=== PATIENT | male | born 1965 | race Caucasian/White ===

== ENCOUNTER 2017-09-27 12:14 | Observation (INO) | payer BC, SELFPAY ==
[2017-09-27] VITALS (11 sets, daily range): BP systolic 115–140; BP diastolic 70–88; PULSE 59–82; RESP 14–18; TEMP 36.4–36.8; O2SAT 95–100; BMI 42.0; BMI 42.1; BMI 41.1
--- NOTE | 2017-09-27 12:23 | CT_ITS ---
STUDY: CT BRAIN WITHOUT CONTRAST REASON FOR EXAM: Male, 52 years old. Confusion. History of prior CVA. RADIATION DOSAGE (If Supplied By Facility): CTDIvol = ( 44.99 ) mGy, DLP = ( 745.49 ) mGycm TECHNIQUE: Transaxial CT imaging of the brain was performed without administration of intravenous contrast material. Individualized dose optimization techniques were used for this CT. COMPARISON: None. FINDINGS: Normal soft tissue structures. Normal calvarium. Normal size ventricles and extra-axial spaces for the patient's age. Normal white matter tracts of the cerebral hemispheres. Normal basal ganglia and thalami. Normal brainstem. Normal cerebellum. There is no intracranial hemorrhage. There are no findings of an acute ischemic infarction. Nodular mucosal thickening along the lateral wall of the left maxillary sinus. CT/Brain/Head without Contrast IMPRESSION: Normal unenhanced CT scan of the brain. Mild mucosal thickening of the left maxillary sinus. Electronically Signed: Kraig Lamb MD at 13:05 EST Tel [phone], Service support ,
--- NOTE | 2017-09-27 12:23 | EKG12_ITS ---
Test Reason : CONFUSION Blood Pressure : / mmHG Vent. Rate : 064 BPM Atrial Rate : 064 BPM P-R Int : 174 ms QRS Dur : 090 ms QT Int : 410 ms P-R-T Axes : 041 -25 -14 degrees QTc Int : 422 ms Normal sinus rhythm Leftward axis Confirmed by OREN JOHNSON, JAMAL ([id number]), script editor PEÑA DUTTA ([id number] on 09/28/2017 2:28:03 PM Referred By: ADA Confirmed By:JAMAL LOTT MD
--- NOTE | 2017-09-27 12:29 | ED.DCSUM_ITS ---
- ER Visit Summary Date of Service: 09/27/17 Chief Complaint: Infusion, unsteady gait, arm numbness History of Present Illness: The patient is a 52 M with history of 2 prior strokes, coronary vascular disease, and diabetes resents to the emergency department with confusion, arm numbness, and leg weakness. The patient symptoms began almost 3 hours ago. noticed that he was begin to have some complaints of some tingling in his left arm. Shortly thereafter, she noticed when he was on the phone he was having some slurred speech and difficulty with word finding. This had resolved. He began to have some worsening numbness in the arm but no definitive weakness. Squad was called. On squad arrival, the patient's weakness had resolved and he was brought in for further evaluation. The patient has had 2 prior strokes. He states his initial stroke presented with unsteady gait. He states his second stroke was more similar to this where he had confusion and fatigue and then ended up with weakness of his left leg. The patient is on aspirin and Plavix. Physical Examination: Initial NIH is 2. The patient receives 1 point for facial paresthesia. He receives 1 point for left leg numbness. He has no other focal neurologic deficits. Heart is regular. Lungs are clear. Abdomen is soft. Mental status is appropriate. Test Results: [] Emergency Department Course and Treatment: The patient has an examination that is concerning for stroke. His NIH is only 2. While in the emergency department , the weakness of his left lower extremity has improved. His repeat NIH is only one for paresthesias of the left arm. His head CT is unremarkable. There is chronic change but no acute abnormality. Screening labs relatively unremarkable. With the patient's history of prior stroke, I do feel he is likely going to need admission for MRI and neurology consultation. His NIH has improved and is less than for therefore TPA was not given. Patient was discussed with the hospitalist will be admitted. Treatment Plan: [] Disposition: [place] Impression:. 1. Left lower extremity weakness 2. Dysarthria 3. History of stroke This note was generated with [employer] software. It may contain incorrect words, spelling, and punctuation that were not noted in review of the chart prior to signing ED Disposition - Plan for ED Patient: Chief Complaint: Confusion Referrals: Rod Elena MD [Primary Care Provider] -
[2017-09-27 12:35] LABS: Bedside Glucose 282 mg/dL (70-110)
--- NOTE | 2017-09-27 12:45 | RAD_ITS ---
STUDY: X-RAY CHEST REASON FOR EXAM: Male, 52 years old. Cough. Confusion. TECHNIQUE: Single AP portable view of the chest. COMPARISON: Comparison is made with prior study dated June 03, 2016. FINDINGS: EKG electrodes are seen. The lungs are clear and expanded. There is no demonstrated pleural abnormality. There is borderline cardiomegaly. A small recording device is seen overlying the mid left hemithorax. Normal mediastinum and shani. Normal visualized pulmonary arteries. Normal visualized aortic arch and descending thoracic aorta. Normal visualized thoracic spine. Normal visualized ribs, clavicles, and shoulders. There is no demonstrated abnormality of the visualized soft tissue structures of the upper abdomen. RAD/Chest 1 View IMPRESSION: Borderline cardiomegaly. Electronically Signed: Kraig Lamb MD at 13:05 EST Tel [phone], Service support ,
[2017-09-27 12:49] LABS: Absolute Lymphocyte Count 2.68 X10^3/ul (0.83-4.51); Absolute Neutrophil Count 5.7 X10^3/uL (2.0-7.7); Basophil# 0.04 X10^3/uL; Basophil% 0.4 % (0-1); Eosinophils% 4.3 % (0-5); Hematocrit 46.9 % (40-54); Hemoglobin 16.3 g/dl (13.0-16.5); Lymphocyte # 2.68 X10^3/ul (4.0); Lymphocyte % 28.6 % (19-41); Mean Corp Hgb Conc 34.8 g/gl (32-36); Mean Corpuscular Volume 80.4 fL (80-94); Mean Platelet Vol. 9.3 fl (6.2-12.0); Monocyte# 0.52 X10^3/uL; Monocyte% 5.5 % (0-10); Neutrophil % 60.9 % (47-70); Platelet Count 184 K/mm3 (150-450); RBC Distribution Width CV 12.4 % (11.6-14.6); RBC Distribution Width SD 35.4 fl (35.1-43.9); Red Blood Count 5.83 M/mm3 (4.6-6.2); White Blood Count 9.4 K/mm3 (4.4-11.0)
[2017-09-27 12:54] LABS: Prothrombin Time (Protime)PT. 13.2 SECONDS (11.7-14.9)
[2017-09-27 12:55] LABS: POSITIVE COUNT NO; POSITIVE DIFFERENTIAL NO; POSITIVE MORPHOLOGY NO
[2017-09-27 13:07] LABS: Anion Gap 12 (5-15); BUN 16 mg/dL (7-18); Chloride 103 mmol/L (98-107); Creatinine, Serum 1.07 mg/dL (0.70-1.30); EST Glomerular Filtration Rate 77 mL/min (>60); Est Glom Filt Rate - Afr Amer 93 mL/min (>60); Estimated Creatinine Clearance 82.44 ml/min; Glucose 267 mg/dL (74-106); Sodium Level 139 mmol/L (136-145)
[2017-09-27] MEDS: 0.9% Normal Saline 1,000 ML 100 ML IV (13:13)
--- NOTE | 2017-09-27 14:42 | PCM.HP.STD ---
Problem List (1) Acute CVA (cerebrovascular accident) Status: Acute (2) Osteoarthritis Status: Chronic (3) Asthma Status: Chronic (4) Anxiety Status: Chronic (5) Tachycardia Status: Chronic (6) CAD (coronary artery disease) Status: Chronic (7) HTN (hypertension) Status: Chronic (8) DM2 (diabetes mellitus, type 2) Status: Chronic (9) History of myocardial infarction Status: Chronic History of Present Illness Date of Admission: 09/27/17 Chief Complaint: left sided weakness The patient is a 52 year old M with a hx of 2 ischemic strokes last year in April and May treated in [place], and severely uncontrolled T2DM, HTN, CAD, who presents to the ER with left sided leg weakness, left hand numbness, in addition to a change in speech reported by his and difficulty understanding speech spoken to him. This began about 10 o clock today suddenly while he was in outpatient PT. His prior strokes presented with acute right sided weakness, his 2nd stroke he was treated with TPA. His speech has improved, and his leg weakness has improved. He still has numbness in his left hand. He has very poorly uncontrolled DMt2 for which he is supposed to see an retail selling specialist in [place] - last A1C 11.5. He is on metformin and long and mealtime insulin. He has been taking aspirin and plavix since the strokes. He is on celebrex for arthritis. He has a loop recorder in place because he was thought to have Afib. He was evaluated by an EP doctor -Bianka - who supposedly said no Afib was seen although he has had tachycardic events. He states he is allowed to have an MRI with his loop recorder. [] Past Medical History Past Medical History (Chronic Problems): Chronic Problems Osteoarthritis (Chronic) Asthma (Chronic) Anxiety (Chronic) Tachycardia (Chronic) CAD (coronary artery disease) (Chronic) HTN (hypertension) (Chronic) DM2 (diabetes mellitus, type 2) (Chronic) History of myocardial infarction (Chronic) Allergies levofloxacin [From Levaquin] Allergy (Verified 09/27/17 14:08) rash,swelling RED RASH, SWELLING Penicillins Allergy (Verified 09/27/17 12:15) Rash Home Medications: Ambulatory Orders Medication Instructions Recorded Febuxostat [Uloric] 40 mg PO DAILY 09/17/14 Albuterol Inhaler [Ventolin Hfa 1 puff INHALATION Q4H PRN PRN 01/28/15 (SP)] Celecoxib [Celebrex] 200 mg PO DAILY 01/28/15 Cyclobenzaprine [Flexeril] 10 mg PO TID PRN PRN 01/28/15 Losartan/Hydrochlorothiazide 1 tab PO DAILY 01/28/15 [Hyzaar 100-25 Tablet] Sertraline HCl [Zoloft] 100 mg PO DAILY 01/28/15 Insulin Detemir [Levemir Flextouch] 36 unit SQ QHS 12/29/15 Insulin Lispro Protamin/Lispro 11 unit SQ DINNER 12/29/15 [Humalog Mix 75-25 Vial] Insulin Lispro Protamin/Lispro 11 unit SQ LUNCH 12/29/15 [Humalog Mix 75-25 Vial] Insulin Lispro Protamin/Lispro 13 unit SQ BREAKFAST 12/29/15 [Humalog Mix 75-25 Vial] Lorazepam [Ativan] 0.5 mg PO DAILY PRN PRN 12/29/15 Metformin HCl [Metformin HCl ER] 2,000 mg PO BID 12/29/15 Aspirin [Adult Low Dose Aspirin EC] 81 mg PO DAILY 06/03/16 Cetirizine HCl [Zyrtec] 10 mg PO DAILY 06/03/16 Atorvastatin Calcium 80 mg PO DAILY 09/27/17 Clopidogrel Bisulfate [Plavix] 75 mg PO DAILY 09/27/17 Diltiazem CD [Cardizem CD] 180 mg PO DAILY 09/27/17 Surgical History: cholecystectomy, - - loop monitor Psychiatric History: Anxiety, Depression Lives: Spouse/ Significant Other Smoking Status: Never smoker Tobacco Use: Non-smoker Alcohol: None Drugs: None - *Family History Sibling History Items: Diabetes, Heart Disease, Hypertension Maternal History Items: Stroke Paternal History Items: Heart Disease Review of Systems Constitutional: Denies: Chills, Fever, Weight Change HEENT: Denies: Head Aches, Sinus Congestion, Sinus Drainage Cardiovascular: Denies: Chest Pain, Palpitations Respiratory: Denies: Cough, Shortness of breath at rest, Sputum production Gastrointestinal: Denies: Abdominal Pain, Nausea, Vomiting Genitourinary: Denies: Dysuria Musculoskeletal: Denies: Joint Pain, Joint Tenderness Skin: Denies: Rash, Wounds Neurological: Denies: Numbness, Tingling, Focal weakness Psychiatric: Denies: Anxiety, Depression, Homicidal Ideations, Suicidal Ideations Hematologic/ Lymphatic: Denies: Easy Bruising, Easy Bleeding VTE Information - Inpt Only VTE Present on Admission: No VTE Mechan Device Prophylaxis: SCD's VTE Pharm Prophylaxis ordered?: Yes Reason prophylaxis not ordered:: Adverse Reaction to Drug Patient Problems: Active and Suspected Problems Acute CVA (cerebrovascular accident) (Acute) - Physical Exam General: Alert, Oriented x3, Cooperative HEENT: Atraumatic, PERRLA, EOMI, Normocephalic Neck: Supple, No JVD, Negative Carotid Bruits Lungs: Clear to auscultation, Normal air movement Cardiovascular: Regular rate, No murmurs Abdomen: Bowel Sounds Present, Soft, Non Tender Extremities: No edema, Capillary Refill Less than 3 Seconds Skin: No rashes, No breakdown Musculoskeletal: No Tenderness to Palpation of Joints or Extremities Neurological: Cranial nerves II-XII grossly intact Psych/Mental Status: Normal Affect, Appropriate Vital Signs Temp Pulse Resp BP Pulse Ox 98.2 F 80 14 132/70 H 98 09/27/17 12:16 09/27/17 14:24 09/27/17 14:24 09/27/17 14:24 09/27/17 14:24 Oxygen Flow Rate 2 Oxygen Delivery Method Room Air Weight: 133 kg Body Mass Index (BMI) 42.0 Finger Stick Blood Glucose 282 Laboratory Tests Past 24 Hrs 09/27/17 09/27/17 09/27/17 12:39 12:39 12:39 WBC 9.4 RBC 5.83 Hgb 16.3 Hct 46.9 MCV 80.4 MCH 28.0 MCHC 34.8 RDW 12.4 RDW Differential 35.4 Plt Count 184 MPV 9.3 Immature Gran % (Auto) 0.300 Neut % (Auto) 60.9 Lymph % (Auto) 28.6 [place] % (Auto) 5.5 Eos % (Auto) 4.3 Baso % (Auto) 0.4 Absolute Neuts (auto) 5.7 Absolute Lymphs (auto) 2.68 Total Counted Not Reportable PT 13.2 INR 1.0 APTT 23.0 L Sodium 139 Potassium 4.0 Chloride 103 Carbon Dioxide 24.0 Anion Gap 12 BUN 16 Creatinine 1.07 Estim Creat Clear Calc 82.44 Est GFR (MDRD) Af Amer 93 Est GFR (MDRD) Non-Af 77 BUN/Creatinine Ratio 15.0 Glucose 267 H Calcium 9.0 Troponin I < 0.02 POC Glucose 09/27/17 12:19 POC Glucose 282 H Assessment/Plan Active and Suspected Problems Acute CVA (cerebrovascular accident) (Acute) 1. Acute CVA - CT brain neg. Left sided leg weakness (resolved), left arm numbness, difficulty speaking and understanding speech (resolved) - prior left sided stroke with right sided symptoms. Consult to neuro, he follows with [facility]. Continue aspirin, plavix, high dose statin. Recently had JEMMA in july so will defer repeating. Defer MRAs for now. Repeat MRI brain. This is likely 2/2 poorly controlled DMt2. Recent A1C 11.5. -MRI from April 2017 demonstrates small area of resected effusion in the left parietal periventricular white matter compatible with an area of subacute infarct -MRI of the brain in June demonstrated an old small white matter infarct in left parietal lobe -MRA neck april negative. 2. T2DM - change levemir dose to BID scheduling. Will continue metformin for now. Continue TID mealtime dosing and aggressively titrate up his insulin regimen. 3. HTN - stable in ER. On HCTZ/Losartan 4. Asthma - respiratory status stable. 5. Unspecified tachyarrhythmia - has loop recorder, reportedly no Afib. Maintain on tele. Continue Cardizem. 6. Anxiety - home meds 7. Hx CAD 8. Arthritis - discontinue celebrex as it is contraindicated with aspirin/plavix, stroke, and CAD. DVT ppx: lovenox DC planning: PTOT This patient was seen by Thom Flores PA-C under the supervision of Doctor Lewis.
--- NOTE | 2017-09-27 14:54 | HP.PCM_ITS ---
Problem List (1) Acute CVA (cerebrovascular accident) Status: Acute (2) Osteoarthritis Status: Chronic (3) Asthma Status: Chronic (4) Anxiety Status: Chronic (5) Tachycardia Status: Chronic (6) CAD (coronary artery disease) Status: Chronic (7) HTN (hypertension) Status: Chronic (8) DM2 (diabetes mellitus, type 2) Status: Chronic (9) History of myocardial infarction Status: Chronic History of Present Illness Date of Admission: 09/27/17 Chief Complaint: left sided weakness The patient is a 52 year old M with a hx of 2 ischemic strokes last year in April and May treated in [place], and severely uncontrolled T2DM, HTN, CAD , who presents to the ER with left sided leg weakness, left hand numbness, in addition to a change in speech reported by his and difficulty understanding speech spoken to him. This began about 10 o clock today suddenly while he was in outpatient PT. His prior strokes presented with acute right sided weakness, his 2nd stroke he was treated with TPA. His speech has improved , and his leg weakness has improved. He still has numbness in his left hand. He has very poorly uncontrolled DMt2 for which he is supposed to see an security trainer in [place] - last A1C 11.5. He is on metformin and long and mealtime insulin. He has been taking aspirin and plavix since the strokes. He is on celebrex for arthritis. He has a loop recorder in place because he was thought to have Afib. He was evaluated by an EP doctor -Bianka - who supposedly said no Afib was seen although he has had tachycardic events. He states he is allowed to have an MRI with his loop recorder. [] Past Medical History Past Medical History (Chronic Problems): Chronic Problems Osteoarthritis (Chronic) Asthma (Chronic) Anxiety (Chronic) Tachycardia (Chronic) CAD (coronary artery disease) (Chronic) HTN (hypertension) (Chronic) DM2 (diabetes mellitus, type 2) (Chronic) History of myocardial infarction (Chronic) Allergies levofloxacin [From Levaquin] Allergy (Verified 09/27/17 14:08) rash,swelling RED RASH, SWELLING Penicillins Allergy (Verified 09/27/17 12:15) Rash Home Medications: Ambulatory Orders Medication Instructions Recorded Febuxostat [Uloric] 40 mg PO DAILY 09/17/14 Albuterol Inhaler [Ventolin Hfa 1 puff INHALATION Q4H PRN PRN 01/28/15 (SP)] Celecoxib [Celebrex] 200 mg PO DAILY 01/28/15 Cyclobenzaprine [Flexeril] 10 mg PO TID PRN PRN 01/28/15 Losartan/Hydrochlorothiazide 1 tab PO DAILY 01/28/15 [Hyzaar 100-25 Tablet] Sertraline HCl [Zoloft] 100 mg PO DAILY 01/28/15 Insulin Detemir [Levemir Flextouch] 36 unit SQ QHS 12/29/15 Insulin Lispro Protamin/Lispro 11 unit SQ DINNER 12/29/15 [Humalog Mix 75-25 Vial] Insulin Lispro Protamin/Lispro 11 unit SQ LUNCH 12/29/15 [Humalog Mix 75-25 Vial] Insulin Lispro Protamin/Lispro 13 unit SQ BREAKFAST 12/29/15 [Humalog Mix 75-25 Vial] Lorazepam [Ativan] 0.5 mg PO DAILY PRN PRN 12/29/15 Metformin HCl [Metformin HCl ER] 2,000 mg PO BID 12/29/15 Aspirin [Adult Low Dose Aspirin EC] 81 mg PO DAILY 06/03/16 Cetirizine HCl [Zyrtec] 10 mg PO DAILY 06/03/16 Atorvastatin Calcium 80 mg PO DAILY 09/27/17 Clopidogrel Bisulfate [Plavix] 75 mg PO DAILY 09/27/17 Diltiazem CD [Cardizem CD] 180 mg PO DAILY 09/27/17 Surgical History: cholecystectomy, - - loop monitor Psychiatric History: Anxiety, Depression Lives: Spouse/ Significant Other Smoking Status: Never smoker Tobacco Use: Non-smoker Alcohol: None Drugs: None - *Family History Sibling History Items: Diabetes, Heart Disease, Hypertension Maternal History Items: Stroke Paternal History Items: Heart Disease Review of Systems Constitutional: Denies: Chills, Fever, Weight Change HEENT: Denies: Head Aches, Sinus Congestion, Sinus Drainage Cardiovascular: Denies: Chest Pain, Palpitations Respiratory: Denies: Cough, Shortness of breath at rest, Sputum production Gastrointestinal: Denies: Abdominal Pain, Nausea, Vomiting Genitourinary: Denies: Dysuria Musculoskeletal: Denies: Joint Pain, Joint Tenderness Skin: Denies: Rash, Wounds Neurological: Denies: Numbness, Tingling, Focal weakness Psychiatric: Denies: Anxiety, Depression, Homicidal Ideations, Suicidal Ideations Hematologic/ Lymphatic: Denies: Easy Bruising, Easy Bleeding VTE Information - Inpt Only VTE Present on Admission: No VTE Mechan Device Prophylaxis: SCD's VTE Pharm Prophylaxis ordered?: Yes Reason prophylaxis not ordered:: Adverse Reaction to Drug Patient Problems: Active and Suspected Problems Acute CVA (cerebrovascular accident) (Acute) - Physical Exam General: Alert, Oriented x3, Cooperative HEENT: Atraumatic, PERRLA, EOMI, Normocephalic Neck: Supple, No JVD, Negative Carotid Bruits Lungs: Clear to auscultation, Normal air movement Cardiovascular: Regular rate, No murmurs Abdomen: Bowel Sounds Present, Soft, Non Tender Extremities: No edema, Capillary Refill Less than 3 Seconds Skin: No rashes, No breakdown Musculoskeletal: No Tenderness to Palpation of Joints or Extremities Neurological: Cranial nerves II-XII grossly intact Psych/Mental Status: Normal Affect, Appropriate Vital Signs Temp Pulse Resp BP Pulse Ox 98.2 F 80 14 132/70 H 98 09/27/17 12:16 09/27/17 14:24 09/27/17 14:24 09/27/17 14:24 09/27/17 14:24 Oxygen Flow Rate 2 Oxygen Delivery Method Room Air Weight: 133 kg Body Mass Index (BMI) 42.0 Finger Stick Blood Glucose 282 Laboratory Tests Past 24 Hrs 09/27/17 09/27/17 09/27/17 12:39 12:39 12:39 WBC 9.4 RBC 5.83 Hgb 16.3 Hct 46.9 MCV 80.4 MCH 28.0 MCHC 34.8 RDW 12.4 RDW Differential 35.4 Plt Count 184 MPV 9.3 Immature Gran % (Auto) 0.300 Neut % (Auto) 60.9 Lymph % (Auto) 28.6 [place] % (Auto) 5.5 Eos % (Auto) 4.3 Baso % (Auto) 0.4 Absolute Neuts (auto) 5.7 Absolute Lymphs (auto) 2.68 Total Counted Not Reportable PT 13.2 INR 1.0 APTT 23.0 L Sodium 139 Potassium 4.0 Chloride 103 Carbon Dioxide 24.0 Anion Gap 12 BUN 16 Creatinine 1.07 Estim Creat Clear Calc 82.44 Est GFR (MDRD) Af Amer 93 Est GFR (MDRD) Non-Af 77 BUN/Creatinine Ratio 15.0 Glucose 267 H Calcium 9.0 Troponin I < 0.02 POC Glucose 09/27/17 12:19 POC Glucose 282 H Assessment/Plan Active and Suspected Problems Acute CVA (cerebrovascular accident) (Acute) 1. Acute CVA - CT brain neg. Left sided leg weakness (resolved), left arm numbness, difficulty speaking and understanding speech (resolved) - prior left sided stroke with right sided symptoms. Consult to neuro, he follows with [place] [facility]. Continue aspirin, plavix, high dose statin. Recently had JEMMA in july so will defer repeating. Defer MRAs for now. Repeat MRI brain. This is likely 2/2 poorly controlled DMt2. Recent A1C 11.5. -MRI from April 2017 demonstrates small area of resected effusion in the left parietal periventricular white matter compatible with an area of subacute infarct -MRI of the brain in June demonstrated an old small white matter infarct in left parietal lobe -MRA neck april negative. 2. T2DM - change levemir dose to BID scheduling. Will continue metformin for now. Continue TID mealtime dosing and aggressively titrate up his insulin regimen. 3. HTN - stable in ER. On HCTZ/Losartan 4. Asthma - respiratory status stable. 5. Unspecified tachyarrhythmia - has loop recorder, reportedly no Afib. Maintain on tele. Continue Cardizem. 6. Anxiety - home meds 7. Hx CAD 8. Arthritis - discontinue celebrex as it is contraindicated with aspirin/plavix , stroke, and CAD. DVT ppx: lovenox DC planning: PTOT This patient was seen by Thom Flores PA-C under the supervision of Doctor Lewis.
--- NOTE | 2017-09-27 15:55 | MRI_ITS ---
MR Brain W/O Contrast INDICATION: CVAleft sided weakness, speech change today, hx 2 prev strokes with rt sided weakness 04/2017 and 06/2017 COMPARISON: None TECHNIQUE: Multiplanar multisequence MRI examination of the brain without contrast FINDINGS: There is no evidence of restricted diffusion to suggest acute infarction. There is a focal area of signal hyperintensity in the left parietal white matter, compatible with given history of prior focal infarct. There are no underlying chronic ischemic microvascular white matter changes of the supra and infratentorial brain parenchyma demonstrates otherwise normal signal. Flow voids of the [place] of [place] vascularity are present. There is mucosal thickening in the left maxillary sinus. Reminder of the paranasal sinuses and the mastoid air cells are clear. MRI/Brain without Contrast IMPRESSION: Small focal signal hyperintensity in the left parietal white matter, may represent a remote focal area of infarction, given the patient's history. No acute stroke. Left maxillary sinus disease. at 1834 Reported and signed by: Liz Drake MD Electronically Signed: Liz Drake MD at 17:32 EST Tel , Service support ,
[2017-09-27 16:11] LABS: Bedside Glucose 151 mg/dL (70-110)
--- NOTE | 2017-09-27 16:32 | NURSING ---
Home med list updated, primary nurse aware.
[2017-09-27] MEDS: Acetaminophen 325 MG Tablet 650 MG PO (21:18)
[2017-09-27 23:06] LABS: Bedside Glucose 134 mg/dL (70-110)
[2017-09-28] VITALS (9 sets, daily range): BP systolic 108–145; BP diastolic 64–92; PULSE 71–87; RESP 16–18; TEMP 36.7–36.9; O2SAT 95–98; BMI 41.1
[2017-09-28 07:01] LABS: Bedside Glucose 257 mg/dL (70-110)
--- NOTE | 2017-09-28 09:29 | MRI_ITS ---
STUDY: MRI CERVICAL SPINE WITHOUT CONTRAST REASON FOR EXAM: Male, 52 years old. L SIDED WAEKNESS, NUMBNESS AND TINGLING. TECHNIQUE: Standardized fat and water weighted pulse sequences were obtained in the sagittal and axial planes. COMPARISON: None FINDINGS: Normal foramen magnum and brainstem-cervical cord junction. Normal craniovertebral junction. Normal anterior atlantoaxial articulation. Normal odontoid process. Normal cervical lordosis. Normal vertebral bodies and posterior osseous elements. C2-3: Normal endplates. Normal disc height, signal and morphology. Normal central canal and intervertebral neural foramina. C3-4: Normal endplates. Normal disc height, signal and morphology. Normal central canal and intervertebral neural foramina. C4-5: Normal endplates. Normal disc height, signal and morphology. Normal central canal and intervertebral neural foramina. C5-6: Normal endplates. Normal disc height, signal and morphology. Normal central canal and intervertebral neural foramina. C6-7: Normal endplates. Normal disc height, signal and morphology. Normal central canal and intervertebral neural foramina. C7-T1: Normal endplates. Normal disc height, signal and morphology. Normal central canal and intervertebral neural foramina. Normal cervical cord. Normal visualized soft tissue structures. MRI/Spine Cervical (Routine) IMPRESSION: Normal unenhanced MR examination of the cervical spine. Electronically Signed: Constantine Weaver MD at 13:40 EST Tel , Service support ,
--- NOTE | 2017-09-28 10:12 | MRI_ITS ---
STUDY: MRI LUMBAR SPINE WITHOUT CONTRAST REASON FOR EXAM: Male, 52 years old. Leg weakness L SIDED WAEKNESS, NUMBNESS AND TINGLING, H/O PRIOR STROKE BUT ON OPPOSITE SIDE TECHNIQUE: Standardized fat and water weighted pulse sequences were obtained in the sagittal and axial planes. COMPARISON: None FINDINGS: T12-L1: Normal endplates. Normal disc height, hydration and morphology. Normal bilateral facet joints. Normal central canal and bilateral lateral recesses. Normal bilateral intervertebral neural foramina. Normal lumbar lordosis. There is no substantial scoliosis. Normal conus medullaris that terminates at the L1 level. L1-2: Normal endplates. Normal disc height, hydration and morphology. Normal bilateral facet joints. Normal central canal and bilateral lateral recesses. Normal bilateral intervertebral neural foramina. L2-3: Endplate spondylosis. Decreased disc height and small circumferential disc bulge. Degenerative changes of the bilateral facet joints. Mild narrowing of the central canal and bilateral intervertebral neural foramina. L3-4: Endplate spondylosis. Decreased disc height and moderate sized circumferential disc bulge. Degenerative changes of the bilateral facet joints. Moderate narrowing of the central canal and bilateral intervertebral neural foramina. L4-5: Endplate spondylosis. Decreased disc height and moderate sized circumferential disc bulge. Superimposed left foraminal disc herniation impinging on the left L4 nerve root. Degenerative changes of the bilateral facet joints. Severe narrowing of the central canal. Moderate right and severe left intervertebral neural foramina. L5-S1: Endplate spondylosis. Decreased disc height and small circumferential disc bulge. Degenerative changes of the bilateral facet joints. Mild narrowing of the central canal and bilateral intervertebral neural foramina. Normal visualized sacral ala. There is a right renal cyst. MRI/Spine Lumbar (Routine) IMPRESSION: Multilevel degenerative changes worse at L4-5, left foraminal disc herniation at L4-5 as described above. Electronically Signed: Constantine Weaver MD at 20:12 EST Tel , Service support ,
[2017-09-28] MEDS: Aspirin E.C. 81 MG Tablet PO (10:21)
[2017-09-28] MEDS: FEBUXOSTAT 40 MG TABLET PO (10:21)
[2017-09-28] MEDS: dilTIAZem CD 180 MG Capsule PO (10:21)
[2017-09-28] MEDS: hydroCHLOROthiazide 25 MG Tablet PO (10:21)
[2017-09-28] MEDS: Clopidogrel Bisulfate 75 MG Tablet PO (10:21)
[2017-09-28] MEDS: Sertraline 100 MG Tablet PO (10:21)
[2017-09-28] MEDS: Losartan Potassium 100 MG Tablet PO (10:22)
[2017-09-28 11:01] LABS: Thyroid Stim Hormone (TSH) 1.61 uIU/mL (0.358-3.74)
[2017-09-28 12:35] LABS: Bedside Glucose 286 mg/dL (70-110)
--- NOTE | 2017-09-28 12:49 | PCM.CONS.GEN ---
Reason for Consult Date of Consultation: 09/28/17 Reason for Consultation: left sided tingling and weakness History of Present Illness: The patient is a 52 year old M presents with his second episode of left sided paresthesias, the 1st event happened several months ago, reports resolved after ivtpa given at [facility] however mri at that time didnt show acute stroke, he did however have a stroke prior, in apr have a cva, from which he has recovered, but this affected the right side. denies trigger. reports bp has been controlled at home, until two days ago. sugars uncontrolled. no tob, no etoh. reports anxiety and depression controlled. has been told to have psg in the past, snores and has eds per h&p-:The patient is a 52 year old M with a hx of 2 ischemic strokes last year in April and May treated in [place], and severely uncontrolled T2DM, HTN, CAD, who presents to the ER with left sided leg weakness, left hand numbness, in addition to a change in speech reported by his and difficulty understanding speech spoken to him. This began about 10 o clock today suddenly while he was in outpatient PT. His prior strokes presented with acute right sided weakness, his 2nd stroke he was treated with TPA. His speech has improved, and his leg weakness has improved. He still has numbness in his left hand. He has very poorly uncontrolled DMt2 for which he is supposed to see an smt technician in [place] - last A1C 11.5. He is on metformin and long and mealtime insulin. He has been taking aspirin and plavix since the strokes. He is on celebrex for arthritis. He has a loop recorder in place because he was thought to have Afib. He was evaluated by an EP doctor -Bianka - who supposedly said no Afib was seen although he has had tachycardic events. He states he is allowed to have an MRI with his loop recorder. Past Medical History Past Medical History (Chronic Problems): Chronic Problems Osteoarthritis (Chronic) Asthma (Chronic) Anxiety (Chronic) Tachycardia (Chronic) CAD (coronary artery disease) (Chronic) HTN (hypertension) (Chronic) DM2 (diabetes mellitus, type 2) (Chronic) History of myocardial infarction (Chronic) Allergies levofloxacin [From Levaquin] Allergy (Verified 09/27/17 14:08) rash,swelling RED RASH, SWELLING Penicillins Allergy (Verified 09/27/17 12:15) Rash Home Medications: Ambulatory Orders Medication Instructions Recorded Febuxostat [Uloric] 40 mg PO DAILY 09/17/14 Albuterol Inhaler [Ventolin Hfa 1 puff INHALATION Q4H PRN PRN 01/28/15 (SP)] Celecoxib [Celebrex] 200 mg PO BID 01/28/15 Cyclobenzaprine [Flexeril] 10 mg PO TID PRN PRN 01/28/15 Losartan/Hydrochlorothiazide 1 tab PO DAILY 01/28/15 [Hyzaar 100-25 Tablet] Sertraline HCl [Zoloft] 200 mg PO DAILY 01/28/15 Insulin Detemir [Levemir Flextouch] 56 unit SQ QHS 12/29/15 Lorazepam [Ativan] 0.5 mg PO Q6H PRN PRN 12/29/15 Metformin HCl [Metformin HCl ER] 2,000 mg PO BID 12/29/15 Aspirin [Adult Low Dose Aspirin EC] 81 mg PO DAILY 06/03/16 Cetirizine HCl [Zyrtec] 10 mg PO DAILY 06/03/16 Atorvastatin Calcium 80 mg PO QHS 09/27/17 Clopidogrel Bisulfate [Plavix] 75 mg PO DAILY 09/27/17 Diltiazem HCl [Diltiazem 12Hr ER] 60 mg PO BID 09/27/17 Insulin Lispro [Humalog] 28 unit SC TIDCM 09/27/17 Surgical History: cholecystectomy, - - loop monitor Psychiatric History: Anxiety, Depression Lives: Spouse/ Significant Other Smoking Status: Never smoker Tobacco Use: Non-smoker Alcohol: None Drugs: None - *Family History Maternal History Items: Stroke Paternal History Items: Heart Disease Sibling History Items: Diabetes, Heart Disease, Hypertension Review of Systems Constitutional: Denies: Chills, Fever, Weight Change HEENT: Denies: Head Aches, Sinus Congestion, Sinus Drainage Cardiovascular: Denies: Chest Pain, Palpitations Respiratory: Denies: Cough, Shortness of breath at rest, Sputum production Gastrointestinal: Denies: Abdominal Pain, Nausea, Vomiting Genitourinary: Denies: Dysuria Musculoskeletal: Denies: Joint Pain, Joint Tenderness Skin: Denies: Rash, Wounds Neurological: Denies: Numbness, Tingling, Focal weakness Psychiatric: Denies: Anxiety, Depression, Homicidal Ideations, Suicidal Ideations Hematologic/ Lymphatic: Denies: Easy Bruising, Easy Bleeding Patient Problems: Active and Suspected Problems Acute CVA (cerebrovascular accident) (Acute) - Physical Exam General: Alert, Oriented x3, Cooperative HEENT: Atraumatic, PERRLA, EOMI, Normocephalic Neck: Supple, No JVD, Negative Carotid Bruits Lungs: Clear to auscultation, Normal air movement Cardiovascular: Regular rate, No murmurs Abdomen: Bowel Sounds Present, Soft, Non Tender Extremities: No edema, Capillary Refill Less than 3 Seconds Skin: No rashes, No breakdown Musculoskeletal: No Tenderness to Palpation of Joints or Extremities Neurological: Cranial nerves II-XII grossly intact Psych/Mental Status: Normal Affect, Appropriate Vital Signs Temp Pulse Resp BP Pulse Ox 36.7 C 71 16 145/92 H 97 09/28/17 08:00 09/28/17 08:00 09/28/17 08:00 09/28/17 08:00 09/28/17 08:00 Oxygen Delivery Method Room Air Weight: 133.7 kg Body Mass Index (BMI) 41.1 Intake and Output for Last 24 Hours 09/26/17 09/27/17 09/28/17 23:59 23:59 23:59 Intake Total 878 / 878 1231 / 1231 Output Total 800 / 800 Balance 878 / 878 431 / 431 POC Glucose 09/28/17 09/28/17 09/27/17 12:21 06:48 21:10 POC Glucose 286 H 257 H 134 H 09/27/17 16:07 POC Glucose 151 H mri brain and c and l spine normal, reviewed, no acute Assessment/Plan Active and Suspected Problems Acute CVA (cerebrovascular accident) (Acute) left paresthesias, no cva by mri, continue asa outpt psg initiate qhs elavil pt/ot ok to dc from neuro rec strict bs and bp control
--- NOTE | 2017-09-28 12:52 | PCM.PROGNOTE ---
<Thom Flores - Last Filed: 09/28/17 12:52> Patient Problems: Active and Suspected Problems Acute CVA (cerebrovascular accident) (Acute) Subjective: Patient continues to report left-sided numbness in his hand, weakness in his left leg. He had some dizziness today as well when he was up. No speech difficulties reported, and does not seem to be having trouble understanding conversation. No nausea or vomiting. He presented with new onset of speech difficulties, difficulty understanding what some he was saying to him on the phone, left leg weakness and left hand numbness. This is different than his prior strokes which he had symptoms on the right side. Symptoms were sudden onset yesterday morning during physical therapy as an outpatient. He was pleased that his blood sugar reading this morning came in under 200, he has not seen his blood sugar under 200 and a long time. He also requested to follow-up with an endocrinology office in the area as he has not been able to get into the car framer in [place]. I would recommend him seeing [facility] shock here was to hospital after his discharge. - Physical Exam General: Alert, Oriented x3, Cooperative HEENT: Atraumatic, PERRLA, EOMI, Normocephalic Neck: Supple, No JVD, Negative Carotid Bruits, - - No focal tenderness on palpation of the cervical spine Lungs: Clear to auscultation, Normal air movement Cardiovascular: Regular rate, No murmurs Abdomen: Bowel Sounds Present, Soft, Non Tender Extremities: No edema, Capillary Refill Less than 3 Seconds Skin: No rashes, No breakdown Musculoskeletal: No Tenderness to Palpation of Joints or Extremities Neurological: Cranial nerves II-XII grossly intact, - - Some pain reported on extension of the neck. Negative Spurling maneuver. 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 He has weakness in his left leg with raising his leg. Psych/Mental Status: Normal Affect, Appropriate, Alert and oriented to time, place, person, mood and affect Vital Signs Temp Pulse Resp BP Pulse Ox 98.1 F 71 16 145/92 H 97 09/28/17 08:00 09/28/17 08:00 09/28/17 08:00 09/28/17 08:00 09/28/17 08:00 Oxygen Delivery Method Room Air Weight: 133.7 kg Body Mass Index (BMI) 41.1 Intake and Output for Last 24 Hours 09/26/17 09/27/17 09/28/17 23:59 23:59 23:59 Intake Total 878 / 878 1231 / 1231 Output Total 800 / 800 Balance 878 / 878 431 / 431 POC Glucose 09/28/17 09/28/17 09/27/17 12:21 06:48 21:10 POC Glucose 286 H 257 H 134 H 09/27/17 16:07 POC Glucose 151 H Assessment/Plan Active and Suspected Problems Acute CVA (cerebrovascular accident) (Acute) 1. Acute left-sided weakness-MRI of the brain does not demonstrate an acute stroke CT brain negative at admission. He continues to have left leg weakness, there is weakness in his left hand on exam today, and reported still numbness in his left hand. He also has dizziness when he is up ambulating. - prior left sided stroke with right sided symptoms. He is a patient of [place] [facility], consult is pending.. Continue aspirin, plavix, high dose statin. Recently had JEMMA in july so will defer repeating. Defer MRAs for now. He is a very poorly controlled diabetic with a recent A1c of 11.5. -Today he will undergo an MRI of the cervical and lumbar spine to see if the above symptoms are of radicular etiology -PT OT ST has been ordered -TSH normal -Troponin normal 2. T2DM -twice daily Levemir. 3 times daily insulin dosing. Titrating insulin therapy. Metformin. Again recent A1c of 11.5. 3. HTN - fluctuant from normal to somewhat elevated. Will trend for now. On HCTZ/Losartan 4. Asthma - respiratory status stable. 5. Unspecified tachyarrhythmia - has loop recorder, reportedly no Afib. Maintain on tele. Continue Cardizem. 6. Anxiety/Depression - home meds 7. Hx CAD aspirin, plavix, statin, losartan 8. Arthritis - discontinued celebrex as it is contraindicated with aspirin/plavix, stroke, and CAD. DVT ppx: heparin DC planning: PTOT This patient was seen by Thom Flores PA-C under the supervision of Doctor Norberto. <NorbertoBranson - Last Filed: 09/28/17 16:42> - Physical Exam Vital Signs Temp Pulse Resp BP Pulse Ox 98.2 F 77 16 120/68 96 09/28/17 16:00 09/28/17 16:00 09/28/17 16:00 09/28/17 16:00 09/28/17 16:00 Oxygen Delivery Method Room Air Weight: 133.7 kg Body Mass Index (BMI) 41.1 Intake and Output for Last 24 Hours 09/26/17 09/27/17 09/28/17 23:59 23:59 23:59 Intake Total 878 / 878 1231 / 1231 Output Total 800 / 800 Balance 878 / 878 431 / 431 POC Glucose 09/28/17 09/28/17 09/27/17 12:21 06:48 21:10 POC Glucose 286 H 257 H 134 H Assessment/Plan This patient was seen in conjunction with MONY Werner. I have independently interviewed and examined the patient and reviewed pertinent historical, laboratory, and other data. Please refer to his note for details of this patient's presentation, findings, and recommendations. I have reviewed his note and concur with documentation. Patient complains of worsening LUE tingling and numbness as well as LLE weakness. Denies neck pain. Hx of chronic injury to his back. Complains of fatigue. Admits to being depressed; recently his meds were changed( about 1 and half months ago), exam shows decreased sensation to the LUE and weakness of left lower extremity. Will get MRI cervical spine and lumbar spine. Code Visit Inpatient E&M: 98245 Subs Hosp L2
--- NOTE | 2017-09-28 12:58 | CON.PCM_ITS ---
Reason for Consult Date of Consultation: 09/28/17 Reason for Consultation: left sided tingling and weakness History of Present Illness: The patient is a 52 year old M presents with his second episode of left sided paresthesias, the 1st event happened several months ago, reports resolved after ivtpa given at [facility] however mri at that time didnt show acute stroke, he did however have a stroke prior, in apr have a cva, from which he has recovered, but this affected the right side. denies trigger. reports bp has been controlled at home, until two days ago. sugars uncontrolled. no tob, no etoh. reports anxiety and depression controlled. has been told to have psg in the past, snores and has eds per h&p-:The patient is a 52 year old M with a hx of 2 ischemic strokes last year in April and May treated in [place], and severely uncontrolled T2DM, HTN, CAD, who presents to the ER with left sided leg weakness, left hand numbness, in addition to a change in speech reported by his and difficulty understanding speech spoken to him. This began about 10 o clock today suddenly while he was in outpatient PT. His prior strokes presented with acute right sided weakness, his 2nd stroke he was treated with TPA. His speech has improved , and his leg weakness has improved. He still has numbness in his left hand. He has very poorly uncontrolled DMt2 for which he is supposed to see an safety sitter in [place] - last A1C 11.5. He is on metformin and long and mealtime insulin. He has been taking aspirin and plavix since the strokes. He is on celebrex for arthritis. He has a loop recorder in place because he was thought to have Afib. He was evaluated by an EP doctor -Bianka - who supposedly said no Afib was seen although he has had tachycardic events. He states he is allowed to have an MRI with his loop recorder. Past Medical History Past Medical History (Chronic Problems): Chronic Problems Osteoarthritis (Chronic) Asthma (Chronic) Anxiety (Chronic) Tachycardia (Chronic) CAD (coronary artery disease) (Chronic) HTN (hypertension) (Chronic) DM2 (diabetes mellitus, type 2) (Chronic) History of myocardial infarction (Chronic) Allergies levofloxacin [From Levaquin] Allergy (Verified 09/27/17 14:08) rash,swelling RED RASH, SWELLING Penicillins Allergy (Verified 09/27/17 12:15) Rash Home Medications: Ambulatory Orders Medication Instructions Recorded Febuxostat [Uloric] 40 mg PO DAILY 09/17/14 Albuterol Inhaler [Ventolin Hfa 1 puff INHALATION Q4H PRN PRN 01/28/15 (SP)] Celecoxib [Celebrex] 200 mg PO BID 01/28/15 Cyclobenzaprine [Flexeril] 10 mg PO TID PRN PRN 01/28/15 Losartan/Hydrochlorothiazide 1 tab PO DAILY 01/28/15 [Hyzaar 100-25 Tablet] Sertraline HCl [Zoloft] 200 mg PO DAILY 01/28/15 Insulin Detemir [Levemir Flextouch] 56 unit SQ QHS 12/29/15 Lorazepam [Ativan] 0.5 mg PO Q6H PRN PRN 12/29/15 Metformin HCl [Metformin HCl ER] 2,000 mg PO BID 12/29/15 Aspirin [Adult Low Dose Aspirin EC] 81 mg PO DAILY 06/03/16 Cetirizine HCl [Zyrtec] 10 mg PO DAILY 06/03/16 Atorvastatin Calcium 80 mg PO QHS 09/27/17 Clopidogrel Bisulfate [Plavix] 75 mg PO DAILY 09/27/17 Diltiazem HCl [Diltiazem 12Hr ER] 60 mg PO BID 09/27/17 Insulin Lispro [Humalog] 28 unit SC TIDCM 09/27/17 Surgical History: cholecystectomy, - - loop monitor Psychiatric History: Anxiety, Depression Lives: Spouse/ Significant Other Smoking Status: Never smoker Tobacco Use: Non-smoker Alcohol: None Drugs: None - *Family History Maternal History Items: Stroke Paternal History Items: Heart Disease Sibling History Items: Diabetes, Heart Disease, Hypertension Review of Systems Constitutional: Denies: Chills, Fever, Weight Change HEENT: Denies: Head Aches, Sinus Congestion, Sinus Drainage Cardiovascular: Denies: Chest Pain, Palpitations Respiratory: Denies: Cough, Shortness of breath at rest, Sputum production Gastrointestinal: Denies: Abdominal Pain, Nausea, Vomiting Genitourinary: Denies: Dysuria Musculoskeletal: Denies: Joint Pain, Joint Tenderness Skin: Denies: Rash, Wounds Neurological: Denies: Numbness, Tingling, Focal weakness Psychiatric: Denies: Anxiety, Depression, Homicidal Ideations, Suicidal Ideations Hematologic/ Lymphatic: Denies: Easy Bruising, Easy Bleeding Patient Problems: Active and Suspected Problems Acute CVA (cerebrovascular accident) (Acute) - Physical Exam General: Alert, Oriented x3, Cooperative HEENT: Atraumatic, PERRLA, EOMI, Normocephalic Neck: Supple, No JVD, Negative Carotid Bruits Lungs: Clear to auscultation, Normal air movement Cardiovascular: Regular rate, No murmurs Abdomen: Bowel Sounds Present, Soft, Non Tender Extremities: No edema, Capillary Refill Less than 3 Seconds Skin: No rashes, No breakdown Musculoskeletal: No Tenderness to Palpation of Joints or Extremities Neurological: Cranial nerves II-XII grossly intact Psych/Mental Status: Normal Affect, Appropriate Vital Signs Temp Pulse Resp BP Pulse Ox 36.7 C 71 16 145/92 H 97 09/28/17 08:00 09/28/17 08:00 09/28/17 08:00 09/28/17 08:00 09/28/17 08:00 Oxygen Delivery Method Room Air Weight: 133.7 kg Body Mass Index (BMI) 41.1 Intake and Output for Last 24 Hours 09/26/17 09/27/17 09/28/17 23:59 23:59 23:59 Intake Total 878 / 878 1231 / 1231 Output Total 800 / 800 Balance 878 / 878 431 / 431 POC Glucose 09/28/17 09/28/17 09/27/17 12:21 06:48 21:10 POC Glucose 286 H 257 H 134 H 09/27/17 16:07 POC Glucose 151 H mri brain and c and l spine normal, reviewed, no acute Assessment/Plan Active and Suspected Problems Acute CVA (cerebrovascular accident) (Acute) left paresthesias, no cva by mri, continue asa outpt psg initiate qhs elavil pt/ot ok to dc from neuro rec strict bs and bp control
--- NOTE | 2017-09-28 13:01 | PN_ITS ---
<Thom Flores - Last Filed: 09/28/17 12:52> Patient Problems: Active and Suspected Problems Acute CVA (cerebrovascular accident) (Acute) Subjective: Patient continues to report left-sided numbness in his hand, weakness in his left leg. He had some dizziness today as well when he was up. No speech difficulties reported, and does not seem to be having trouble understanding conversation. No nausea or vomiting. He presented with new onset of speech difficulties, difficulty understanding what some he was saying to him on the phone, left leg weakness and left hand numbness. This is different than his prior strokes which he had symptoms on the right side. Symptoms were sudden onset yesterday morning during physical therapy as an outpatient. He was pleased that his blood sugar reading this morning came in under 200, he has not seen his blood sugar under 200 and a long time. 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 I would recommend him seeing BJ shock here was to hospital after his discharge. - Physical Exam General: Alert, Oriented x3, Cooperative HEENT: Atraumatic, PERRLA, EOMI, Normocephalic Neck: Supple, No JVD, Negative Carotid Bruits, - - No focal tenderness on palpation of the cervical spine Lungs: Clear to auscultation, Normal air movement Cardiovascular: Regular rate, No murmurs Abdomen: Bowel Sounds Present, Soft, Non Tender Extremities: No edema, Capillary Refill Less than 3 Seconds Skin: No rashes, No breakdown Musculoskeletal: No Tenderness to Palpation of Joints or Extremities Neurological: Cranial nerves II-XII grossly intact, - - Some pain reported on extension of the neck. Negative Spurling maneuver. 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 He has weakness in his left leg with raising his leg. Psych/Mental Status: Normal Affect, Appropriate, Alert and oriented to time, place, person, mood and affect Vital Signs Temp Pulse Resp BP Pulse Ox 98.1 F 71 16 145/92 H 97 09/28/17 08:00 09/28/17 08:00 09/28/17 08:00 09/28/17 08:00 09/28/17 08:00 Oxygen Delivery Method Room Air Weight: 133.7 kg Body Mass Index (BMI) 41.1 Intake and Output for Last 24 Hours 09/26/17 09/27/17 09/28/17 23:59 23:59 23:59 Intake Total 878 / 878 1231 / 1231 Output Total 800 / 800 Balance 878 / 878 431 / 431 POC Glucose 09/28/17 09/28/17 09/27/17 12:21 06:48 21:10 POC Glucose 286 H 257 H 134 H 09/27/17 16:07 POC Glucose 151 H Assessment/Plan Active and Suspected Problems Acute CVA (cerebrovascular accident) (Acute) 1. Acute left-sided weakness-MRI of the brain does not demonstrate an acute stroke CT brain negative at admission. He continues to have left leg weakness, there is weakness in his left hand on exam today, and reported still numbness in his left hand. He also has dizziness when he is up ambulating. - prior left sided stroke with right sided symptoms. He is a patient of [place] [facility] , consult is pending.. Continue aspirin, plavix, high dose statin. Recently had JEMMA in july so will defer repeating. Defer MRAs for now. He is a very poorly controlled diabetic with a recent A1c of 11.5. -Today he will undergo an MRI of the cervical and lumbar spine to see if the above symptoms are of radicular etiology -PT OT ST has been ordered -TSH normal -Troponin normal 2. T2DM -twice daily Levemir. 3 times daily insulin dosing. Titrating insulin therapy. Metformin. Again recent A1c of 11.5. 3. HTN - fluctuant from normal to somewhat elevated. Will trend for now. On HCTZ /Losartan 4. Asthma - respiratory status stable. 5. Unspecified tachyarrhythmia - has loop recorder, reportedly no Afib. Maintain on tele. Continue Cardizem. 6. Anxiety/Depression - home meds 7. Hx CAD aspirin, plavix, statin, losartan 8. Arthritis - discontinued celebrex as it is contraindicated with aspirin/ plavix, stroke, and CAD. DVT ppx: heparin DC planning: PTOT This patient was seen by Thom Flores PA-C under the supervision of Doctor Norberto. <NorbertoShonto - Last Filed: 09/28/17 16:42> - Physical Exam Vital Signs Temp Pulse Resp BP Pulse Ox 98.2 F 77 16 120/68 96 09/28/17 16:00 09/28/17 16:00 09/28/17 16:00 09/28/17 16:00 09/28/17 16:00 Oxygen Delivery Method Room Air Weight: 133.7 kg Body Mass Index (BMI) 41.1 Intake and Output for Last 24 Hours 09/26/17 09/27/17 09/28/17 23:59 23:59 23:59 Intake Total 878 / 878 1231 / 1231 Output Total 800 / 800 Balance 878 / 878 431 / 431 POC Glucose 09/28/17 09/28/17 09/27/17 12:21 06:48 21:10 POC Glucose 286 H 257 H 134 H Assessment/Plan This patient was seen in conjunction with MONY Werner. I have independently interviewed and examined the patient and reviewed pertinent historical, laboratory, and other data. Please refer to his note for details of this patient's presentation, findings, and recommendations. I have reviewed his note and concur with documentation. Patient complains of worsening LUE tingling and numbness as well as LLE weakness. Denies neck pain. Hx of chronic injury to his back. Complains of fatigue. Admits to being depressed; recently his meds were changed( about 1 and half months ago), exam shows decreased sensation to the LUE and weakness of left lower extremity. Will get MRI cervical spine and lumbar spine. Code Visit Inpatient E&M: 58244 Subs Hosp L2
--- NOTE | 2017-09-28 14:27 | CHAPLAIN ---
Type of Pastoral Visit _x__ Initial Visit ___ Follow-up Visit ___ On-call Visit ___ General Patient Visit ___ Spiritual Assessment ___ Family Conference ___ Bereavement ___ Rapid Response ___ Code Blue ___ Other (describe below) Pastoral Care Referral From _x__ Patient ___ Family ___ Nurse ___ Physician ___ Local Bulk Driver ___ Inventory Control Coordinator ___ Other (describe below) Sacrament/Intervention _x__ Active listening ___ Anointing ___ Restorationism ___ Bereavement ___ Communion _x__ Skylar exploration ___ ___ Life review _x__ Prayer ___ Reconciliation ___ Sacrament of Sick _x__ Supportive presence ___ Wedding ___ Other (describe below) Pastoral Comments
--- NOTE | 2017-09-28 14:28 | DCINST_ITS ---
- Discharge Diagnoses Current Active Problems: Current Active and Chronic Problems Acute CVA (cerebrovascular accident) (Acute) Osteoarthritis (Chronic) Asthma (Chronic) Anxiety (Chronic) Tachycardia (Chronic) You will use the following diet at home:: Calorie/Carbohydrate Controlled ( specify 1200, 1400, etc) - 1800 alban / day, Cardiac Your food should be the consistency of: Regular Your liquids should be the consistency of: Regular/Thin Discharge Activity: Return to Normal Activity Additional Instructions: Sleep study after discharge Allergies/Adverse Reactions: Allergies levofloxacin [From Levaquin] Allergy (Verified 09/27/17 14:08) rash,swelling RED RASH, SWELLING Penicillins Allergy (Verified 09/27/17 12:15) Rash Medications to take at Discharge Febuxostat [Uloric] 40 mg PO DAILY 09/17/14 Albuterol Inhaler [Ventolin Hfa] 1 puff INHALATION Q4H PRN PRN 01/28/15 Cyclobenzaprine [Flexeril] 10 mg PO TID PRN PRN 01/28/15 Losartan/Hydrochlorothiazide [Hyzaar 100-25 Tablet] 1 tab PO DAILY 01/28/15 Sertraline HCl [Zoloft] 200 mg PO DAILY 01/28/15 Lorazepam [Ativan] 0.5 mg PO Q6H PRN PRN 12/29/15 Metformin HCl [Metformin HCl ER] 2,000 mg PO BID 12/29/15 Aspirin [Adult Low Dose Aspirin EC] 81 mg PO DAILY 06/03/16 Cetirizine HCl [Zyrtec] 10 mg PO DAILY 06/03/16 Atorvastatin Calcium 80 mg PO QHS 09/27/17 Clopidogrel Bisulfate [Plavix] 75 mg PO DAILY 09/27/17 Diltiazem HCl [Diltiazem 12Hr ER] 60 mg PO BID 09/27/17 Insulin Lispro [Humalog] 28 unit SC TIDCM 09/27/17 Amitriptyline HCl [Elavil] 10 mg PO QHS #30 tab 09/28/17 Insulin Detemir [Levemir FlexPen] 30 units SC BID insuln.pen 09/28/17 The following prescriptions were given: Amitriptyline HCl [Elavil] 10 mg PO QHS #30 tab Primary Care Physician: Rod Elena MD [Primary Care Provider] - Please follow up with your Primary Care Physician in: 2 weeks Please Follow Up With: Elsy Gatica NP-C When: 1-2 weeks Please Follow Up With: [facility] When: 2 weeks Proposed Discharge Date: 09/28/17
--- NOTE | 2017-09-28 14:28 | PCM.DC.SUM ---
Discharge Date and Diagnosis - Problem List Patient Problems: Active and Suspected Problems Acute CVA (cerebrovascular accident) (Acute) Date of Admission: 09/27/17 Date of Discharge: 09/28/17 - Primary Discharge Diagnosis Active and Suspected Problems Left sided weakness and numbness, TIA / CVA ruled out. Unclear etiology Hx CVAs right sided HTN Poorly controlled T2DM CAD with hx MS HTN Unspecified tachyarrhythmia osteoarthritis Asthma Anxiety and depression - Secondary Discharge Diagnosis Chronic Problems Osteoarthritis (Chronic) Asthma (Chronic) Anxiety (Chronic) Tachycardia (Chronic) CAD (coronary artery disease) (Chronic) HTN (hypertension) (Chronic) DM2 (diabetes mellitus, type 2) (Chronic) History of myocardial infarction (Chronic) Hospital Course and Treatment Imaging Results: MRI/Brain without Contrast IMPRESSION: Small focal signal hyperintensity in the left parietal white matter, may represent a remote focal area of infarction, given the patient's history. No acute stroke. Left maxillary sinus disease. CT/Brain/Head without Contrast IMPRESSION: Normal unenhanced CT scan of the brain. Mild mucosal thickening of the left maxillary sinus. RAD/Chest 1 View IMPRESSION: Borderline cardiomegaly. MRI/Spine Cervical (Routine) IMPRESSION: Normal unenhanced MR examination of the cervical spine. MRI lumbar spine pending. Consults: Radames - neuro Operations: [email or web address] Summary of Care Provided: Physical exam on day of discharge: General: Resting comfortably NAD Psych: A/Ox3 normal affect HEENT: PEARRLA AT NC Neck: Supple NT CV: RRR no m/t/r/g/h Resp: CTA Abd: [id number] Soft NT no guarding or rigidity Ext: DP2+= no edema Skin: W/D normal turgor Lymph/Heme: No active bleeding or adenopathy Neuro: CN2-12 intact Hospital course: The patient is a 52 year old M with a PMHx of 2 ischemic strokes in April and May treated in [place] with severely uncontrolled T2DM, hypertension, and CAD, who is already on aspirin, plavix and high dose statin who presented to the ER with left sided weakness, numbness in his left hand, and transient speech difficulty with difficulty speaking and understanding. He had a negative CT brain and was admitted for suspected CVA. His prior strokes had symptoms on the opposite side. MRI of the brain showed no acute process. He had MRA and JEMMA recently so these were deferred. He has a loop recorder in place as his doctors were concerned for underlying Afib however his registered medical assistant told him that it has not found any underlying Afib, he has an unspecified tachyarrhythmia. APT OT ST were consulted. He continued to have the left sided symptoms, no further speech symptoms. MRI of the C spine was done with no acute issues. An MRI of the lumbar spine is pending. TSH was normal. He ambulated on his own with a walker. Neurology evaluated the patient and recommended starting Elavil, which I wrote a prescription for. They recommended strict BP and glucose control. We split his Levemir into BID dosing while here. A recent A1C was at 11.5 and he had reported not being under 200 in a long time. We advised him to see our endocrine nurse practitioner MICHELLE Gatica as an outpatient as he needs to greatly improve his glycemic control. While here we also discontinued his celebrex as it is contraindicated as he is on aspirin and plavix and has underlying cardiovascular disease. As no acute process was identified he was discharged home in stable condition with outpatient follow up planned for Neuro, Endocrine, and his PCP. This patient was seen by Thom Flores PA-C under the supervision of Doctor Thornton. [] Discharge Diet: Low fat/ Low Cholesterol, 1800 Calorie Control Diet, 2000 mg Sodium Diet Discharge Activity: Return to Normal Activity Home Medications: Medications to take at Discharge Febuxostat [Uloric] 40 mg PO DAILY 09/17/14 Albuterol Inhaler [Ventolin Hfa] 1 puff INHALATION Q4H PRN PRN 01/28/15 Cyclobenzaprine [Flexeril] 10 mg PO TID PRN PRN 01/28/15 Losartan/Hydrochlorothiazide [Hyzaar 100-25 Tablet] 1 tab PO DAILY 01/28/15 Sertraline HCl [Zoloft] 200 mg PO DAILY 01/28/15 Lorazepam [Ativan] 0.5 mg PO Q6H PRN PRN 12/29/15 Metformin HCl [Metformin HCl ER] 2,000 mg PO BID 12/29/15 Aspirin [Adult Low Dose Aspirin EC] 81 mg PO DAILY 06/03/16 Cetirizine HCl [Zyrtec] 10 mg PO DAILY 06/03/16 Atorvastatin Calcium 80 mg PO QHS 09/27/17 Clopidogrel Bisulfate [Plavix] 75 mg PO DAILY 09/27/17 Diltiazem HCl [Diltiazem 12Hr ER] 60 mg PO BID 09/27/17 Insulin Lispro [Humalog] 28 unit SC TIDCM 09/27/17 Amitriptyline HCl [Elavil] 10 mg PO QHS #30 tab 09/28/17 Insulin Detemir [Levemir FlexPen] 30 units SC BID insuln.pen 09/28/17 Following Prescrptions Were Given to Patient: Amitriptyline HCl [Elavil] 10 mg PO QHS #30 tab Primary Care Physician: Rod Elena MD [Primary Care Provider] - Please follow up with your Primary Care Physician in: 2 weeks Please Follow Up With: Elsy Gatica, LOOM STOP CHECKER-C When: 1-2 weeks Please Follow Up With: [facility] When: 2 weeks Disposition: Home Minutes spent on discharge:: 40 Patient Condition:: Stable Meaningful Use Info Meaningful Use Diagnoses (Choose all that apply): None applicable
--- NOTE | 2017-09-28 14:34 | CASEMGMT ---
SW spoke with patient about therapy. He is currently active with outpatient therapy at [facility]. He denies any other d/c needs. Mary Jane SERRATO MSW
--- NOTE | 2017-09-28 14:49 | DS.PCM_ITS ---
Discharge Date and Diagnosis - Problem List Patient Problems: Active and Suspected Problems Acute CVA (cerebrovascular accident) (Acute) Date of Admission: 09/27/17 Date of Discharge: 09/28/17 - Primary Discharge Diagnosis Active and Suspected Problems Left sided weakness and numbness, TIA / CVA ruled out. Unclear etiology Hx CVAs right sided HTN Poorly controlled T2DM CAD with hx LA HTN Unspecified tachyarrhythmia osteoarthritis Asthma Anxiety and depression - Secondary Discharge Diagnosis Chronic Problems Osteoarthritis (Chronic) Asthma (Chronic) Anxiety (Chronic) Tachycardia (Chronic) CAD (coronary artery disease) (Chronic) HTN (hypertension) (Chronic) DM2 (diabetes mellitus, type 2) (Chronic) History of myocardial infarction (Chronic) Hospital Course and Treatment Imaging Results: MRI/Brain without Contrast IMPRESSION: Small focal signal hyperintensity in the left parietal white matter, may represent a remote focal area of infarction, given the patient's history. No acute stroke. Left maxillary sinus disease. CT/Brain/Head without Contrast IMPRESSION: Normal unenhanced CT scan of the brain. Mild mucosal thickening of the left maxillary sinus. RAD/Chest 1 View IMPRESSION: Borderline cardiomegaly. MRI/Spine Cervical (Routine) IMPRESSION: Normal unenhanced MR examination of the cervical spine. MRI lumbar spine pending. Consults: Radames - neuro Operations: [email or web address] Summary of Care Provided: Physical exam on day of discharge: General: Resting comfortably NAD Psych: A/Ox3 normal affect HEENT: PEARRLA AT NC Neck: Supple NT CV: RRR no m/t/r/g/h Resp: CTA Abd: [id number] Soft NT no guarding or rigidity Ext: DP2+= no edema Skin: W/D normal turgor Lymph/Heme: No active bleeding or adenopathy Neuro: CN2-12 intact Hospital course: The patient is a 52 year old M with a PMHx of 2 ischemic strokes in April and May treated in [place] with severely uncontrolled T2DM, hypertension, and CAD, who is already on aspirin, plavix and high dose statin who presented to the ER with left sided weakness, numbness in his left hand, and transient speech difficulty with difficulty speaking and understanding. He had a negative CT brain and was admitted for suspected CVA. His prior strokes had symptoms on the opposite side. MRI of the brain showed no acute process. He had MRA and JEMMA recently so these were deferred. He has a loop recorder in place as his doctors were concerned for underlying Afib however his central supply worker told him that it has not found any underlying Afib, he has an unspecified tachyarrhythmia. APT OT ST were consulted. He continued to have the left sided symptoms, no further speech symptoms. MRI of the C spine was done with no acute issues. An MRI of the lumbar spine is pending. TSH was normal. He ambulated on his own with a walker. Neurology evaluated the patient and recommended starting Elavil, which I wrote a prescription for. They recommended strict BP and glucose control. We split his Levemir into BID dosing while here. A recent A1C was at 11.5 and he had reported not being under 200 in a long time. We advised him to see our endocrine nurse practitioner MICHELLE Gatica as an outpatient as he needs to greatly improve his glycemic control. While here we also discontinued his celebrex as it is contraindicated as he is on aspirin and plavix and has underlying cardiovascular disease. As no acute process was identified he was discharged home in stable condition with outpatient follow up planned for Neuro, Endocrine , and his PCP. This patient was seen by Thom Flores PA-C under the supervision of Doctor Thornton. [] Discharge Diet: Low fat/ Low Cholesterol, 1800 Calorie Control Diet, 2000 mg Sodium Diet Discharge Activity: Return to Normal Activity Home Medications: Medications to take at Discharge Febuxostat [Uloric] 40 mg PO DAILY 09/17/14 Albuterol Inhaler [Ventolin Hfa] 1 puff INHALATION Q4H PRN PRN 01/28/15 Cyclobenzaprine [Flexeril] 10 mg PO TID PRN PRN 01/28/15 Losartan/Hydrochlorothiazide [Hyzaar 100-25 Tablet] 1 tab PO DAILY 01/28/15 Sertraline HCl [Zoloft] 200 mg PO DAILY 01/28/15 Lorazepam [Ativan] 0.5 mg PO Q6H PRN PRN 12/29/15 Metformin HCl [Metformin HCl ER] 2,000 mg PO BID 12/29/15 Aspirin [Adult Low Dose Aspirin EC] 81 mg PO DAILY 06/03/16 Cetirizine HCl [Zyrtec] 10 mg PO DAILY 06/03/16 Atorvastatin Calcium 80 mg PO QHS 09/27/17 Clopidogrel Bisulfate [Plavix] 75 mg PO DAILY 09/27/17 Diltiazem HCl [Diltiazem 12Hr ER] 60 mg PO BID 09/27/17 Insulin Lispro [Humalog] 28 unit SC TIDCM 09/27/17 Amitriptyline HCl [Elavil] 10 mg PO QHS #30 tab 09/28/17 Insulin Detemir [Levemir FlexPen] 30 units SC BID insuln.pen 09/28/17 Following Prescrptions Were Given to Patient: Amitriptyline HCl [Elavil] 10 mg PO QHS #30 tab Primary Care Physician: Rod Elena MD [Primary Care Provider] - Please follow up with your Primary Care Physician in: 2 weeks Please Follow Up With: Elsy Gatica, MELTER SUPERVISOR OPEN HEARTH FURNACE-C When: 1-2 weeks Please Follow Up With: [facility] When: 2 weeks Disposition: Home Minutes spent on discharge:: 40 Patient Condition:: Stable Meaningful Use Info Meaningful Use Diagnoses (Choose all that apply): None applicable
[2017-09-28] MEDS: Acetaminophen 325 MG Tablet 650 MG PO (16:24)
[2017-09-28 16:47] LABS: Bedside Glucose 126 mg/dL (70-110)
== END 2017-09-28 14:26 | disposition home or self-care (01) ==
LOC: ED 13:09 → PCU 15:14
PROVIDERS: Physician Assistant; Admitting Provider Internal Medicine; Emergency Provider Emergency Medicine; Family Provider Family Medicine; PCP Family Medicine; Visit Provider Internal Medicine
DX: R20.0 Anesthesia of skin (principal); R20.2 Paresthesia of skin; I69.354 Hemiplegia and hemiparesis following cerebral infarction affecting left non-dominant side; I10 Essential (primary) hypertension; I25.10 Atherosclerotic heart disease of native coronary artery without angina pectoris; I25.2 Old myocardial infarction; E11.65 Type 2 diabetes mellitus with hyperglycemia; M19.90 Unspecified osteoarthritis, unspecified site; J45.909 Unspecified asthma, uncomplicated; F32.9 Major depressive disorder, single episode, unspecified; F41.9 Anxiety disorder, unspecified; R47.89 Other speech disturbances; R41.0 Disorientation, unspecified; R47.81 Slurred speech; R47.1 Dysarthria and anarthria; R47.01 Aphasia; Z79.899 Other long term (current) drug therapy; Z79.4 Long term (current) use of insulin; Z79.02 Long term (current) use of antithrombotics/antiplatelets; Z79.82 Long term (current) use of aspirin
CPT/HCPCS: 70450; 70551; 71045; 72141; 72148; 80048; 82962; 84443; 84484; 85025; 85610; 85730; 92507; 92610; 93005; 96360; 96361; 96372; 97162; 97166; 99218; 99285; J7030; A4216; G0378

== ENCOUNTER → 2017-10-11 15:02 | Outpatient (CLI) | payer BC, SELFPAY ==
[2017-10-11 18:00] LABS: AST(SGOT) 13 U/L (15-37); Alanine Aminotransfer ALT/SGPT 26 U/L (16-61); Albumin, Serum 3.9 g/dL (3.2-5.0); Alkaline Phosphatase 117 U/L (45-117); Anion Gap 12 (5-15); BUN 30 mg/dL (7-18); Calcium,Total 9.3 mg/dL (8.5-10.1); Chloride 104 mmol/L (98-107); Creatinine, Serum 0.97 mg/dL (0.70-1.30); EST Glomerular Filtration Rate 86 mL/min (>60); Est Glom Filt Rate - Afr Amer 104 mL/min (>60); Free T3 2.5 pg/mL (2.18-3.98); Globulin 4.1 g/dL (2.2-4.2); Glucose 101 mg/dL (74-106); Magnesium 2.2 mg/dL (1.6-2.6); Phosphorus 3.6 mg/dL (2.5-4.9); Potassium 3.4 mmol/L (3.5-5.1); Sodium Level 140 mmol/L (136-145); T4 Free Direct 0.81 ng/dL (0.76-1.46); Thyroid Stim Hormone (TSH) 1.79 uIU/mL (0.358-3.74)
[2017-10-12 10:34] LABS: Vitamin B12 525 pg/mL (211-911)
== END ==
PROVIDERS: Family Provider Family Medicine; PCP Family Medicine; Visit Provider Nurse Practitioner Acute Care
DX: R20.0 Anesthesia of skin (principal); R20.2 Paresthesia of skin
CPT/HCPCS: 36415; 80053; 82607; 83735; 84100; 84439; 84443; 84481

== ENCOUNTER 2017-10-16 18:11 | Observation (INO) | payer BC, SELFPAY ==
[2017-10-16] VITALS (8 sets, daily range): BP systolic 124–136; BP diastolic 65–84; PULSE 64–76; RESP 18–21; TEMP 36.9–37.7; O2SAT 98–99; BMI 39.2; BMI 40.5; BMI 40.6
[2017-10-16 18:20] LABS: Bedside Glucose 216 mg/dL (70-110)
--- NOTE | 2017-10-16 18:24 | CT_ITS ---
STUDY: CTA NECK WITH CONTRAST REASON FOR EXAM: Male, 52 years old. Right sided weakness. RADIATION DOSAGE (If Supplied By Facility): CTDIvol = ( 31.57 ) mGy, DLP = ( 1684.37 ) mGycm TECHNIQUE: CT angiography with multi-detector data acquisition was performed from the aortic arch to the skull base following intravenous administration of 100 ml of Isovue 370 contrast. MIP images were reconstructed from the axial data set. Post-processing of the angiographic images was performed, with multiplanar reformation and 3D reconstruction. Individualized dose optimization techniques were used for this CT. COMPARISON: None. FINDINGS: AORTIC ARCH: Normal visualized aortic arch. Normal origins of the brachiocephalic, left common carotid, and left subclavian arteries. RIGHT CAROTID ARTERIES: Normal right common carotid artery (CCA). Normal right common carotid bulb. Normal origin of the right internal carotid (ICA) artery without a hemodynamically significant stenosis. Normal visualized cervical portion of the right internal carotid artery. Normal origin of the right external carotid artery (ECA). LEFT CAROTID ARTERIES: Normal left common carotid artery (CCA). Normal left common carotid bulb. Normal origin of the left internal carotid (ICA) artery without a hemodynamically significant stenosis. Normal visualized cervical portion of the left internal carotid artery. Normal origin of the left external carotid artery (ECA). VERTEBRAL ARTERIES: Normal bilateral vertebral arteries. CT/CTA Neck W/WO Contrast IMPRESSION: Normal bilateral cervical carotid and vertebral arteries. Electronically Signed: Gary Jones DO at 19:22 EST Tel [phone], Service support ,
--- NOTE | 2017-10-16 18:24 | CT_ITS ---
STUDY: CTA OF THE BRAIN REASON FOR EXAM: Male, 52 years old. Right sided weakness. RADIATION DOSAGE (If Supplied By Facility): CTDIvol = ( 31.57 ) mGy, DLP = ( 1684.37 ) mGycm TECHNIQUE: CT angiography was performed with a multi-detector CT scanner. Data acquisition was obtained from the skull base through the vertex following intravenous administration of 100 ml of Isovue-370. MIP images were reconstructed from the axial data set. Post-processing of the angiographic images was performed, with multiplanar reformation and 3D reconstruction. Individualized dose optimization techniques were used for this CT. COMPARISON: CTA of the neck, October 16, 2016. MRI of the brain, September 27, 2017. FINDINGS: Normal bilateral petrous carotid arteries. Normal right cavernous carotid artery with a normal supraclinoid bifurcation. Normal left cavernous carotid artery with a normal supraclinoid bifurcation. Normal right A1 segments of the anterior cerebral artery. Normal left A1 segments of the anterior cerebral artery. Normal intact anterior communicating artery (ACOM). Normal bilateral A2 segments of the anterior cerebral arteries. Normal right M1 and M2 segments of the middle cerebral arteries, with a normal M1 bifurcation. Normal left M1 and M2 segments of the middle cerebral arteries, with a normal M1 bifurcation. There is non-visualization of the right posterior communicating artery (PCOM). There is non-visualization of the left posterior communicating artery (PCOM). Normal bilateral vertebral arteries. Normal basilar artery with a normal basilar bifurcation. The visualized bilateral superior cerebellar (SCA) arteries are normal. Normal bilateral P1, P2 and visualized P3 segments of the posterior cerebral arteries. There is no demonstrated aneurysm of the pamunkey of Pimentel. There is no demonstrated abnormality of the visualized brain. CT/CTA Head W/WO Contrast IMPRESSION: Normal pamunkey of Pimentel without a demonstrated aneurysm or hemodynamically significant stenosis. The posterior communicating arteries are not visualized which is not unusual in a complete pamunkey of Pimentel. Electronically Signed: Gary Jones DO at 19:24 EST Tel [phone], Service support ,
--- NOTE | 2017-10-16 18:24 | EKG12_ITS ---
Test Reason : STROKE TEAM Blood Pressure : / mmHG Vent. Rate : 071 BPM Atrial Rate : 071 BPM P-R Int : 166 ms QRS Dur : 084 ms QT Int : 404 ms P-R-T Axes : 000 -31 -02 degrees QTc Int : 439 ms Normal sinus rhythm Left axis deviation Inferior infarct , age undetermined Abnormal ECG Confirmed by TERRANCE JOHNSON, KARLOS ([id number]), news editor PEÑA DUTTA ([id number]) on 10/17/2017 2:28:51 PM Referred By: Katy Delgadillo Confirmed By:KARLOS CARLOS MD
[2017-10-16 18:35] LABS: Absolute Lymphocyte Count 2.55 X10^3/ul (0.83-4.51); Absolute Neutrophil Count 5.7 X10^3/uL (2.0-7.7); Basophil# 0.04 X10^3/uL; Basophil% 0.4 % (0-1); Eosinophil# 0.45 X10^3/uL; Eosinophils% 4.8 % (0-5); Hematocrit 44.1 % (40-54); Hemoglobin 15.4 g/dl (13.0-16.5); Lymphocyte # 2.55 X10^3/ul (4.0); Lymphocyte % 27.2 % (19-41); Mean Corp Hgb Conc 34.9 g/gl (32-36); Mean Corpuscular Hgb 28.5 pg (27.0-32.0); Mean Corpuscular Volume 81.7 fL (80-94); Mean Platelet Vol. 9.1 fl (6.2-12.0); Monocyte# 0.62 X10^3/uL; Monocyte% 6.6 % (0-10); Neutrophil # 5.69 X10^3/uL (2.7-7.7); Neutrophil % 60.9 % (47-70); Platelet Count 178 K/mm3 (150-450); RBC Distribution Width CV 12.5 % (11.6-14.6); RBC Distribution Width SD 36.8 fl (35.1-43.9); White Blood Count 9.4 K/mm3 (4.4-11.0)
[2017-10-16 18:37] LABS: POSITIVE COUNT NO; POSITIVE DIFFERENTIAL NO; POSITIVE MORPHOLOGY NO
--- NOTE | 2017-10-16 18:38 | ED.RN ---
PER DR HERNANDEZ, STROKE TEAM CANCELLED FOR PT.
[2017-10-16] MEDS: 0.9% Normal Saline 1,000 ML 100 ML IV (18:44)
[2017-10-16 18:58] LABS: Anion Gap 7 (5-15); BUN 18 mg/dL (7-18); BUN/Creat Ratio 15.1 RATIO (10-20); Calcium,Total 8.4 mg/dL (8.5-10.1); Chloride 107 mmol/L (98-107); Creatinine, Serum 1.19 mg/dL (0.70-1.30); EST Glomerular Filtration Rate 68 mL/min (>60); Est Glom Filt Rate - Afr Amer 82 mL/min (>60); Estimated Creatinine Clearance 81.13 ml/min; Glucose 226 mg/dL (74-106); Potassium 4.3 mmol/L (3.5-5.1); Sodium Level 141 mmol/L (136-145)
[2017-10-16 19:05] LABS: International Normalized Ratio 1.1
[2017-10-16 19:06] LABS: Partial Thromboplast Time 26.9 Seconds (24.1-36.2)
--- NOTE | 2017-10-16 19:50 | ED.RN ---
PT AND FAMILY UNAWARE OF EXACT MEDICATIONS PATIENT IS TAKING. UNABLE TO COMPLETE MED LIST
--- NOTE | 2017-10-16 20:31 | PCM.HP.STD ---
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 Says he had acute onset of right-sided weakness that felt very much like his first stroke. According to EMS reports, patient's assessment reviewed bilateral facial droop with right-sided weakness but no arm drift. Patient had complained of right-sided feeling funny with moderate to severe pain in his whole head which was related 9 out of 10. Still complained of dizziness with standing and was said to be drowsy and more lethargic during transport with difficulty opening the eyes. Patient was said to be last normal at 4:30 PM. Patient was seen in the ED, and stroke alert was called, but when patient was asked to respond by name, all his lethargic symptoms resolved. Vitals in the ED was significant for temperature of 99.2F, heart rate 84, blood pressure 132/71, respiratory rate is 16, he was saturating 100% on 2 L of oxygen. Admitting laboratory investigations was all essentially negative. CT of the head and neck were negative Past Medical History Past Medical History (Chronic Problems): Chronic Problems Osteoarthritis (Chronic) Asthma (Chronic) Anxiety (Chronic) Tachycardia (Chronic) CAD (coronary artery disease) (Chronic) HTN (hypertension) (Chronic) DM2 (diabetes mellitus, type 2) (Chronic) History of myocardial infarction (Chronic) Allergies levofloxacin [From Levaquin] Allergy (Verified 10/16/17 19:49) rash,swelling RED RASH, SWELLING Penicillins Allergy (Verified 10/16/17 19:49) Rash Home Medications: Ambulatory Orders Medication Instructions Recorded Febuxostat [Uloric] 40 mg PO DAILY 09/17/14 Albuterol Inhaler [Ventolin Hfa] 1 puff INHALATION Q4H PRN PRN 01/28/15 Cyclobenzaprine [Flexeril] 10 mg PO TID PRN PRN 01/28/15 Losartan/Hydrochlorothiazide 1 tab PO DAILY 01/28/15 [Hyzaar 100-25 Tablet] Sertraline HCl [Zoloft] 200 mg PO DAILY 01/28/15 Lorazepam [Ativan] 0.5 mg PO Q6H PRN PRN 12/29/15 Metformin HCl [Metformin HCl ER] 2,000 mg PO BID 12/29/15 Aspirin [Adult Low Dose Aspirin EC] 81 mg PO DAILY 06/03/16 Cetirizine HCl [Zyrtec] 10 mg PO DAILY 06/03/16 Atorvastatin Calcium 80 mg PO QHS 09/27/17 Clopidogrel Bisulfate [Plavix] 75 mg PO DAILY 09/27/17 Diltiazem HCl [Diltiazem 12Hr ER] 60 mg PO BID 09/27/17 Insulin Lispro [Humalog] 28 unit SC TIDCM 09/27/17 Amitriptyline HCl [Elavil] 10 mg PO QHS #30 tab 09/28/17 Insulin Detemir [Levemir FlexPen] 30 units SC BID insuln.pen 09/28/17 Surgical History: cholecystectomy, - - loop monitor Psychiatric History: Anxiety, Depression Smoking Status: Never smoker - *Family History Maternal History Items: Stroke Paternal History Items: Heart Disease Sibling History Items: Diabetes, Heart Disease, Hypertension Review of Systems Constitutional: Reports: Weakness. Denies: Anorexia, Chills, Fever, Weight Change Eyes: Denies: Blurred vision, Cataracts, Conjunctivae Inflammation, Pain, Redness HEENT: Denies: Difficulty Hearing, Difficulty Swallowing, Head Aches, Hearing Changes, Sinus Congestion, Sinus Drainage, Sore Throat Cardiovascular: Denies: Chest Pain, Claudication, Chest Pressure, Orthopnea, Palpitations, Paroxysmal Noc. Dyspnea, Syncope Respiratory: Denies: Cough, Hemoptysis, Pleuritic Pain, Shortness of Breath, Shortness of breath at rest, Shortness of breath upon exertion, Sputum production Gastrointestinal: Denies: Abdominal Pain, Constipation, Hematemesis, Nausea, Vomiting Genitourinary: Denies: Dysuria, Frequency, Incontinence Musculoskeletal: Denies: Joint Pain, Joint stiffness, Joint swelling, Joint Tenderness Skin: Denies: Rash, Wounds Neurological: Denies: Difficulty swallowing, Focal weakness, Numbness, Tingling Psychiatric: Denies: Anxiety, Depression, Homicidal Ideations, Suicidal Ideations Hematologic/ Lymphatic: Denies: Easy Bruising, Easy Bleeding VTE Information - Inpt Only VTE Present on Admission: No VTE Pharm Prophylaxis ordered?: Yes - Physical Exam General: Alert, Oriented x3, Cooperative HEENT: Atraumatic, PERRLA, EOMI, Normocephalic Neck: Supple, No JVD, Negative Carotid Bruits Lungs: Clear to auscultation, Normal air movement Cardiovascular: Regular rate, No murmurs Abdomen: Bowel Sounds Present, Soft, Non Tender, Non-Distended, No Hepato-splenomegaly Extremities: No edema Skin: No rashes Musculoskeletal: No Tenderness to Palpation of Joints or Extremities Lymphatic: No Cervical, Supraclavicular, or Inguinal Adenopathy Neurological: Cranial nerves II-XII grossly intact Psych/Mental Status: Normal Affect, Appropriate Vital Signs Temp Pulse Resp BP Pulse Ox 98.5 F 64 18 124/68 H 98 10/16/17 18:12 10/16/17 20:13 10/16/17 20:13 10/16/17 20:13 10/16/17 20:13 Oxygen Flow Rate 2 Oxygen Delivery Method Room Air Weight: 134.7 kg Body Mass Index (BMI) 39.2 Finger Stick Blood Glucose 215 Laboratory Tests Past 24 Hrs 10/16/17 10/16/17 10/16/17 18:15 18:15 18:15 WBC 9.4 RBC 5.40 Hgb 15.4 Hct 44.1 MCV 81.7 MCH 28.5 MCHC 34.9 RDW 12.5 RDW Differential 36.8 Plt Count 178 MPV 9.1 Immature Gran % (Auto) 0.100 Neut % (Auto) 60.9 Lymph % (Auto) 27.2 Dixon % (Auto) 6.6 Eos % (Auto) 4.8 Baso % (Auto) 0.4 Absolute Neuts (auto) 5.7 Absolute Lymphs (auto) 2.55 Total Counted Not Reportable PT 14.0 INR 1.1 APTT 26.9 Sodium 141 Potassium 4.3 Chloride 107 Carbon Dioxide 27.0 Anion Gap 7 BUN 18 Creatinine 1.19 Estim Creat Clear Calc 81.13 Est GFR (MDRD) Af Amer 82 Est GFR (MDRD) Non-Af 68 BUN/Creatinine Ratio 15.1 Glucose 226 H Calcium 8.4 L POC Glucose 10/16/17 18:17 POC Glucose 216 H Assessment/Plan 52 year old M with past medical history of anxiety, depression, previous history of CVA 2016, recently discharged on 28 September 2017 after workup for left-sided weakness was negative for stroke, comes in with complains of right sided weakness. 1. Right-sided weakness, dizziness, CTA of the head and neck is negative, recently worked up for MRI found to be negative, history of CVA ED physician has discussed with neurologist, Dr. Bermudez, and decision was made to admit patient for observation, for EEG in a.m. Workup in the outpatient for sleep study is pending, patient is on aspirin, Plavix, will continue same, monitor on telemetry, neurology consult 2. Hypertension, controlled, continue on home losartan/hydrochlorothiazide, diltiazem 3. Type 2 DM, on insulin,metformin, continue home regimen, yet to see MICHELLE Gatica in 2 days. 4. Hyperlipidemia, on statin 5. History of unspecified tachyarrhythmia, EKG shows normal sinus rhythm with no ST-T changes, continue on Cardizem 6. Anxiety/depression, on Ativan and Elavil 7. DVT prophylaxis with Lovenox subcu Code Visit OBSV E&M: 42709 Initial observation care L3
[2017-10-16 22:31] LABS: Bedside Glucose 235 mg/dL (70-110)
--- NOTE | 2017-10-16 23:27 | ED.VISSUMM ---
- ER Visit Summary Date of Service: 10/16/17 Chief Complaint: Weakness History of Present Illness: The patient is a [address] Elena and Dr. Crum. Per patient at approximately 430 he began having paresthesias in the left side of his face and weakness in his right arm and leg. 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 On the way here he had decreasing levels of consciousness. On arrival here the patient complains of a headache that is 9 out of 10 at worst and 4-10 currently. He denies any other complaints other than above. Physical Examination: Vitals: Stable. Afebrile. Neurological: Cranial nerves II through XII are intact. 5 out of 5 strength throughout. Decreased sensation to light touch right arm and right leg. Normal nkeeoe-dbpf-iboeez and iatr-xyxh-hlrn bilaterally. Normal gait. General: A&O x 3. NAD. Cardiovascular exam: Regular rate and rhythm, no murmur, rub or gallop. Respiratory exam: Clear to auscultation bilaterally. No wheezes or stridor. Abdominal exam: Soft, nontender, nondistended, normal bowel sounds. No peritoneal signs. Extremity: No clubbing, cyanosis, or edema. Test Results: EKG is sinus at [address] changes. He has T-wave inversions in leads III and aVF. This is unchanged from the eighth of this month. CBC is normal. Chem-7 is more for glucose 226 and calcium of 8.4. Coags are normal. CTA of the head shows a normal [place] of [place]. CTA of neck is normal. CT brain read along with CT of the head is normal. Emergency Department Course and Treatment: Upon arrival to the emergency department the patient was lethargic and not answering questions appropriately. However, when addressed directly that we do not have time for this patient immediately woke up and answer questions appropriately. He does not seem to have any symptoms after I enter the room to tell him the results of his labs. I reviewed the patient's recent admission for strokelike symptoms that showed an MRI that was negative. Reportedly he received IV TPA at [facility] in the fall and had an MRI that was negative following this. Based on Dr. Crum's report it sounds as though he did have a CVA in April 2017. Patient's NIH scale is 1 upon arrival and has returned to 0. He clearly is not a TPA candidate. I do not believe that this is from a stroke. Treatment Plan: The patient was discussed with Dr. Bermudez who also believes that this is not a stroke. However, with the lethargy he states patient needs to have an EEG. Patient was discussed with Dr. Thornton. He will be admitted for further evaluation and treatment. Disposition: Admitted in improved condition Impression: 1. Right-sided weakness, resolved. 2. Altered level of consciousness, resolved. This note was generated with [employer] dictation software. It may contain incorrect words, spelling, and punctuation that were not noted in review of the chart prior to signing ED Disposition - Plan for ED Patient: Disposition: Acute Care Hospital [facility] Chief Complaint: Neuro S/Sx
--- NOTE | 2017-10-16 23:31 | ED.DCSUM_ITS ---
- ER Visit Summary Date of Service: 10/16/17 Chief Complaint: Weakness History of Present Illness: The patient is a [address] Elena and Dr. Crum. Per patient at approximately 430 he began having paresthesias in the left side of his face and weakness in his right arm and leg. 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 On the way here he had decreasing levels of consciousness. On arrival here the patient complains of a headache that is 9 out of 10 at worst and 4-10 currently. He denies any other complaints other than above. Physical Examination: Vitals: Stable. Afebrile. Neurological: Cranial nerves II through XII are intact. 5 out of 5 strength throughout. Decreased sensation to light touch right arm and right leg. Normal eadqxs-dbgv-tezzgf and lorh-xcct-ofbw bilaterally. Normal gait. General: A&O x 3. NAD. Cardiovascular exam: Regular rate and rhythm, no murmur, rub or gallop. Respiratory exam: Clear to auscultation bilaterally. No wheezes or stridor. Abdominal exam: Soft, nontender, nondistended, normal bowel sounds. No peritoneal signs. Extremity: No clubbing, cyanosis, or edema. Test Results: EKG is sinus at [address] changes. He has T-wave inversions in leads III and aVF. This is unchanged from the eighth of this month. CBC is normal. Chem-7 is more for glucose 226 and calcium of 8.4. Coags are normal. CTA of the head shows a normal [place] of [place]imentel. CTA of neck is normal. CT brain read along with CT of the head is normal. Emergency Department Course and Treatment: Upon arrival to the emergency department the patient was lethargic and not answering questions appropriately. However, when addressed directly that we do not have time for this patient immediately woke up and answer questions appropriately. He does not seem to have any symptoms after I enter the room to tell him the results of his labs. I reviewed the patient's recent admission for strokelike symptoms that showed an MRI that was negative. Reportedly he received IV TPA at [facility] in the fall and had an MRI that was negative following this. Based on Dr. Crum's report it sounds as though he did have a CVA in April 2017. Patient's NIH scale is 1 upon arrival and has returned to 0. He clearly is not a TPA candidate. I do not believe that this is from a stroke. Treatment Plan: The patient was discussed with Dr. Bermudez who also believes that this is not a stroke. However, with the lethargy he states patient needs to have an EEG. Patient was discussed with Dr. Thornton. He will be admitted for further evaluation and treatment. Disposition: Admitted in improved condition Impression: 1. Right-sided weakness, resolved. 2. Altered level of consciousness, resolved. This note was generated with [employer] dictation software. It may contain incorrect words, spelling, and punctuation that were not noted in review of the chart prior to signing ED Disposition - Plan for ED Patient: Disposition: Acute Care Hospital [facility] Chief Complaint: Neuro S/Sx
[2017-10-16] MEDS: Amitriptyline 25 MG Tablet 50 MG PO (23:32)
[2017-10-16] MEDS: Acetaminophen 325 MG Tablet 650 MG PO (23:32)
[2017-10-16] MEDS: Atorvastatin Calcium 80 MG Tablet PO (23:33)
[2017-10-17 03:30] VITALS: BP 123/86; PULSE 59; RESP 16; TEMP 37.2; O2SAT 96
[2017-10-17 05:36] LABS: Absolute Neutrophil Count 5.6 X10^3/uL (2.0-7.7); Basophil# 0.06 X10^3/uL; Basophil% 0.6 % (0-1); Eosinophil# 0.43 X10^3/uL; Eosinophils% 4.6 % (0-5); Hematocrit 45.4 % (40-54); Lymphocyte % 28.7 % (19-41); Mean Corp Hgb Conc 35.2 g/gl (32-36); Mean Corpuscular Hgb 28.4 pg (27.0-32.0); Mean Corpuscular Volume 80.6 fL (80-94); Mean Platelet Vol. 9.1 fl (6.2-12.0); Monocyte# 0.66 X10^3/uL; Neutrophil # 5.55 X10^3/uL (2.7-7.7); Neutrophil % 58.9 % (47-70); Platelet Count 190 K/mm3 (150-450); RBC Distribution Width CV 12.6 % (11.6-14.6); RBC Distribution Width SD 36.8 fl (35.1-43.9); Red Blood Count 5.63 M/mm3 (4.6-6.2); White Blood Count 9.4 K/mm3 (4.4-11.0)
[2017-10-17 05:57] LABS: POSITIVE COUNT NO; POSITIVE DIFFERENTIAL NO; POSITIVE MORPHOLOGY NO
[2017-10-17 06:12] LABS: Anion Gap 9 (5-15); BUN 19 mg/dL (7-18); BUN/Creat Ratio 18.6 RATIO (10-20); Calcium,Total 8.5 mg/dL (8.5-10.1); Chloride 103 mmol/L (98-107); Creatinine, Serum 1.02 mg/dL (0.70-1.30); EST Glomerular Filtration Rate 81 mL/min (>60); Est Glom Filt Rate - Afr Amer 98 mL/min (>60); Glucose 209 mg/dL (74-106); Potassium 3.9 mmol/L (3.5-5.1); Sodium Level 138 mmol/L (136-145)
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
[2017-10-17 07:36] LABS: Bedside Glucose 237 mg/dL (70-110)
--- NOTE | 2017-10-17 08:40 | NURSING ---
EEG in process at bedside at this time
[2017-10-17 09:22] LABS: Amphetamine Urine VISTA NEGATIVE (<1000 ng/mL); Barbiturate Urine VISTA NEGATIVE (< 200 ng/mL); Benzodiazepine Urine VISTA NEGATIVE (< 200 ng/mL); Cocaine Urine VISTA NEGATIVE (< 300 ng/mL); Ecstacy Urine VISTA NEGATIVE (< 500 ng/mL); Methadone Urine VISTA NEGATIVE (< 300 ng/mL); PCP Urine VISTA NEGATIVE (< 25 ng/mL); THC Urine VISTA NEGATIVE (< 50 ng/mL); Vista UDS pH Range 6
[2017-10-17 09:30] VITALS: BP 126/93; PULSE 74; RESP 18; TEMP 36.9; O2SAT 97
[2017-10-17 09:31] VITALS: BP 124/91; BP 126/93; BP 132/90; PULSE 74; PULSE 75; PULSE 85
[2017-10-17] MEDS: Aspirin E.C. 81 MG Tablet PO (09:41)
[2017-10-17] MEDS: dilTIAZem CD 180 MG Capsule PO (09:42)
[2017-10-17] MEDS: hydroCHLOROthiazide 25 MG Tablet PO (09:42)
[2017-10-17] MEDS: Losartan Potassium 100 MG Tablet PO (09:42)
[2017-10-17] MEDS: Loratadine 10 MG Tablet PO (09:42)
[2017-10-17] MEDS: Clopidogrel Bisulfate 75 MG Tablet PO (09:43)
[2017-10-17] MEDS: FEBUXOSTAT 40 MG TABLET PO (09:43)
[2017-10-17] MEDS: Enoxaparin 40 MG/0.4 ML Syringe SC (09:47)
[2017-10-17] MEDS: Acetaminophen 325 MG Tablet 650 MG PO ×2 (10:17→17:01)
--- NOTE | 2017-10-17 10:37 | ECHOD_ITS ---
Reason For Study: TIA/CVA Procedure This was a 2D Doppler, Color Flow transthoracic echocardiogram. The study was technically difficult. Contrast injection was performed. Exam performed portable in patient room. Left Ventricle Normal LV size. Left ventricular systolic function is normal. The estimated ejection fraction is 55 %. No evidence for diastolic dysfunction. Right Ventricle Normal RV size. Normal systolic function. Atria Normal left atrium. Normal right atrium. Mitral Valve Normal mitral valve. Tricuspid Valve Normal tricuspid valve. Mild tricuspid valve insufficiency. Pulmonary artery systolic pressure is 31 mmHg. Aortic Valve The aortic valve is not well visualized. Pulmonic Valve Normal pulmonic valve. Great Vessels Normal aortic root. The pulmonary artery is normal size. Normal inferior vena cava. Pericardium/Pleural No pericardial effusion. Medication Diluted definity 3.0ml given slow IV push to enhance endocardial definition. MMode/2D Measurements & Calculations LVIDd: 4.9 cm IVSd: 1.3 cm Ao root diam: 3.0 cm LVIDs: 3.3 cm LVPWd: 1.2 cm LA dimension: 5.0 cm RVDd: 3.6 cm FS: 33.5 % LAV(MOD-bp): 55.5 ml LAV(MOD-bp) Indexed: 22.5 ml/m2 LA A4 area: 18.7 cm2 RA A4 area: 16.3 cm2 LAV(MOD-sp2): 56.9 ml LAV(MOD-sp4): 54.7 ml Time Measurements MV dec time: 0.22 sec Doppler Measurements & Calculations MV E max damien: 75.7 cm/sec Lat Peak E' Damien: 8.2 cm/sec Med Peak E' Damien: 6.6 cm/sec MV A max damien: 65.5 cm/sec E/E' lat: 9.2 E/E' med: 11.5 MV E/A: 1.2 Ao V2 max: 98.3 cm/sec LV V1 max: 76.3 cm/sec PA V2 max: 90.0 cm/sec Ao max P.9 mmHg LV V1 max P.3 mmHg TR max damien: 257.7 cm/sec TR max P.7 mmHg Interpretation Summary Normal LV size. Left ventricular systolic function is normal. The estimated ejection fraction is 55 %. No evidence for diastolic dysfunction. Mild tricuspid valve insufficiency. Contrast injection was performed. Ordering Physician: Josephine Shukla Referring Physician: Katy Delgadillo Performed By: Vanessa Braxton RDCS, RVT
[2017-10-17 11:19] LABS: Cholesterol 124 mg/dL (200); High Density Lipoprotein 38 mg/dL; Triglycerides 124 mg/dL; Very Low Density Lipoprotein 25 mg/dL (5-40)
[2017-10-17 11:31] LABS: Hemoglobin A1c 10.6 % (4.2-6.3)
--- NOTE | 2017-10-17 11:59 | NURSING ---
spoke with Zhanna from Dr Islas's office regarding loop recording. they recommended a transmission be sent prior to MRI. present in room and stated that she would return home and bring in equipment to send remote transmission to the office. will notify MD when transmission has been sent.
[2017-10-17 12:01] LABS: Bedside Glucose 368 mg/dL (70-110)
--- NOTE | 2017-10-17 13:15 | CHAPLAIN ---
Type of Pastoral Visit _x__ Initial Visit ___ Follow-up Visit ___ On-call Visit ___ General Patient Visit ___ Spiritual Assessment ___ Family Conference ___ Bereavement ___ Rapid Response ___ Code Blue ___ Other (describe below) Pastoral Care Referral From _x__ Patient ___ Family ___ Nurse ___ Physician ___ Manager Foreign ___ Technical Aid ___ Other (describe below) Sacrament/Intervention _x__ Active listening ___ Anointing ___ Rastafarian ___ Bereavement ___ Communion _x__ Skylar exploration ___ ___ Life review _x__ Prayer ___ Reconciliation ___ Sacrament of Sick _x__ Supportive presence ___ Wedding ___ Other (describe below) Pastoral Comments 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
--- NOTE | 2017-10-17 13:44 | PCM.CONS.GEN ---
Problem List (1) Right sided weakness Status: Acute (2) Headache Status: Acute Qualifiers: Headache type: unspecified Intractability: not intractable Reason for Consult Date of Consultation: 10/17/17 Reason for Consultation: Right sided weakness and DUDLEY History of Present Illness: The patient is a 52 year old CM with PMH HTN, HLD, DM, H/O Stroke in April and June 2017, s/p tpa at [facility] in June 2017, s/p loop recorder, recent admission on September 28 2017 with left sided weakness to [facility], had normal MRI brain, started on Elavil at that time, CAD, anxiety/depression admitted with right sided weakness and DUDLEY. 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 Stroke alert was called but he was not a ivtpa candidate. CTA head/neck did not show any hemodynamic significant stenosis or occlusion. At present patient is at his baseline, his DUDLEY is better per patient, denies any focal motor weakness, sensory loss, visual disturbances or speech disturbances. Per patient he had right sided weakness, speech disturbances and confusion when he had his initial stroke in April 2017 and had abnormal MRI brain but I do not have those records with me at present. Then he tells me that in June 2017 he had left sided weakness, was taken to [facility], was given IVtpa, but had normal MRI brain per patient but again those records are not available at present. In September 2017 when he was admitted with left sided weakness again, he had normal MRI brain, MRI C spine was normal and MRI L spine showed severe stenosis L4-L5 with left L4 nerve impingement. 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 [] Past Medical History Past Medical History (Chronic Problems): Chronic Problems Osteoarthritis (Chronic) Asthma (Chronic) Anxiety (Chronic) Tachycardia (Chronic) CAD (coronary artery disease) (Chronic) HTN (hypertension) (Chronic) DM2 (diabetes mellitus, type 2) (Chronic) History of myocardial infarction (Chronic) Allergies levofloxacin [From Levaquin] Allergy (Verified 10/16/17 19:49) rash,swelling RED RASH, SWELLING Penicillins Allergy (Verified 10/16/17 19:49) Rash Home Medications: Ambulatory Orders Medication Instructions Recorded Febuxostat [Uloric] 40 mg PO DAILY 09/17/14 Albuterol Inhaler [Ventolin Hfa] 1 puff INHALATION Q4H PRN PRN 01/28/15 Cyclobenzaprine [Flexeril] 10 mg PO TID PRN PRN 01/28/15 Losartan/Hydrochlorothiazide 1 tab PO DAILY 01/28/15 [Hyzaar 100-25 Tablet] Sertraline HCl [Zoloft] 200 mg PO DAILY 01/28/15 Lorazepam [Ativan] 0.5 mg PO Q6H PRN PRN 12/29/15 Metformin HCl [Metformin HCl ER] 2,000 mg PO DAILY 12/29/15 Aspirin [Adult Low Dose Aspirin EC] 81 mg PO DAILY 06/03/16 Cetirizine HCl [Zyrtec] 10 mg PO DAILY 06/03/16 Atorvastatin Calcium 80 mg PO QHS 09/27/17 Clopidogrel Bisulfate [Plavix] 75 mg PO DAILY 09/27/17 Insulin Lispro [Humalog] 30 unit SC TIDCM 09/27/17 Amitriptyline HCl [Elavil] 50 mg PO QHS 10/16/17 Diltiazem HCl [Diltiazem 24Hr ER] 180 mg PO DAILY 10/16/17 Insulin Detemir [Levemir FlexPen] 30 units SC BID 10/16/17 Surgical History: cholecystectomy, - - loop monitor Psychiatric History: Anxiety, Depression Lives: Spouse/ Significant Other Smoking Status: Never smoker Alcohol: None Drugs: None - *Family History Maternal History Items: Stroke Paternal History Items: Heart Disease Sibling History Items: Diabetes, Heart Disease, Hypertension Review of Systems Constitutional: Reports: - - complete ROS negative except as documented in HPI Patient Problems: Active and Suspected Problems Right sided weakness (Acute) Headache (Acute) - Physical Exam General: Alert, Oriented x3, Cooperative HEENT: Atraumatic, PERRLA, EOMI, Normocephalic Neck: Supple, No JVD, Negative Carotid Bruits Lungs: Clear to auscultation, Normal air movement Cardiovascular: Regular rate, No murmurs Abdomen: Bowel Sounds Present, Soft, Non Tender Extremities: No edema, Capillary Refill Less than 3 Seconds Skin: No rashes, No breakdown Musculoskeletal: No Tenderness to Palpation of Joints or Extremities Neurological: - - consious, alert, AoAx3, CN 2-12 grossly intact, power 5/5 all 4 extremities, denies any sensory loss, no cerebellar signs, Reflexes + B/L B/S/T/K/A, gait deferred. NIHSS 0 at present. Psych/Mental Status: Normal Affect, Appropriate Vital Signs Temp Pulse Resp BP Pulse Ox 98.5 F 74 18 126/93 H 97 10/17/17 09:30 10/17/17 09:31 10/17/17 09:30 10/17/17 09:31 10/17/17 09:30 Oxygen Delivery Method Room Air Weight: 131.8 kg Body Mass Index (BMI) 40.5 Orthostatic Vital Signs Start: 10/17/17 09:31 Freq: q24h Status: Active Protocol: Activity Type Activity Date Activity User E-Sign Co-Sign Detail Recorded Client Recorded Date Recorded By Document 10/17/17 09:31 [facility] [id number] 10/17/17 09:33 [facility] 10/17/17 09:31 Orthostatic Vitals Standing -Blood Pressure (90/60-120/80) 124/91 H -Extremity Use Right Arm -Pulse Rate (60-100) 85 Sitting -Blood Pressure (90/60-120/80) 132/90 H -Extremity Use Right Arm -Pulse Rate (60-100) 75 Lying -Blood Pressure (90/60-120/80) 126/93 H -Extremity Use Right Arm -Pulse Rate (60-100) 74 Intake and Output for Last 24 Hours 10/15/17 10/16/17 10/17/17 23:59 23:59 23:59 Intake Total 1280 / 1280 Output Total 1700 / 1700 Balance -420 / -420 Laboratory Tests Past 24 Hrs 10/17/17 10/17/17 10/17/17 05:04 05:04 05:04 WBC 9.4 RBC 5.63 Hgb 16.0 Hct 45.4 MCV 80.6 MCH 28.4 MCHC 35.2 RDW 12.6 RDW Differential 36.8 Plt Count 190 MPV 9.1 Immature Gran % (Auto) 0.200 Neut % (Auto) 58.9 Lymph % (Auto) 28.7 [place] % (Auto) 7.0 Eos % (Auto) 4.6 Baso % (Auto) 0.6 Absolute Neuts (auto) 5.6 Absolute Lymphs (auto) 2.70 Total Counted Not Reportable Sodium 138 Potassium 3.9 Chloride 103 Carbon Dioxide 26.0 Anion Gap 9 BUN 19 H Creatinine 1.02 Estim Creat Clear Calc 89.20 Est GFR (MDRD) Af Amer 98 Est GFR (MDRD) Non-Af 81 BUN/Creatinine Ratio 18.6 Glucose 209 H Hemoglobin A1c 10.6 H Calcium 8.5 Triglycerides Cholesterol LDL Cholesterol VLDL Cholesterol HDL Cholesterol Urine Opiates Screen Urine Methadone Screen Ur Barbiturates Screen Ur Phencyclidine Scrn Ur Amphetamines Screen U Methamphetamin-MDMA U Benzodiazepines Scrn Urine Cocaine Screen U Cannabinoids Screen Ur Drug Screen Comment 10/17/17 10/17/17 05:04 06:45 WBC RBC Hgb Hct MCV MCH MCHC RDW RDW Differential Plt Count MPV Immature Gran % (Auto) Neut % (Auto) Lymph % (Auto) [place] % (Auto) Eos % (Auto) Baso % (Auto) Absolute Neuts (auto) Absolute Lymphs (auto) Total Counted Sodium Potassium Chloride Carbon Dioxide Anion Gap BUN Creatinine Estim Creat Clear Calc Est GFR (MDRD) Af Amer Est GFR (MDRD) Non-Af BUN/Creatinine Ratio Glucose Hemoglobin A1c Calcium Triglycerides 124 Cholesterol 124 LDL Cholesterol 61 VLDL Cholesterol 25 HDL Cholesterol 38 L Urine Opiates Screen NEGATIVE Urine Methadone Screen NEGATIVE Ur Barbiturates Screen NEGATIVE Ur Phencyclidine Scrn NEGATIVE Ur Amphetamines Screen NEGATIVE U Methamphetamin-MDMA NEGATIVE U Benzodiazepines Scrn NEGATIVE Urine Cocaine Screen NEGATIVE U Cannabinoids Screen NEGATIVE Ur Drug Screen Comment POC Glucose 10/17/17 10/17/17 10/16/17 11:54 07:24 22:23 POC Glucose 368 H 237 H 235 H Assessment/Plan Active and Suspected Problems Right sided weakness (Acute) Headache (Acute) The patient is a 52 year old CM with PMH HTN, HLD, DM, H/O Stroke in April and June 2017, s/p tpa at [facility] in June 2017, s/p loop recorder, recent admission on September 28 2017 with left sided weakness to [facility], had normal MRI brain, started on Elavil at that time, CAD, anxiety/depression admitted with right sided weakness and DUDLEY. 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 Stroke alert was called but he was not a ivtpa candidate. CTA head/neck did not show any hemodynamic significant stenosis or occlusion. At present patient is at his baseline, his DUDLEY is better per patient, denies any focal motor weakness, sensory loss, visual disturbances or speech disturbances. Impression H/O stroke Right sided weakness/DUDLEY ? TIA vs hemiplegic migraine vs conversion d/o MRI L spine done during recent admission- showed left L4 nerve root impingement and severe L4-L5 canal stenosis Plan -On ASA/Plavix and Lipitor -Recommend loop recorder interrogation -Recommend MRI brain w/o contrast after loop recorder interrogation -Recommend increasing Amitriptyline to 75 mg PO q hs. -Please obtain the records for recent TTE from [facility] -Hba1c was 10.6, LDL-61 -Recommend endocrinology consult for better BS management. -Recommend spine surgery consult for Lumbar stenosis and left L4 nerve impingement. -Await EEG -PT/OT -GI/DVT prophylaxis -Fall precautions -Please call with questions if any -Thank you for allowing us to participate in patient's care and management. I spent 60 minutes taking history, doing physical examination, reviewing medical records, coordinating care and counseling the patient. Code Visit Inpatient E&M: [id number] Init Hosp L3
--- NOTE | 2017-10-17 13:52 | MRI_ITS ---
STUDY: MRI BRAIN WITHOUT CONTRAST REASON FOR EXAM: Male, 52 years old. Right-sided numbness and weakness TECHNIQUE: Standardized multiplanar fat and water weighted pulse sequences were obtained. COMPARISON: September 27, 2017. FINDINGS: Normal size of the ventricles and extra-axial spaces for the patient's age. There is a solitary white matter lesion in the left parietal lobe without mass effect or restricted diffusion.. Normal bilateral basal ganglia. Normal thalami. There is no extra-axial fluid accumulation. Normal flow voids within the major intracranial circulation suggesting patency by spin echo criteria. Normal sella turcica, pituitary gland, infundibular stalk, optic chiasm and hypothalamus. Normal tectal plate and pineal gland. Normal midbrain, jed and medulla. Normal cerebellum. Normal basal cisterns. Normal bilateral temporal bones. Normal bilateral internal auditory canals. No demonstrated orbital abnormality, within the constraints of a routine brain study. There is mild mucosal thickening within left maxillary sinus Normal calvarium and skull base. Normal visualized soft tissue structures. Normal visualized upper cervical spine. No significant change since prior exam MRI/Brain without Contrast IMPRESSION: Findings may be consistent with old deep white matter infarct in left parietal lobe. No evidence for acute infarct at this time Electronically Signed: Daryl Nichols MD at 22:12 EST , Service support ,
--- NOTE | 2017-10-17 13:57 | CON.PCM_ITS ---
Problem List (1) Right sided weakness Status: Acute (2) Headache Status: Acute Qualifiers: Headache type: unspecified Intractability: not intractable Reason for Consult Date of Consultation: 10/17/17 Reason for Consultation: Right sided weakness and DUDLEY History of Present Illness: The patient is a 52 year old CM with PMH HTN, HLD, DM, H/O Stroke in April and June 2017, s/p tpa at [facility] in June 2017, s/p loop recorder, recent admission on September 28 2017 with left sided weakness to [facility], had normal MRI brain, started on Elavil at that time, CAD, anxiety/depression admitted with right sided weakness and DUDLEY. Per patient he started having right sided weakness and felt his right side felt funny around 4:30 pm (10/16/17) and per documentation on arrival to the ED he was lethargic, the squad initially felt he had bilateral facial droop, and had bilateral weak hand referral agent, and when in the ED he was told that there is not time for this patient, he immediately woke up and answered all the questions, without any focal deficits, complained of severe DUDLEY in the ED and per ED documentation his NIHSS was felt to be 1 on arrival but then became 0. Stroke alert was called but he was not a ivtpa candidate. CTA head/neck did not show any hemodynamic significant stenosis or occlusion. At present patient is at his baseline, his DUDLEY is better per patient, denies any focal motor weakness, sensory loss, visual disturbances or speech disturbances. Per patient he had right sided weakness, speech disturbances and confusion when he had his initial stroke in April 2017 and had abnormal MRI brain but I do not have those records with me at present. Then he tells me that in June 2017 he had left sided weakness, was taken to [facility], was given IVtpa, but had normal MRI brain per patient but again those records are not available at present. In September 2017 when he was admitted with left sided weakness again, he had normal MRI brain, MRI C spine was normal and MRI L spine showed severe stenosis L4-L5 with left L4 nerve impingement. 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 [] Past Medical History Past Medical History (Chronic Problems): Chronic Problems Osteoarthritis (Chronic) Asthma (Chronic) Anxiety (Chronic) Tachycardia (Chronic) CAD (coronary artery disease) (Chronic) HTN (hypertension) (Chronic) DM2 (diabetes mellitus, type 2) (Chronic) History of myocardial infarction (Chronic) Allergies levofloxacin [From Levaquin] Allergy (Verified 10/16/17 19:49) rash,swelling RED RASH, SWELLING Penicillins Allergy (Verified 10/16/17 19:49) Rash Home Medications: Ambulatory Orders Medication Instructions Recorded Febuxostat [Uloric] 40 mg PO DAILY 09/17/14 Albuterol Inhaler [Ventolin Hfa] 1 puff INHALATION Q4H PRN PRN 01/28/15 Cyclobenzaprine [Flexeril] 10 mg PO TID PRN PRN 01/28/15 Losartan/Hydrochlorothiazide 1 tab PO DAILY 01/28/15 [Hyzaar 100-25 Tablet] Sertraline HCl [Zoloft] 200 mg PO DAILY 01/28/15 Lorazepam [Ativan] 0.5 mg PO Q6H PRN PRN 12/29/15 Metformin HCl [Metformin HCl ER] 2,000 mg PO DAILY 12/29/15 Aspirin [Adult Low Dose Aspirin EC] 81 mg PO DAILY 06/03/16 Cetirizine HCl [Zyrtec] 10 mg PO DAILY 06/03/16 Atorvastatin Calcium 80 mg PO QHS 09/27/17 Clopidogrel Bisulfate [Plavix] 75 mg PO DAILY 09/27/17 Insulin Lispro [Humalog] 30 unit SC TIDCM 09/27/17 Amitriptyline HCl [Elavil] 50 mg PO QHS 10/16/17 Diltiazem HCl [Diltiazem 24Hr ER] 180 mg PO DAILY 10/16/17 Insulin Detemir [Levemir FlexPen] 30 units SC BID 10/16/17 Surgical History: cholecystectomy, - - loop monitor Psychiatric History: Anxiety, Depression Lives: Spouse/ Significant Other Smoking Status: Never smoker Alcohol: None Drugs: None - *Family History Maternal History Items: Stroke Paternal History Items: Heart Disease Sibling History Items: Diabetes, Heart Disease, Hypertension Review of Systems Constitutional: Reports: - - complete ROS negative except as documented in HPI Patient Problems: Active and Suspected Problems Right sided weakness (Acute) Headache (Acute) - Physical Exam General: Alert, Oriented x3, Cooperative HEENT: Atraumatic, PERRLA, EOMI, Normocephalic Neck: Supple, No JVD, Negative Carotid Bruits Lungs: Clear to auscultation, Normal air movement Cardiovascular: Regular rate, No murmurs Abdomen: Bowel Sounds Present, Soft, Non Tender Extremities: No edema, Capillary Refill Less than 3 Seconds Skin: No rashes, No breakdown Musculoskeletal: No Tenderness to Palpation of Joints or Extremities Neurological: - - consious, alert, AoAx3, CN 2-12 grossly intact, power 5/5 all 4 extremities, denies any sensory loss, no cerebellar signs, Reflexes + B/L B/S/ T/K/A, gait deferred. NIHSS 0 at present. Psych/Mental Status: Normal Affect, Appropriate Vital Signs Temp Pulse Resp BP Pulse Ox 98.5 F 74 18 126/93 H 97 10/17/17 09:30 10/17/17 09:31 10/17/17 09:30 10/17/17 09:31 10/17/17 09:30 Oxygen Delivery Method Room Air Weight: 131.8 kg Body Mass Index (BMI) 40.5 Orthostatic Vital Signs Start: 10/17/17 09:31 Freq: q24h Status: Active Protocol: Activity Type Activity Date Activity User E-Sign Co-Sign Detail Recorded Client Recorded Date Recorded By Document 10/17/17 09:31 [facility] [id number] 10/17/17 09:33 [facility] 10/17/17 09:31 Orthostatic Vitals Standing -Blood Pressure (90/60-120/80) 124/91 H -Extremity Use Right Arm -Pulse Rate (60-100) 85 Sitting -Blood Pressure (90/60-120/80) 132/90 H -Extremity Use Right Arm -Pulse Rate (60-100) 75 Lying -Blood Pressure (90/60-120/80) 126/93 H -Extremity Use Right Arm -Pulse Rate (60-100) 74 Intake and Output for Last 24 Hours 10/15/17 10/16/17 10/17/17 23:59 23:59 23:59 Intake Total 1280 / 1280 Output Total 1700 / 1700 Balance -420 / -420 Laboratory Tests Past 24 Hrs 10/17/17 10/17/17 10/17/17 05:04 05:04 05:04 WBC 9.4 RBC 5.63 Hgb 16.0 Hct 45.4 MCV 80.6 MCH 28.4 MCHC 35.2 RDW 12.6 RDW Differential 36.8 Plt Count 190 MPV 9.1 Immature Gran % (Auto) 0.200 Neut % (Auto) 58.9 Lymph % (Auto) 28.7 [place] % (Auto) 7.0 Eos % (Auto) 4.6 Baso % (Auto) 0.6 Absolute Neuts (auto) 5.6 Absolute Lymphs (auto) 2.70 Total Counted Not Reportable Sodium 138 Potassium 3.9 Chloride 103 Carbon Dioxide 26.0 Anion Gap 9 BUN 19 H Creatinine 1.02 Estim Creat Clear Calc 89.20 Est GFR (MDRD) Af Amer 98 Est GFR (MDRD) Non-Af 81 BUN/Creatinine Ratio 18.6 Glucose 209 H Hemoglobin A1c 10.6 H Calcium 8.5 Triglycerides Cholesterol LDL Cholesterol VLDL Cholesterol HDL Cholesterol Urine Opiates Screen Urine Methadone Screen Ur Barbiturates Screen Ur Phencyclidine Scrn Ur Amphetamines Screen U Methamphetamin-MDMA U Benzodiazepines Scrn Urine Cocaine Screen U Cannabinoids Screen Ur Drug Screen Comment 10/17/17 10/17/17 05:04 06:45 WBC RBC Hgb Hct MCV MCH MCHC RDW RDW Differential Plt Count MPV Immature Gran % (Auto) Neut % (Auto) Lymph % (Auto) [place] % (Auto) Eos % (Auto) Baso % (Auto) Absolute Neuts (auto) Absolute Lymphs (auto) Total Counted Sodium Potassium Chloride Carbon Dioxide Anion Gap BUN Creatinine Estim Creat Clear Calc Est GFR (MDRD) Af Amer Est GFR (MDRD) Non-Af BUN/Creatinine Ratio Glucose Hemoglobin A1c Calcium Triglycerides 124 Cholesterol 124 LDL Cholesterol 61 VLDL Cholesterol 25 HDL Cholesterol 38 L Urine Opiates Screen NEGATIVE Urine Methadone Screen NEGATIVE Ur Barbiturates Screen NEGATIVE Ur Phencyclidine Scrn NEGATIVE Ur Amphetamines Screen NEGATIVE U Methamphetamin-MDMA NEGATIVE U Benzodiazepines Scrn NEGATIVE Urine Cocaine Screen NEGATIVE U Cannabinoids Screen NEGATIVE Ur Drug Screen Comment POC Glucose 10/17/17 10/17/17 10/16/17 11:54 07:24 22:23 POC Glucose 368 H 237 H 235 H Assessment/Plan Active and Suspected Problems Right sided weakness (Acute) Headache (Acute) The patient is a 52 year old CM with PMH HTN, HLD, DM, H/O Stroke in April and June 2017, s/p tpa at [facility] in June 2017, s/p loop recorder, recent admission on September 28 2017 with left sided weakness to [facility], had normal MRI brain, started on Elavil at that time, CAD, anxiety/depression admitted with right sided weakness and DUDLEY. Per patient he started having right sided weakness and felt his right side felt funny around 4:30 pm (10/16/17) and per documentation on arrival to the ED he was lethargic, the squad initially felt he had bilateral facial droop, and had bilateral weak hand referral agent, and when in the ED he was told that there is not time for this patient, he immediately woke up and answered all the questions, without any focal deficits, complained of severe DUDLEY in the ED and per ED documentation his NIHSS was felt to be 1 on arrival but then became 0. Stroke alert was called but he was not a ivtpa candidate. CTA head/neck did not show any hemodynamic significant stenosis or occlusion. At present patient is at his baseline, his DUDLEY is better per patient, denies any focal motor weakness, sensory loss, visual disturbances or speech disturbances. Impression H/O stroke Right sided weakness/DUDLEY ? TIA vs hemiplegic migraine vs conversion d/o MRI L spine done during recent admission- showed left L4 nerve root impingement and severe L4-L5 canal stenosis Plan -On ASA/Plavix and Lipitor -Recommend loop recorder interrogation -Recommend MRI brain w/o contrast after loop recorder interrogation -Recommend increasing Amitriptyline to 75 mg PO q hs. -Please obtain the records for recent TTE from [facility] -Hba1c was 10.6, LDL-61 -Recommend endocrinology consult for better BS management. -Recommend spine surgery consult for Lumbar stenosis and left L4 nerve impingement. -Await EEG -PT/OT -GI/DVT prophylaxis -Fall precautions -Please call with questions if any -Thank you for allowing us to participate in patient's care and management. I spent 60 minutes taking history, doing physical examination, reviewing medical records, coordinating care and counseling the patient. Code Visit Inpatient E&M: 69175 Init Hosp L3
--- NOTE | 2017-10-17 15:01 | NURSING ---
PT TO MRI VIA BED
--- NOTE | 2017-10-17 15:35 | EEG ---
- Electroencephalogram History EEG is being done in this 52 yr M to rule out seizures EEG Description: This is an 18 channel EEG with 10-20 lead placement system. Bipolar montages, Referential and Circumferential montages were reviewed. Photic stimulation and Hyperventilation were performed. The posterior dominant background rhythm is 8 HZ synchronous, symmetric, reacting to eye opening and closing. Photo stimulation elicited normal driving response but no abnormal photoparoxysmal response, Hyperventilation did not elicit any abnormal photoparoxysmal response. Sleep was identified. There was no abnormal background slowing noted during the record. There was no epileptiform discharges or electrographic seizures noted during this recording. EKG artefact seen during the record EEG Interpretation This is a normal awake and asleep EEG. There is no epileptiform discharges or electrographic seizures noted during the record.
[2017-10-17 16:09] VITALS: BP 114/76; PULSE 75; RESP 18; TEMP 36.9; O2SAT 97
[2017-10-17 16:21] LABS: Bedside Glucose 135 mg/dL (70-110)
[2017-10-17 19:40] VITALS: BP 112/72; PULSE 73; RESP 20; TEMP 36.6; O2SAT 97
[2017-10-17 19:42] VITALS: BP 118/78; BP 119/65; BP 122/64; PULSE 65; PULSE 71; PULSE 72
[2017-10-17] MEDS: Atorvastatin Calcium 80 MG Tablet PO (22:02)
[2017-10-17] MEDS: Amitriptyline 25 MG Tablet 50 MG PO (22:02)
[2017-10-17 22:06] LABS: Bedside Glucose 114 mg/dL (70-110)
[2017-10-17] MEDS: Ibuprofen 600 MG Tablet PO (22:06)
[2017-10-18 01:40] VITALS: BP 122/79; PULSE 63; RESP 18; TEMP 36.6; O2SAT 97
[2017-10-18 07:16] LABS: Bedside Glucose 209 mg/dL (70-110)
[2017-10-18 09:35] VITALS: BP 143/81; PULSE 69; RESP 18; TEMP 36.6; O2SAT 95
[2017-10-18] MEDS: FEBUXOSTAT 40 MG TABLET PO (09:35)
[2017-10-18] MEDS: Loratadine 10 MG Tablet PO (09:35)
[2017-10-18] MEDS: Enoxaparin 40 MG/0.4 ML Syringe SC (09:35)
[2017-10-18] MEDS: dilTIAZem CD 180 MG Capsule PO (09:35)
[2017-10-18] MEDS: Clopidogrel Bisulfate 75 MG Tablet PO (09:35)
[2017-10-18] MEDS: Aspirin E.C. 81 MG Tablet PO (09:36)
--- NOTE | 2017-10-18 10:34 | CASEMGMT ---
Addendum entered by Ashley Lu 10/18/17 11:07: [facility]im is here now from [facility] to see pt. SHIRLEY Carver, SENIOR PRODUCTION SUPERVISOR Original Note: SW spoke w/physician, she states pt has has multiple stressful events over the last five months, would benefit from speaking w/Nasim w/[facility] about their program, pt is open to it. SW called [facility] to let this SW know if Nasim or someone else can come over today to speak w/the pt. SHIRLEY Carver, SENIOR PRODUCTION SUPERVISOR
--- NOTE | 2017-10-18 11:44 | BH.NOTE ---
: Inpatient Note - Notes [facility] Inpatient Note: 10/18/17 11:44 Referral to [facility] from social work due to depressive symptoms. Pt denies any suicidal ideations, plan, or intent. No hx of attempts. 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 Reports working 50-60 hours a week. Shared that everyday he believes that his job will be terminated. Along with work stressors his brother in 08/2017. 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 Was started on medications for depression about 3 years ago. Reports that he believes they are somewhat effective however due to numerous stressors his depression is never stable. Denies panic attacks however admits to constant worry. Endorses hopelessness and worthlessness at times. He shows some insight into how his MH symptoms and stress could impact his medical issues and symptoms. He is willing to engage in outpatient counseling and was given a referral to [facility] which has an office very close to him. We discussed [facility] IOP program however pt wishes to return to work and could not make program hours. He was given a list of resources in the area.
[2017-10-18 12:00] VITALS: BP 128/96; BP 133/93; BP 140/93; PULSE 83; PULSE 89; PULSE 99
--- NOTE | 2017-10-18 12:06 | DCINST_ITS ---
- Discharge Diagnoses Current Active Problems: Current Active and Chronic Problems Right sided weakness (Acute) Headache (Acute) You will use the following diet at home:: Calorie/Carbohydrate Controlled ( specify 1200, 1400, etc) - 1800 calorie controlled, low fat and low salt Discharge Activity: Return to Normal Activity Call your doctor if you observe: Fever of 101 or Higher, Shortness of breath, Fainting spells, Swelling in the ankles, Chest pain Instructions: ED Conversion Disdr Conversion Reac Additional Instructions: The MRI of the brain showed no acute findings. The CT angiograms of the head and neck showed no significant areterial narrowing. The EEG showed no epileptic activity. I think you may be having conversion reactions to the extreme stress you have been under. You are on high dose medication for anxiety and depression but, your emotions are still not adequately controlled. It is my opinion that patients with anxiety and depression do better with a combination of Drugs and therapy. Drugs by themselves often are not adequate. I hope that you follow through with counselling and the recommendations Nasim gave you. Allergies/Adverse Reactions: Allergies levofloxacin [From Levaquin] Allergy (Verified 10/16/17 19:49) rash,swelling RED RASH, SWELLING Penicillins Allergy (Verified 10/16/17 19:49) Rash Medications to take at Discharge Febuxostat [Uloric] 40 mg PO DAILY 09/17/14 Albuterol Inhaler [Ventolin Hfa] 1 puff INHALATION Q4H PRN PRN 01/28/15 Cyclobenzaprine [Flexeril] 10 mg PO TID PRN PRN 01/28/15 Losartan/Hydrochlorothiazide [Hyzaar 100-25 Tablet] 1 tab PO DAILY 01/28/15 Sertraline HCl [Zoloft] 200 mg PO DAILY 01/28/15 Lorazepam [Ativan] 0.5 mg PO Q6H PRN PRN 12/29/15 Metformin HCl [Metformin HCl ER] 2,000 mg PO DAILY 12/29/15 Aspirin [Adult Low Dose Aspirin EC] 81 mg PO DAILY 06/03/16 Cetirizine HCl [Zyrtec] 10 mg PO DAILY 06/03/16 Atorvastatin Calcium 80 mg PO QHS 09/27/17 Clopidogrel Bisulfate [Plavix] 75 mg PO DAILY 09/27/17 Insulin Lispro [Humalog] 30 unit SC TIDCM 09/27/17 Amitriptyline HCl [Elavil] 50 mg PO QHS 10/16/17 Diltiazem HCl [Diltiazem 24Hr ER] 180 mg PO DAILY 10/16/17 Insulin Detemir [Levemir FlexPen] 30 units SC BID 10/16/17 Primary Care Physician: Rod Elena MD [Primary Care Provider] - Please follow up with your Primary Care Physician in: 1 week Proposed Discharge Date: 10/18/17
--- NOTE | 2017-10-18 12:15 | PCM.DC.SUM ---
Discharge Date and Diagnosis Date of Admission: 10/16/17 Date of Discharge: 10/18/17 - Primary Discharge Diagnosis Active and Suspected Problems Conversion reaction (Suspected) Right side weakness, numbness and slurred speech - resolved without tx CVA - ruled out - Secondary Discharge Diagnosis Chronic Problems Depression (Chronic) Osteoarthritis (Chronic) Asthma (Chronic) Anxiety (Chronic) CAD (coronary artery disease) (Chronic) HTN (hypertension) (Chronic) DM2 (diabetes mellitus, type 2) (Chronic) uncontrolled - HGBA1C is 10.6% History of myocardial infarction (Chronic) Morbid obesity Hospital Course and Treatment Imaging Results: Clinical Impression(s) from Imaging Studies Head CTA 10/16/17 18:24 IMPRESSION: Normal [place] without a demonstrated aneurysm or hemodynamically significant stenosis. The posterior communicating arteries are not visualized which is not unusual in a complete [place]. Electronically Signed: Gary Jones DO at 19:24 EST Tel [phone], Service support , Neck CTA 10/16/17 18:24 IMPRESSION: Normal bilateral cervical carotid and vertebral arteries. 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 No evidence for acute infarct at this time Electronically Signed: Daryl Nichols MD at 22:12 EST , Service support , Laboratory Tests 10/16/17 10/16/17 10/16/17 18:15 18:15 18:15 WBC 9.4 RBC 5.40 Hgb 15.4 Hct 44.1 MCV 81.7 MCH 28.5 MCHC 34.9 RDW 12.5 RDW Differential 36.8 Plt Count 178 MPV 9.1 Immature Gran % (Auto) 0.100 Neut % (Auto) 60.9 Lymph % (Auto) 27.2 [place] % (Auto) 6.6 Eos % (Auto) 4.8 Baso % (Auto) 0.4 Absolute Neuts (auto) 5.7 Absolute Lymphs (auto) 2.55 Total Counted Not Reportable PT 14.0 INR 1.1 APTT 26.9 Sodium 141 Potassium 4.3 Chloride 107 Carbon Dioxide 27.0 Anion Gap 7 BUN 18 Creatinine 1.19 Estim Creat Clear Calc 81.13 Est GFR (MDRD) Af Amer 82 Est GFR (MDRD) Non-Af 68 BUN/Creatinine Ratio 15.1 Glucose 226 H Hemoglobin A1c Calcium 8.4 L Triglycerides Cholesterol LDL Cholesterol VLDL Cholesterol HDL Cholesterol Urine Opiates Screen Urine Methadone Screen Ur Barbiturates Screen Ur Phencyclidine Scrn Ur Amphetamines Screen U Methamphetamin-MDMA U Benzodiazepines Scrn Urine Cocaine Screen U Cannabinoids Screen Ur Drug Screen Comment POC Glucose 10/16/17 10/16/17 10/17/17 18:17 22:23 05:04 WBC 9.4 RBC 5.63 Hgb 16.0 Hct 45.4 MCV 80.6 MCH 28.4 MCHC 35.2 RDW 12.6 RDW Differential 36.8 Plt Count 190 MPV 9.1 Immature Gran % (Auto) 0.200 Neut % (Auto) 58.9 Lymph % (Auto) 28.7 [place] % (Auto) 7.0 Eos % (Auto) 4.6 Baso % (Auto) 0.6 Absolute Neuts (auto) 5.6 Absolute Lymphs (auto) 2.70 Total Counted Not Reportable PT INR APTT Sodium Potassium Chloride Carbon Dioxide Anion Gap BUN Creatinine Estim Creat Clear Calc Est GFR (MDRD) Af Amer Est GFR (MDRD) Non-Af BUN/Creatinine Ratio Glucose Hemoglobin A1c Calcium Triglycerides Cholesterol LDL Cholesterol VLDL Cholesterol HDL Cholesterol Urine Opiates Screen Urine Methadone Screen Ur Barbiturates Screen Ur Phencyclidine Scrn Ur Amphetamines Screen U Methamphetamin-MDMA U Benzodiazepines Scrn Urine Cocaine Screen U Cannabinoids Screen Ur Drug Screen Comment POC Glucose 216 H 235 H 10/17/17 10/17/17 10/17/17 05:04 05:04 05:04 WBC RBC Hgb Hct MCV MCH MCHC RDW RDW Differential Plt Count MPV Immature Gran % (Auto) Neut % (Auto) Lymph % (Auto) [place] % (Auto) Eos % (Auto) Baso % (Auto) Absolute Neuts (auto) Absolute Lymphs (auto) Total Counted PT INR APTT Sodium 138 Potassium 3.9 Chloride 103 Carbon Dioxide 26.0 Anion Gap 9 BUN 19 H Creatinine 1.02 Estim Creat Clear Calc 89.20 Est GFR (MDRD) Af Amer 98 Est GFR (MDRD) Non-Af 81 BUN/Creatinine Ratio 18.6 Glucose 209 H Hemoglobin A1c 10.6 H Calcium 8.5 Triglycerides 124 Cholesterol 124 LDL Cholesterol 61 VLDL Cholesterol 25 HDL Cholesterol 38 L Urine Opiates Screen Urine Methadone Screen Ur Barbiturates Screen Ur Phencyclidine Scrn Ur Amphetamines Screen U Methamphetamin-MDMA U Benzodiazepines Scrn Urine Cocaine Screen U Cannabinoids Screen Ur Drug Screen Comment POC Glucose 10/17/17 10/17/17 10/17/17 06:45 07:24 11:54 WBC RBC Hgb Hct MCV MCH MCHC RDW RDW Differential Plt Count MPV Immature Gran % (Auto) Neut % (Auto) Lymph % (Auto) [place] % (Auto) Eos % (Auto) Baso % (Auto) Absolute Neuts (auto) Absolute Lymphs (auto) Total Counted PT INR APTT Sodium Potassium Chloride Carbon Dioxide Anion Gap BUN Creatinine Estim Creat Clear Calc Est GFR (MDRD) Af Amer Est GFR (MDRD) Non-Af BUN/Creatinine Ratio Glucose Hemoglobin A1c Calcium Triglycerides Cholesterol LDL Cholesterol VLDL Cholesterol HDL Cholesterol Urine Opiates Screen NEGATIVE Urine Methadone Screen NEGATIVE Ur Barbiturates Screen NEGATIVE Ur Phencyclidine Scrn NEGATIVE Ur Amphetamines Screen NEGATIVE U Methamphetamin-MDMA NEGATIVE U Benzodiazepines Scrn NEGATIVE Urine Cocaine Screen NEGATIVE U Cannabinoids Screen NEGATIVE Ur Drug Screen Comment POC Glucose 237 H 368 H 10/17/17 10/17/17 10/18/17 16:12 21:54 06:49 WBC RBC Hgb Hct MCV MCH MCHC RDW RDW Differential Plt Count MPV Immature Gran % (Auto) Neut % (Auto) Lymph % (Auto) [place] % (Auto) Eos % (Auto) Baso % (Auto) Absolute Neuts (auto) Absolute Lymphs (auto) Total Counted PT INR APTT Sodium Potassium Chloride Carbon Dioxide Anion Gap BUN Creatinine Estim Creat Clear Calc Est GFR (MDRD) Af Amer Est GFR (MDRD) Non-Af BUN/Creatinine Ratio Glucose Hemoglobin A1c Calcium Triglycerides Cholesterol LDL Cholesterol VLDL Cholesterol HDL Cholesterol Urine Opiates Screen Urine Methadone Screen Ur Barbiturates Screen Ur Phencyclidine Scrn Ur Amphetamines Screen U Methamphetamin-MDMA U Benzodiazepines Scrn Urine Cocaine Screen U Cannabinoids Screen Ur Drug Screen Comment POC Glucose 135 H [address] Bermudez-neurology Operations: [email or web address] Procedures: Electroencephalogram - No epileptiform activity Summary of Care Provided: Patient is a 52-year-old male with a past medical history of diabetes mellitus type 2, hypertension, gout, morbid obesity,CVA 2017, depression/anxiety, coronary artery disease and asthma who presented to the emergency room on 10/16/2017 complaining of right side weakness, cephalgia and dizziness. Vital signs at presentation to the emergency room were temp 98.5, 74, blood pressure 133/78, respiratory rate 21 and he was 98% saturated on room air. CBC was normal. BMP was unremarkable. Random blood sugar was 226. CTA of the brain was unremarkable. CTA of the neck showed normal bilateral cervical carotid and vertebral arteries. Patient was recently admitted to [facility] on 09/27/2017 and discharged on 09/28/2018 and at that time complained of left-sided weakness. Workup was negative. He was seen in consultation by Dr. Crum at the last admission who recommended initiating Elavil at bedtime. He also recommended strict blood sugar and blood pressure control. Hemoglobin A1c at his last admission was 11.5. In addition he recommended an outpatient PSG. MRI of the lumbar spine showed multilevel degenerative changes, worse at L4-5 with left foraminal disc herniation at L4-5. There was impingement of the left L4 nerve root. There was severe narrowing of the central canal. MRI of the cervical spine was normal. MRI of the brain recently showed a small focal signal hyperintensity in the left parietal white matter which could possibly represent a remote focal area of infarction but there was no acute stroke. He has a loop recorder but at the time of the last admission he had not had any AF. He has been following up with Dr. Crum and Elavil has been increased to 50 mg. He is scheduled to have a PSG and also a nerve conduction study on the LLE. His sx resolved without treatment. He was seen by Dr. Bermudez and had repeat MRI which was unchanged. EEG was normal and showed no epileptiform activity. Prior to DC I discussed anxiety and conversions reactions with him and his . He is already on high doses of medication for tx of anxiety/depression but has not had any psychotherapy. He has been under a lot of stress at his current job. 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 He was very emotional when we were discussing how he was feeling. was consulted and the pt was seen by Nasim Hale who talked with him about his sx and he was provided with resources to follow up with for counselling. There is a facility 10 minutes from his house that he plans on getting in touch with. He will continue his same medications and will follow up with Dr. Elena in [address] Crum as previously scheduled. This note was generated with [email or web address] dictation software. It may contain incorrect words, spelling, and punctuation that were not noted in checking the note before signing. Discharge Activity: Return to Normal Activity Call your doctor if you observe: Fever of 101 or Higher, Shortness of breath, Fainting spells, Swelling in the ankles, Chest pain Home Medications: Medications to take at Discharge Febuxostat [Uloric] 40 mg PO DAILY 09/17/14 Albuterol Inhaler [Ventolin Hfa] 1 puff INHALATION Q4H PRN PRN 01/28/15 Cyclobenzaprine [Flexeril] 10 mg PO TID PRN PRN 01/28/15 Losartan/Hydrochlorothiazide [Hyzaar 100-25 Tablet] 1 tab PO DAILY 01/28/15 Sertraline HCl [Zoloft] 200 mg PO DAILY 01/28/15 Lorazepam [Ativan] 0.5 mg PO Q6H PRN PRN 12/29/15 Metformin HCl [Metformin HCl ER] 2,000 mg PO DAILY 12/29/15 Aspirin [Adult Low Dose Aspirin EC] 81 mg PO DAILY 06/03/16 Cetirizine HCl [Zyrtec] 10 mg PO DAILY 06/03/16 Atorvastatin Calcium 80 mg PO QHS 09/27/17 Clopidogrel Bisulfate [Plavix] 75 mg PO DAILY 09/27/17 Insulin Lispro [Humalog] 30 unit SC TIDCM 09/27/17 Amitriptyline HCl [Elavil] 50 mg PO QHS 10/16/17 Diltiazem HCl [Diltiazem 24Hr ER] 180 mg PO DAILY 10/16/17 Insulin Detemir [Levemir FlexPen] 30 units SC BID 10/16/17 Primary Care Physician: Rod Elena MD [Primary Care Provider] - Please follow up with your Primary Care Physician in: 1 week Patient Instructions: ED Conversion Disdr Conversion Reac Disposition: Home Minutes spent on discharge:: 40 Meaningful Use Info Meaningful Use Diagnoses (Choose all that apply): None applicable Code Visit Inpatient E&M: 82595 Disch Hosp
--- NOTE | 2017-10-18 12:18 | DS.PCM_ITS ---
Discharge Date and Diagnosis Date of Admission: 10/16/17 Date of Discharge: 10/18/17 - Primary Discharge Diagnosis Active and Suspected Problems Conversion reaction (Suspected) Right side weakness, numbness and slurred speech - resolved without tx CVA - ruled out - Secondary Discharge Diagnosis Chronic Problems Depression (Chronic) Osteoarthritis (Chronic) Asthma (Chronic) Anxiety (Chronic) CAD (coronary artery disease) (Chronic) HTN (hypertension) (Chronic) DM2 (diabetes mellitus, type 2) (Chronic) uncontrolled - HGBA1C is 10.6% History of myocardial infarction (Chronic) Morbid obesity Hospital Course and Treatment Imaging Results: Clinical Impression(s) from Imaging Studies Head CTA 10/16/17 18:24 IMPRESSION: Normal [place] without a demonstrated aneurysm or hemodynamically significant stenosis. The posterior communicating arteries are not visualized which is not unusual in a complete [place]. Electronically Signed: Gary Jones DO at 19:24 EST Tel [phone], Service support , Neck CTA 10/16/17 18:24 IMPRESSION: Normal bilateral cervical carotid and vertebral arteries. 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 No evidence for acute infarct at this time Electronically Signed: Daryl Nichols MD at 22:12 EST , Service support , Laboratory Tests 10/16/17 10/16/17 10/16/17 18:15 18:15 18:15 WBC 9.4 RBC 5.40 Hgb 15.4 Hct 44.1 MCV 81.7 MCH 28.5 MCHC 34.9 RDW 12.5 RDW Differential 36.8 Plt Count 178 MPV 9.1 Immature Gran % (Auto) 0.100 Neut % (Auto) 60.9 Lymph % (Auto) 27.2 [place] % (Auto) 6.6 Eos % (Auto) 4.8 Baso % (Auto) 0.4 Absolute Neuts (auto) 5.7 Absolute Lymphs (auto) 2.55 Total Counted Not Reportable PT 14.0 INR 1.1 APTT 26.9 Sodium 141 Potassium 4.3 Chloride 107 Carbon Dioxide 27.0 Anion Gap 7 BUN 18 Creatinine 1.19 Estim Creat Clear Calc 81.13 Est GFR (MDRD) Af Amer 82 Est GFR (MDRD) Non-Af 68 BUN/Creatinine Ratio 15.1 Glucose 226 H Hemoglobin A1c Calcium 8.4 L Triglycerides Cholesterol LDL Cholesterol VLDL Cholesterol HDL Cholesterol Urine Opiates Screen Urine Methadone Screen Ur Barbiturates Screen Ur Phencyclidine Scrn Ur Amphetamines Screen U Methamphetamin-MDMA U Benzodiazepines Scrn Urine Cocaine Screen U Cannabinoids Screen Ur Drug Screen Comment POC Glucose 10/16/17 10/16/17 10/17/17 18:17 22:23 05:04 WBC 9.4 RBC 5.63 Hgb 16.0 Hct 45.4 MCV 80.6 MCH 28.4 MCHC 35.2 RDW 12.6 RDW Differential 36.8 Plt Count 190 MPV 9.1 Immature Gran % (Auto) 0.200 Neut % (Auto) 58.9 Lymph % (Auto) 28.7 [place] % (Auto) 7.0 Eos % (Auto) 4.6 Baso % (Auto) 0.6 Absolute Neuts (auto) 5.6 Absolute Lymphs (auto) 2.70 Total Counted Not Reportable PT INR APTT Sodium Potassium Chloride Carbon Dioxide Anion Gap BUN Creatinine Estim Creat Clear Calc Est GFR (MDRD) Af Amer Est GFR (MDRD) Non-Af BUN/Creatinine Ratio Glucose Hemoglobin A1c Calcium Triglycerides Cholesterol LDL Cholesterol VLDL Cholesterol HDL Cholesterol Urine Opiates Screen Urine Methadone Screen Ur Barbiturates Screen Ur Phencyclidine Scrn Ur Amphetamines Screen U Methamphetamin-MDMA U Benzodiazepines Scrn Urine Cocaine Screen U Cannabinoids Screen Ur Drug Screen Comment POC Glucose 216 H 235 H 10/17/17 10/17/17 10/17/17 05:04 05:04 05:04 WBC RBC Hgb Hct MCV MCH MCHC RDW RDW Differential Plt Count MPV Immature Gran % (Auto) Neut % (Auto) Lymph % (Auto) [place] % (Auto) Eos % (Auto) Baso % (Auto) Absolute Neuts (auto) Absolute Lymphs (auto) Total Counted PT INR APTT Sodium 138 Potassium 3.9 Chloride 103 Carbon Dioxide 26.0 Anion Gap 9 BUN 19 H Creatinine 1.02 Estim Creat Clear Calc 89.20 Est GFR (MDRD) Af Amer 98 Est GFR (MDRD) Non-Af 81 BUN/Creatinine Ratio 18.6 Glucose 209 H Hemoglobin A1c 10.6 H Calcium 8.5 Triglycerides 124 Cholesterol 124 LDL Cholesterol 61 VLDL Cholesterol 25 HDL Cholesterol 38 L Urine Opiates Screen Urine Methadone Screen Ur Barbiturates Screen Ur Phencyclidine Scrn Ur Amphetamines Screen U Methamphetamin-MDMA U Benzodiazepines Scrn Urine Cocaine Screen U Cannabinoids Screen Ur Drug Screen Comment POC Glucose 10/17/17 10/17/17 10/17/17 06:45 07:24 11:54 WBC RBC Hgb Hct MCV MCH MCHC RDW RDW Differential Plt Count MPV Immature Gran % (Auto) Neut % (Auto) Lymph % (Auto) [place] % (Auto) Eos % (Auto) Baso % (Auto) Absolute Neuts (auto) Absolute Lymphs (auto) Total Counted PT INR APTT Sodium Potassium Chloride Carbon Dioxide Anion Gap BUN Creatinine Estim Creat Clear Calc Est GFR (MDRD) Af Amer Est GFR (MDRD) Non-Af BUN/Creatinine Ratio Glucose Hemoglobin A1c Calcium Triglycerides Cholesterol LDL Cholesterol VLDL Cholesterol HDL Cholesterol Urine Opiates Screen NEGATIVE Urine Methadone Screen NEGATIVE Ur Barbiturates Screen NEGATIVE Ur Phencyclidine Scrn NEGATIVE Ur Amphetamines Screen NEGATIVE U Methamphetamin-MDMA NEGATIVE U Benzodiazepines Scrn NEGATIVE Urine Cocaine Screen NEGATIVE U Cannabinoids Screen NEGATIVE Ur Drug Screen Comment POC Glucose 237 H 368 H 10/17/17 10/17/17 10/18/17 16:12 21:54 06:49 WBC RBC Hgb Hct MCV MCH MCHC RDW RDW Differential Plt Count MPV Immature Gran % (Auto) Neut % (Auto) Lymph % (Auto) [place] % (Auto) Eos % (Auto) Baso % (Auto) Absolute Neuts (auto) Absolute Lymphs (auto) Total Counted PT INR APTT Sodium Potassium Chloride Carbon Dioxide Anion Gap BUN Creatinine Estim Creat Clear Calc Est GFR (MDRD) Af Amer Est GFR (MDRD) Non-Af BUN/Creatinine Ratio Glucose Hemoglobin A1c Calcium Triglycerides Cholesterol LDL Cholesterol VLDL Cholesterol HDL Cholesterol Urine Opiates Screen Urine Methadone Screen Ur Barbiturates Screen Ur Phencyclidine Scrn Ur Amphetamines Screen U Methamphetamin-MDMA U Benzodiazepines Scrn Urine Cocaine Screen U Cannabinoids Screen Ur Drug Screen Comment POC Glucose 135 H [address] Bermudez-neurology Operations: [email or web address] Procedures: Electroencephalogram - No epileptiform activity Summary of Care Provided: Patient is a 52-year-old male with a past medical history of diabetes mellitus type 2, hypertension, gout, morbid obesity,CVA 2017, depression/ anxiety, coronary artery disease and asthma who presented to the emergency room on 10/16/2017 complaining of right side weakness, cephalgia and dizziness. Vital signs at presentation to the emergency room were temp 98.5, 74, blood pressure 133/78, respiratory rate 21 and he was 98% saturated on room air. CBC was normal. BMP was unremarkable. Random blood sugar was 226. CTA of the brain was unremarkable. CTA of the neck showed normal bilateral cervical carotid and vertebral arteries. Patient was recently admitted to [facility] on 09/27/2017 and discharged on 09/28/2018 and at that time complained of left-sided weakness. Workup was negative. He was seen in consultation by Dr. Crum at the last admission who recommended initiating Elavil at bedtime. He also recommended strict blood sugar and blood pressure control. Hemoglobin A1c at his last admission was 11.5. In addition he recommended an outpatient PSG. MRI of the lumbar spine showed multilevel degenerative changes, worse at L4-5 with left foraminal disc herniation at L4- 5. There was impingement of the left L4 nerve root. There was severe narrowing of the central canal. MRI of the cervical spine was normal. MRI of the brain recently showed a small focal signal hyperintensity in the left parietal white matter which could possibly represent a remote focal area of infarction but there was no acute stroke. He has a loop recorder but at the time of the last admission he had not had any AF. He has been following up with Dr. Crum and Elavil has been increased to 50 mg. He is scheduled to have a PSG and also a nerve conduction study on the LLE. His sx resolved without treatment. He was seen by Dr. Bermudez and had repeat MRI which was unchanged. EEG was normal and showed no epileptiform activity. Prior to DC I discussed anxiety and conversions reactions with him and his . He is already on high doses of medication for tx of anxiety/ depression but has not had any psychotherapy. He has been under a lot of stress at his current job. 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 He was very emotional when we were discussing how he was feeling. was consulted and the pt was seen by Nasim Hale who talked with him about his sx and he was provided with resources to follow up with for counselling. There is a facility 10 minutes from his house that he plans on getting in touch with. He will continue his same medications and will follow up with Dr. Elena in [address] Crum as previously scheduled. This note was generated with [employer] dictation software. It may contain incorrect words, spelling, and punctuation that were not noted in checking the note before signing. Discharge Activity: Return to Normal Activity Call your doctor if you observe: Fever of 101 or Higher, Shortness of breath, Fainting spells, Swelling in the ankles, Chest pain Home Medications: Medications to take at Discharge Febuxostat [Uloric] 40 mg PO DAILY 09/17/14 Albuterol Inhaler [Ventolin Hfa] 1 puff INHALATION Q4H PRN PRN 01/28/15 Cyclobenzaprine [Flexeril] 10 mg PO TID PRN PRN 01/28/15 Losartan/Hydrochlorothiazide [Hyzaar 100-25 Tablet] 1 tab PO DAILY 01/28/15 Sertraline HCl [Zoloft] 200 mg PO DAILY 01/28/15 Lorazepam [Ativan] 0.5 mg PO Q6H PRN PRN 12/29/15 Metformin HCl [Metformin HCl ER] 2,000 mg PO DAILY 12/29/15 Aspirin [Adult Low Dose Aspirin EC] 81 mg PO DAILY 06/03/16 Cetirizine HCl [Zyrtec] 10 mg PO DAILY 06/03/16 Atorvastatin Calcium 80 mg PO QHS 09/27/17 Clopidogrel Bisulfate [Plavix] 75 mg PO DAILY 09/27/17 Insulin Lispro [Humalog] 30 unit SC TIDCM 09/27/17 Amitriptyline HCl [Elavil] 50 mg PO QHS 10/16/17 Diltiazem HCl [Diltiazem 24Hr ER] 180 mg PO DAILY 10/16/17 Insulin Detemir [Levemir FlexPen] 30 units SC BID 10/16/17 Primary Care Physician: Rod Elena MD [Primary Care Provider] - Please follow up with your Primary Care Physician in: 1 week Patient Instructions: ED Conversion Disdr Conversion Reac Disposition: Home Minutes spent on discharge:: 40 Meaningful Use Info Meaningful Use Diagnoses (Choose all that apply): None applicable Code Visit Inpatient E&M: 63519 Disch Hosp
[2017-10-18 13:51] LABS: Bedside Glucose 209 mg/dL (70-110)
== END 2017-10-18 14:47 | disposition home or self-care (01) ==
LOC: ED 20:43 → MS2 21:02
PROVIDERS: Admitting Provider Internal Medicine; Emergency Provider Emergency Medicine; Family Provider Family Medicine; PCP Family Medicine; Visit Provider Internal Medicine
DX: R53.1 Weakness (principal); R20.0 Anesthesia of skin; R47.81 Slurred speech; J45.909 Unspecified asthma, uncomplicated; M19.90 Unspecified osteoarthritis, unspecified site; I25.2 Old myocardial infarction; E66.01 Morbid (severe) obesity due to excess calories; I25.10 Atherosclerotic heart disease of native coronary artery without angina pectoris; I10 Essential (primary) hypertension; F32.9 Major depressive disorder, single episode, unspecified; F41.9 Anxiety disorder, unspecified; M10.9 Gout, unspecified; I48.92 Unspecified atrial flutter; Z86.73 Personal history of transient ischemic attack (TIA), and cerebral infarction without residual deficits; Z68.41 Body mass index [BMI] 40.0-44.9, adult; Z71.3 Dietary counseling and surveillance; Z79.899 Other long term (current) drug therapy; Z79.02 Long term (current) use of antithrombotics/antiplatelets; Z79.82 Long term (current) use of aspirin; Z79.4 Long term (current) use of insulin; M51.37 Other intervertebral disc degeneration, lumbosacral region; E11.65 Type 2 diabetes mellitus with hyperglycemia
CPT/HCPCS: 36415; 70496; 70498; 70551; 80048; 80061; 80307; 82962; 83036; 85025; 85610; 85730; 93005; 93306; 95819; 96360; 96361; 96372; 97161; 97165; 97802; 99218; 99285; J7030; Q9957; Q9967; A4216; C8929; G0378

== ENCOUNTER → 2017-10-24 20:00 | Outpatient (CLI) | payer BC, SELFPAY | PROVIDERS: Family Provider Family Medicine; PCP Family Medicine; Visit Provider Nurse Practitioner Acute Care | DX: R20.0 Anesthesia of skin (principal); R20.2 Paresthesia of skin; R06.83 Snoring; R53.83 Other fatigue | CPT/HCPCS: 95810 ==

== ENCOUNTER → 2017-12-28 20:00 | Outpatient (CLI) | payer BC, SELFPAY | PROVIDERS: Family Provider Family Medicine; PCP Family Medicine; Visit Provider Nurse Practitioner Acute Care | DX: G47.33 Obstructive sleep apnea (adult) (pediatric) (principal) | CPT/HCPCS: 95811 ==

== ENCOUNTER → 2018-01-01 07:00 | Outpatient (CLI) | payer BC, SELFPAY ==
--- NOTE | 2018-01-01 10:18 | NEURO ---
NCS and/or EMG Patient Report Ordering Doctor: Katy Delgadillo DATE OF SERVICE: 01/01/18 This is a left upper extremity EMG and nerve conduction study performed on this 52-year-old male who has had pain in his left arm and hand since experiencing a stroke in September 2017. He did not have symptoms prior to his stroke and he says his symptoms have been stable. He also has a history of diabetes with a hemoglobin A1c of approximately 10. Left upper extremity sensory and motor nerve conduction study demonstrates prolongation of the median motor distal latency with reduction of the median sensory amplitude and reduction of the median motor conduction velocity. The ulnar motor and sensory and radial sensory responses are normal. The median and ulnar f wave responses are normal. Left upper extremity needle electromyography is performed. Muscles evaluated included the first dorsal interosseous, abductor pollicis brevis, brachioradialis, biceps, triceps, and deltoid muscles. All muscles demonstrated normal insertional activity with absence of pathologic spontaneous activity. Motor unit potential recruitment pattern and amplitude was normal in all muscles tested. Impression this is an abnormal electrophysiology study of the left upper extremity consistent with moderate to severe carpal tunnel syndrome at the left wrist however this is not clearly clinically significant based on the patient's history. Clinical correlation is recommended. Wrist splints may be of value at bedtime.
== END ==
PROVIDERS: Family Provider Family Medicine; PCP Family Medicine; Visit Provider Nurse Practitioner Acute Care
DX: R20.0 Anesthesia of skin (principal); R20.2 Paresthesia of skin; R06.83 Snoring; R53.83 Other fatigue
CPT/HCPCS: 95886; 95909

== ENCOUNTER → 2018-05-27 10:34 | Outpatient (CLI) | payer BC, SELFPAY ==
--- NOTE | 2018-05-27 10:36 | RAD_ITS ---
STUDY: X-RAY - LEFT HAND REASON FOR EXAM: Pain in the fourth-fifth metacarpal area, fall 4 days ago. TECHNIQUE: 3 view(s) of the hand. COMPARISON: None. FINDINGS: Normal radiocarpal articulation. Normal distal radioulnar joint. Normal visualized carpal bones. Normal carpal articulations Normal carpometacarpal articulation of the thumb. Normal second through fifth carpometacarpal joints. Normal metacarpi. Normal metacarpophalangeal joint of the thumb. Normal interphalangeal joint of the thumb. Normal proximal and distal phalanges of the thumb. Normal metacarpophalangeal joints of the second through fifth fingers. Normal proximal and distal interphalangeal joints of the second through fifth fingers. Normal phalanges of the second through fifth fingers. The soft tissue structures are unremarkable. RAD/Hand Min 3 Views IMPRESSION: Unremarkable x-ray examination of the left hand without demonstrated fracture. Electronically Signed: Brandan Rodriguez MD at 10:57 EDT Tel , Service support ,
== END ==
PROVIDERS: Family Provider Family Medicine; PCP Family Medicine; Referring Provider Physician Assistant Surgical; Visit Provider Physician Assistant Surgical
DX: S60.222A Contusion of left hand, initial encounter (principal)
CPT/HCPCS: 73130

== ENCOUNTER → 2018-07-26 12:46 | Outpatient (CLI) | payer BC, SELFPAY ==
[2018-05-27 10:29] VITALS: BMI 40.4
[2018-07-19 15:34] VITALS: BMI 41.1
--- NOTE | 2018-07-26 12:50 | CT_ITS ---
STUDY: CT BRAIN WITHOUT CONTRAST REASON FOR EXAM: Male, 53 years old. New-onset seizure. RADIATION DOSAGE (If Supplied By Facility): CTDIvol = ( 44.99 ) mGy, DLP = ( 762.36 ) mGycm TECHNIQUE: Transaxial CT imaging of the brain was performed without administration of intravenous contrast material. Individualized dose optimization techniques were used for this CT. COMPARISON: Noncontrast CT brain September 27, 2017; MRI brain October 17, 2017 FINDINGS: Normal soft tissue structures. Normal calvarium. Normal size ventricles and extra-axial spaces for the patient's age. Previously identified focal chronic ischemic change in the right parietal white matter appears as a subtle ill-defined site of decreased density on series 2 image 28 one view with high contrast (window 33 level 34). Otherwise, normal white matter tracts of the cerebral hemispheres. Normal basal ganglia and thalami. Normal brainstem. Normal cerebellum. There is no intracranial hemorrhage. There are no findings of an acute ischemic infarction. There is stable mild mucoperiosteal thickening in the inferior left maxillary sinus. CT/Brain/Head without Contrast IMPRESSION: 1. No acute intracranial pathology. 2. Stable mild chronic inferior left maxillary sinusitis. Electronically Signed: Pb Singh MD at 13:16 EST , Service support ,
== END ==
PROVIDERS: Family Provider Family Medicine; PCP Family Medicine; Referring Provider Nurse Practitioner Acute Care; Visit Provider Nurse Practitioner Acute Care
DX: R29.818 Other symptoms and signs involving the nervous system (principal); R56.9 Unspecified convulsions
CPT/HCPCS: 70450

== ENCOUNTER 2018-10-16 08:00 | Outpatient (RCR) | payer BC, SELFPAY ==
--- NOTE | 2018-05-14 08:57 | HP.SP.AD_ITS ---
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 Smoking Status: Never smoker Hx Smoking: No Hx Tobacco Use: No - Pain Is pain an issue with your current prescribed condition?: No - Personal Occupation: Disability. Right Hearing Abillity: Hard of Hearing Left Hearing Abillity: Hard of Hearing Visual Assistive Devices: Glasses Patients Living Arrangements: With Significant Other Patient Allergies - Allergies Allergies levofloxacin [From Levaquin] Allergy (Verified 12/18/17 10:13) rash,swelling RED RASH, SWELLING Penicillins Allergy (Verified 12/18/17 10:13) Rash Subjective Cog/Ling/Com - Subjective Cognitive/Linguistic/Communication: Patient reported that he is having significant memory. Objective Cog/Ling/Com - Test Administered Pujywqapx-Wnhpvwivoi-Gaukevowkagqa Assessment Administered: Yes Yrmykaufe-Hbnwokdjlj-Yjhtrnkhbccml Assessment: Cognitive ? Linguistic skills were evaluated using patient/family interview, skilled observation and informal evaluation through tasks completed by the patient. - Orientation Orientation: Person, Place, Birthdate, Medical Diagnosis - Recall Comments: Dany was able to recall details of immediate recall of a 3 sentence paragraph. Further assessment is needed for recall skills for delayed recall as this is a problem for him per the patient. - Numerical Skills Balancing Checkbook [place]: Patient reported a psych exam stated he should not be doing his checkbook due to errors in cognition. - Problem Solving Simple: WFL Complex: Mild - Executive Function Comments Comments: Patient reported on averaging taking 50% of medications daily. Medication is taken twice a day. Shots are taken four times a day. Other Impressions - Comments Comments -: The patient stated that his attention to task has limited his ability to complete tasks appropriately as he easily gets distracted. During the evaluation, he often got off on other topics when trying to explain his medical history. Overall conversational skills are appropriate. The patient currently is not working and needs additional support for deficits in recall and executive functioning. Plan - Plan Plan: Speech therapy is warranted for further evaluation of executive functioning skills and delayed recall. - Recommendations Treatment Warranted: Yes - Frequency Frequency: 1x/Week Duration: 2 Months Visits in this POC: 8 - Prognosis Prognosis: Good - Goals that are Established: Determination:: Goals will be added/modified as deemed necessary and appropriate. Therapy will be discontinued when results of re-evaluation ind icate therapy is no longer needed or lack of progress has been documented. - Goal #1-5 Goal #1: Dany will complete a memory evaluation with goals added at that time. Goal #2: Dany will complete further testing for higher level thought processing as time was limited during the evaluation. Education - Patient has Indicated that the Following Identified Educational Needs: Cognitively Impaired - Patient Instruction Patient Education: Diagnosis, Treatment Plan Person Taught: Patient Teaching Method: Discussion Response to teaching: Verbalize understanding
--- NOTE | 2018-05-23 11:31 | HP.OTEVAL ---
Patient's Visit Information ADELIA NGUYEN is a 53 year old M, referred to Occupational Therapy by DEBORA Escoto, with a diagnosis of s/p CVA/OT-Carpal Tunnel Syndrome. Date of Evaluation: 05/22/18 Occupational Therapist: Marcia Mata - Subjective Subjective: Pt seen for initial occupational therapy evaluation for increased pain and decreased strength of L hand. Pt states has tingling that started in his L hand after 3rd stroke this year, pain started about 1 month ago after falling several times on L hand due to decreased balance. Pt states increased stiffness moving fingers of L hand. Pt was diagnosed with carpel tunnel and had a carpel tunnel release January 2018. Pt independent with BADL's and driving. He lives in a 1 story house, with spouse and 2 children. He amb w/ std cane. Pt has a difficult time with remembering days of the week and times. Pt participating with speech therapy for improving cognitive skills. - Pain Left Hand 4 Pain Intensity Range: 2, 3, 4, 5, 6 - Objective Objective/Observation: Pt demonstrates decreased strength L hand and increased pain with movements of L hand. - ROM Wrist: L 69/74 R 68/75 - Strength Insurance Appraiser: R 75#, L 40# Lateral Pinch: R 14#, L 10# Tripod Pinch: R 14#, L 8 # - Edema Other: No edema noted - Sensation Sensation Comments: Numbness/Tingling L hand. Monofilament 3.22 - Nine Hole Peg Right: 25 seconds Left: 30 seconds - DASH-Disabilities of Arm, Shoulder& Hand DASH Sum: 79 - Goals Goal:: Pt will be able to progress with L hand agile business analyst strength by 30# to assist with completing functional living tasks independently and open containers by d/c from OT session. Pt will be able to demo increased tripod grasp L hand by 6# to assist with simple meal prep tasks independently by d/c from OT services. Goal:: Pt will demo no pain greater than 1/10 L hand/wrist by d/c from OT services Goal:: Pt will be educated on scar masssage techniques for L hand with good understanding and demo 100%x. Goal:: Pt will be educated on L hand HEP with good understanding and demo 100%x - Rehabilitation General Assessment: Pt demonstrates decreased L hand strength and increased pain of L hand with increased numbness and tingling L hand. Pt would benefit from direct occupational therapy services to increase L hand strength, decrease pain of L hand, education on HEP, scar mngmt techniques to increase pts functional use of L hand. Rehabilitation Potential: Good - Anticipated Interventions Anticipated Interventions: Strengthening, Scar Care, Massage, Desensitization, Sensory Retraining, Modalities, Orthoses, Joint Protection/Energy Conservation, Fine Motor Coord/[place], Neuro Reeducation, ADL Training, Education re assistive Equipment, Education re Self Massage Techniques, Home Program - Visit Plan Frequency: 1-2x /Week Duration: 4 Weeks General Plan: Increase strength L hand, decrease pain L hand, education on HEP, scar mngmt techniques. TEXT: Thank you for the opportunity to evaluate your patient. For Medicare and Medicare HMO plans, please review the plan of care and approve it. It will need to be FAXED BACK to us at [phone] for Medicare purposes. Please let me know if there are questions or concerns regarding this plan of care. Physician Signature: Date:
--- NOTE | 2018-06-12 11:04 | HP.PTEVAL ---
Patient's Visit Information ADELIA NGUYEN is a 53 year old M referred to Physical Therapy by DEBORA Escoto with a diagnosis of CVA. Date of Evaluation: 06/12/18 Physical Therapist: Krishna Jerez - Visit Plan Frequency: 2x /Week Duration: 6 Weeks Plan: Start with neurocome balance test. Add in ankle, quad, hip strengthening. static and dynamic balance activities and dynamic gait with slowly increasing external distractions. - Subjective Subjective: Pt. is here today for his initial evaluation with daignosis of CVA. He is also being seen in OT for carpal tunnel surgery as well. He reports having multiple CVA first being end of last year and x2 in September of this year. Pt. is able to walk with a cane. He does have an indwelling heart monitor. He is having more joint pain due to reducing use of celebrex. He has LUE nerve pain since last CVA. 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 He reports having difficulty with balance, expecially with directional changes. He reports falling in spurts as much as x5 2 months ago, but none since. Pt. reports using cane , but does not help him keep is balance. He does not use the cane in home, most of his falls are outside. Her does have a history of back in injury in lumbar spine (non surgical). He did have both sides effected with his strokes, but his L side is the weaker side. He reports being able to complete most ADLs, but is having increased falls. Pt. reports wanting to be able to walk better out in community, not fall and increase BLE strength. - Pain B knee Pain Intensity (Out of 10): 3 Pain Intensity Range: 1, 7 - Objective POSTURE: Pt. is over wt., he has a wide PATRICE in stance. Pt. uses a cane for stability with walking, but is able to stand without while maintaining stability. Pt. has rounded shoulders, decreased lumbar lordosis. PALPATION: Pt. has no increase in pain in BLEs with palpation. Pt. has mild edema in BLEs non pitting. NEURO: Pt. has normal sensation throughout bilateral LEs. pt. has 2+ patellar and achilles DTR bilaterally. ROM: Pt. has normal ROM throughout bilateral LEs, except tight HS bilaterally. MMT: RLE- ankle- 5/5 throughout; knee- 5/5 throughout; hip- flexion 5/5, abd 5/5, ext 5/5, add 5/5. LLE- ankle- DF 4/5, PF 4+/5, INV 4/5, EVR 4/5; knee- ext 4+/5, flexion 5/5; hip- flexion 4/5, abd 4/5, ext 4+/5, add 5/5. Core strength- fair-. GAIT: Pt. ambulates with cane, has increased lateral sway with wide PATRICE. Pt. has methodical pattern. Pt. was able to ambulate without cane, but did reachout for objects/railings if available. Pt. increased his PATRICE without AD. - Balance Scores Functional Gait Assessment Score: 19 % Disability: 36.6700 CATSIB Score (Max score 120 seconds): 76 - Goals Goal 1:: Pt. to be I with HEP. Goal Time Frame: 4-6 Weeks Goal 2:: Pt. to have increased LLE strenth by 1/2 grade of effected musculature increasing stability with functional mobility. Goal Time Frame: 4-6 Weeks Goal 3:: Pt. to increased FGA score to 23/30 indicating reduced risk for future falls. Goal Time Frame: 4-6 Weeks Goal 4:: Pt. 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 Goal Time Frame: 4-6 Weeks Goal 5:: Pt. to have neurocom balance testing completed. - Rehabilitation Potential Physical Therapy Diagnosis: Pt. presents with imbalance with gait and L sided LE weakness stemming for multiple CVAs over the last year or so. Pt. has difficulty with balance and worse without an AD. He would benefit from PT to increase LLE strength and improved dynamic/static balance in order to increase stability with gait and reduce risk for future falls. Rehabilitation Potential: Good - Anticipated Interventions Patient/Client Instruction: Educate patient on: Condition, Plan of Care, Risk Factors, Benefits of Fitness Program For the Purpose of:: To improve decision making, To facilitate caregiver knowledge, To improve self management, To prevent re-injury, To improve ability to perform tasks related to life management, To improve tolerance to ADL's Therapeutic Exercise to Include: Strength training, Endurance training, Balance training, Body mechanics, Postural training, Flexibilty training, Gait and locomotor training, via Neurocom Balance Mas For the Purpose of:: To increase ROM, To improve nutrient delivery to tissue, To improve muscle performance and motor function, To improve ability to perform ADL's, To improve gait and locomotor functions, To improve health of tissue, To increase flexibility/ROM, To improve endurance, To improve balance Thank you for the opportunity to evaluate your patient. For Medicare and Medicare HMO plans, please review the plan of care and approve it. It will need to be FAXED BACK to us at [phone] for Medicare purposes. Please let me know if there are questions or concerns regarding this plan of care. Physician Signature: Date:
--- NOTE | 2018-06-19 15:24 | HP.OTDCSUM ---
HP - OT D/C Summary It has been my pleasure to treat ADELIA NGUYEN under orders from IQRA EscotoC, for the diagnosis of s/p CVA/OT-Carpal Tunnel Syndrome for a total of 8 visit(s). Please see the following information for a summary of their discharge status. - Objective Objective/Function: Measurements taken. L international recruiter 80#, R international recruiter 93#. L Lat pinch 13#, R lat pinch 15#,. L Tripod pinch 12#, R Tripod pinch 15 - Goals Patient Goals: Regain Strength, Decrease Pain, Decrease Swelling/Stiffness, Decrease Tingling/Numbness, Be More Independent in ADLS, Resume Former Household Responsibilities (Cooking,Cleaning,Yard, etc.), Resume Hobbies Goal:: Pt will be able to progress with L hand international recruiter strength by 30# to assist with completing functional living tasks independently and open containers by d/c from OT session. Pt will be able to demo increased tripod grasp L hand by 6# to assist with simple meal prep tasks independently by d/c from OT services. Goal:: Pt will demo no pain greater than 1/10 L hand/wrist by d/c from OT services Goal:: Pt will be educated on scar masssage techniques for L hand with good understanding and demo 100%x. Goal:: Pt will be educated on L hand HEP with good understanding and demo 100%x - Plan Plan: d/c OT services this date. - D/C Information Discharge Comments: Pt has made great progress with OT. Pt has progressed with L UE international recruiter strength to 80#. His lateral pinch has progressed to 13# and his tripod pinch progressed to 12#. Pt has been educated on theraband exercises to complete at home with good understanding and educated on scar massage techniques for scar with good understanding and demo. Pt continues to have pain that comes and goes in L UE inconsistantly. Pt states gets worse with the weather. Pt no longer requires skilled OT services at this time. D/C OT services. If there are questions or concerns regarding this patient's occupational therapy, please fell free to call me at [phone]. Thank you for the referral of this patient. Sincerely, Marcia Mata
--- NOTE | 2018-06-26 10:45 | HP.PTCOM ---
PT Communication Note 06/26/[address] Katy Delgadillo, ACCIDENT REPORT CLERK-C , Thank you for the referral of Dany to [facility] for balance assessment. I have enclosed a copy for your review. In summation, he showed some vestibular and priority deficits on the Sensory Organization Test. He showed latency on the Motor Control Test consistent with neuropathy. He showed a forward weight shifting deficit adn slow reaction time on the Limits of Stability Test. With these results in mind, the plan is to add exercises to address thesse deficits to his original plan and work toward HEP. Please do not hesitate to contact me if there are questions. Thank you for this referral. Sincerely, Sang Gant DPT, OC Contact Information
--- NOTE | 2018-08-07 10:18 | HP.SP.ADRE_ITS ---
Previous/Current Goals - Goals 1-5 Previous Goal #1: Dany will use recall strategies on 4/5 trials with minimal cues. Goal 1 Status: Previously, Dany had minimal functional use of strategies. Currently, he is able to use a calendar for appointments and is trialing the use of a white board for a centralized location for daily reminders. He is able to take his pills daily now as they are taken before leaving bed but insulin use is 50% to 70% per the patient. He still has difficulty in recalling daily tasks or completing tasks. Previous Goal #2: Dany will complete further testing for higher level thought processing as time was limited during the evaluation. Goal 2 Status: Dany was given subtests from te [employer] Memory Test- 3rd edition. PIcture recall was 100%. Delayed recall of a story was limited as he was able to recall only 10/21 details consistently. His orientation and date was 100% History - History Date of Eval: 05/08/18 Medical Diagnosis (from RX): CVA Previous speech therapy: No Other Relevant Medical History/Diagnoses/Surgery: Patient is having further testing to determine if he is having seizures as well as cardiac testing. Smoking Status: Never smoker Hx Smoking: No Hx Tobacco Use: No - Pain Is pain an issue with your current prescribed condition?: Yes - Personal Occupation: Disability. Right Hearing Abillity: Hard of Hearing Left Hearing Abillity: Hard of Hearing Visual Assistive Devices: Glasses Patients Living Arrangements: With Significant Other Patient Allergies - Allergies Allergies levofloxacin [From Levaquin] Allergy (Verified 05/27/18 10:29) rash,swelling RED RASH, SWELLING Penicillins Allergy (Verified 05/27/18 10:29) Rash Subjective Cog/Ling/Com - Subjective Cognitive/Linguistic/Communication: Patient reported that he is having significant memory. Objective Cog/Ling/Com - Test Administered Lfnmopavf-Elyallqbgs-Athlblihhooty Assessment Administered: Yes Skxpngbfs-Bukbfnxhre-Enqwrengwpoty Assessment: Cognitive ? Linguistic skills were evaluated using patient/family interview, skilled observation and informal evaluation through tasks completed by the patient. - Orientation Orientation: Person, Place, Birthdate, Medical Diagnosis - Recall Comments: Immediate recall is 90%, delayed recall significantly reduces accuracy. He often forgets daily events if they are not part of his routine. - Medication Reading a medication label: WNL Correctly stating instructions of medications: WNL Completing medications independently: Moderate - Numerical Skills Balancing Checkbook [place]: Patient reported a psych exam stated he should not be doing his checkbook due to errors in cognition. - Problem Solving Simple: WFL Complex: Mild - Executive Function Comments Comments: Patient has recall issues which limits his ability to independently manage his medications. Other Impressions - Comments Comments -: Over the course of therapy, Patient has had increased skills then a set back. This has happened at least twice when he has been in situations that overwhelm him ( a family gathering that had 17 people). He then will sleep for the remainder of the day and up to 2 days past depending on how loud/busy a situation is. His neurologist is completing further testing to determine if these are TIA or seizure related. Patient often states that he feels like he is in a fog when this occurs. Plan - Plan Plan: Speech therapy is recommended to continue to address memory deficits. - Recommendations Treatment Warranted: Yes - Frequency Frequency: 1x/Week Duration: 2 Months Visits in this POC: 8 - Prognosis Prognosis: Fair - Goals that are Established: Determination:: Goals will be added/modified as deemed necessary and appropriate. Therapy will be discontinued when results of re-evaluation indicate therapy is no longer needed or lack of progress has been documented. - Goal #1-5 Goal #1: Dany will use recall strategies on 4/5 trials with minimal cues. Goal #2: Dany will complete delayed recall tasks with 80% accuracy with minimal cues. Goal #3: Dany will report compliance with medication ( pills and insulin) on 6/7 days for 2 weeks.
--- NOTE | 2018-11-21 09:38 | HP.SP.DC_ITS ---
ST Discharge Summary - Discharged: Discharge: Dany Russo is discharged from [facility] as of October 16, 2018. He has attended therapy for a total of 17 visits. His main focus of therapy was recall skills as well as using compensatory strategies. Over the course of therapy he reached a plateau in skills. He was able to list recall strategies as well as ways he was implementing them. He increased his medication taking to daily for pills and insulin use stayed the same. He was aware of why he needed to be consistent with use. He was able to recall details of information provided in written and verbal form as long as he used his strategies with 80%. The patient reported having further testing but reported that his EEG was negative for seizures. A copy of this discharge will be sent to his referring physician.
--- NOTE | 2018-11-21 11:14 | HP.PTDCSUM_ITS ---
HP - PT D/C Summary It has been my pleasure to treat ADELIA NGUYEN under orders from IQRA Escoto, for the diagnosis of CVA for a total of 5 visit(s). Discharge Date: 07/15/18 Please see the following information for a summary of their discharge status. - Subjective Subjective: Pt. reports I am about as good as I am going to be.' Pt. reports being 75% better overall. - Pain B knee Pain Intensity (Out of 10): 4 LB Pain Intensity (Out of 10): 4 - Overall Improvement % Improvement: 75 - Objective Objective/Function: Pt. is able to ambulate with improved pattern. pt. is able to negotiate steps with 1 HR without LOB. Pt. reprots continued back and leg pain, if I do too much.. FGA 23/30 difficulty with narrow Po activities. MMT- pt. is gernerally 4/5 throughout BLEs and fair- core strength. - Goals Goal 1:: Pt. to be I with HEP. Goal Progress: Goal Met Goal 2:: Pt. to have increased LLE strenth by 1/2 grade of effected musculature increasing stability with functional mobility. Goal Progress: Progressing Goal 3:: Pt. to increased FGA score to 23/30 indicating reduced risk for future falls. Goal Progress: Progressing Goal 4:: Pt. to be able to charging operator single leg stance for 30sec on BLEs. Goal Progress: Progressing Goal 5:: Pt. to have neurocom balance testing completed. - Plan Plan: Pt. to be DC to HEP at this point in time. Pt. desires to continue with HEP on his own at this point in time. - D/C Information Discharge Comments: Pt. was treated with balance training and BLE strengthening. Pt. made some progress in both areas, but contiunes to have deficits. Pt. has a good HEP and consents to complete on his own at this point in time. Pt. will be DC to HEP. If there are questions or concerns regarding this patient's physical therapy, please feel free to call me at [phone]. Thank you for the referral of this patient. Sincerely, Krishna Jerez DPT
== END 2018-10-16 19:00 | disposition home or self-care (01) ==
LOC: SP 08:00
PROVIDERS: Family Provider Family Medicine; PCP Family Medicine; Visit Provider Nurse Practitioner Acute Care
DX: Z86.73 Personal history of transient ischemic attack (TIA), and cerebral infarction without residual deficits (principal)
CPT/HCPCS: 92507; 92523; 97110; 97162; 97165; 97166; 97530; 97750

== ENCOUNTER 2018-10-23 19:55 | Observation (INO) | payer BC, SELFPAY ==
[2018-07-19 15:34] VITALS: BMI 41.1
[2018-10-23] VITALS (8 sets, daily range): BP systolic 114–152; BP diastolic 70–84; PULSE 71–110; RESP 13–29; TEMP 37.2; O2SAT 93–100; BMI 41.8; BMI 40.6; BMI 40.7
--- NOTE | 2018-10-23 20:03 | CT_ITS ---
We are attempting to reach Leonel Thomas MD to discuss findings. An addendum with communication details will be sent when the communication is complete. STUDY: CT BRAIN WITHOUT CONTRAST REASON FOR EXAM: Male, 53 years old. Stroke RADIATION DOSAGE (If Supplied By Facility): CTDIvol = ( 44.99 ) mGy, DLP = ( 796.11 ) mGycm TECHNIQUE: Transaxial CT imaging of the brain was performed without administration of intravenous contrast material. Individualized dose optimization techniques were used for this CT. COMPARISON: July 26, 2018 FINDINGS: Normal soft tissue structures. Normal calvarium. Normal size ventricles and extra-axial spaces for the patient's age. Normal white matter tracts of the cerebral hemispheres. Normal basal ganglia and thalami. Normal brainstem. Normal cerebellum. There is no intracranial hemorrhage. There are no findings of an acute ischemic infarction. Left maxillary sinus mucosal thickening. CT/Brain/Head without Contrast IMPRESSION: No acute intracranial pathology of the brain. Left maxillary sinus mucosal thickening. Electronically Signed: Jan Lepe DO at 20:25 EST Tel [phone], Service support ,
--- NOTE | 2018-10-23 20:03 | EKG12_ITS ---
Test Reason : STROKE SX Blood Pressure : / mmHG Vent. Rate : 075 BPM Atrial Rate : 075 BPM P-R Int : 166 ms QRS Dur : 102 ms QT Int : 408 ms P-R-T Axes : 029 -23 002 degrees QTc Int : 455 ms Normal sinus rhythm Minimal voltage criteria for LVH, may be normal variant Borderline ECG Confirmed by TERRANCE JOHNSON, KARLOS ([id number]), multimedia editor PEÑA DUTTA ([id number]) on 10/29/2018 8:59:38 AM Referred By: Katy Delgadillo Confirmed By:KARLOS CARLOS MD
--- NOTE | 2018-10-23 20:05 | RAD_ITS ---
STUDY: X-RAY CHEST REASON FOR EXAM: Male, 53 years old. Stroke symptoms TECHNIQUE: Single frontal view COMPARISON: September 27, 2017 FINDINGS: The lungs are not fully expanded. There is no demonstrated pleural abnormality. Normal size heart. Normal mediastinum and shani. Normal visualized pulmonary arteries. Normal visualized aortic arch and descending thoracic aorta. Normal visualized thoracic spine. Normal visualized ribs, clavicles, and shoulders. There is no demonstrated abnormality of the visualized soft tissue structures of the upper abdomen. RAD/Chest 1 View IMPRESSION: Normal x-ray examination of the chest. Electronically Signed: Jan Lepe DO at 20:32 EST Tel [phone], Service support ,
[2018-10-23 20:20] LABS: Absolute Lymphocyte Count 2.89 X10^3/ul (0.83-4.51); Absolute Neutrophil Count 5.8 X10^3/uL (2.0-7.7); Basophil# 0.06 X10^3/uL; Basophil% 0.6 % (0-1); Eosinophil# 0.32 X10^3/uL; Eosinophils% 3.2 % (0-5); Hematocrit 45.8 % (40-54); Lymphocyte # 2.89 X10^3/ul (4.0); Mean Corp Hgb Conc 34.9 g/gl (32-36); Mean Corpuscular Hgb 28.3 pg (27.0-32.0); Mean Corpuscular Volume 80.9 fL (80-94); Mean Platelet Vol. 9.7 fl (6.2-12.0); Monocyte# 0.88 X10^3/uL; Monocyte% 8.8 % (0-10); Neutrophil # 5.79 X10^3/uL (2.7-7.7); Neutrophil % 58.2 % (47-70); Platelet Count 206 K/mm3 (150-450); RBC Distribution Width CV 12.6 % (11.6-14.6); RBC Distribution Width SD 36.2 fl (35.1-43.9); Red Blood Count 5.66 M/mm3 (4.6-6.2)
[2018-10-23 20:21] LABS: POSITIVE COUNT NO; POSITIVE DIFFERENTIAL NO; POSITIVE MORPHOLOGY NO
[2018-10-23 20:31] LABS: Prothrombin Time (Protime)PT. 12.7 SECONDS (11.7-14.9)
[2018-10-23 20:32] LABS: Partial Thromboplast Time 24.2 Seconds (24.1-36.2)
[2018-10-23 20:36] LABS: Anion Gap 10 (5-15); BUN 15 mg/dL (7-18); BUN/Creat Ratio 13.8 RATIO (10-20); Calcium,Total 9.1 mg/dL (8.5-10.1); Chloride 96 mmol/L (98-107); Creatinine, Serum 1.09 mg/dL (0.70-1.30); EST Glomerular Filtration Rate 75 mL/min (>60); Est Glom Filt Rate - Afr Amer 91 mL/min (>60); Estimated Creatinine Clearance 77.47 ml/min; Glucose 358 mg/dL (74-106); Potassium 3.2 mmol/L (3.5-5.1); Sodium Level 133 mmol/L (136-145)
--- NOTE | 2018-10-23 21:32 | PCM.HP.STD ---
Problem List (1) Stroke-like symptoms Status: Acute History of Present Illness Date of Admission: 10/23/18 Chief Complaint: stroke-like symptoms The patient is a 53 year old M with a significant history of CVA; diabetes mellitus who presented to the emergency department with right-sided weakness that started few hours before presentation. Also, his right arm and his right leg appeared numbed. His symptoms started earlier on in the day with a right sided supra orbital headache which eased off. He called and told his that he thinks he was having another stroke. His reports that his speech was slurry during the conversation. At the emergency department he felt that his right-sided weakness had improved. At baseline patient uses a cane because of left sided leg weakness from previous stroke. Past Medical History Past Medical History (Chronic Problems): Chronic Problems (Last Reviewed 10/24/18 @ 02:18 by Jr Bardales MD) Depression (Chronic) Osteoarthritis (Chronic) Asthma (Chronic) Anxiety (Chronic) CAD (coronary artery disease) (Chronic) HTN (hypertension) (Chronic) BP controlled at this visit. DM2 (diabetes mellitus, type 2) (Chronic) States recently has been told he can not return to work. He has been having some issue dealing with this so he has been trying to find a routine and can not get into one. He has forgotten to check BG and he is forgetting some of his insulin. He is getting kids ready for school while is picking up extra work. Feels like he will get adjusted eventually. We discussed ways to get into routine and helpful ways of getting into habits. He does not currently feel like he would be interested in counseling. History of myocardial infarction (Chronic) Medical History: Medical History (Last Reviewed 10/24/18 @ 05:30 by Jr Bardales MD) Anxiety and depression F41.8 Arthritis M19.90 Asthma J45.909 Back pain M54.9 Back problem M53.9 Bruises easily R23.8 Chest pain R07.9 Diabetes type 2, uncontrolled E11.65 dx : 2008 last exacerbation : dka : never hypoglycemic episode : never er visit : never Diarrhea R19.7 Difficulty balancing R29.818 Fatigue R53.83 Frequent headaches R51 GI problem R19.8 Gallstones K80.20 Gout M10.9 Hay fever J30.1 Hearing problem H91.90 Heart disease I51.9 High cholesterol E78.00 Kidney stones N20.0 Knee pain M25.569 Limb weakness R29.898 Migraines G43.909 Neuropathy G62.9 Pneumonia J18.9 SOB (shortness of breath) R06.02 Seasonal allergies J30.2 Stomach ulcer K25.9 Stroke I63.9 Vision problem H54.7 Weight loss R63.4 HTN (hypertension) I10 Allergies levofloxacin [From Levaquin] Allergy (Verified 05/27/18 10:29) rash,swelling RED RASH, SWELLING Penicillins Allergy (Verified 05/27/18 10:29) Rash Home Medications: Ambulatory Orders Medication Instructions Recorded Albuterol Inhaler [Ventolin Hfa] 1 puff INHALATION Q4H PRN PRN 01/28/15 Cyclobenzaprine [Flexeril] 10 mg PO TID PRN PRN 01/28/15 Losartan/Hydrochlorothiazide 1 tab PO DAILY 01/28/15 [Hyzaar 100-25 Tablet] Sertraline HCl [Zoloft] 200 mg PO DAILY 01/28/15 Lorazepam [Ativan] 0.5 mg PO Q6H PRN PRN 12/29/15 Metformin HCl [Metformin HCl ER] 2,000 mg PO DAILY 12/29/15 Aspirin [Adult Low Dose Aspirin EC] 81 mg PO DAILY 06/03/16 Cetirizine HCl [Zyrtec] 10 mg PO DAILY 06/03/16 Atorvastatin Calcium 80 mg PO QHS 09/27/17 Clopidogrel Bisulfate [Plavix] 75 mg PO DAILY 09/27/17 Amitriptyline HCl [Elavil] 100 mg PO QHS 10/16/17 Diltiazem HCl [Diltiazem 24Hr ER] 180 mg PO DAILY 10/16/17 insulin detemir (U-100) 100 52 - 55 unit SC BID ml 10/23/17 unit/mL (3 mL) subcutaneous pen insulin lispro (U- 100) 100 40 unit SC TID ml 10/23/17 unit/mL subcutaneous cartridge Surgical History: Surgical History (Last Reviewed 10/24/18 @ 02:18 by Jr Bardales MD) History of ERCP Z98.890 History of tonsillectomy Z98.890, Z90.89 Hx of cholecystectomy Z98.890, Z90.49 Surgical History: cholecystectomy, - - loop monitor Psychiatric History: Anxiety, Depression Lives: With Family Smoking Status: Never smoker Alcohol: Rare - *Family History Maternal Family History: Family History (Last Reviewed 10/24/18 @ 02:20 by Jr Bardales MD) Father Asthma Heart disease Hypertension Mother Bleeding disorder Hypertension CVA (cerebral vascular accident) Brother Diabetes Heart disease Hypertension High cholesterol History Items: Stroke Paternal Family History: Family History (Last Reviewed 10/24/18 @ 02:20 by Jr Bardales MD) Father Asthma Heart disease Hypertension Mother Bleeding disorder Hypertension CVA (cerebral vascular accident) Brother Diabetes Heart disease Hypertension High cholesterol History Items: Heart Disease Sibling Family History: Family History (Last Reviewed 10/24/18 @ 02:20 by Jr Bardales MD) Father Asthma Heart disease Hypertension Mother Bleeding disorder Hypertension CVA (cerebral vascular accident) Brother Diabetes Heart disease Hypertension High cholesterol History Items: Diabetes, Heart Disease, Hypertension Review of Systems Constitutional: Denies: Chills, Fever, Weight Change HEENT: Reports: Head Aches. Denies: Sinus Congestion, Sinus Drainage Cardiovascular: Denies: Chest Pain, Palpitations Respiratory: Denies: Cough, Shortness of breath at rest, Sputum production Gastrointestinal: Denies: Abdominal Pain, Nausea, Vomiting Genitourinary: Denies: Dysuria Musculoskeletal: Denies: Joint Pain, Joint Tenderness Skin: Denies: Rash, Wounds Neurological: Reports: Blurred vision, Slurred speech, Focal weakness, Numbness. Denies: Tingling Psychiatric: Denies: Anxiety, Depression, Homicidal Ideations, Suicidal Ideations Hematologic/ Lymphatic: Denies: Easy Bruising, Easy Bleeding VTE Information - Inpt Only VTE Present on Admission: No VTE Mechan Device Prophylaxis: None VTE Pharm Prophylaxis ordered?: Yes Patient Problems: Active and Suspected Problems (Last Reviewed 10/24/18 @ 02:18 by Jr Bardales MD) Stroke-like symptoms (Acute) - Physical Exam General: Alert, Oriented x3, Cooperative HEENT: Atraumatic, PERRLA, EOMI, Normocephalic Neck: Supple, No JVD, Negative Carotid Bruits Lungs: Clear to auscultation, Normal air movement Cardiovascular: Regular rate, No murmurs Abdomen: Bowel Sounds Present, Soft, Non Tender Extremities: No edema, Capillary Refill Less than 3 Seconds Skin: No rashes, No breakdown, - - Petechial rash on bilateral legs. Musculoskeletal: No Tenderness to Palpation of Joints or Extremities Neurological: - - Increased deep tendon reflex of the right knee. Right leg strength 5 out of 5. Range of motion of right leg limited. Right arm strength 4 out of 5. Strength of order extremities 5/5 Psych/Mental Status: Normal Affect, Appropriate, - Vital Signs Temp Pulse Resp BP Pulse Ox 98.9 F 110 H 29 H 150/82 H 93 10/23/18 20:24 10/23/18 21:10 10/23/18 21:10 10/23/18 21:10 10/23/18 21:10 Oxygen Flow Rate (L/min) 2 Oxygen Delivery Method Room Air Weight: 128.7 kg Body Mass Index (BMI) 41.8 Finger Stick Blood Glucose 215 Laboratory Tests Past 24 Hrs 10/23/18 10/23/18 10/23/18 19:58 19:58 19:58 WBC 10.0 RBC 5.66 Hgb 16.0 Hct 45.8 MCV 80.9 MCH 28.3 MCHC 34.9 RDW 12.6 RDW Differential 36.2 Plt Count 206 MPV 9.7 Immature Gran % (Auto) 0.200 Neut % (Auto) 58.2 Lymph % (Auto) 29.0 [place] % (Auto) 8.8 Eos % (Auto) 3.2 Baso % (Auto) 0.6 Absolute Neuts (auto) 5.8 Absolute Lymphs (auto) 2.89 Total Counted Not Reportable PT 12.7 INR 1.0 APTT 24.2 Sodium 133 L Potassium 3.2 L Chloride 96 L Carbon Dioxide 27.0 Anion Gap 10 BUN 15 Creatinine 1.09 Estim Creat Clear Calc 77.47 Est GFR (MDRD) Af Amer 91 Est GFR (MDRD) Non-Af 75 BUN/Creatinine Ratio 13.8 Glucose 358 H Calcium 9.1 Troponin I < 0.015 Assessment/Plan All Active Problems (Last Reviewed 10/24/18 @ 02:18 by Jr Bardales MD) Stroke-like symptoms (Acute) Contusion of left hand, initial encounter (Acute) Acute CVA (cerebrovascular accident) (Ruled-out) Right sided weakness (Resolved) Headache (Resolved) Abnormal ECG (Acute) Acute cholecystitis (Acute) Chest pain (Resolved) The patient is a 53 year old M with a significant history of CVA; diabetes mellitus with strokelike symptoms. Stroke-like Symptoms NINDS NIH scale at the emergency department was at 3. CT of the head was unremarkable -Check Hba1c, Lipid level Physical therapy, occupational therapy and speech therapy to work with patient. N.p.o. until bedside swallow eval. Continue dual antiplatelet therapy of aspirin and Plavix. Continue high intensity statin of Lipitor 80 mg every night. Lipid profile and A1c ordered. Permissive hypertension. Control blood pressure with labetalol for systolic blood pressure of more than 220 or diastolic blood pressure of more than 120. -Permissive HTN for 24 hrs, oysterman goal BP < 120/80 mmHg and goal Hba1c < 7% MRI/MRAM of head; brain; and neck. Echocardiogram ordered. Patient is a known patient of Dr. Crum, neurologist. Will consult neurology. Diabetes mellitus On presentation his blood glucose was not within goal. Continue home basal and prandial insulin Home metformin continued. NovoLog 8 units x1 Accu-Chek q. before meals at bedtime and correction scale insulin ordered. Hypertension His blood pressure on admission was labile. Would hold home blood pressure medications because of permissive hypertension. Labetalol as needed for permissive hypertension protocol. Depression Amitriptyline and Zoloft continued Allergies Claritin continued Albuterol as needed continue Hypokalemia His potassium on admission was 3.2 Discussed emergency department doctor to give potassium 40 mEq p.o. x1. We will put patient on normal saline with potassium. Hyponatremia Mild Sodium on admission was 133. Normal saline IV hydration with potassium as above. Trend BMP. DVT prophylaxis Subcutaneous heparin. Code Visit OBSV E&M: 62239 Initial observation care L3
--- NOTE | 2018-10-23 23:14 | ED.VISSUMM ---
- ER Visit Summary Date of Service: 10/23/18 Chief Complaint: Headache History of Present Illness: The patient is a 53 M with a headache and possible stroke symptoms. He has a history of stroke. He had the sudden onset of symptoms just prior to arrival. He reported right arm weakness, decreased sensation in his right arm and leg. EMS noted a positive [facility] stroke scale and activated a stroke team. Blood sugar in the 300s. No other complaints. Physical Examination: Afebrile and vital signs unremarkable. NIH stroke scale was 3 for right arm drift, decreased sensation on the right side and slightly decreased level of consciousness. Head and neck atraumatic. Heart regular. Lungs clear. Skin appears normal. Test Results: EKG showed sinus rhythm at a rate of 75. No sign of acute ischemia or infarction pattern. Chest x-ray was normal. CT brain showed no acute process. CBC normal. Potassium 3.2 and glucose 358. Coags normal. Troponin normal. Emergency Department Course and Treatment: Patient seen immediately on arrival. Stroke team was activated by EMS and the patient went emergently to the CT scanner. Radiology contacted me and noted that the CT showed no acute process. Patient is improving, and we did not continue the stroke team process. He was not a candidate for TPA. His workup was unremarkable. He is improving. We will continue to monitor. The hospitalist was contacted for admission. Treatment Plan: As above Disposition: Admission Impression: 1. Right side weakness This note was generated with [employer] dictation software. It may contain incorrect words, spelling, and punctuation that were not noted in review of the chart prior to signing
--- NOTE | 2018-10-23 23:29 | ECHOCS_ITS ---
Reason For Study: TIA/CVA Procedure This was a 2D Doppler, Color Flow transthoracic echocardiogram. Contrast injection was performed. Exam performed portable in patient room. Left Ventricle Normal size and thickness. The estimated ejection fraction is 65 %. Normal diastology for age. No regional wall motion abnormalities noted. Right Ventricle Normal size and thickness. Normal systolic function. Atria Normal left atrium. Normal right atrium. Normal atrial septum. Mitral Valve The mitral valve is structurally normal. No prolapse or stenosis seen. Trivial mitral valve insufficiency. Tricuspid Valve Normal tricuspid valve. Trivial tricuspid valve insufficiency. Right ventricular systolic pressure estimated to be 24 mmHg. Aortic Valve Normal aortic valve. Trisinus/trileaflet aortic valve. Pulmonic Valve Normal pulmonic valve. Great Vessels Normal aortic root. Normal arch. Normal inferior vena cava. Inferior vena cava collapse with sniff. Pericardium/Pleural No pericardial effusion. Medication Diluted definity 4ml given slow IV push to enhance endocardial definition. MMode/2D Measurements & Calculations LVIDd: 4.1 cm IVSd: 1.2 cm Ao root diam: 3.7 cm LVIDs: 2.7 cm LVPWd: 1.0 cm RVDd: 3.3 cm FS: 34.0 % LAV(MOD-bp): 51.2 ml LVAd ap4: 40.3 cm2 SV(MOD-sp4): 90.1 ml LAV(MOD-bp) Indexed: 21.7 ml/m2 EDV(MOD-sp4): 145.7 ml LAV(MOD-sp2): 48.5 ml EDV(sp4-el): 151.0 ml LAV(MOD-sp4): 50.9 ml LVAs ap4: 22.5 cm2 ESV(MOD-sp4): 55.6 ml ESV(sp4-el): 58.7 ml EF(MOD-sp4): 61.8 % EF(sp4-el): 61.1 % SV(sp4-el): 92.3 ml LA A4 area: 18.0 cm2 RA A4 area: 13.3 cm2 Time Measurements MV dec time: 0.23 sec Doppler Measurements & Calculations MV E max damien: 94.7 cm/sec Lat Peak E' Damien: 11.9 cm/sec Med Peak E' Damien: 7.7 cm/sec MV A max damien: 83.4 cm/sec E/E' lat: 8.0 E/E' med: 12.2 MV E/A: 1.1 MV V2 max: 98.9 cm/sec MV P1/2t max damien: 99.7 cm/sec Ao V2 max: 108.0 cm/sec MV max P.9 mmHg MV P1/2t: 75.8 msec Ao max P.7 mmHg MV V2 mean: 51.8 cm/sec Ao V2 mean: 79.5 cm/sec MV mean P.3 mmHg MV dec slope: 384.9 cm/sec2 Ao mean P.7 mmHg MV V2 VTI: 29.3 cm MVA(P1/2t): 2.9 cm2 Ao V2 VTI: 22.4 cm LV V1 max: 93.4 cm/sec PA V2 max: 74.3 cm/sec TR max damien: 220.0 cm/sec LV V1 max P.5 mmHg TR max P.4 mmHg LV V1 mean P.8 mmHg LV V1 mean: 62.8 cm/sec LV V1 VTI: 20.1 cm Interpretation Summary The estimated ejection fraction is 65 %. Normal diastology for age. Trivial mitral valve insufficiency. Trivial tricuspid valve insufficiency. Right ventricular systolic pressure estimated to be 24 mmHg. Compared to echo report dated 10/18/2017, no appreciable changes noted. The study was technically difficult. Contrast injection was performed. Ordering Physician: Jr Bardales Referring Physician: Rod Elena Performed By: Loco Barber RCS
[2018-10-24] VITALS (8 sets, daily range): BP systolic 108–133; BP diastolic 75–76; PULSE 65–90; RESP 16; TEMP 36.8–37.1; O2SAT 95–98; BMI 40.6
[2018-10-24] MEDS: Potassium Chloride 40 MEQ in 0.9% Normal Saline 1,000 ML 100 MEQ IV (01:15)
[2018-10-24] MEDS: Insulin Lispro 100 UNIT/ML INSULN.PEN 8 UNIT SC (01:20)
[2018-10-24 01:31] LABS: Bedside Glucose 424 mg/dL (70-110)
[2018-10-24] MEDS: Insulin Lispro 100 UNIT/ML INSULN.PEN SQ ×3 (03:04→12:46)
[2018-10-24 03:09] LABS: Hemoglobin A1c 13.7 % (4.2-6.3)
[2018-10-24 03:16] LABS: Bedside Glucose 373 mg/dL (70-110)
[2018-10-24] MEDS: Heparin Injection (Vial) 5,000 UNIT/ML VIAL 5000 UNIT SC (05:46)
[2018-10-24 06:37] LABS: Anion Gap 10 (5-15); BUN 18 mg/dL (7-18); BUN/Creat Ratio 20.7 RATIO (10-20); Calcium,Total 8.3 mg/dL (8.5-10.1); Chloride 103 mmol/L (98-107); Cholesterol 192 mg/dL (200); Creatinine, Serum 0.87 mg/dL (0.70-1.30); EST Glomerular Filtration Rate 97 mL/min (>60); Est Glom Filt Rate - Afr Amer 117 mL/min (>60); Estimated Creatinine Clearance 97.07 ml/min; Glucose 313 mg/dL (74-106); High Density Lipoprotein 37 mg/dL; Potassium 3.6 mmol/L (3.5-5.1); Sodium Level 139 mmol/L (136-145); Triglycerides 215 mg/dL; Very Low Density Lipoprotein 43 mg/dL (5-40)
[2018-10-24 07:06] LABS: Bedside Glucose 314 mg/dL (70-110)
--- NOTE | 2018-10-24 07:33 | MRI_ITS ---
STUDY: MRI BRAIN WITHOUT CONTRAST REASON FOR EXAM: Male, 53 years old. rt sided weakness, hx prior cva TECHNIQUE: Standardized multiplanar fat and water weighted pulse sequences were obtained. COMPARISON: Oct 23 2018 FINDINGS: Normal size of the ventricles and extra-axial spaces for the patient's age. Normal white matter tracts of the supratentorial brain. Normal bilateral basal ganglia. Normal thalami. There is no extra-axial fluid accumulation. Normal flow voids within the major intracranial circulation suggesting patency by spin echo criteria. Normal sella turcica, pituitary gland, infundibular stalk, optic chiasm and hypothalamus. Normal tectal plate and pineal gland. Normal midbrain, jed and medulla. Normal cerebellum. Normal basal cisterns. Normal bilateral temporal bones. Normal bilateral internal auditory canals. No demonstrated orbital abnormality, within the constraints of a routine brain study. There is mucoperiosteal inflammatory disease of the left maxillary sinuses consistent with moderate chronic sinusitis. MRI/Brain without Contrast IMPRESSION: No acute intracranial abnormality. Electronically Signed: Patsy Escamilla MD at 12:37 EST Tel , Service support ,
--- NOTE | 2018-10-24 07:34 | MRI_ITS ---
STUDY: MRA OF THE HEAD WITHOUT CONTRAST REASON FOR EXAM: Male, 53 years old. rt sided weakness, hx prior cva. TECHNIQUE: 3-D [id number] (TOF) imaging was performed with MIPs. The study was performed unenhanced. COMPARISON: None. FINDINGS: Normal bilateral petrous carotid arteries. Normal right cavernous carotid artery with a normal supraclinoid bifurcation. Normal left cavernous carotid artery with a normal supraclinoid bifurcation. Normal right A1 segments of the anterior cerebral artery. Normal left A1 segments of the anterior cerebral artery. Normal intact anterior communicating artery (ACOM). Normal bilateral A2 segments of the anterior cerebral arteries. Normal right M1 and M2 segments of the middle cerebral arteries, with a normal M1 bifurcation. Normal left M1 and M2 segments of the middle cerebral arteries, with a normal M1 bifurcation. Normal bilateral vertebral arteries. Normal basilar artery with a normal basilar bifurcation. The visualized bilateral superior cerebellar (SCA) arteries are normal. Normal bilateral P1, P2 and visualized P3 segments of the posterior cerebral arteries. There is no demonstrated aneurysm of the [place] of [place]. There is no major vessel occlusion or hemodynamically significant stenosis. There is no demonstrated abnormality of the visualized brain. MRI/MRA Head ONLY without Contrast IMPRESSION: Normal MRA of the head Electronically Signed: Patsy Escamilla MD at 12:38 EST Tel , Service support ,
--- NOTE | 2018-10-24 07:34 | MRI_ITS ---
STUDY: MRA NECK WITH AND WITHOUT CONTRAST REASON FOR EXAM: Male, 53 years old. rt sided weakness, hx prior cva TECHNIQUE: 3-D [id number] (TOF) imaging was performed in an 1.5 T MRI scanner. Gadavist 10 IV was administered for the contrast enhanced images. COMPARISON: None. FINDINGS: RIGHT CAROTID ARTERIES: Antegrade flow within the right common carotid artery (CCA). Antegrade flow within the right carotid bulb. There is mild atherosclerotic plaque formation of the origin of the right internal carotid artery with less than 50% cross sectional diameter stenosis. Antegrade flow within the visualized cervical portion of the right internal carotid artery. LEFT CAROTID ARTERIES: Antegrade flow within the left common carotid artery (CCA). Antegrade flow within the left common carotid bulb. There is mild atherosclerotic plaque formation of the origin of the left internal carotid artery with less than 50% cross sectional diameter stenosis. Antegrade flow within the visualized cervical portion of the left internal carotid artery. VERTEBRAL ARTERIES: Antegrade flow within the bilateral vertebral artery. MRI/MRA Neck WITH and W/O Contrast IMPRESSION: 50% stenosis stenosis of the right ICA. Further evaluation with sonography can be obtained. Electronically Signed: Patsy Escamilla MD at 12:46 EST Tel , Service support ,
[2018-10-24] MEDS: Loratadine 10 MG Tablet PO (09:55)
[2018-10-24] MEDS: Sertraline 100 MG Tablet 200 MG PO (09:55)
[2018-10-24] MEDS: Clopidogrel Bisulfate 75 MG Tablet PO (09:56)
[2018-10-24] MEDS: Aspirin E.C. 81 MG Tablet PO (09:56)
[2018-10-24] MEDS: Insulin Lispro 100 UNIT/ML INSULN.PEN 40 UNIT SC ×2 (09:57→12:46)
--- NOTE | 2018-10-24 10:18 | PCM.CONS.GEN ---
Reason for Consult Date of Consultation: 10/24/18 Reason for Consultation: right sided weakness History of Present Illness: The patient is a 53 year old M right handed white male with right sided weakness begninning 6pm last night, now improved, not normal, also notes cognitive changes. reports he had a headache last night begininng a few minutes prior to the weakness. reports diffuse weakness and confusion, improved, but still tingling on right side. reports normally takes tylenol and advil once/month for headache. history of JAYESH, variable compliance. reports mild headache 1-2x/week that he doesnt take tylenol. admits to stress. Per admission note: The patient is a 53 year old M with a significant history of CVA; diabetes mellitus who presented to the emergency department with right-sided weakness that started few hours before presentation. Also, his right arm and his right leg appeared numbed. His symptoms started earlier on in the day with a right sided supra orbital headache which eased off. He called and told his that he thinks he was having another stroke. His reports that his speech was slurry during the conversation. At the emergency department he felt that his right-sided weakness had improved. At baseline patient uses a cane because of left sided leg weakness from previous stroke. Past Medical History Past Medical History (Chronic Problems): Chronic Problems (Last Reviewed 10/24/18 @ 05:30 by Jr Bardales MD) Depression (Chronic) Osteoarthritis (Chronic) Asthma (Chronic) Anxiety (Chronic) CAD (coronary artery disease) (Chronic) HTN (hypertension) (Chronic) BP controlled at this visit. DM2 (diabetes mellitus, type 2) (Chronic) States recently has been told he can not return to work. He has been having some issue dealing with this so he has been trying to find a routine and can not get into one. He has forgotten to check BG and he is forgetting some of his insulin. He is getting kids ready for school while is picking up extra work. Feels like he will get adjusted eventually. We discussed ways to get into routine and helpful ways of getting into habits. He does not currently feel like he would be interested in counseling. History of myocardial infarction (Chronic) Medical History: Medical History (Last Reviewed 10/24/18 @ 05:30 by Jr Bardales MD) Anxiety and depression F41.8 Arthritis M19.90 Asthma J45.909 Back pain M54.9 Back problem M53.9 Bruises easily R23.8 Chest pain R07.9 Diabetes type 2, uncontrolled E11.65 dx : 2009 last exacerbation : dka : never hypoglycemic episode : never er visit : never Diarrhea R19.7 Difficulty balancing R29.818 Fatigue R53.83 Frequent headaches R51 GI problem R19.8 Gallstones K80.20 Gout M10.9 Hay fever J30.1 Hearing problem H91.90 Heart disease I51.9 High cholesterol E78.00 Kidney stones N20.0 Knee pain M25.569 Limb weakness R29.898 Migraines G43.909 Neuropathy G62.9 Pneumonia J18.9 SOB (shortness of breath) R06.02 Seasonal allergies J30.2 Stomach ulcer K25.9 Stroke I63.9 Vision problem H54.7 Weight loss R63.4 HTN (hypertension) I10 Allergies levofloxacin [From Levaquin] Allergy (Verified 05/27/18 10:29) rash,swelling RED RASH, SWELLING Penicillins Allergy (Verified 05/27/18 10:29) Rash Home Medications: Ambulatory Orders Medication Instructions Recorded Albuterol Inhaler [Ventolin Hfa] 1 puff INHALATION Q4H PRN PRN 01/28/15 Cyclobenzaprine [Flexeril] 10 mg PO TID PRN PRN 01/28/15 Losartan/Hydrochlorothiazide 1 tab PO DAILY 01/28/15 [Hyzaar 100-25 Tablet] Sertraline HCl [Zoloft] 200 mg PO DAILY 01/28/15 Lorazepam [Ativan] 0.5 mg PO Q6H PRN PRN 12/29/15 Metformin HCl [Metformin HCl ER] 2,000 mg PO DAILY 12/29/15 Aspirin [Adult Low Dose Aspirin EC] 81 mg PO DAILY 06/03/16 Cetirizine HCl [Zyrtec] 10 mg PO DAILY 06/03/16 Atorvastatin Calcium 80 mg PO QHS 09/27/17 Clopidogrel Bisulfate [Plavix] 75 mg PO DAILY 09/27/17 Amitriptyline HCl [Elavil] 100 mg PO QHS 10/16/17 Diltiazem HCl [Diltiazem 24Hr ER] 180 mg PO DAILY 10/16/17 insulin detemir (U-100) 100 52 - 55 unit SC BID ml 10/23/17 unit/mL (3 mL) subcutaneous pen insulin lispro (U- 100) 100 40 unit SC TID ml 10/23/17 unit/mL subcutaneous cartridge Surgical History: Surgical History (Last Reviewed 10/24/18 @ 02:18 by Jr Bardales MD) History of ERCP Z98.890 History of tonsillectomy Z98.890, Z90.89 Hx of cholecystectomy Z98.890, Z90.49 Surgical History: cholecystectomy, - - loop monitor Psychiatric History: Anxiety, Depression Lives: With Family Smoking Status: Never smoker Tobacco Use: Non-smoker Alcohol: Rare - *Family History Maternal Family History: Family History (Last Reviewed 10/24/18 @ 11:05 by Gm Crum MD) Father Asthma Heart disease Hypertension Mother Bleeding disorder Hypertension CVA (cerebral vascular accident) Brother Diabetes Heart disease Hypertension High cholesterol History Items: Stroke Paternal Family History: Family History (Last Reviewed 10/24/18 @ 11:05 by Gm Crum MD) Father Asthma Heart disease Hypertension Mother Bleeding disorder Hypertension CVA (cerebral vascular accident) Brother Diabetes Heart disease Hypertension High cholesterol History Items: Heart Disease Sibling Family History: Family History (Last Reviewed 10/24/18 @ 11:05 by Gm Crum MD) Father Asthma Heart disease Hypertension Mother Bleeding disorder Hypertension CVA (cerebral vascular accident) Brother Diabetes Heart disease Hypertension High cholesterol History Items: Diabetes, Heart Disease, Hypertension Review of Systems Constitutional: Denies: Chills, Fever, Weight Change HEENT: Denies: Head Aches, Sinus Congestion, Sinus Drainage Cardiovascular: Denies: Chest Pain, Palpitations Respiratory: Denies: Cough, Shortness of breath at rest, Sputum production Gastrointestinal: Denies: Abdominal Pain, Nausea, Vomiting Genitourinary: Denies: Dysuria Musculoskeletal: Denies: Joint Pain, Joint Tenderness Skin: Denies: Rash, Wounds Neurological: Reports: Confusion, Focal weakness, Headaches Psychiatric: Denies: Anxiety, Depression, Homicidal Ideations, Suicidal Ideations Hematologic/ Lymphatic: Denies: Easy Bruising, Easy Bleeding Patient Problems: Active and Suspected Problems (Last Reviewed 10/24/18 @ 05:30 by Jr Bardales MD) Stroke-like symptoms (Acute) - Physical Exam General: Alert, Oriented x3, Cooperative HEENT: Atraumatic, PERRLA, EOMI, Normocephalic Neck: Supple, No JVD, Negative Carotid Bruits Lungs: Clear to auscultation, Normal air movement Cardiovascular: Regular rate, No murmurs Abdomen: Bowel Sounds Present, Soft, Non Tender Extremities: No edema, Capillary Refill Less than 3 Seconds Skin: No rashes, No breakdown Musculoskeletal: No Tenderness to Palpation of Joints or Extremities Neurological: Cranial nerves II-XII grossly intact Psych/Mental Status: Normal Affect, Appropriate Vital Signs Temp Pulse Resp BP Pulse Ox 36.8 C 68 16 124/75 H 97 10/24/18 08:00 10/24/18 08:00 10/24/18 08:00 10/24/18 08:00 10/24/18 08:00 Oxygen Flow Rate (L/min) 2 Oxygen Delivery Method Room Air Weight: 124.9 kg Body Mass Index (BMI) 40.6 Finger Stick Blood Glucose 369 Intake and Output for Last 24 Hours 10/22/18 10/23/18 10/24/18 23:59 23:59 23:59 Intake Total 533 / 533 Output Total 1050 / 1050 Balance -517 / -517 Laboratory Tests Past 24 Hrs 10/23/18 10/23/18 10/23/18 19:58 19:58 19:58 WBC 10.0 RBC 5.66 Hgb 16.0 Hct 45.8 MCV 80.9 MCH 28.3 MCHC 34.9 RDW 12.6 RDW Differential 36.2 Plt Count 206 MPV 9.7 Immature Gran % (Auto) 0.200 Neut % (Auto) 58.2 Lymph % (Auto) 29.0 [place] % (Auto) 8.8 Eos % (Auto) 3.2 Baso % (Auto) 0.6 Absolute Neuts (auto) 5.8 Absolute Lymphs (auto) 2.89 Total Counted Not Reportable PT 12.7 INR 1.0 APTT 24.2 Sodium 133 L Potassium 3.2 L Chloride 96 L Carbon Dioxide 27.0 Anion Gap 10 BUN 15 Creatinine 1.09 Estim Creat Clear Calc 77.47 Est GFR (MDRD) Af Amer 91 Est GFR (MDRD) Non-Af 75 BUN/Creatinine Ratio 13.8 Glucose 358 H Hemoglobin A1c Calcium 9.1 Troponin I < 0.015 Triglycerides Cholesterol LDL Cholesterol VLDL Cholesterol HDL Cholesterol 10/23/18 10/24/18 19:58 05:50 WBC RBC Hgb Hct MCV MCH MCHC RDW RDW Differential Plt Count MPV Immature Gran % (Auto) Neut % (Auto) Lymph % (Auto) [place] % (Auto) Eos % (Auto) Baso % (Auto) Absolute Neuts (auto) Absolute Lymphs (auto) Total Counted PT INR APTT Sodium 139 Potassium 3.6 Chloride 103 Carbon Dioxide 26.0 Anion Gap 10 BUN 18 Creatinine 0.87 Estim Creat Clear Calc 97.07 Est GFR (MDRD) Af Amer 117 Est GFR (MDRD) Non-Af 97 BUN/Creatinine Ratio 20.7 H Glucose 313 H Hemoglobin A1c 13.7 H Calcium 8.3 L Troponin I Triglycerides 215 H Cholesterol 192 LDL Cholesterol 112 VLDL Cholesterol 43 H HDL Cholesterol 37 L POC Glucose 10/24/18 10/24/18 10/24/18 07:02 02:59 00:21 POC Glucose 314 H 373 H 424 H MRI and MRA reviewed. No acute, no significant stenosis and no evidence of old strokes. Assessment/Plan All Active Problems (Last Reviewed 10/24/18 @ 05:30 by Jr Bardales MD) Stroke-like symptoms (Acute) Contusion of left hand, initial encounter (Acute) Acute CVA (cerebrovascular accident) (Ruled-out) Right sided weakness (Resolved) Headache (Resolved) Abnormal ECG (Acute) Acute cholecystitis (Acute) Chest pain (Resolved) complex migraine: mult mri negative despite symptoms. has frequent headaches. continue asa/plavix/statin for now, outpt f/u, results of [place] mris consider migraine prophylaxis (didnt tolerate elavil) history of kidney stones, no topamax add depkote 500mg er daily
--- NOTE | 2018-10-24 11:42 | DCINST_ITS ---
- Discharge Diagnoses Current Active Problems: Current Active and Chronic Problems (Last Reviewed 10/24/18 @ 05:30 by Jr Bardales MD) Stroke-like symptoms (Acute) You will use the following diet at home:: Calorie/Carbohydrate Controlled (specify 1200, 1400, etc) - 1800 alban / day, Cardiac Your food should be the consistency of: Regular Your liquids should be the consistency of: Regular/Thin Discharge Activity: Return to Normal Activity Allergies/Adverse Reactions: Allergies levofloxacin [From Levaquin] Allergy (Verified 05/27/18 10:29) rash,swelling RED RASH, SWELLING Penicillins Allergy (Verified 05/27/18 10:29) Rash Medications to take at Discharge Albuterol Inhaler [Ventolin Hfa] 1 puff INHALATION Q4H PRN PRN 01/28/15 Cyclobenzaprine [Flexeril] 10 mg PO TID PRN PRN 01/28/15 Losartan/Hydrochlorothiazide [Hyzaar 100-25 Tablet] 1 tab PO DAILY 01/28/15 Sertraline HCl [Zoloft] 200 mg PO DAILY 01/28/15 Lorazepam [Ativan] 0.5 mg PO Q6H PRN PRN 12/29/15 Metformin HCl [Metformin HCl ER] 2,000 mg PO DAILY 12/29/15 Aspirin [Adult Low Dose Aspirin EC] 81 mg PO DAILY 06/03/16 Cetirizine HCl [Zyrtec] 10 mg PO DAILY 06/03/16 Atorvastatin Calcium 80 mg PO QHS 09/27/17 Clopidogrel Bisulfate [Plavix] 75 mg PO DAILY 09/27/17 Amitriptyline HCl [Elavil] 100 mg PO QHS 10/16/17 Diltiazem HCl [Diltiazem 24Hr ER] 180 mg PO DAILY 10/16/17 insulin detemir (U-100) 100 unit/mL (3 mL) subcutaneous pen 52 - 55 unit SC BID ml 10/23/17 insulin lispro (U- 100) 100 unit/mL subcutaneous cartridge 40 unit SC TID ml 10/23/17 Divalproex Sodium [Depakote ER] 500 mg PO DAILY #30 tab.er.24h 10/24/18 The following prescriptions were given: Divalproex Sodium [Depakote ER] 500 mg PO DAILY #30 tab.er.24h Primary Care Physician: Rod Elena MD [Primary Care Provider] - Please follow up with your Primary Care Physician in: 1-2 weeks Test Results: Test results from this visit will be discussed in further detail at your follow- up appointment, if applicable. Please Follow Up With: Gm Crum MD When: 3-4 weeks Proposed Discharge Date: 10/24/18
[2018-10-24] MEDS: Divalproex (ER) 500 MG Tablet PO (12:45)
[2018-10-24 12:55] LABS: Bedside Glucose 327 mg/dL (70-110)
[2018-10-24 13:50] LABS: Bedside Glucose 369 mg/dL (70-110)
--- NOTE | 2018-10-24 15:16 | PCM.DC.SUM ---
<Thom Flores - Last Filed: 10/24/18 15:16> Discharge Date and Diagnosis Date of Admission: 10/23/18 Date of Discharge: 10/24/18 - Primary Discharge Diagnosis Complex migraine Stroke ruled out Poorly controlled type 2 diabetes, A1c 13.7 History of [place], CAD Depression and anxiety Hypertension - Secondary Discharge Diagnosis Chronic Problems (Last Reviewed 10/24/18 @ 05:30 by Jr Bardales MD) Depression (Chronic) Osteoarthritis (Chronic) Asthma (Chronic) Anxiety (Chronic) CAD (coronary artery disease) (Chronic) HTN (hypertension) (Chronic) BP controlled at this visit. DM2 (diabetes mellitus, type 2) (Chronic) States recently has been told he can not return to work. He has been having some issue dealing with this so he has been trying to find a routine and can not get into one. He has forgotten to check BG and he is forgetting some of his insulin. He is getting kids ready for school while is picking up extra work. Feels like he will get adjusted eventually. We discussed ways to get into routine and helpful ways of getting into habits. He does not currently feel like he would be interested in counseling. History of myocardial infarction (Chronic) Hospital Course and Treatment Imaging Results: CT/Brain/Head without Contrast IMPRESSION: No acute intracranial pathology of the brain. Left maxillary sinus mucosal thickening. RAD/Chest 1 View IMPRESSION: Normal x-ray examination of the chest. Echo: Interpretation Summary The estimated ejection fraction is 65 %. Normal diastology for age. Trivial mitral valve insufficiency. Trivial tricuspid valve insufficiency. Right ventricular systolic pressure estimated to be 24 mmHg. Compared to echo report dated 10/18/2017, no appreciable changes noted. The study was technically difficult. Contrast injection was performed. MRI/Brain without Contrast IMPRESSION: No acute intracranial abnormality. MRI/MRA Head ONLY without Contrast IMPRESSION: Normal MRA of the head MRI/MRA Neck WITH and W/O Contrast IMPRESSION: 50% stenosis stenosis of the right ICA. Further evaluation with sonography can be obtained. Consultations: Neurology-Crum Operations: cholecystecomy Procedures: 2-D Echocardiogram Summary of Care Provided: Hospital Course: The patient is a 53 year old M with past medical history of CAD, [place], type 2 diabetes, morbid obesity, hypertension, who presented to the emergency room with complaints of headache, right-sided numbness and weakness, numbness of the right side of the face, right arm, right leg and foot, and weakness of the right arm and leg. He stated that he had a previous stroke with symptoms on the left side and he stated that the symptoms were similar to his last stroke. In the ER CT of the brain was negative and she was admitted for stroke workup. Following morning his symptoms had mildly improved. MRI brain, MRA head and neck, and echo were negative for acute process. Neurology was consulted and he was felt to have a complex migraine. He was started on depakote ER 500 daily. He is already on aspirin statin, and plavix. He had no events on tele. He has a loop recorder in place already. He was discharged home in stable condition. He will follow up with his PCP in 1-2 weeks, Neurology in 3-4 weeks. This patient was seen by Thom Flores PA-C under the supervision of Dr. Yung. [] - Physical Exam General: Alert, Oriented x3, Cooperative HEENT: Atraumatic, PERRLA, EOMI, Normocephalic Neck: Supple, No JVD, Negative Carotid Bruits Lungs: Clear to auscultation, Normal air movement Cardiovascular: Regular rate, No murmurs Abdomen: Bowel Sounds Present, Soft, Non Tender Extremities: No edema, Capillary Refill Less than 3 Seconds Skin: No rashes, No breakdown Musculoskeletal: No Tenderness to Palpation of Joints or Extremities Neurological: Cranial nerves II-XII grossly intact Psych/Mental Status: Normal Affect, Appropriate, Alert and oriented to time, place, person, mood and affect Vital Signs Temp Pulse Resp BP Pulse Ox 98.3 F 90 16 124/75 H 97 10/24/18 08:00 10/24/18 11:23 10/24/18 08:00 10/24/18 08:00 10/24/18 08:00 Oxygen Flow Rate (L/min) 2 Oxygen Delivery Method Room Air Weight: 275 lb 5.718 oz Body Mass Index (BMI) 40.6 Finger Stick Blood Glucose 369 Intake and Output for Last 24 Hours 10/22/18 10/23/18 10/24/18 23:59 23:59 23:59 Intake Total 533 / 533 Output Total 1050 / 1050 Balance -517 / -517 Laboratory Tests Past 24 Hrs 10/23/18 10/23/18 10/23/18 19:58 19:58 19:58 WBC 10.0 RBC 5.66 Hgb 16.0 Hct 45.8 MCV 80.9 MCH 28.3 MCHC 34.9 RDW 12.6 RDW Differential 36.2 Plt Count 206 MPV 9.7 Immature Gran % (Auto) 0.200 Neut % (Auto) 58.2 Lymph % (Auto) 29.0 Logan % (Auto) 8.8 Eos % (Auto) 3.2 Baso % (Auto) 0.6 Absolute Neuts (auto) 5.8 Absolute Lymphs (auto) 2.89 Total Counted Not Reportable PT 12.7 INR 1.0 APTT 24.2 Sodium 133 L Potassium 3.2 L Chloride 96 L Carbon Dioxide 27.0 Anion Gap 10 BUN 15 Creatinine 1.09 Estim Creat Clear Calc 77.47 Est GFR (MDRD) Af Amer 91 Est GFR (MDRD) Non-Af 75 BUN/Creatinine Ratio 13.8 Glucose 358 H Hemoglobin A1c Calcium 9.1 Troponin I < 0.015 Triglycerides Cholesterol LDL Cholesterol VLDL Cholesterol HDL Cholesterol 10/23/18 10/24/18 19:58 05:50 WBC RBC Hgb Hct MCV MCH MCHC RDW RDW Differential Plt Count MPV Immature Gran % (Auto) Neut % (Auto) Lymph % (Auto) Logan % (Auto) Eos % (Auto) Baso % (Auto) Absolute Neuts (auto) Absolute Lymphs (auto) Total Counted PT INR APTT Sodium 139 Potassium 3.6 Chloride 103 Carbon Dioxide 26.0 Anion Gap 10 BUN 18 Creatinine 0.87 Estim Creat Clear Calc 97.07 Est GFR (MDRD) Af Amer 117 Est GFR (MDRD) Non-Af 97 BUN/Creatinine Ratio 20.7 H Glucose 313 H Hemoglobin A1c 13.7 H Calcium 8.3 L Troponin I Triglycerides 215 H Cholesterol 192 LDL Cholesterol 112 VLDL Cholesterol 43 H HDL Cholesterol 37 L POC Glucose 10/24/18 10/24/18 10/24/18 12:44 07:02 02:59 POC Glucose 327 H 314 H 373 H 10/24/18 10/23/18 00:21 19:56 POC Glucose 424 H 369 H Discharge Diet: Low fat/ Low Cholesterol, 1800 Calorie Control Diet, 2000 mg Sodium Diet Discharge Activity: Return to Normal Activity Home Medications: Medications to take at Discharge Albuterol Inhaler [Ventolin Hfa] 1 puff INHALATION Q4H PRN PRN 01/28/15 Cyclobenzaprine [Flexeril] 10 mg PO TID PRN PRN 01/28/15 Losartan/Hydrochlorothiazide [Hyzaar 100-25 Tablet] 1 tab PO DAILY 01/28/15 Sertraline HCl [Zoloft] 200 mg PO DAILY 01/28/15 Lorazepam [Ativan] 0.5 mg PO Q6H PRN PRN 12/29/15 Metformin HCl [Metformin HCl ER] 2,000 mg PO DAILY 12/29/15 Aspirin [Adult Low Dose Aspirin EC] 81 mg PO DAILY 06/03/16 Cetirizine HCl [Zyrtec] 10 mg PO DAILY 06/03/16 Atorvastatin Calcium 80 mg PO QHS 09/27/17 Clopidogrel Bisulfate [Plavix] 75 mg PO DAILY 09/27/17 Amitriptyline HCl [Elavil] 100 mg PO QHS 10/16/17 Diltiazem HCl [Diltiazem 24Hr ER] 180 mg PO DAILY 10/16/17 insulin detemir (U-100) 100 unit/mL (3 mL) subcutaneous pen 52 - 55 unit SC BID ml 10/23/17 insulin lispro (U- 100) 100 unit/mL subcutaneous cartridge 40 unit SC TID ml 10/23/17 Divalproex Sodium [Depakote ER] 500 mg PO DAILY #30 tab.er.24h 10/24/18 Following Prescrptions Were Given to Patient: Divalproex Sodium [Depakote ER] 500 mg PO DAILY #30 tab.er.24h Primary Care Physician: Rod Elena MD [Primary Care Provider] - Please follow up with your Primary Care Physician in: 1-2 weeks Please Follow Up With: Gm Crum MD When: 3-4 weeks Disposition: Home Minutes spent on discharge:: 35 Patient Condition:: Stable Medical Necessity - Tobacco Use Smoking Status: Never smoker Tobacco Use: Non-smoker Meaningful Use Info Meaningful Use Diagnoses (Choose all that apply): None applicable <Gold Yung - Last Filed: 10/24/18 16:41> Discharge Date and Diagnosis - Secondary Discharge Diagnosis Chronic Problems (Last Reviewed 10/24/18 @ 05:30 by Jr Bardales MD) Depression (Chronic) Osteoarthritis (Chronic) Asthma (Chronic) Anxiety (Chronic) CAD (coronary artery disease) (Chronic) HTN (hypertension) (Chronic) BP controlled at this visit. DM2 (diabetes mellitus, type 2) (Chronic) States recently has been told he can not return to work. He has been having some issue dealing with this so he has been trying to find a routine and can not get into one. He has forgotten to check BG and he is forgetting some of his insulin. He is getting kids ready for school while is picking up extra work. Feels like he will get adjusted eventually. We discussed ways to get into routine and helpful ways of getting into habits. He does not currently feel like he would be interested in counseling. History of myocardial infarction (Chronic) Hospital Course and Treatment Summary of Care Provided: The patient is a 53 year old M [] - Physical Exam Vital Signs Temp Pulse Resp BP Pulse Ox 98.3 F 90 16 124/75 H 97 10/24/18 08:00 10/24/18 11:23 10/24/18 08:00 10/24/18 08:00 10/24/18 08:00 Oxygen Flow Rate (L/min) 2 Oxygen Delivery Method Room Air Weight: 275 lb 5.718 oz Body Mass Index (BMI) 40.6 Finger Stick Blood Glucose 369 Intake and Output for Last 24 Hours 10/22/18 10/23/18 10/24/18 23:59 23:59 23:59 Intake Total 533 / 533 Output Total 1050 / 1050 Balance -517 / -517 Laboratory Tests Past 24 Hrs 10/23/18 10/23/18 10/23/18 19:58 19:58 19:58 WBC 10.0 RBC 5.66 Hgb 16.0 Hct 45.8 MCV 80.9 MCH 28.3 MCHC 34.9 RDW 12.6 RDW Differential 36.2 Plt Count 206 MPV 9.7 Immature Gran % (Auto) 0.200 Neut % (Auto) 58.2 Lymph % (Auto) 29.0 Logan % (Auto) 8.8 Eos % (Auto) 3.2 Baso % (Auto) 0.6 Absolute Neuts (auto) 5.8 Absolute Lymphs (auto) 2.89 Total Counted Not Reportable PT 12.7 INR 1.0 APTT 24.2 Sodium 133 L Potassium 3.2 L Chloride 96 L Carbon Dioxide 27.0 Anion Gap 10 BUN 15 Creatinine 1.09 Estim Creat Clear Calc 77.47 Est GFR (MDRD) Af Amer 91 Est GFR (MDRD) Non-Af 75 BUN/Creatinine Ratio 13.8 Glucose 358 H Hemoglobin A1c Calcium 9.1 Troponin I < 0.015 Triglycerides Cholesterol LDL Cholesterol VLDL Cholesterol HDL Cholesterol 10/23/18 10/24/18 19:58 05:50 WBC RBC Hgb Hct MCV MCH MCHC RDW RDW Differential Plt Count MPV Immature Gran % (Auto) Neut % (Auto) Lymph % (Auto) Logan % (Auto) Eos % (Auto) Baso % (Auto) Absolute Neuts (auto) Absolute Lymphs (auto) Total Counted PT INR APTT Sodium 139 Potassium 3.6 Chloride 103 Carbon Dioxide 26.0 Anion Gap 10 BUN 18 Creatinine 0.87 Estim Creat Clear Calc 97.07 Est GFR (MDRD) Af Amer 117 Est GFR (MDRD) Non-Af 97 BUN/Creatinine Ratio 20.7 H Glucose 313 H Hemoglobin A1c 13.7 H Calcium 8.3 L Troponin I Triglycerides 215 H Cholesterol 192 LDL Cholesterol 112 VLDL Cholesterol 43 H HDL Cholesterol 37 L POC Glucose 10/24/18 10/24/18 10/24/18 12:44 07:02 02:59 POC Glucose 327 H 314 H 373 H 10/24/18 10/23/18 00:21 19:56 POC Glucose 424 H 369 H Code Visit Addendum: Dr. Yung I personally examined the patient and reviewed the chart. I agree with the above. 53-year-old male who presented with signs concerning for stroke. Initially in the ER he had an NIH of 3 with right-sided weakness and numbness though this had begun several hours prior to his transfer to the ER. He underwent an MRI which was negative for stroke or old stroke and neurology was consulted he felt that this could be a complex migraine because he had had a significant headache immediately prior to the symptoms occurring. He was to be discharged home with outpatient follow-up, on Depakote for his complex migraine since he has kidney stones cannot tolerate Topamax and did not do well with Elavil previously. OBSV E&M: [id number] Observation care discharge
--- NOTE | 2018-10-24 15:26 | DS.PCM_ITS ---
<Thom Flores - Last Filed: 10/24/18 15:16> Discharge Date and Diagnosis Date of Admission: 10/23/18 Date of Discharge: 10/24/18 - Primary Discharge Diagnosis Complex migraine Stroke ruled out Poorly controlled type 2 diabetes, A1c 13.7 History of CA, CAD Depression and anxiety Hypertension - Secondary Discharge Diagnosis Chronic Problems (Last Reviewed 10/24/18 @ 05:30 by Jr Bardales MD) Depression (Chronic) Osteoarthritis (Chronic) Asthma (Chronic) Anxiety (Chronic) CAD (coronary artery disease) (Chronic) HTN (hypertension) (Chronic) BP controlled at this visit. DM2 (diabetes mellitus, type 2) (Chronic) States recently has been told he can not return to work. He has been having some issue dealing with this so he has been trying to find a routine and can not get into one. He has forgotten to check BG and he is forgetting some of his insulin. He is getting kids ready for school while is picking up extra work. Feels like he will get adjusted eventually. We discussed ways to get into routine and helpful ways of getting into habits. He does not currently feel like he would be interested in counseling. History of myocardial infarction (Chronic) Hospital Course and Treatment Imaging Results: CT/Brain/Head without Contrast IMPRESSION: No acute intracranial pathology of the brain. Left maxillary sinus mucosal thickening. RAD/Chest 1 View IMPRESSION: Normal x-ray examination of the chest. Echo: Interpretation Summary The estimated ejection fraction is 65 %. Normal diastology for age. Trivial mitral valve insufficiency. Trivial tricuspid valve insufficiency. Right ventricular systolic pressure estimated to be 24 mmHg. Compared to echo report dated 10/18/2017, no appreciable changes noted. The study was technically difficult. Contrast injection was performed. MRI/Brain without Contrast IMPRESSION: No acute intracranial abnormality. MRI/MRA Head ONLY without Contrast IMPRESSION: Normal MRA of the head MRI/MRA Neck WITH and W/O Contrast IMPRESSION: 50% stenosis stenosis of the right ICA. Further evaluation with sonography can be obtained. Consultations: Neurology-Crum Operations: [email or web address] Procedures: 2-D Echocardiogram Summary of Care Provided: Hospital Course: The patient is a 53 year old M with past medical history of CAD, CA, type 2 diabetes, morbid obesity, hypertension, who presented to the emergency room with complaints of headache, right-sided numbness and weakness, numbness of the right side of the face, right arm, right leg and foot, and weakness of the right arm and leg. He stated that he had a previous stroke with symptoms on the left side and he stated that the symptoms were similar to his last stroke. In the ER CT of the brain was negative and she was admitted for stroke workup. Following morning his symptoms had mildly improved. MRI brain, MRA head and neck, and echo were negative for acute process. Neurology was consulted and he was felt to have a complex migraine. He was started on depakote ER 500 daily. He is already on aspirin statin, and plavix. He had no events on tele. He has a loop recorder in place already. He was discharged home in stable condition. He will follow up with his PCP in 1-2 weeks, Neurology in 3-4 weeks. This patient was seen by Thom Flores PA-C under the supervision of Dr. Yung. [] - Physical Exam General: Alert, Oriented x3, Cooperative HEENT: Atraumatic, PERRLA, EOMI, Normocephalic Neck: Supple, No JVD, Negative Carotid Bruits Lungs: Clear to auscultation, Normal air movement Cardiovascular: Regular rate, No murmurs Abdomen: Bowel Sounds Present, Soft, Non Tender Extremities: No edema, Capillary Refill Less than 3 Seconds Skin: No rashes, No breakdown Musculoskeletal: No Tenderness to Palpation of Joints or Extremities Neurological: Cranial nerves II-XII grossly intact Psych/Mental Status: Normal Affect, Appropriate, Alert and oriented to time, place, person, mood and affect Vital Signs Temp Pulse Resp BP Pulse Ox 98.3 F 90 16 124/75 H 97 10/24/18 08:00 10/24/18 11:23 10/24/18 08:00 10/24/18 08:00 10/24/18 08:00 Oxygen Flow Rate (L/min) 2 Oxygen Delivery Method Room Air Weight: 275 lb 5.718 oz Body Mass Index (BMI) 40.6 Finger Stick Blood Glucose 369 Intake and Output for Last 24 Hours 10/22/18 10/23/18 10/24/18 23:59 23:59 23:59 Intake Total 533 / 533 Output Total 1050 / 1050 Balance -517 / -517 Laboratory Tests Past 24 Hrs 10/23/18 10/23/18 10/23/18 19:58 19:58 19:58 WBC 10.0 RBC 5.66 Hgb 16.0 Hct 45.8 MCV 80.9 MCH 28.3 MCHC 34.9 RDW 12.6 RDW Differential 36.2 Plt Count 206 MPV 9.7 Immature Gran % (Auto) 0.200 Neut % (Auto) 58.2 Lymph % (Auto) 29.0 [place] % (Auto) 8.8 Eos % (Auto) 3.2 Baso % (Auto) 0.6 Absolute Neuts (auto) 5.8 Absolute Lymphs (auto) 2.89 Total Counted Not Reportable PT 12.7 INR 1.0 APTT 24.2 Sodium 133 L Potassium 3.2 L Chloride 96 L Carbon Dioxide 27.0 Anion Gap 10 BUN 15 Creatinine 1.09 Estim Creat Clear Calc 77.47 Est GFR (MDRD) Af Amer 91 Est GFR (MDRD) Non-Af 75 BUN/Creatinine Ratio 13.8 Glucose 358 H Hemoglobin A1c Calcium 9.1 Troponin I < 0.015 Triglycerides Cholesterol LDL Cholesterol VLDL Cholesterol HDL Cholesterol 10/23/18 10/24/18 19:58 05:50 WBC RBC Hgb Hct MCV MCH MCHC RDW RDW Differential Plt Count MPV Immature Gran % (Auto) Neut % (Auto) Lymph % (Auto) [place] % (Auto) Eos % (Auto) Baso % (Auto) Absolute Neuts (auto) Absolute Lymphs (auto) Total Counted PT INR APTT Sodium 139 Potassium 3.6 Chloride 103 Carbon Dioxide 26.0 Anion Gap 10 BUN 18 Creatinine 0.87 Estim Creat Clear Calc 97.07 Est GFR (MDRD) Af Amer 117 Est GFR (MDRD) Non-Af 97 BUN/Creatinine Ratio 20.7 H Glucose 313 H Hemoglobin A1c 13.7 H Calcium 8.3 L Troponin I Triglycerides 215 H Cholesterol 192 LDL Cholesterol 112 VLDL Cholesterol 43 H HDL Cholesterol 37 L POC Glucose 10/24/18 10/24/18 10/24/18 12:44 07:02 02:59 POC Glucose 327 H 314 H 373 H 10/24/18 10/23/18 00:21 19:56 POC Glucose 424 H 369 H Discharge Diet: Low fat/ Low Cholesterol, 1800 Calorie Control Diet, 2000 mg Sodium Diet Discharge Activity: Return to Normal Activity Home Medications: Medications to take at Discharge Albuterol Inhaler [Ventolin Hfa] 1 puff INHALATION Q4H PRN PRN 01/28/15 Cyclobenzaprine [Flexeril] 10 mg PO TID PRN PRN 01/28/15 Losartan/Hydrochlorothiazide [Hyzaar 100-25 Tablet] 1 tab PO DAILY 01/28/15 Sertraline HCl [Zoloft] 200 mg PO DAILY 01/28/15 Lorazepam [Ativan] 0.5 mg PO Q6H PRN PRN 12/29/15 Metformin HCl [Metformin HCl ER] 2,000 mg PO DAILY 12/29/15 Aspirin [Adult Low Dose Aspirin EC] 81 mg PO DAILY 06/03/16 Cetirizine HCl [Zyrtec] 10 mg PO DAILY 06/03/16 Atorvastatin Calcium 80 mg PO QHS 09/27/17 Clopidogrel Bisulfate [Plavix] 75 mg PO DAILY 09/27/17 Amitriptyline HCl [Elavil] 100 mg PO QHS 10/16/17 Diltiazem HCl [Diltiazem 24Hr ER] 180 mg PO DAILY 10/16/17 insulin detemir (U-100) 100 unit/mL (3 mL) subcutaneous pen 52 - 55 unit SC BID ml 10/23/17 insulin lispro (U- 100) 100 unit/mL subcutaneous cartridge 40 unit SC TID ml 10/23/17 Divalproex Sodium [Depakote ER] 500 mg PO DAILY #30 tab.er.24h 10/24/18 Following Prescrptions Were Given to Patient: Divalproex Sodium [Depakote ER] 500 mg PO DAILY #30 tab.er.24h Primary Care Physician: Rod Elena MD [Primary Care Provider] - Please follow up with your Primary Care Physician in: 1-2 weeks Please Follow Up With: Gm Crum MD When: 3-4 weeks Disposition: Home Minutes spent on discharge:: 35 Patient Condition:: Stable Medical Necessity - Tobacco Use Smoking Status: Never smoker Tobacco Use: Non-smoker Meaningful Use Info Meaningful Use Diagnoses (Choose all that apply): None applicable <Gold Yung - Last Filed: 10/24/18 16:41> Discharge Date and Diagnosis - Secondary Discharge Diagnosis Chronic Problems (Last Reviewed 10/24/18 @ 05:30 by Jr Bardales MD) Depression (Chronic) Osteoarthritis (Chronic) Asthma (Chronic) Anxiety (Chronic) CAD (coronary artery disease) (Chronic) HTN (hypertension) (Chronic) BP controlled at this visit. DM2 (diabetes mellitus, type 2) (Chronic) States recently has been told he can not return to work. He has been having some issue dealing with this so he has been trying to find a routine and can not get into one. He has forgotten to check BG and he is forgetting some of his insulin. He is getting kids ready for school while is picking up extra work. Feels like he will get adjusted eventually. We discussed ways to get into routine and helpful ways of getting into habits. He does not currently feel like he would be interested in counseling. History of myocardial infarction (Chronic) Hospital Course and Treatment Summary of Care Provided: The patient is a 53 year old M [] - Physical Exam Vital Signs Temp Pulse Resp BP Pulse Ox 98.3 F 90 16 124/75 H 97 10/24/18 08:00 10/24/18 11:23 10/24/18 08:00 10/24/18 08:00 10/24/18 08:00 Oxygen Flow Rate (L/min) 2 Oxygen Delivery Method Room Air Weight: 275 lb 5.718 oz Body Mass Index (BMI) 40.6 Finger Stick Blood Glucose 369 Intake and Output for Last 24 Hours 10/22/18 10/23/18 10/24/18 23:59 23:59 23:59 Intake Total 533 / 533 Output Total 1050 / 1050 Balance -517 / -517 Laboratory Tests Past 24 Hrs 10/23/18 10/23/18 10/23/18 19:58 19:58 19:58 WBC 10.0 RBC 5.66 Hgb 16.0 Hct 45.8 MCV 80.9 MCH 28.3 MCHC 34.9 RDW 12.6 RDW Differential 36.2 Plt Count 206 MPV 9.7 Immature Gran % (Auto) 0.200 Neut % (Auto) 58.2 Lymph % (Auto) 29.0 [place] % (Auto) 8.8 Eos % (Auto) 3.2 Baso % (Auto) 0.6 Absolute Neuts (auto) 5.8 Absolute Lymphs (auto) 2.89 Total Counted Not Reportable PT 12.7 INR 1.0 APTT 24.2 Sodium 133 L Potassium 3.2 L Chloride 96 L Carbon Dioxide 27.0 Anion Gap 10 BUN 15 Creatinine 1.09 Estim Creat Clear Calc 77.47 Est GFR (MDRD) Af Amer 91 Est GFR (MDRD) Non-Af 75 BUN/Creatinine Ratio 13.8 Glucose 358 H Hemoglobin A1c Calcium 9.1 Troponin I < 0.015 Triglycerides Cholesterol LDL Cholesterol VLDL Cholesterol HDL Cholesterol 10/23/18 10/24/18 19:58 05:50 WBC RBC Hgb Hct MCV MCH MCHC RDW RDW Differential Plt Count MPV Immature Gran % (Auto) Neut % (Auto) Lymph % (Auto) [place] % (Auto) Eos % (Auto) Baso % (Auto) Absolute Neuts (auto) Absolute Lymphs (auto) Total Counted PT INR APTT Sodium 139 Potassium 3.6 Chloride 103 Carbon Dioxide 26.0 Anion Gap 10 BUN 18 Creatinine 0.87 Estim Creat Clear Calc 97.07 Est GFR (MDRD) Af Amer 117 Est GFR (MDRD) Non-Af 97 BUN/Creatinine Ratio 20.7 H Glucose 313 H Hemoglobin A1c 13.7 H Calcium 8.3 L Troponin I Triglycerides 215 H Cholesterol 192 LDL Cholesterol 112 VLDL Cholesterol 43 H HDL Cholesterol 37 L POC Glucose 10/24/18 10/24/18 10/24/18 12:44 07:02 02:59 POC Glucose 327 H 314 H 373 H 10/24/18 10/23/18 00:21 19:56 POC Glucose 424 H 369 H Code Visit Addendum: Dr. Yung I personally examined the patient and reviewed the chart. I agree with the above. 53-year-old male who presented with signs concerning for stroke. Initially in the ER he had an NIH of 3 with right-sided weakness and numbness though this had begun several hours prior to his transfer to the ER. He underwent an MRI which was negative for stroke or old stroke and neurology was consulted he felt that this could be a complex migraine because he had had a significant headache immediately prior to the symptoms occurring. He was to be discharged home with outpatient follow-up, on Depakote for his complex migraine since he has kidney stones cannot tolerate Topamax and did not do well with Elavil previously. OBSV E&M: 25505 Observation care discharge
== END 2018-10-24 11:41 | disposition home or self-care (01) ==
LOC: ED 20:03 → PCU 23:12
PROVIDERS: Admitting Provider Hospitalist; Emergency Provider Emergency Medicine; Family Provider Family Medicine; PCP Family Medicine; Visit Provider Family Medicine
DX: G43.109 Migraine with aura, not intractable, without status migrainosus (principal); E87.1 Hypo-osmolality and hyponatremia; F32.9 Major depressive disorder, single episode, unspecified; I25.10 Atherosclerotic heart disease of native coronary artery without angina pectoris; M19.90 Unspecified osteoarthritis, unspecified site; I10 Essential (primary) hypertension; F41.9 Anxiety disorder, unspecified; J45.909 Unspecified asthma, uncomplicated; I69.354 Hemiplegia and hemiparesis following cerebral infarction affecting left non-dominant side; I25.2 Old myocardial infarction; I08.1 Rheumatic disorders of both mitral and tricuspid valves; R29.703 NIHSS score 3; G47.33 Obstructive sleep apnea (adult) (pediatric); E11.65 Type 2 diabetes mellitus with hyperglycemia; E66.01 Morbid (severe) obesity due to excess calories; Z68.41 Body mass index [BMI] 40.0-44.9, adult; Z71.3 Dietary counseling and surveillance; Z79.899 Other long term (current) drug therapy; Z79.4 Long term (current) use of insulin; Z79.82 Long term (current) use of aspirin; Z79.02 Long term (current) use of antithrombotics/antiplatelets; Z91.19 Patient's noncompliance with other medical treatment and regimen; R20.0 Anesthesia of skin; R47.81 Slurred speech
CPT/HCPCS: 36415; 70450; 70544; 70549; 70551; 71045; 80048; 80061; 82962; 83036; 84484; 85025; 85610; 85730; 92523; 92610; 93005; 93306; 96360; 96361; 96372; 97162; 97166; 99218; 99285; A9585; J7030; J7040; Q9957; A4216; C8929; G0378

== ENCOUNTER 2019-01-16 12:10 | Emergency (ER) | payer BC, SELFPAY ==
[2018-10-24 02:51] VITALS: BMI 40.6
[2019-01-16 12:11] VITALS: BP 134/89; PULSE 80; RESP 16; TEMP 36.6; O2SAT 95; BMI 41.2
--- NOTE | 2019-01-16 12:31 | RAD_ITS ---
STUDY: X-RAY - RIGHT ELBOW REASON FOR EXAM: Male, 53 years old. Pain following a fall. TECHNIQUE: 3 view(s) of the elbow. COMPARISON: None. FINDINGS: Normal visualized humerus, radius and ulna. Normal radiocapitellar and ulnotrochlear articulations. Soft tissue swelling. RAD/Elbow min 3 Views IMPRESSION: Soft tissue swelling. Electronically Signed: Kraig Lamb, at 13:04 EDT , Service support ,
--- NOTE | 2019-01-16 13:17 | ED.VISSUMM ---
- ER Visit Summary Date of Service: 01/16/19 Chief Complaint: Right elbow injury History of Present Illness: The patient is a 53 M who states that he tripped and fell into a cabinet and then onto the ground. He notes he injured his right elbow. He states that at home he went dependent antics welled up. EMS placed in a air splint. He is right-handed. He denies any other injuries. Physical Examination: Afebrile vital signs are stable Gen: Well-nourished well-developed Head: Normocephalic atraumatic Eyes: Perrl EOMI ENT: TMs clear no rhinorrhea moist mucous membranes Neck: Supple no lymphadenopathy no JVD nontender CVS: Regular rate rhythm no murmurs normal S1-S2 Respiratory: No distress clear to auscultation bilaterally chest nontender Abdomen: Soft nontender nondistended normal bowel sounds no masses Back: Nontender Extremity: Right elbow demonstrates no deformity. He is tender to palpation. There is a abrasion over the radial head Skin: Normal color no rash Neuro: alert orientated ?3 CN II-XII intact normal strength sensation Psych: Normal affect normal mood Emergency Department Course and Treatment: X-rays were negative for fracture. Patient will be discharged home. Wound was cleansed and dressed. Impression: 1. Right elbow contusion abrasion This note was generated with [employer] dictation software. It may contain incorrect words, spelling, and punctuation that were not noted in review of the chart prior to signing ED Disposition - Plan for ED Patient: Disposition: Home or Assisted Living Instructions: ED Contusion Elbow Referrals: Rod Elena MD [Primary Care Provider] - 10-14 Days if not better
[2019-01-16 13:32] VITALS: BP 130/90; PULSE 78; RESP 20; O2SAT 95
== END 2019-01-16 13:33 | disposition home or self-care (01) ==
PROVIDERS: Emergency Provider Emergency Medicine; Family Provider Family Medicine; PCP Family Medicine
DX: S50.01XA Contusion of right elbow, initial encounter (principal); W01.0XXA Fall on same level from slipping, tripping and stumbling without subsequent striking against object, initial encounter; I25.10 Atherosclerotic heart disease of native coronary artery without angina pectoris; J45.909 Unspecified asthma, uncomplicated; E11.9 Type 2 diabetes mellitus without complications; I10 Essential (primary) hypertension; I25.2 Old myocardial infarction; Z86.73 Personal history of transient ischemic attack (TIA), and cerebral infarction without residual deficits
CPT/HCPCS: 73080; 99284

== ENCOUNTER 2019-06-18 11:00 | Outpatient (RCR) | payer OTHER, SELFPAY ==
--- NOTE | 2019-05-19 12:05 | HP.SP.AD_ITS ---
History - History Date of Eval: 05/19/19 Medical Diagnosis (from RX): CVA Previous speech therapy: Yes Results: July 2018 to November 2018 with limited progress. Continued memory deficits. Other Relevant Medical History/Diagnoses/Surgery: Depression (Chronic). Osteoarthritis (Chronic). Asthma (Chronic). Anxiety (Chronic). CAD (coronary artery disease) (Chronic). HTN (hypertension) (Chronic). DM2 (diabetes mellnaheed tus, type 2) (Chronic). History of myocardial infarction (Chronic). Repeated falls/ balance issues. Smoking Status: Never smoker Hx Smoking: No Hx Tobacco Use: No Hx Smoking Exposure: No - Pain Is pain an issue with your current prescribed condition?: Yes - Personal Occupation: On disability. Right Hearing Abillity: Normal Left Hearing Abillity: Normal Visual Assistive Devices: Glasses Patients Living Arrangements: With Significant Other Patient Allergies - Allergies Allergies levofloxacin [From Levaquin] Allergy (Verified 05/27/18 10:29) rash,swelling RED RASH, SWELLING Penicillins Allergy (Verified 05/27/18 10:29) Rash CLQT - CLQT CLQT Administered: Yes CLQT: Cognitive Linguistic Quick Test (CLQT) is a criterion - referenced assessment designed for adults between the ages of 18 and 89 with known or suspected neurological dysfuntions. The CLQT is to assess strength and weaknesses in five cognitive domains. Severity ratings are within normal limits, mild, moderate, severe deficits. The subtests are as follows: Date: 05/19/19 - Memory Memory: Mild - CLQT Comments Comments Dany reported that he forgets medication. He stated that he does not remember the last time he had an insulin shot ( He is supposed to check levels 4-5 times a day). He states that he can get lost in a task as he is doing it. He is attempting to independently manage medications and a short discussion regarding having his help with his medications was completed. Education regarding deficits ongoing after 5 CVAs was also completed. Plan - Plan Plan: Speech therapy is warranted for mild memory deficits on a trial basis for education and strategies for recall. - Recommendations Treatment Warranted: Yes - Frequency Frequency: 1x/Week Duration: 4 Weeks Visits in this POC: 4 - Prognosis Prognosis: Fair - Goals that are Established: Determination:: Goals will be added/modified as deemed necessary and appropriate. Therapy will be discontinued when results of re-evaluation indicate therapy is no longer needed or lack of progress has been documented. - Goal #1-5 Goal #1: Dany will use external memory aids to increase compliants with medication usage for 4 days in a row. Goal #2: Dany will demonstrate ability to use external strategies for daily recall skills on 4/5 trials to increase completion of home tasks. Education - Patient has Indicated that the Following Identified Educational Needs: Cognitively Impaired - Patient Instruction Patient Education: Diagnosis, Treatment Plan, Goals Person Taught: Patient Teaching Method: Discussion Response to teaching: Verbalize understanding, Has Prior Knowledge
--- NOTE | 2019-07-02 13:12 | HP.SP.DC ---
ST Discharge Summary - Discharged: Discharge: Dany Russo is discharged from speech therapy as of June 18, 2019. He was evaluated on 05/19/19 for Cognitive Deficits and short-term memory deficits. He has had multiple prior CVAs as well as therapy for short term memory deficits. Dany?s goals focused on use or external memory aids as he previously did not demonstrate progress with recall skills improving without use of memory aids. One goal was for Dany to use external memory aids to increase compliance with medication usage for 4 days in a row. At his last session he had missed only 2 out of last 7 days of medications. His second goal focused on Dany demonstrating ability to use external strategies for daily recall skills on 4/5 trials to increase completion of home tasks. He was given multiple strategies to use including a calendar, having his help him recall tasks, as well as an domenica on his phone to help. At the time of discharge, his was partially helping him, he already used a calendar, and he had not downloaded an domenica but stated he would. No further therapy is warranted at this time as he and his can create routines and use recommended strategies at home. The patient agrees with discharge. A copy of this discharge will be sent to his referring physician.
== END 2019-06-18 19:00 | disposition home or self-care (01) ==
LOC: SP 11:00
PROVIDERS: Family Provider Family Medicine; PCP Family Medicine; Referring Provider Family Medicine; Visit Provider Family Medicine
DX: I63.10 Cerebral infarction due to embolism of unspecified precerebral artery (principal); F44.9 Dissociative and conversion disorder, unspecified
CPT/HCPCS: 92507; 92523

== ENCOUNTER 2020-02-02 18:55 | Inpatient (IN) | payer OTHER, SELFPAY ==
[2020-02-02 18:57] VITALS: BP 154/97; PULSE 103; RESP 13; TEMP 37.1; O2SAT 99; BMI 31.6
--- NOTE | 2020-02-02 19:21 | EKG12_ITS ---
Test Reason : SYNCOPE Blood Pressure : / mmHG Vent. Rate : 098 BPM Atrial Rate : 098 BPM P-R Int : 156 ms QRS Dur : 106 ms QT Int : 382 ms P-R-T Axes : 006 -38 050 degrees QTc Int : 487 ms Sinus rhythm with occasional Premature ventricular complexes and Premature atrial complexes Left axis deviation Prolonged QT Abnormal ECG Confirmed by OREN JOHNSON, OWEN ([id number]), medical editor ERIKA TALBERT ([id number]) on 02/04/2020 1:30:53 PM Referred By: Owen Torres Confirmed By:OWEN LOTT MD
[2020-02-02] MEDS: 0.9% Normal Saline 1,000 ML 1000 ML IV (19:41)
--- NOTE | 2020-02-02 20:00 | RAD_ITS ---
STUDY: X-RAY - ACUTE ABDOMINAL SERIES REASON FOR EXAM: Male, 54 years old. Constipation x 5 days. Left sided weakness. syncope TECHNIQUE: Single view of the chest. Supine, and decubitus view(s) of the abdomen were obtained. COMPARISON: 10/23/2018. FINDINGS: The lungs are clear and expanded. Normal size heart. Implanted school lunch monitor is seen. Normal mediastinum and shani. Normal visualized pulmonary arteries. Normal visualized aortic arch and descending thoracic aorta. There is an abundance of fecal material throughout the colon. No dilated loops of bowel or evidence for obstruction. No free air. No air-fluid levels. The soft tissue structures of the abdomen and pelvis are unremarkable. Normal visualized osseous structures. RAD/Acute Abdomen Inc Chest IMPRESSION: Marked fecal retention. No evidence for obstruction. Electronically Signed: Rajiv Wilde MD at 20:19 EDT , Service support ,
--- NOTE | 2020-02-02 20:06 | ED.RN ---
IS[facility] PROVIDED UPDATE ON PHONE.
[2020-02-02 20:28] LABS: Basophil% 0.6 % (0-1); Eosinophil# 0.03 X10^3/uL; Eosinophils% 0.2 % (0-5); Hematocrit 48.1 % (40-54); Hemoglobin 15.8 g/dL (13.0-16.5); Lymphocyte % 9.2 % (19-41); Mean Corp Hgb Conc 32.8 g/dL (32-36); Mean Corpuscular Hgb 27.7 pg (27.0-32.0); Mean Corpuscular Volume 84.2 fL (80-94); Mean Platelet Vol. 9.2 fl (6.2-12.0); Monocyte# 1.23 X10^3/uL; Monocyte% 7.1 % (0-10); NRBC Flagged by Analyzer 0 % (0-5); Neutrophil # 13.97 X10^3/uL (2.7-7.7); Neutrophil % 80.7 % (47-70); Platelet Count 361 K/mm3 (150-450); RBC Distribution Width CV 13.1 % (11.6-14.6); RBC Distribution Width SD 39.4 fl (35.1-43.9); Red Blood Count 5.71 M/mm3 (4.6-6.2); White Blood Count 17.3 K/mm3 (4.4-11.0)
[2020-02-02 20:49] LABS: Anion Gap 23 (5-15); BUN 14 mg/dL (7-18); BUN/Creat Ratio 11.5 RATIO (10-20); Chloride 100 mmol/L (98-107); Creatinine, Serum 1.22 mg/dL (0.70-1.30); EST Glomerular Filtration Rate 65 mL/min (>60); Est Glom Filt Rate - Afr Amer 79 mL/min (>60); Estimated Creatinine Clearance 72.87 ml/min; Glucose 395 mg/dL (74-106); Potassium 4.2 mmol/L (3.5-5.1); Sodium Level 133 mmol/L (136-145); Thyroid Stim Hormone (TSH) 1.72 uIU/mL (0.358-3.74)
[2020-02-02 21:00] VITALS: BP 142/100; PULSE 95; RESP 27; O2SAT 99
[2020-02-02 21:54] LABS: Lactic Acid 1.6 mmol/L (0.4-1.9)
[2020-02-02 21:55] LABS: Alcohol, Blood (Medical)-Serum < 3.0 mg/dL
[2020-02-02 22:25] LABS: Blood Gas Specimen Type VEN
[2020-02-02 22:26] LABS: O2 Delivery Device Nasal Can; SITE OTHER; Time Given 2159; VBG PO2 43 mmHg (25-40); VBG pCO2 17.7 mmHg (41-51); VBG pH 7.16 (7.32-7.42)
[2020-02-02 22:27] LABS: VBG BASE EXCESS -22 mmol/L (-1.0-3.5); VBG Bicarbonate 6 mmol/L (22-26); VBG SO2 67 % (50-70)
--- NOTE | 2020-02-02 22:28 | CPS ---
Pt.'s VBG critical results given to read by Dr. Sen in ED. Critical pH of 7.16 & PCO2 of 17.7
--- NOTE | 2020-02-02 22:31 | CPS ---
Not enough venous gas obtained to run critical repeat VBG
[2020-02-02 23:00] VITALS: BP 139/92; PULSE 94; O2SAT 100
[2020-02-02 23:08] VITALS: BP 140/90; PULSE 92; RESP 29; TEMP 36.6; O2SAT 100
--- NOTE | 2020-02-02 23:10 | HP.PCM_ITS ---
Problem List (1) DKA (diabetic ketoacidoses) Status: Acute (2) Depression Status: Chronic (3) Anxiety Status: Chronic (4) CAD (coronary artery disease) Status: Chronic (5) HTN (hypertension) Status: Chronic Qualifiers: Comment: BP controlled at this visit. (6) DM2 (diabetes mellitus, type 2) Status: Chronic Qualifiers: Comment: States recently has been told he can not return to work. He has been having some issue dealing with this so he has been trying to find a routine and can not get into one. He has forgotten to check BG and he is forgetting some of his insulin. He is getting kids ready for school while is picking up extra work. Feels like he will get adjusted eventually. We discussed ways to get into routine and helpful ways of getting into habits. He does not currently feel like he would be interested in counseling. (7) History of myocardial infarction Status: Chronic History of Present Illness Date of Admission: 02/02/20 Chief Complaint: syncopal episode, High blood sugar The patient is a 54 year old male patient with a past medical history of diabetes, coronary artery disease who presents to the emergency room after a syncopal episode while straining on the toilet. The patient states over the past 4 weeks he has been feeling sickly along with constipation. He also admits to poor compliance with his medications. In the emergency room the patient was found to be in diabetic ketoacidosis. Laboratory studies reveal a white blood cell count elevated at 17.3, hemoglobin 15.8, hematocrit 48.1, platelets 361, troponin negative, TSH 1.7, lactate 1.6, acetone large, anion gap 23, sodium 133, potassium 4.2, chloride 100, bicarb 10, BUN 14, creatinine 1.2, venous blood gas with a pH of 7.16 and a PO2 43, KUB shows marked fecal retention. Despite being a type II diabetic patient is currently in DKA and will be admitted to the ICU for further management. Past Medical History Past Medical History (Chronic Problems): Chronic Problems (Last Reviewed 10/24/18 @ 05:[address] Jr Bardales MD) Depression (Chronic) Osteoarthritis (Chronic) Asthma (Chronic) Anxiety (Chronic) CAD (coronary artery disease) (Chronic) HTN (hypertension) (Chronic) BP controlled at this visit. DM2 (diabetes mellitus, type 2) (Chronic) States recently has been told he can not return to work. He has been having some issue dealing with this so he has been trying to find a routine and can not get into one. He has forgotten to check BG and he is forgetting some of his insulin. He is getting kids ready for school while is picking up extra work. Feels like he will get adjusted eventually. We discussed ways to get into routine and helpful ways of getting into habits. He does not currently feel like he would be interested in counseling. History of myocardial infarction (Chronic) Medical History: Medical History (Last Reviewed 10/24/18 @ 05:[address] Jr Bardales MD) Anxiety and depression F41.8 Arthritis M19.90 Asthma J45.909 Back pain M54.9 Back problem M53.9 Bruises easily R23.8 Chest pain R07.9 Diabetes type 2, uncontrolled E11.65 dx : 2009 last exacerbation : dka : never hypoglycemic episode : never er visit : never Diarrhea R19.7 Difficulty balancing R29.818 Fatigue R53.83 Frequent headaches R51 GI problem R19.8 Gallstones K80.20 Gout M10.9 Hay fever J30.1 Hearing problem H91.90 Heart disease I51.9 High cholesterol E78.00 Kidney stones N20.0 Knee pain M25.569 Limb weakness R29.898 Migraines G43.909 Neuropathy G62.9 Pneumonia J18.9 SOB (shortness of breath) R06.02 Seasonal allergies J30.2 Stomach ulcer K25.9 Stroke I63.9 Vision problem H54.7 Weight loss R63.4 HTN (hypertension) I10 Allergies levofloxacin [From Levaquin] Allergy (Verified 02/02/20 19:06) rash,swelling RED RASH, SWELLING Penicillins Allergy (Verified 02/02/20 19:06) Rash Home Medications: Ambulatory Orders Medication Instructions Recorded Albuterol Inhaler [Ventolin Hfa] 1 puff INHALATION Q4H PRN PRN 01/28/15 Losartan/Hydrochlorothiazide 1 tab PO DAILY 01/28/15 [Hyzaar 100-25 Tablet] Sertraline HCl [Zoloft] 200 mg PO DAILY 01/28/15 cycloBENZAPRine HCl [Flexeril] 10 mg PO TID PRN PRN 01/28/15 Metformin HCl [Metformin HCl ER] 2,000 mg PO DAILY 12/29/15 Aspirin [Adult Low Dose Aspirin EC] 81 mg PO DAILY 06/03/16 Cetirizine HCl [Zyrtec] 10 mg PO DAILY 06/03/16 Atorvastatin Calcium 80 mg PO QHS 09/27/17 Clopidogrel Bisulfate [Plavix] 75 mg PO DAILY 09/27/17 Amitriptyline HCl [Elavil] 100 mg PO QHS 10/16/17 Diltiazem HCl [Diltiazem 24Hr ER 180 mg PO DAILY 10/16/17 (Cd)] insulin detemir U-100 100 unit/mL 30 unit SC BID ml 10/23/17 (3 mL) subcutaneous pen Divalproex Sodium [Depakote ER] 500 mg PO DAILY #30 tab.er.24h 10/24/18 Insulin Detemir [Levemir] 30 unit SQ BID 02/02/20 Insulin Lispro [Humalog] 26 - 30 units SUBCUT TID 02/02/20 Surgical History: Surgical History (Last Reviewed 10/24/18 @ 02:[address] Jr Bardales MD) History of ERCP Z98.890 History of tonsillectomy Z98.890, Z90.89 Hx of cholecystectomy Z98.890, Z90.49 Surgical History: cholecystectomy, - - loop monitor Psychiatric History: Anxiety, Depression Smoking Status: Never smoker - *Family History Maternal Family History: Family History (Last Reviewed 10/24/18 @ 11:[address] Gm Crum MD) Father Asthma Heart disease Hypertension Mother Bleeding disorder Hypertension CVA (cerebral vascular accident) Brother Diabetes Heart disease Hypertension High cholesterol History Items: Stroke Paternal Family History: Family History (Last Reviewed 10/24/18 @ 11:[address] Gm Crum MD) Father Asthma Heart disease Hypertension Mother Bleeding disorder Hypertension CVA (cerebral vascular accident) Brother Diabetes Heart disease Hypertension High cholesterol History Items: Heart Disease Sibling Family History: Family History (Last Reviewed 10/24/18 @ 11:[address] Gm Crum MD) Father Asthma Heart disease Hypertension Mother Bleeding disorder Hypertension CVA (cerebral vascular accident) Brother Diabetes Heart disease Hypertension High cholesterol History Items: Diabetes, Heart Disease, Hypertension Review of Systems Constitutional: Reports: Weakness. Denies: Chills, Fever, Weight Change HEENT: Denies: Head Aches, Sinus Congestion, Sinus Drainage Cardiovascular: Denies: Chest Pain, Palpitations Respiratory: Reports: Shortness of breath at rest. Denies: Cough, Sputum production Gastrointestinal: Denies: Abdominal Pain, Nausea, Vomiting Genitourinary: Denies: Dysuria Musculoskeletal: Denies: Joint Pain, Joint Tenderness Skin: Denies: Rash, Wounds Neurological: Denies: Numbness, Tingling, Focal weakness Psychiatric: Denies: Anxiety, Depression, Homicidal Ideations, Suicidal Ideation s Hematologic/ Lymphatic: Denies: Easy Bruising, Easy Bleeding VTE Information - Inpt Only VTE Present on Admission: No VTE Mechan Device Prophylaxis: None VTE Pharm Prophylaxis ordered?: Yes Patient Problems: Active and Suspected Problems (Last Reviewed 10/24/18 @ 05:[address] Jr Bardales MD) DKA (diabetic ketoacidoses) (Acute) - Physical Exam Vitals/I&O's: Vital Signs Temp Pulse Resp BP Pulse Ox 98.8 F 103 H 13 154/97 H 99 02/02/20 18:57 02/02/20 18:57 02/02/20 18:57 02/02/20 18:57 02/02/20 18:57 Oxygen Delivery Method Room Air Weight: 226 lb 6.636 oz Body Mass Index (BMI) 31.6 Finger Stick Blood Glucose 369 Intake and Output for Last 24 Hours 01/31/20 02/01/20 02/02/20 23:59 23:59 23:59 Intake Total 1000 / 1000 Balance 1000 / 1000 General: Alert, Oriented x3, Cooperative HEENT: Atraumatic, Normocephalic Neck: Supple, No JVD, Negative Carotid Bruits Lungs: Clear to auscultation, Normal air movement Cardiovascular: Regular rate, Normal S1, Normal S2, No murmurs Abdomen: Bowel Sounds Present, Soft, Non Tender Extremities: No edema, Capillary Refill Less than 3 Seconds Skin: No rashes Musculoskeletal: No Tenderness to Palpation of Joints or Extremities Neurological: Neuro grossly intact Psych/Mental Status: Normal Affect, Appropriate Laboratory Results 02/02/20 19:05: WBC 17.3 H, RBC 5.71, Hgb 15.8, Hct 48.1, MCV 84.2, MCH 27.7, MCHC 32.8, RDW Std Deviation 39.4, RDW Coeff of Luanne 13.1, Plt Count 361, MPV 9.2, Immature Gran % (Auto) 2.200 H, Neut % (Auto) 80.7 H, Lymph % (Auto) 9.2 L, [place] % (Auto) 7.1, Eos % (Auto) 0.2, Baso % (Auto) 0.6, Absolute Neuts (auto) 14.0 H, Absolute Lymphs (auto) 1.60, Nucleated RBC % 0 02/02/20 19:05: Sodium 133 L, Potassium 4.2, Chloride 100, Carbon Dioxide 10.0 L , Anion Gap 23 H, BUN 14, Creatinine 1.22, Estim Creat Clear Calc 72.87, Est GFR (MDRD) Af Amer 79, Est GFR (MDRD) Non-Af 65, BUN/Creatinine Ratio 11.5, Glucose 395 H, Calcium 9.0, Troponin I < 0.015, TSH 1.72 02/02/20 21:24: Ethyl Alcohol < 3.0 02/02/20 21:24: Lactic Acid 1.6 02/02/20 21:50: Acetone Level LARGE H 02/02/20 21:59: Specimen Type LEATHA, Sample Site OTHER, VBG pH 7.16 L*, VBG pO2 43 H, VBG O2 Sat (Calc) 67, VBG O2 Content Pending, VBG Base Excess -22 L, POC Mix VBG pCO2 Pt Tmp 17.7 L*, O2 Delivery Device Nasal Can, Liter Flow 4.0, Blood Ga s Notified Whom ED MD, Blood Gas Notified Time 7832 Current Medications Insulin Human Lispro 100 unit/ (Sodium Chloride) 100 mls @ 10.27 mls/hr IV .Q9H45M [facility]; Protocol Assessment/Plan All Active Problems (Last Reviewed 10/24/18 @ 05:[address] Jr Bardales MD) Stroke-like symptoms (Acute) DKA (diabetic ketoacidoses) (Acute) Contusion of left hand, initial encounter (Acute) Acute CVA (cerebrovascular accident) (Ruled-out) Right sided weakness (Resolved) Headache (Resolved) Abnormal ECG (Acute) Acute cholecystitis (Acute) Chest pain (Resolved) Chronic Problems (Last Reviewed 10/24/18 @ 05:[address] Jr Bardales MD) Depression (Chronic) Osteoarthritis (Chronic) Asthma (Chronic) Anxiety (Chronic) CAD (coronary artery disease) (Chronic) HTN (hypertension) (Chronic) BP controlled at this visit. DM2 (diabetes mellitus, type 2) (Chronic) States recently has been told he can not return to work. He has been having some issue dealing with this so he has been trying to find a routine and can not get into one. He has forgotten to check BG and he is forgetting some of his insulin. He is getting kids ready for school while is picking up extra work. Feels like he will get adjusted eventually. We discussed ways to get into routine and helpful ways of getting into habits. He does not currently feel like he would be interested in counseling. History of myocardial infarction (Chronic) Plan 1. Diabetic ketoacidosis?admit patient to ICU continue IV insulin per protocol, keep patient n.p.o. we will repeat BMP in 4 hours and continue the routine diabetic ketoacidosis protocol. 2. Severe constipation?patient is receiving IV fluids and when he is able to take p.o. medications perhaps adding MiraLAX would help 3. Hold oral medications for all other medical conditions until patient is able to tolerate p.o. 4. DVT prophylaxis?low molecular weight heparin Inpatient E&M: 48813 Init Hosp L3
--- NOTE | 2020-02-02 23:49 | ED.DCSUM_ITS ---
- ER Visit Summary Date of Service: 02/02/20 Chief Complaint: Syncope History of Present Illness: The patient is a [address] Elena. He reports that his last problem was 7 days ago and typically goes every other day. States that today he was sitting on the commode straining to have a bowel movement when he began feeling weak and confused and next thing he knew he was laying on the floor. He denies any injury. No headache, no neck or back pain. He is not on anticoagulants. He denies any preceding chest pain or palpitations. Does report that he is mildly short of breath. He has a chronic cough that is unchanged. Patient ports his abdominal pain is 5-10 severity. Is been nausea and vomited twice today. No blood in his emesis. No fever, chills, dysuria, frequency, or other complaints. Physical Examination: Vitals: Stable. Afebrile. General: Well-nourished and well-developed. Head: Normocephalic atraumatic. Neck: Supple, no lymphadenopathy. No JVD. Nontender. Cardiovascular: Regular rate and rhythm. No murmurs. Respiratory: No respiratory distress. Clear to auscultation bilaterally. Abdominal: Soft, nontender, nondistended, normal bowel sounds. No guarding, rebound, or peritoneal signs. Back: Nontender. Extremities: Nontender, no edema. Skin: Normal color, no rash. Neurologic: Alert and oriented ?3. Cranial nerves II through XII are intact. Normal strength and sensation. Psych: Normal affect. Test Results: EKG is sinus at 98 with occasional PACs and PVCs. Nonspecific ST changes. Troponin is negative. Chem-7 shows a sodium 133, CO2 of 10 with an anion gap of 23, glucose of 395. CBC shows a white count of 17.3 with 81 segmented neutrophils, 9 lymphocytes, immature granulocytes 2.2%. When his Chem-7 returned I added on a VBG. His pH is 7.16. He has large serum ketones. His lactic acid is 1.6. His alcohol is negative. Clinical Impression(s) from Imaging Studies Acute Abdomen Series 02/02/20 20:00 IMPRESSION: Marked fecal retention. No evidence for obstruction. Electronically Signed: Rajiv Wilde MD at 20:19 EDT , Service support , Emergency Department Course and Treatment: Patient was given 2 L of normal saline. He was started on insulin drip. He is resting comfortably. Treatment Plan: Patient was discussed with Dr. Villarreal. He will be admitted to the hospital for further ablation treatment. Disposition: Admitted in improved condition. Impression: 1. Syncope, vasovagal. 2. DKA. 3. Dehydration. 4. Critical care time 33 minutes. This note was generated with [employer] dictation software. It may contain incorrect words, spelling, and punctuation that were not noted in review of the chart prior to signing
[2020-02-03] VITALS (21 sets, daily range): BP systolic 99–134; BP diastolic 65–109; PULSE 84–101; RESP 12–19; TEMP 36.6–37.1; O2SAT 95–100; BMI 30.6
[2020-02-03] MEDS: 0.9% Normal Saline 1,000 ML 999 ML IV ×2 (00:32→01:32)
[2020-02-03 00:36] LABS: Bedside Glucose 332 mg/dL (70-110)
[2020-02-03 00:55] LABS: Anion Gap 21 (5-15); BUN 15 mg/dL (7-18); BUN/Creat Ratio 12.6 RATIO (10-20); Calcium,Total 8.8 mg/dL (8.5-10.1); Chloride 103 mmol/L (98-107); Creatinine, Serum 1.19 mg/dL (0.70-1.30); EST Glomerular Filtration Rate 67 mL/min (>60); Est Glom Filt Rate - Afr Amer 81 mL/min (>60); Glucose 317 mg/dL (74-106); Potassium 4.7 mmol/L (3.5-5.1); Sodium Level 135 mmol/L (136-145)
[2020-02-03] MEDS: 0.9% Normal Saline 1,000 ML 500 ML IV (01:36)
[2020-02-03 01:41] LABS: Bedside Glucose 296 mg/dL (70-110)
[2020-02-03 01:41] LABS: Bedside Glucose 376 mg/dL (70-110)
[2020-02-03] MEDS: Dext 5%-0.45% NS 1,000 ML 150 ML IV (02:33)
[2020-02-03 02:36] LABS: Bedside Glucose 215 mg/dL (70-110)
[2020-02-03 03:36] LABS: Bedside Glucose 197 mg/dL (70-110)
[2020-02-03 03:42] LABS: Absolute Lymphocyte Count 2.15 X10^3/uL (0.83-4.51); Absolute Neutrophil Count 9.5 X10^3/uL (2.0-7.7); Basophil# 0.03 X10^3/uL; Basophil% 0.2 % (0-1); Eosinophil# 0.01 X10^3/uL; Eosinophils% 0.1 % (0-5); Hematocrit 39.3 % (40-54); Hemoglobin 13.2 g/dL (13.0-16.5); Lymphocyte # 2.15 X10^3/ul (4.0); Lymphocyte % 16.9 % (19-41); Mean Corp Hgb Conc 33.6 g/dL (32-36); Mean Corpuscular Hgb 27.6 pg (27.0-32.0); Mean Corpuscular Volume 82.2 fL (80-94); Mean Platelet Vol. 8.7 fl (6.2-12.0); Monocyte# 0.82 X10^3/uL; Monocyte% 6.4 % (0-10); NRBC Flagged by Analyzer 0 % (0-5); Neutrophil # 9.49 X10^3/uL (2.7-7.7); Neutrophil % 74.6 % (47-70); Platelet Count 275 K/mm3 (150-450); RBC Distribution Width CV 12.9 % (11.6-14.6); RBC Distribution Width SD 37.9 fl (35.1-43.9); Red Blood Count 4.78 M/mm3 (4.6-6.2); White Blood Count 12.7 K/mm3 (4.4-11.0)
[2020-02-03 03:55] LABS: Anion Gap 14 (5-15); BUN 13 mg/dL (7-18); BUN/Creat Ratio 12.3 RATIO (10-20); Calcium,Total 7.7 mg/dL (8.5-10.1); Chloride 109 mmol/L (98-107); Creatinine, Serum 1.06 mg/dL (0.70-1.30); EST Glomerular Filtration Rate 77 mL/min (>60); Est Glom Filt Rate - Afr Amer 93 mL/min (>60); Estimated Creatinine Clearance 83.86 ml/min; Glucose 190 mg/dL (74-106); Potassium 3.1 mmol/L (3.5-5.1); Sodium Level 138 mmol/L (136-145)
[2020-02-03] MEDS: Potassium Chloride 10mEq/100mL 10 MEQ/100 ML IV.SOLN. 100 MEQ IV BOLUS ×4 (04:18→07:32)
[2020-02-03] MEDS: 0.9% Saline Lock 10 ML Syringe IV ×4 (04:19→11:25)
[2020-02-03 04:26] LABS: Bedside Glucose 186 mg/dL (70-110)
[2020-02-03] MEDS: Ondansetron 4 MG/2 ML Vial IV (05:31)
[2020-02-03 06:30] LABS: Bedside Glucose 173 mg/dL (70-110)
--- NOTE | 2020-02-03 07:24 | PN_ITS ---
Patient Problems: Active and Suspected Problems (Last Reviewed 10/24/18 @ 05:[address] Jr Bardales MD) DKA (diabetic ketoacidoses) (Acute) Subjective: Patient overnight with mild improvement since initial ED presentation with gap x1 closed. Discussed history at length as patient with significant ongoing generalized fatigue and weakness over the last 2 weeks with additionally noted frontal headaches, congestion, sore throat, cough, dyspnea worse with any exertion, nausea and occasional emesis with no associated abdominal pain or diarrhea in addition to loss of sense of taste. Patient denies any ill contacts or any close contact with anyone with COVID-19. Patient admits that he has been very lax about testing his blood sugars but has been occasionally taking his medications. From discussions concern also for poor diet compliance. Patient denies fevers, chills, any current nausea, emesis, abdominal pain, chest pain or dyspnea. Objective: Physical Examination: General: awake, alert, oriented x 3 and cooperative, laying in the ICU bed, fatigued and ill-appearing. Skin: normal color, turgor, no icterus, cyanosis. HEENT: AT/NC, EOMI, PERRLA, dry MM, no market erythema or exudate. Lungs: CTA bilaterally, moderate effort, moderate decrease BL bases, no rales, ronchi or wheezing. Heart: Regular rate and rhythm; no gallop, rub audible. Abdomen: soft, BS, NTTP, ND, mildly hypoactive bowel sounds. Extremities: no cyanosis, clubbing, or edema. Neurological: patient awake, alert, oriented x 3; cognitive function appears baseline intact; pupils equally reactive to light and accomodation; cranial nerves II-XII grossly normal, moving all 4 extremities, no focal deficits, strength moderately global decrease secondary to acute presentation. Psychiatric: affect appears fatigued, flat, no acute evidence of depressive or anxiety feelings. Vitals/I&O's: Vital Signs Temp Pulse Resp BP Pulse Ox 98.4 F 97 13 123/78 H 99 02/03/20 06:00 02/03/20 06:00 02/03/20 06:00 02/03/20 06:00 02/03/20 06:00 Oxygen Delivery Method Room Air Weight: 225 lb 15.581 oz Body Mass Index (BMI) 30.6 Finger Stick Blood Glucose 173 Intake and Output for Last 24 Hours 02/01/20 02/02/20 02/03/20 23:59 23:59 23:59 Intake Total 1000 / 1000 3220.74 / 3220.74 Output Total 800 / 800 Balance 1000 / 1000 2420.74 / 2420.74 Laboratory Results 02/02/20 19:05: WBC 17.3 H, RBC 5.71, Hgb 15.8, Hct 48.1, MCV 84.2, MCH 27.7, MCHC 32.8, RDW Std Deviation 39.4, RDW Coeff of Luanne 13.1, Plt Count 361, MPV 9.2, Immature Gran % (Auto) 2.200 H, Neut % (Auto) 80.7 H, Lymph % (Auto) 9.2 L, [place] % (Auto) 7.1, Eos % (Auto) 0.2, Baso % (Auto) 0.6, Absolute Neuts (auto) 14.0 H, Absolute Lymphs (auto) 1.60, Nucleated RBC % 0 02/02/20 19:05: Sodium 133 L, Potassium 4.2, Chloride 100, Carbon Dioxide 10.0 L , Anion Gap 23 H, BUN 14, Creatinine 1.22, Estim Creat Clear Calc 72.87, Est GFR (MDRD) Af Amer 79, Est GFR (MDRD) Non-Af 65, BUN/Creatinine Ratio 11.5, Glucose 395 H, Calcium 9.0, Troponin I < 0.015, TSH 1.72 02/02/20 21:24: Ethyl Alcohol < 3.0 02/02/20 21:24: Lactic Acid 1.6 02/02/20 21:50: Acetone Level LARGE H 02/02/20 21:59: Specimen Type LEATHA, Sample Site OTHER, VBG pH 7.16 L*, VBG pO2 43 H, VBG O2 Sat (Calc) 67, VBG O2 Content Pending, VBG Base Excess -22 L, POC Mix VBG pCO2 Pt Tmp 17.7 L*, O2 Delivery Device Nasal Can, Liter Flow 4.0, Blood Gas Notified Whom ED , Blood Gas Notified Time 7257 02/02/20 23:43: POC Glucose 376 H 02/03/20 00:23: POC Glucose 332 H 02/03/20 00:30: Sodium 135 L, Potassium 4.7, Chloride 103, Carbon Dioxide 11.0 L , Anion Gap 21 H, BUN 15, Creatinine 1.19, Estim Creat Clear Calc 74.70, Est GFR (MDRD) Af Amer 81, Est GFR (MDRD) Non-Af 67, BUN/Creatinine Ratio 12.6, Glucose 317 H, Calcium 8.8 02/03/20 01:28: POC Glucose 296 H 02/03/20 02:27: POC Glucose 215 H 02/03/20 03:29: POC Glucose 197 H 02/03/20 03:35: Sodium 138, Potassium 3.1 L, Chloride 109 H, Carbon Dioxide 15.0 L, Anion Gap 14, BUN 13, Creatinine 1.06, Estim Creat Clear Calc 83.86, Est GFR (MDRD) Af Amer 93, Est GFR (MDRD) Non-Af 77, BUN/Creatinine Ratio 12.3, Glucose 190 H, Calcium 7.7 L 02/03/20 03:35: WBC 12.7 H, RBC 4.78, Hgb 13.2, Hct 39.3 L, MCV 82.2, MCH 27.6, MCHC 33.6, RDW Std Deviation 37.9, RDW Coeff of Luanne 12.9, Plt Count 275, MPV 8.7, Immature Gran % (Auto) 1.800 H, Neut % (Auto) 74.6 H, Lymph % (Auto) 16.9 L , [place] % (Auto) 6.4, Eos % (Auto) 0.1, Baso % (Auto) 0.2, Absolute Neuts (auto) 9.5 H, Absolute Lymphs (auto) 2.15, Nucleated RBC % 0 02/03/20 04:21: POC Glucose 186 H 02/03/20 06:22: POC Glucose 173 H Current Medications Albuterol Sulfate (Ventolin Aerosols) 2.5 mg INHALATION Q4H PRN PRN PRN Reason: SHORTNESS OF BREATH Dextrose (D50w Syringe) 0 gm IV X1 PRN; Protocol PRN Reason: HYPOGLYCEMIA Enoxaparin Sodium (Lovenox) 40 mg SC DAILY [facility] Insulin Human Lispro 100 unit/ (Sodium Chloride) 100 mls @ 10.27 mls/hr IV .Q9H45M [facility]; Protocol Last Titration: 02/03/20 06:26 Dose: 0.06 units/kg/hr, 6.3 mls/hr Documented by: Sodium Chloride () 250 mls @ 15 mls/hr IV .[id number] PRN PRN Reason: Saline Flush Sodium Chloride () 250 mls @ 15 mls/hr IV .[id number] PRN PRN Reason: Additional IVPB Infusion Dextrose/Sodium Chloride () 1,000 mls @ 150 mls/hr IV .Q6H40M [facility] Last Infusion: 02/03/20 05:43 Dose: 150 mls/hr Documented by: Potassium Chloride () 10 meq in 100 mls @ 100 mls/hr IV BOLUS Q1H [facility] Stop: 02/03/20 08:14 Last Admin: 02/03/20 06:24 Dose: 100 mls/hr Documented by: Ondansetron HCl (Zofran) 4 mg IV Q8H PRN PRN PRN Reason: NAUSEA/VOMITING Last Admin: 02/03/20 05:31 Dose: 4 mg Documented by: Sodium Chloride () 10 - 40 ml IV UD PRN PRN Reason: SALINE FLUSH Last Admin: 02/03/20 05:31 Dose: 20 ml Documented by: STROKE Vital Signs/Narrative: Vital Signs Temp Pulse Resp BP Pulse Ox 02/03/20 06:00 98.4 F 97 13 123/78 H 99 02/03/20 05:00 101 H 15 109/81 H 98 02/03/20 04:00 91 12 126/79 H 100 Medical Necessity - Tobacco Use Smoking Status: Never smoker Assessment/Plan All Active Problems (Last Reviewed 10/24/18 @ 05:[address] Jr Bardales MD) Stroke-like symptoms (Acute) DKA (diabetic ketoacidoses) (Acute) Contusion of left hand, initial encounter (Acute) Acute CVA (cerebrovascular accident) (Ruled-out) Right sided weakness (Resolved) Headache (Resolved) Abnormal ECG (Acute) Acute cholecystitis (Acute) Chest pain (Resolved) The patient is a 54 y/o M w/ PMHx: CAD with Hx SD, Asthma, Anxiety and Depression, HTN, HLD, GERD w/ history of gastric ulcer, Migraines, Allergic rhinitis, Chronic back pain, Diabetes mellitus type II who presents to the [facility] ED on 02/02/20 with history of fatigue, weakness, malaise, COVID concerning symptoms as well as poor compliance with his medications and blood sugar assessments with significant hyperglycemia with near syncopal event while straining to have a bowel movement on the toilet with history of chronic constipation prompting eventual ED presentation. 1. DKA w/ Diabetes mellitus type II: Admission CBC w/ WBC 17.3 with left shift with repeat 02/03/2020 with WBC 12.7 with improved left shift, BMP w/ sodium 133, anion gap 23, glucose 395, troponin less than 0.015, lactic acid 1.6, large acetone, VBG with pH 7.16, PO2 43 on 4 L nasal cannula. Patient admitted to the ICU initially with chute worker consultation, maintained on insulin drip until gap closure x2 with transition to medical surgical status on 02/03/2020 a.m. with transition off insulin drip to subcu insulin with crossover with initiation of diet, requested hemoglobin A1c, obtain mag and phosphorus repletion as needed, nutrition consultation requested. Encouraged diet and insulin regimen compliance. 2. Cough, dyspnea, nausea, emesis, headaches, loss of sense of taste suspicious for recent Acute Viral Syndrome, COVID-19: Patient does not have significant leukopenia or lymphopenia, chest x-ray with no acute findings, will maintain in COVID precautions, testing initially negative, will obtain body testing to be cautious, obtained additional labs including procalcitonin 0.14, CRP 159, CPK 17, Ferritin 839, d-dimer 1.82, LDH 100, CMP in a.m., continue supportive care, pending CTPA given elevated dimer with transition to therapeutic Lovenox pending results.. 3. CAD: History of SD, will maintain on aspirin, Plavix, statin, restart patient losartan, not on beta-cy therapy, clarifying if on diltiazem and will resume with hold parameters. 4. Chronic back pain: We will encourage frequent positional changes, clarifying if patient is on as needed Flexeril. 5. Chronic asthma: Supplemental oxygen if necessary, PRN albuterol, encourage head of bed and I-S. 6. Hypertension: Continue home regimen including losartan, clarifying if on diltiazem, holding hydrochlorothiazide temporarily, PRN hydralazine. 7. Hyperlipidemia: Continue home statin regimen. 8. Chronic constipation: Patient with acute abdominal series noted to be unremarkable for any acute finding, we will maintain on aggressive bowel regimen. 9. Allergic rhinitis: We will continue patient home Zyrtec regimen. 10. Anxiety and depression: We will continue patient home Zoloft regimen. 11. GERD with history of gastric ulcer: Maintain on PPI. 12. DVT prophylaxis: SCDs, therapeutic Lovenox pending CTPA given significantly elevated d-dimer with concern for underlying COVID. 13. Code Status: Full. Inpatient E&M: 30435 Subs Hosp L3
[2020-02-03 07:42] LABS: Magnesium 1.6 mg/dL (1.6-2.6); Phosphorus 1.6 mg/dL (2.5-4.9)
--- NOTE | 2020-02-03 07:53 | PCM.CON.CC ---
Reason for Consult Date of Consultation: 02/03/20 Reason for Consultation: DKA History of Present Illness: The patient is a 54-year-old male, with a history as outlined below, who presented to the emergency department on February 01 with a multitude of different complaints including weakness, fatigue, shortness of breath, cough, nausea and vomiting. The patient has been largely noncompliant with his outpatient diabetic medication regimen. He was previously being followed by MICHELLE Gatica. On presentation to the emergency department, the patient was noted to be afebrile hemodynamically stable. He was maintaining appropriate oxygen saturations on room air. Laboratory evaluation revealed an elevated white blood cell count to 17,000. Chemistry profile revealed an elevated anion gap to 23 along with a serum bicarbonate of 10. Large serum acetone level was noted. Glucose was elevated at 395. Troponin was negative. The patient was subsequently admitted to the medical intensive care unit for management of his DKA. As of my evaluation of the patient this morning, his anion gap was closed x1. The patient apparently endorsed to the hospitalist that he had been experiencing a loss of taste. Therefore, coronavirus testing was obtained and found to be negative. However, as part of his work-up, he was found to have an elevated d-dimer to 1.82. Therefore, a CTA chest was obtained and revealed multiple nonocclusive filling defects in both the right and left lower lung arteries. He was then started on treatment strength Lovenox. Past Medical History Past Medical History (Chronic Problems): Chronic Problems (Last Reviewed 10/24/18 @ 05:[address] Jr Bardales MD) Depression (Chronic) Osteoarthritis (Chronic) Asthma (Chronic) Anxiety (Chronic) CAD (coronary artery disease) (Chronic) HTN (hypertension) (Chronic) BP controlled at this visit. DM2 (diabetes mellitus, type 2) (Chronic) States recently has been told he can not return to work. He has been having some issue dealing with this so he has been trying to find a routine and can not get into one. He has forgotten to check BG and he is forgetting some of his insulin. He is getting kids ready for school while is picking up extra work. Feels like he will get adjusted eventually. We discussed ways to get into routine and helpful ways of getting into habits. He does not currently feel like he would be interested in counseling. History of myocardial infarction (Chronic) Medical History: Medical History (Last Reviewed 10/24/18 @ 05:[address] Jr Bardales MD) Anxiety and depression F41.8 Arthritis M19.90 Asthma J45.909 Back pain M54.9 Back problem M53.9 Bruises easily R23.8 Chest pain R07.9 Diabetes type 2, uncontrolled E11.65 dx : 2009 last exacerbation : dka : never hypoglycemic episode : never er visit : never Diarrhea R19.7 Difficulty balancing R29.818 Fatigue R53.83 Frequent headaches R51 GI problem R19.8 Gallstones K80.20 Gout M10.9 Hay fever J30.1 Hearing problem H91.90 Heart disease I51.9 High cholesterol E78.00 Kidney stones N20.0 Knee pain M25.569 Limb weakness R29.898 Migraines G43.909 Neuropathy G62.9 Pneumonia J18.9 SOB (shortness of breath) R06.02 Seasonal allergies J30.2 Stomach ulcer K25.9 Stroke I63.9 Vision problem H54.7 Weight loss R63.4 HTN (hypertension) I10 Allergies levofloxacin [From Levaquin] Allergy (Verified 02/02/20 19:06) rash,swelling RED RASH, SWELLING Penicillins Allergy (Verified 02/02/20 19:06) Rash Home Medications: Ambulatory Orders Medication Instructions Recorded Albuterol Inhaler [Ventolin Hfa] 1 puff INHALATION Q4H PRN PRN 01/28/15 Losartan/Hydrochlorothiazide 1 tab PO DAILY 01/28/15 [Hyzaar 100-25 Tablet] Sertraline HCl [Zoloft] 200 mg PO DAILY 01/28/15 cycloBENZAPRine HCl [Flexeril] 10 mg PO TID PRN PRN 01/28/15 Metformin HCl [Metformin HCl ER] 2,000 mg PO DAILY 12/29/15 Aspirin [Adult Low Dose Aspirin EC] 81 mg PO DAILY 06/03/16 Cetirizine HCl [Zyrtec] 10 mg PO DAILY 06/03/16 Atorvastatin Calcium 80 mg PO QHS 09/27/17 Clopidogrel Bisulfate [Plavix] 75 mg PO DAILY 09/27/17 Amitriptyline HCl [Elavil] 100 mg PO QHS 10/16/17 Diltiazem HCl [Diltiazem 24Hr ER 180 mg PO DAILY 10/16/17 (Cd)] insulin detemir U-100 100 unit/mL 30 unit SC BID ml 10/23/17 (3 mL) subcutaneous pen Divalproex Sodium [Depakote ER] 500 mg PO DAILY #30 tab.er.24h 10/24/18 Insulin Detemir [Levemir] 30 unit SQ BID 02/02/20 Insulin Lispro [Humalog] 26 - 30 units SUBCUT TID 02/02/20 Surgical History: Surgical History (Last Reviewed 10/24/18 @ 02:[address] Jr Bardales MD) History of ERCP Z98.890 History of tonsillectomy Z98.890, Z90.89 Hx of cholecystectomy Z98.890, Z90.49 Surgical History: cholecystectomy, - - loop monitor Psychiatric History: Anxiety, Depression Smoking Status: Never smoker - *Family History Maternal Family History: Family History (Last Reviewed 10/24/18 @ 11:[address] Gm Crum MD) Father Asthma Heart disease Hypertension Mother Bleeding disorder Hypertension CVA (cerebral vascular accident) Brother Diabetes Heart disease Hypertension High cholesterol History Items: Stroke Paternal Family History: Family History (Last Reviewed 10/24/18 @ 11:[address] Gm Crum MD) Father Asthma Heart disease Hypertension Mother Bleeding disorder Hypertension CVA (cerebral vascular accident) Brother Diabetes Heart disease Hypertension High cholesterol History Items: Heart Disease Sibling Family History: Family History (Last Reviewed 10/24/18 @ 11:[address] Gm Crum MD) Father Asthma Heart disease Hypertension Mother Bleeding disorder Hypertension CVA (cerebral vascular accident) Brother Diabetes Heart disease Hypertension High cholesterol History Items: Diabetes, Heart Disease, Hypertension Review of Systems Constitutional: Reports: Malaise, Weakness, Fatigue Eyes: Denies: Blurred vision, Double vision HEENT: Reports: Head Aches. Denies: Sinus Congestion, Sinus Drainage Cardiovascular: Denies: Chest Pain, Palpitations Respiratory: Reports: Cough, Shortness of Breath Gastrointestinal: Reports: Nausea, Vomiting. Denies: Abdominal Pain Genitourinary: Denies: Dysuria Musculoskeletal: Denies: Joint Pain, Joint Tenderness Neurological: Reports: Headaches. Denies: Focal weakness, Numbness, Tingling Psychiatric: Denies: Anxiety, Depression, Homicidal Ideations, Suicidal Ideations Hematologic/ Lymphatic: Denies: Easy Bruising, Easy Bleeding Patient Problems: Active and Suspected Problems (Last Reviewed 10/24/18 @ 05:[address] Jr Bardales MD) DKA (diabetic ketoacidoses) (Acute) Objective: The patient's most recent lab work, culture data and imaging studies have all been personally reviewed. - Physical Exam Vitals/I&O's: Vital Signs Temp Pulse Resp BP Pulse Ox 98.4 F 97 13 123/78 H 99 02/03/20 06:00 02/03/20 06:00 02/03/20 06:00 02/03/20 06:00 02/03/20 06:00 Oxygen Delivery Method Room Air Weight: 225 lb 15.581 oz Body Mass Index (BMI) 30.6 Finger Stick Blood Glucose 173 Intake and Output for Last 24 Hours 02/01/20 02/02/20 02/03/20 23:59 23:59 23:59 Intake Total 1000 / 1000 3320.74 / 3320.74 Output Total 800 / 800 Balance 1000 / 1000 2520.74 / 2520.74 General: Alert, Cooperative, No apparent distress HEENT: Atraumatic, Normocephalic Oral: No Gingival or Mucosal Lesions/ Ulcerations, - - Poor dentition Neck: Supple, No Nodes, Trachea Midline Lungs: No rhonchi, No wheeze, No rales, Diminished Cardiovascular: Regular rate, Regular Rhythm, Normal S1, Normal S2 Abdomen: Bowel Sounds Present, Soft, Non Tender Extremities: No clubbing, No cyanosis, No edema Skin: No breakdown Musculoskeletal: No Tenderness to Palpation of Joints or Extremities Lymphatic: No Cervical, Supraclavicular, or Inguinal Adenopathy Neurological: Cranial nerves II-XII grossly intact, Neuro grossly intact Psych/Mental Status: Flat Affect Labs (Last 48 Hours) 02/02/20 02/02/20 02/02/20 19:05 19:05 21:24 WBC 17.3 H RBC 5.71 Hgb 15.8 Hct 48.1 MCV 84.2 MCH 27.7 MCHC 32.8 RDW Std Deviation 39.4 RDW Coeff of Luanne 13.1 Plt Count 361 MPV 9.2 Immature Gran % (Auto) 2.200 H Neut % (Auto) 80.7 H Lymph % (Auto) 9.2 L [place] % (Auto) 7.1 Eos % (Auto) 0.2 Baso % (Auto) 0.6 Absolute Neuts (auto) 14.0 H Absolute Lymphs (auto) 1.60 Nucleated RBC % 0 D-Dimer Quant (PE/DVT) Specimen Type Sample Site VBG pH VBG pO2 VBG O2 Sat (Calc) VBG O2 Content VBG Base Excess POC Mix VBG pCO2 Pt Tmp O2 Delivery Device Liter Flow Blood Gas Notified Whom Blood Gas Notified Time Sodium 133 L Potassium 4.2 Chloride 100 Carbon Dioxide 10.0 L Anion Gap 23 H BUN 14 Creatinine 1.22 Estim Creat Clear Calc 72.87 Est GFR (MDRD) Af Amer 79 Est GFR (MDRD) Non-Af 65 BUN/Creatinine Ratio 11.5 Glucose 395 H Hemoglobin A1c Lactic Acid Calcium 9.0 Phosphorus Magnesium Ferritin Lactate Dehydrogenase Total Creatine Kinase Troponin I < 0.015 C-React Prot Ext Range Procalcitonin TSH 1.72 Ethyl Alcohol < 3.0 Acetone Level COVID-19 (COLE) POC Glucose 02/02/20 02/02/20 02/02/20 21:24 21:50 21:59 WBC RBC Hgb Hct MCV MCH MCHC RDW Std Deviation RDW Coeff of Luanne Plt Count MPV Immature Gran % (Auto) Neut % (Auto) Lymph % (Auto) [place] % (Auto) Eos % (Auto) Baso % (Auto) Absolute Neuts (auto) Absolute Lymphs (auto) Nucleated RBC % D-Dimer Quant (PE/DVT) Specimen Type LEATHA Sample Site OTHER VBG pH 7.16 L* VBG pO2 43 H VBG O2 Sat (Calc) 67 VBG O2 Content Pending VBG Base Excess -22 L POC Mix VBG pCO2 Pt Tmp 17.7 L* O2 Delivery Device Nasal Can Liter Flow 4.0 Blood Gas Notified Whom ED Blood Gas Notified Time 2159 Sodium Potassium Chloride Carbon Dioxide Anion Gap BUN Creatinine Estim Creat Clear Calc Est GFR (MDRD) Af Amer Est GFR (MDRD) Non-Af BUN/Creatinine Ratio Glucose Hemoglobin A1c Lactic Acid 1.6 Calcium Phosphorus Magnesium Ferritin Lactate Dehydrogenase Total Creatine Kinase Troponin I C-React Prot Ext Range Procalcitonin TSH Ethyl Alcohol Acetone Level LARGE H COVID-19 (COLE) POC Glucose 02/02/20 02/03/20 02/03/20 23:43 00:23 00:30 WBC RBC Hgb Hct MCV MCH MCHC RDW Std Deviation RDW Coeff of Luanne Plt Count MPV Immature Gran % (Auto) Neut % (Auto) Lymph % (Auto) [place] % (Auto) Eos % (Auto) Baso % (Auto) Absolute Neuts (auto) Absolute Lymphs (auto) Nucleated RBC % D-Dimer Quant (PE/DVT) Specimen Type Sample Site VBG pH VBG pO2 VBG O2 Sat (Calc) VBG O2 Content VBG Base Excess POC Mix VBG pCO2 Pt Tmp O2 Delivery Device Liter Flow Blood Gas Notified Whom Blood Gas Notified Time Sodium 135 L Potassium 4.7 Chloride 103 Carbon Dioxide 11.0 L Anion Gap 21 H BUN 15 Creatinine 1.19 Estim Creat Clear Calc 74.70 Est GFR (MDRD) Af Amer 81 Est GFR (MDRD) Non-Af 67 BUN/Creatinine Ratio 12.6 Glucose 317 H Hemoglobin A1c Lactic Acid Calcium 8.8 Phosphorus Magnesium Ferritin Lactate Dehydrogenase Total Creatine Kinase Troponin I C-React Prot Ext Range Procalcitonin TSH Ethyl Alcohol Acetone Level COVID-19 (COLE) POC Glucose 376 H 332 H 02/03/20 02/03/20 02/03/20 01:28 02:27 03:29 WBC RBC Hgb Hct MCV MCH MCHC RDW Std Deviation RDW Coeff of Luanne Plt Count MPV Immature Gran % (Auto) Neut % (Auto) Lymph % (Auto) [place] % (Auto) Eos % (Auto) Baso % (Auto) Absolute Neuts (auto) Absolute Lymphs (auto) Nucleated RBC % D-Dimer Quant (PE/DVT) Specimen Type Sample Site VBG pH VBG pO2 VBG O2 Sat (Calc) VBG O2 Content VBG Base Excess POC Mix VBG pCO2 Pt Tmp O2 Delivery Device Liter Flow Blood Gas Notified Whom Blood Gas Notified Time Sodium Potassium Chloride Carbon Dioxide Anion Gap BUN Creatinine Estim Creat Clear Calc Est GFR (MDRD) Af Amer Est GFR (MDRD) Non-Af BUN/Creatinine Ratio Glucose Hemoglobin A1c Lactic Acid Calcium Phosphorus Magnesium Ferritin Lactate Dehydrogenase Total Creatine Kinase Troponin I C-React Prot Ext Range Procalcitonin TSH Ethyl Alcohol Acetone Level COVID-19 (COLE) POC Glucose 296 H 215 H 197 H 02/03/20 02/03/20 02/03/20 03:35 03:35 03:35 WBC 12.7 H RBC 4.78 Hgb 13.2 Hct 39.3 L MCV 82.2 MCH 27.6 MCHC 33.6 RDW Std Deviation 37.9 RDW Coeff of Luanne 12.9 Plt Count 275 MPV 8.7 Immature Gran % (Auto) 1.800 H Neut % (Auto) 74.6 H Lymph % (Auto) 16.9 L [place] % (Auto) 6.4 Eos % (Auto) 0.1 Baso % (Auto) 0.2 Absolute Neuts (auto) 9.5 H Absolute Lymphs (auto) 2.15 Nucleated RBC % 0 D-Dimer Quant (PE/DVT) Specimen Type Sample Site VBG pH VBG pO2 VBG O2 Sat (Calc) VBG O2 Content VBG Base Excess POC Mix VBG pCO2 Pt Tmp O2 Delivery Device Liter Flow Blood Gas Notified Whom Blood Gas Notified Time Sodium 138 Potassium 3.1 L Chloride 109 H Carbon Dioxide 15.0 L Anion Gap 14 BUN 13 Creatinine 1.06 Estim Creat Clear Calc 83.86 Est GFR (MDRD) Af Amer 93 Est GFR (MDRD) Non-Af 77 BUN/Creatinine Ratio 12.3 Glucose 190 H Hemoglobin A1c Lactic Acid Calcium 7.7 L Phosphorus 1.6 L Magnesium 1.6 Ferritin Lactate Dehydrogenase Total Creatine Kinase Troponin I C-React Prot Ext Range Procalcitonin TSH Ethyl Alcohol Acetone Level COVID-19 (COLE) POC Glucose 02/03/20 02/03/20 02/03/20 04:21 06:22 08:32 WBC RBC Hgb Hct MCV MCH MCHC RDW Std Deviation RDW Coeff of Luanne Plt Count MPV Immature Gran % (Auto) Neut % (Auto) Lymph % (Auto) [place] % (Auto) Eos % (Auto) Baso % (Auto) Absolute Neuts (auto) Absolute Lymphs (auto) Nucleated RBC % D-Dimer Quant (PE/DVT) Specimen Type Sample Site VBG pH VBG pO2 VBG O2 Sat (Calc) VBG O2 Content VBG Base Excess POC Mix VBG pCO2 Pt Tmp O2 Delivery Device Liter Flow Blood Gas Notified Whom Blood Gas Notified Time Sodium Potassium Chloride Carbon Dioxide Anion Gap BUN Creatinine Estim Creat Clear Calc Est GFR (MDRD) Af Amer Est GFR (MDRD) Non-Af BUN/Creatinine Ratio Glucose Hemoglobin A1c Lactic Acid Calcium Phosphorus Magnesium Ferritin Lactate Dehydrogenase Total Creatine Kinase Troponin I C-React Prot Ext Range Procalcitonin TSH Ethyl Alcohol Acetone Level COVID-19 (COLE) POC Glucose 186 H 173 H 163 H 02/03/20 02/03/20 02/03/20 08:35 08:35 08:35 WBC RBC Hgb Hct MCV MCH MCHC RDW Std Deviation RDW Coeff of Luanne Plt Count MPV Immature Gran % (Auto) Neut % (Auto) Lymph % (Auto) [place] % (Auto) Eos % (Auto) Baso % (Auto) Absolute Neuts (auto) Absolute Lymphs (auto) Nucleated RBC % D-Dimer Quant (PE/DVT) 1.82 H* Specimen Type Sample Site VBG pH VBG pO2 VBG O2 Sat (Calc) VBG O2 Content VBG Base Excess POC Mix VBG pCO2 Pt Tmp O2 Delivery Device Liter Flow Blood Gas Notified Whom Blood Gas Notified Time Sodium 137 Potassium 3.6 Chloride 106 Carbon Dioxide 19.0 L Anion Gap 12 BUN 13 Creatinine 1.10 Estim Creat Clear Calc 80.81 Est GFR (MDRD) Af Amer 89 Est GFR (MDRD) Non-Af 74 BUN/Creatinine Ratio 11.8 Glucose 170 H Hemoglobin A1c 13.9 H Lactic Acid Calcium 8.4 L Phosphorus Magnesium Ferritin Lactate Dehydrogenase Total Creatine Kinase Troponin I C-React Prot Ext Range Procalcitonin TSH Ethyl Alcohol Acetone Level COVID-19 (COLE) POC Glucose 02/03/20 02/03/20 02/03/20 08:35 08:35 08:35 WBC RBC Hgb Hct MCV MCH MCHC RDW Std Deviation RDW Coeff of Luanne Plt Count MPV Immature Gran % (Auto) Neut % (Auto) Lymph % (Auto) [place] % (Auto) Eos % (Auto) Baso % (Auto) Absolute Neuts (auto) Absolute Lymphs (auto) Nucleated RBC % D-Dimer Quant (PE/DVT) Specimen Type Sample Site VBG pH VBG pO2 VBG O2 Sat (Calc) VBG O2 Content VBG Base Excess POC Mix VBG pCO2 Pt Tmp O2 Delivery Device Liter Flow Blood Gas Notified Whom Blood Gas Notified Time Sodium Potassium Chloride Carbon Dioxide Anion Gap BUN Creatinine Estim Creat Clear Calc Est GFR (MDRD) Af Amer Est GFR (MDRD) Non-Af BUN/Creatinine Ratio Glucose Hemoglobin A1c Lactic Acid Calcium Phosphorus Magnesium Ferritin 839 H Lactate Dehydrogenase 100 Total Creatine Kinase 17 L Troponin I C-React Prot Ext Range 159.00 H Procalcitonin 0.14 H TSH Ethyl Alcohol Acetone Level COVID-19 (COLE) Pending POC Glucose Clinical Impression(s) from Imaging Studies Acute Abdomen Series 02/02/20 20:00 IMPRESSION: Marked fecal retention. No evidence for obstruction. Electronically Signed: Rajiv Wilde MD at 20:19 EDT , Service support , Current Medications Albuterol Sulfate (Ventolin Aerosols) 2.5 mg INHALATION Q4H PRN PRN PRN Reason: SHORTNESS OF BREATH Dextrose (D50w Syringe) 0 gm IV X1 PRN; Protocol PRN Reason: HYPOGLYCEMIA Enoxaparin Sodium (Lovenox) 40 mg SC DAILY [facility] Insulin Human Lispro 100 unit/ (Sodium Chloride) 100 mls @ 10.27 mls/hr IV .Q9H45M [facility]; Protocol Last Admin: 02/03/20 07:34 Dose: Not Given Documented by: Sodium Chloride () 250 mls @ 15 mls/hr IV .[id number] PRN PRN Reason: Saline Flush Last Admin: 02/03/20 07:31 Dose: 15 mls/hr Documented by: Sodium Chloride () 250 mls @ 15 mls/hr IV .[id number] PRN PRN Reason: Additional IVPB Infusion Dextrose/Sodium Chloride () 1,000 mls @ 150 mls/hr IV .Q6H40M [facility] Last Infusion: 02/03/20 05:43 Dose: 150 mls/hr Documented by: Potassium Chloride () 10 meq in 100 mls @ 100 mls/hr IV BOLUS Q1H [facility] Stop: 02/03/20 08:14 Last Admin: 02/03/20 07:32 Dose: 100 mls/hr Documented by: Potassium Phosphate 30 mm/ (Sodium Chloride) 260 mls @ 42 mls/hr IV X1 ONE Stop: 02/03/20 13:57 Magnesium Sulfate 2 gm/ Sodium (Chloride) 104 mls @ 52 mls/hr IV X1 ONE Stop: 02/03/20 09:45 Ondansetron HCl (Zofran) 4 mg IV Q8H PRN PRN PRN Reason: NAUSEA/VOMITING Last Admin: 02/03/20 05:31 Dose: 4 mg Documented by: Sodium Chloride () 10 - 40 ml IV UD PRN PRN Reason: SALINE FLUSH Last Admin: 02/03/20 05:31 Dose: 20 ml Documented by: Assessment/Plan Active and Suspected Problems (Last Reviewed 10/24/18 @ 05:[address] Jr Bardales MD) DKA (diabetic ketoacidoses) (Acute) RECOMMENDATIONS: 1. Continue management of patient's DKA per protocol with supplemental IV fluids and continuous insulin infusion. 2. Continue serial BMPs until anion gap has been closed x2. 3. Once anion gap has been closed x2, initiate basal insulin and sliding scale coverage. Diet can be advanced at that time. 4. Agree with Lovenox therapy as ordered. 5. Encourage incentive spirometer use and mobilize patient as tolerated. 6. Diabetic education and close outpatient endocrinology follow-up. IMPRESSIONS: 1. Diabetic ketoacidosis secondary to outpatient noncompliance Plan to continue current supportive measures per DKA protocol with supplemental IV fluid hydration and continuous insulin infusion until anion gap has been closed x2. Following this, basal insulin and sliding scale coverage will be initiated and the patient's diet advanced accordingly. The patient will require diabetic education and close outpatient follow-up with endocrinology. 2. Bilateral pulmonary emboli As part of the patient's initial presenting work-up, his d-dimer was found to be elevated, which prompted a CTA chest to be obtained. That imaging study did in fact demonstrate bilateral pulmonary emboli. Accordingly, the patient was placed on systemic anticoagulation with treatment strength Lovenox. 3. History of coronary artery disease/questionable asthma/hypertension/hyperlipidemia/anxiety/depression/GERD Complicates care, management, recovery and prognosis. Continue home medications as indicated. This note was generated with Bluwan[employer] software. It may contain incorrect words, spelling, and punctuation that were not noted in checking the note before signing. Inpatient E&M: 25330 Init Hosp L3
[2020-02-03 08:45] LABS: Bedside Glucose 163 mg/dL (70-110)
[2020-02-03 09:03] LABS: Anion Gap 12 (5-15); BUN 13 mg/dL (7-18); BUN/Creat Ratio 11.8 RATIO (10-20); Calcium,Total 8.4 mg/dL (8.5-10.1); Chloride 106 mmol/L (98-107); EST Glomerular Filtration Rate 74 mL/min (>60); Est Glom Filt Rate - Afr Amer 89 mL/min (>60); Estimated Creatinine Clearance 80.81 ml/min; Glucose 170 mg/dL (74-106); Potassium 3.6 mmol/L (3.5-5.1); Sodium Level 137 mmol/L (136-145)
[2020-02-03 09:08] LABS: D-Dimer Quantitative (DVT/PE) 1.82 FEU/ug/m (0.27-0.49)
[2020-02-03 09:09] LABS: CPK Total, Creatine Kinase 17 U/L (39-308); Ferritin 839 ng/mL (26-388); LDH 100 U/L (87-241)
[2020-02-03 09:38] LABS: Hemoglobin A1c 13.9 % (3.8-5.6)
--- NOTE | 2020-02-03 09:41 | CT_ITS ---
STUDY: CTA CHEST REASON FOR EXAM: Male, 54 years old. ELEVATED D-DIMER, POSSIBLE COVID RADIATION DOSAGE (If Supplied By Facility): CTDIvol = ( 11.21 ) mGy, DLP = ( 503.2 ) mGycm TECHNIQUE: The examination was performed with the intravenous administration of IV 100mL [id number]. Post-processing of the angiographic images was performed, with multiplanar reformation and 3D reconstruction. Individualized dose optimization techniques were used for this CT. COMPARISON: None. FINDINGS: Multiple nonocclusive intraluminal filling defects are seen in branches of both right and left lower lung pulmonary arteries. Intraluminal filling defects are also seen in branches of the right upper lobe pulmonary artery Normal thoracic aorta and visualized great vessels. There is no demonstrated aortic dissection. Normal heart and pericardium. Normal mediastinum. Normal hilar regions. Normal visualized trachea and bronchi. The lungs are well expanded. Normal pulmonary parenchyma. Normal pleura. Normal chest wall structures. Normal osseous structures. Normal visualized upper abdomen. CT/CTA Chest W/WO Contrast IMPRESSION: Multiple pulmonary emboli in branches of the right and left lower lobe pulmonary arteries as well as in the right upper lobe pulmonary arterial branches. Electronically Signed: Karig Lamb, at 12:14 EDT , Service support ,
[2020-02-03 09:44] LABS: Procalcitonin 0.14 ng/mL (0.00-0.09)
[2020-02-03] MEDS: Enoxaparin 100 MG/ML Syringe SC ×2 (10:50→19:32)
[2020-02-03] MEDS: 0.9% Normal Saline 1,000 ML 125 ML IV (10:50)
[2020-02-03] MEDS: Polyethylene Glycol 3350 17 GM PACKET PO (10:50)
[2020-02-03] MEDS: Clopidogrel Bisulfate 75 MG Tablet PO (10:53)
[2020-02-03] MEDS: Divalproex (ER) 500 MG Tablet PO (10:53)
[2020-02-03] MEDS: Loratadine 10 MG Tablet PO (10:54)
[2020-02-03] MEDS: Aspirin E.C. 81 MG Tablet PO (10:54)
[2020-02-03] MEDS: Sertraline 50 MG Tablet 200 MG PO (10:54)
[2020-02-03] MEDS: Losartan Potassium 100 MG Tablet PO (11:25)
[2020-02-03 11:26] LABS: Bedside Glucose 99 mg/dL (70-110)
[2020-02-03] MEDS: Pantoprazole Sodium 20 MG Tablet PO ×2 (11:58→21:40)
--- NOTE | 2020-02-03 13:15 | CASEMGMT ---
This RN CM has attempted multiple times to reach pt via room phone and cell phone at this time d/t pt being in COVID precautions at this time. Will attempt again later. [place]
[2020-02-03 15:51] LABS: Bedside Glucose 290 mg/dL (70-110)
[2020-02-03] MEDS: Docusate Sodium 100 MG Capsule 200 MG PO (15:51)
[2020-02-03] MEDS: Insulin Lispro 100 UNIT/ML INSULN.PEN SC ×2 (15:53→21:39)
[2020-02-03] MEDS: Bisacodyl 5 MG Tablet 10 MG PO (16:29)
[2020-02-03] MEDS: Amitriptyline 100 MG Tablet PO (21:40)
[2020-02-03] MEDS: Atorvastatin Calcium 80 MG Tablet PO (21:40)
[2020-02-03 22:31] LABS: Bedside Glucose 404 mg/dL (70-110)
[2020-02-04 03:30] VITALS: BP 112/78; PULSE 94; RESP 16; TEMP 36.9; O2SAT 100
[2020-02-04] MEDS: 0.9% Saline Lock 10 ML Syringe IV (03:33)
[2020-02-04 03:46] LABS: Absolute Lymphocyte Count 2.34 X10^3/uL (0.83-4.51); Absolute Neutrophil Count 7.2 X10^3/uL (2.0-7.7); Basophil# 0.04 X10^3/uL; Basophil% 0.4 % (0-1); Eosinophil# 0.06 X10^3/uL; Eosinophils% 0.6 % (0-5); Hematocrit 38.6 % (40-54); Lymphocyte # 2.34 X10^3/ul (4.0); Lymphocyte % 21.6 % (19-41); Mean Corp Hgb Conc 33.7 g/dL (32-36); Mean Corpuscular Hgb 27.8 pg (27.0-32.0); Mean Corpuscular Volume 82.7 fL (80-94); Mean Platelet Vol. 8.8 fl (6.2-12.0); Monocyte# 1.04 X10^3/uL; Monocyte% 9.6 % (0-10); NRBC Flagged by Analyzer 0 % (0-5); Neutrophil # 7.21 X10^3/uL (2.7-7.7); Neutrophil % 66.7 % (47-70); Platelet Count 263 K/mm3 (150-450); RBC Distribution Width CV 13.2 % (11.6-14.6); RBC Distribution Width SD 38.6 fl (35.1-43.9); Red Blood Count 4.67 M/mm3 (4.6-6.2); White Blood Count 10.8 K/mm3 (4.4-11.0)
[2020-02-04 04:03] LABS: ALB/GLOB Ratio 0.5 RATIO (0.9-2.4); AST(SGOT) 7 U/L (15-37); Alanine Aminotransfer ALT/SGPT 9 U/L (16-61); Albumin, Serum 2.2 g/dL (3.2-5.0); Alkaline Phosphatase 100 U/L (45-117); Anion Gap 12 (5-15); BUN 13 mg/dL (7-18); BUN/Creat Ratio 13.7 RATIO (10-20); Calcium,Total 8.6 mg/dL (8.5-10.1); Chloride 104 mmol/L (98-107); Creatinine, Serum 0.95 mg/dL (0.70-1.30); EST Glomerular Filtration Rate 88 mL/min (>60); Est Glom Filt Rate - Afr Amer 106 mL/min (>60); Estimated Creatinine Clearance 93.57 ml/min; Globulin 4.7 g/dL (2.2-4.2); Glucose 269 mg/dL (74-106); Magnesium 2.2 mg/dL (1.6-2.6); Phosphorus 1.7 mg/dL (2.5-4.9); Potassium 3.6 mmol/L (3.5-5.1); Protein, Total 6.9 g/dL (6.4-8.2); Sodium Level 135 mmol/L (136-145)
[2020-02-04] MEDS: Enoxaparin 100 MG/ML Syringe SC (04:44)
--- NOTE | 2020-02-04 06:40 | PN_ITS ---
Patient Problems: Active and Suspected Problems (Last Reviewed 10/24/18 @ 05:[address] Jr Bardales MD) DKA (diabetic ketoacidoses) (Acute) Vitals/I&O's: Vital Signs Temp Pulse Resp BP Pulse Ox 98.4 F 94 16 112/78 100 02/04/20 03:30 02/04/20 03:30 02/04/20 03:30 02/04/20 03:30 02/04/20 03:30 Oxygen Delivery Method Room Air Weight: 230 lb 9.656 oz Body Mass Index (BMI) 30.6 Finger Stick Blood Glucose 163 Intake and Output for Last 24 Hours 02/02/20 02/03/20 02/04/20 23:59 23:59 23:59 Intake Total 1000 / 1000 6510.92 / 6510.92 240 / 240 Output Total 1300 / 1300 650 / 650 Balance 1000 / 1000 5210.92 / 5210.92 -410 / -410 Laboratory Results 02/03/20 03:35: Phosphorus 1.6 L, Magnesium 1.6 02/03/20 08:32: POC Glucose 163 H 02/03/20 08:35: Sodium 137, Potassium 3.6, Chloride 106, Carbon Dioxide 19.0 L, Anion Gap 12, BUN 13, Creatinine 1.10, Estim Creat Clear Calc 80.81, Est GFR (MDRD) Af Amer 89, Est GFR (MDRD) Non-Af 74, BUN/Creatinine Ratio 11.8, Glucose 170 H, Calcium 8.4 L 02/03/20 08:35: Hemoglobin A1c 13.9 H 02/03/20 08:35: D-Dimer Quant (PE/DVT) 1.82 H* 02/03/20 08:35: Ferritin 839 H, Lactate Dehydrogenase 100, Total Creatine Kinase 17 L, C-React Prot Ext Range 159.00 H 02/03/20 08:35: Procalcitonin 0.14 H 02/03/20 08:35: COVID-19 (COLE) Negative 02/03/20 08:35: SARS Serology Pending 02/03/20 10:47: POC Glucose 99 02/03/20 15:46: POC Glucose 290 H 02/03/20 21:37: POC Glucose 404 H 02/04/20 03:30: WBC 10.8, RBC 4.67, Hgb 13.0, Hct 38.6 L, MCV 82.7, MCH 27.8, MCHC 33.7, RDW Std Deviation 38.6, RDW Coeff of Luanne 13.2, Plt Count 263, MPV 8.8, Immature Gran % (Auto) 1.100 H, Neut % (Auto) 66.7, Lymph % (Auto) 21.6, [place] % (Auto) 9.6, Eos % (Auto) 0.6, Baso % (Auto) 0.4, Absolute Neuts (auto) 7.2, Absolute Lymphs (auto) 2.34, Nucleated RBC % 0 02/04/20 03:30: Sodium 135 L, Potassium 3.6, Chloride 104, Carbon Dioxide 19.0 L , Anion Gap 12, BUN 13, Creatinine 0.95, Estim Creat Clear Calc 93.57, Est GFR (MDRD) Af Amer 106, Est GFR (MDRD) Non-Af 88, BUN/Creatinine Ratio 13.7, Glucose 269 H, Calcium 8.6, Phosphorus 1.7 L, Magnesium 2.2, Total Bilirubin 0.30, AST 7 L, ALT 9 L, Alkaline Phosphatase 100, Total Protein 6.9, Albumin 2.2 L, Globulin 4.7 H, Albumin/Globulin Ratio 0.5 L Current Medications Acetaminophen (Tylenol) 650 mg PO Q6H PRN PRN PRN Reason: Pain Score 1-10 /Temp>100.7 Al Hydroxide/Mg Hydroxide (Mylanta Ii) 30 ml PO Q6H PRN PRN PRN Reason: Gastric Burning Albuterol Sulfate (Ventolin Aerosols) 2.5 mg INHALATION Q4H PRN PRN PRN Reason: SHORTNESS OF BREATH Amitriptyline HCl (Elavil) 100 mg PO QHS [facility] Last Admin: 02/03/20 21:40 Dose: 100 mg Documented by: [facility] Admin: 02/03/20 10:54 Dose: 81 mg Documented by: Atorvastatin Calcium (Lipitor) 80 mg PO QHS [facility] Last Admin: 02/03/20 21:40 Dose: 80 mg Documented by: Bisacodyl (Dulcolax) 10 mg PO DAILY PRN PRN PRN Reason: Constipation Last Admin: 02/03/20 16:29 Dose: 10 mg Documented by: Clopidogrel Bisulfate (Plavix) 75 mg PO DAILY [facility] Last Admin: 02/03/20 10:53 Dose: 75 mg Documented by: Dextrose (D50w Syringe) 0 gm IV X1 PRN; Protocol PRN Reason: HYPOGLYCEMIA Divalproex Sodium (Depakote Er) 500 mg PO DAILY [facility] Last Admin: 02/03/20 10:53 Dose: 500 mg Documented by: Docusate Sodium (Colace) 200 mg PO BID PRN PRN PRN Reason: Constipation Last Admin: 02/03/20 15:51 Dose: 200 mg Documented by: Enoxaparin Sodium (Lovenox) 100 mg SC Q12@0600,1800 [facility] Last Admin: 02/04/20 04:44 Dose: 100 mg Documented by: Sodium Chloride () 250 mls @ 15 mls/hr IV .[id number] PRN PRN Reason: Saline Flush Last Infusion: 02/03/20 16:00 Dose: 0 mls/hr Documented by: Sodium Chloride () 250 mls @ 15 mls/hr IV .[id number] PRN PRN Reason: Additional IVPB Infusion Insulin Glargine (Lantus (Bkc)) 30 units SC BID [facility] Last Admin: 02/03/20 21:39 Dose: 30 u Documented by: Insulin Human Lispro (Humalog Kwikpen (Bkc)) 0 unit SC ACHS [facility]; Protocol Last Admin: 02/03/20 21:39 Dose: 10 u Documented by: Loratadine (Claritin) 10 mg PO DAILY [facility] Last Admin: 02/03/20 10:54 Dose: 10 mg Documented by: Losartan Potassium (Cozaar) 100 mg PO DAILY [facility] Last Admin: 02/03/20 11:25 Dose: 100 mg Documented by: Ondansetron HCl (Zofran) 4 mg IV Q8H PRN PRN PRN Reason: NAUSEA/VOMITING Last Admin: 02/03/20 05:31 Dose: 4 mg Documented by: Pantoprazole Sodium (Protonix) 20 mg PO BID [facility] Last Admin: 02/03/20 21:40 Dose: 20 mg Documented by: Polyethylene Glycol (Miralax) 17 gm PO DAILY [facility] Last Admin: 02/03/20 10:50 Dose: 17 gm Documented by: Sertraline HCl (Zoloft) 200 mg PO DAILY [facility] Last Admin: 02/03/20 10:54 Dose: 200 mg Documented by: Sodium Chloride () 10 - 40 ml IV UD PRN PRN Reason: SALINE FLUSH Last Admin: 02/04/20 03:33 Dose: 20 ml Documented by: STROKE Vital Signs/Narrative: Vital Signs Temp Pulse Resp BP Pulse Ox 02/04/20 03:30 98.4 F 94 16 112/78 100 Medical Necessity - Tobacco Use Smoking Status: Never smoker Assessment/Plan All Active Problems (Last Reviewed 10/24/18 @ 05:[address] Jr Bardales MD) Stroke-like symptoms (Acute) DKA (diabetic ketoacidoses) (Acute) Contusion of left hand, initial encounter (Acute) Acute CVA (cerebrovascular accident) (Ruled-out) Right sided weakness (Resolved) Headache (Resolved) Abnormal ECG (Acute) Acute cholecystitis (Acute) Chest pain (Resolved)
--- NOTE | 2020-02-04 06:40 | ECHOD_ITS ---
Reason For Study: Arrhythmia Procedure This was a 2D Doppler, Color Flow transthoracic echocardiogram. The study was technically difficult. Contrast injection was performed. Exam performed portable in ICU/CCU. Left Ventricle Normal LV size. Left ventricular systolic function is normal. The estimated ejection fraction is 65 %. Transmitral doppler flow suggestive of impaired relaxation of left ventricle. No regional wall motion abnormalities noted. Right Ventricle Normal RV size. Normal systolic function. Atria Normal left atrium. Normal right atrium. Hypermobile atrial septum. No doppler evidence for ASD. Mitral Valve There is no mitral annular calcification. Normal mitral valve. Trivial mitral valve insufficiency. Tricuspid Valve Normal tricuspid valve. Trivial tricuspid valve insufficiency. Unable to estimate RV systolic pressure/pulmonary artery pressure due to technically difficult study. Aortic Valve Trisinus/trileaflet aortic valve. Normal aortic valve. Pulmonic Valve The pulmonic valve is not well visualized. Great Vessels Normal sized aortic root. Pericardium/Pleural No pericardial effusion. Medication Diluted definity 2.5ml given slow IV push to enhance endocardial definition. MMode/2D Measurements & Calculations LVIDd: 4.2 cm IVSd: 1.3 cm Ao root diam: 4.0 cm LVIDs: 3.2 cm LVPWd: 1.1 cm LA dimension: 4.4 cm RVDd: 3.9 cm FS: 23.3 % LAV(MOD-bp): 44.6 ml LA A4 area: 16.0 cm2 RA A4 area: 13.4 cm2 LAV(MOD-bp) Indexed: 19.9 ml/m2 LAV(MOD-sp2): 42.8 ml LAV(MOD-sp4): 43.5 ml Time Measurements MV dec time: 0.25 sec Doppler Measurements & Calculations MV E max damien: 72.4 cm/sec Lat Peak E' Damien: 8.8 cm/sec Med Peak E' Damien: 8.6 cm/sec MV A max damien: 91.7 cm/sec E/E' lat: 8.2 E/E' med: 8.4 MV E/A: 0.79 MV V2 max: 103.0 cm/sec MV P1/2t max damien: 79.0 cm/sec Ao V2 max: 123.4 cm/sec MV max P.2 mmHg MV P1/2t: 84.4 msec Ao max P.1 mmHg MV V2 mean: 63.8 cm/sec MV dec slope: 273.9 cm/sec2 MV mean P.8 mmHg MV V2 VTI: 23.7 cm MVA(P1/2t): 2.6 cm2 LV V1 max: 94.7 cm/sec PA V2 max: 99.2 cm/sec LV V1 max P.6 mmHg Interpretation Summary The study was technically difficult. Contrast injection was performed. Left ventricular systolic function is normal. The estimated ejection fraction is 65 %. Hypermobile atrial septum. Trivial mitral valve insufficiency. Trivial tricuspid valve insufficiency. Unable to estimate RV systolic pressure/pulmonary artery pressure due to technically difficult study. Ordering Physician: Theresa Singletary Referring Physician: Oewn Torres Performed By: Loco Barber RCS
[2020-02-04 07:08] LABS: SARS-COV-2 TOTAL ABS Nonreactive (Nonreactive)
--- NOTE | 2020-02-04 07:08 | PN_ITS ---
Subjective: The patient was seen and examined at the bedside this morning. Events from the last 24 hours have been reviewed. The patient is currently afebrile, hemodynamically stable and maintaining appropriate oxygen saturations on room air. DKA has resolved and patient's anion gap remains closed. He does report continued constipation this morning. Objective: The patient's most recent lab work, culture data and imaging studies have all been personally reviewed. CTA chest revealed bilateral pulmonary emboli. General: Alert, Oriented x3, Cooperative, No apparent distress HEENT: Atraumatic, PERRLA, Normocephalic Oral: No Gingival or Mucosal Lesions/ Ulcerations, - - For generalized dentition Neck: Supple, No Nodes, Trachea Midline Lungs: Normal air movement, No rhonchi, No wheeze, No rales Cardiovascular: Regular rate, Regular Rhythm Abdomen: Bowel Sounds Present, Soft, Non Tender Extremities: No clubbing, No cyanosis, No edema Skin: No breakdown Musculoskeletal: No Tenderness to Palpation of Joints or Extremities Lymphatic: No Cervical, Supraclavicular, or Inguinal Adenopathy Neurological: Cranial nerves II-XII grossly intact, Neuro grossly intact Psych/Mental Status: Alert and oriented to time, place, person, mood and affect Vital Signs Temp Pulse Resp BP Pulse Ox 98.4 F 94 16 112/78 100 02/04/20 03:30 02/04/20 03:30 02/04/20 03:30 02/04/20 03:30 02/04/20 03:30 Oxygen Delivery Method Room Air Weight: 230 lb 9.656 oz Body Mass Index (BMI) 30.6 Finger Stick Blood Glucose 163 Intake and Output for Last 24 Hours 02/02/20 02/03/20 02/04/20 23:59 23:59 23:59 Intake Total 1000 / 1000 6510.92 / 6510.92 240 / 240 Output Total 1300 / 1300 650 / 650 Balance 1000 / 1000 5210.92 / 5210.92 -410 / -410 Labs (Last 48 Hours) 02/02/20 02/02/20 02/02/20 19:05 19:05 21:24 WBC 17.3 H RBC 5.71 Hgb 15.8 Hct 48.1 MCV 84.2 MCH 27.7 MCHC 32.8 RDW Std Deviation 39.4 RDW Coeff of Luanne 13.1 Plt Count 361 MPV 9.2 Immature Gran % (Auto) 2.200 H Neut % (Auto) 80.7 H Lymph % (Auto) 9.2 L [place] % (Auto) 7.1 Eos % (Auto) 0.2 Baso % (Auto) 0.6 Absolute Neuts (auto) 14.0 H Absolute Lymphs (auto) 1.60 Nucleated RBC % 0 D-Dimer Quant (PE/DVT) Specimen Type Sample Site VBG pH VBG pO2 VBG O2 Sat (Calc) VBG O2 Content VBG Base Excess POC Mix VBG pCO2 Pt Tmp O2 Delivery Device Liter Flow Blood Gas Notified Whom Blood Gas Notified Time Sodium 133 L Potassium 4.2 Chloride 100 Carbon Dioxide 10.0 L Anion Gap 23 H BUN 14 Creatinine 1.22 Estim Creat Clear Calc 72.87 Est GFR (MDRD) Af Amer 79 Est GFR (MDRD) Non-Af 65 BUN/Creatinine Ratio 11.5 Glucose 395 H Hemoglobin A1c Lactic Acid Calcium 9.0 Phosphorus Magnesium Ferritin Total Bilirubin AST ALT Alkaline Phosphatase Lactate Dehydrogenase Total Creatine Kinase Troponin I < 0.015 C-React Prot Ext Range Total Protein Albumin Globulin Albumin/Globulin Ratio Procalcitonin TSH 1.72 Ethyl Alcohol < 3.0 Acetone Level COVID-19 (COLE) SARS Serology POC Glucose 02/02/20 02/02/20 02/02/20 21:24 21:50 21:59 WBC RBC Hgb Hct MCV MCH MCHC RDW Std Deviation RDW Coeff of Luanne Plt Count MPV Immature Gran % (Auto) Neut % (Auto) Lymph % (Auto) [place] % (Auto) Eos % (Auto) Baso % (Auto) Absolute Neuts (auto) Absolute Lymphs (auto) Nucleated RBC % D-Dimer Quant (PE/DVT) Specimen Type LEATHA Sample Site OTHER VBG pH 7.16 L* VBG pO2 43 H VBG O2 Sat (Calc) 67 VBG O2 Content Pending VBG Base Excess -22 L POC Mix VBG pCO2 Pt Tmp 17.7 L* O2 Delivery Device Nasal Can Liter Flow 4.0 Blood Gas Notified Whom ED MD Blood Gas Notified Time 2158 Sodium Potassium Chloride Carbon Dioxide Anion Gap BUN Creatinine Estim Creat Clear Calc Est GFR (MDRD) Af Amer Est GFR (MDRD) Non-Af BUN/Creatinine Ratio Glucose Hemoglobin A1c Lactic Acid 1.6 Calcium Phosphorus Magnesium Ferritin Total Bilirubin AST ALT Alkaline Phosphatase Lactate Dehydrogenase Total Creatine Kinase Troponin I C-React Prot Ext Range Total Protein Albumin Globulin Albumin/Globulin Ratio Procalcitonin TSH Ethyl Alcohol Acetone Level LARGE H COVID-19 (COLE) SARS Serology POC Glucose 02/02/20 02/03/20 02/03/20 23:43 00:23 00:30 WBC RBC Hgb Hct MCV MCH MCHC RDW Std Deviation RDW Coeff of Luanne Plt Count MPV Immature Gran % (Auto) Neut % (Auto) Lymph % (Auto) [place] % (Auto) Eos % (Auto) Baso % (Auto) Absolute Neuts (auto) Absolute Lymphs (auto) Nucleated RBC % D-Dimer Quant (PE/DVT) Specimen Type Sample Site VBG pH VBG pO2 VBG O2 Sat (Calc) VBG O2 Content VBG Base Excess POC Mix VBG pCO2 Pt Tmp O2 Delivery Device Liter Flow Blood Gas Notified Whom Blood Gas Notified Time Sodium 135 L Potassium 4.7 Chloride 103 Carbon Dioxide 11.0 L Anion Gap 21 H BUN 15 Creatinine 1.19 Estim Creat Clear Calc 74.70 Est GFR (MDRD) Af Amer 81 Est GFR (MDRD) Non-Af 67 BUN/Creatinine Ratio 12.6 Glucose 317 H Hemoglobin A1c Lactic Acid Calcium 8.8 Phosphorus Magnesium Ferritin Total Bilirubin AST ALT Alkaline Phosphatase Lactate Dehydrogenase Total Creatine Kinase Troponin I C-React Prot Ext Range Total Protein Albumin Globulin Albumin/Globulin Ratio Procalcitonin TSH Ethyl Alcohol Acetone Level COVID-19 (COLE) SARS Serology POC Glucose 376 H 332 H 02/03/20 02/03/20 02/03/20 01:28 02:27 03:29 WBC RBC Hgb Hct MCV MCH MCHC RDW Std Deviation RDW Coeff of Luanne Plt Count MPV Immature Gran % (Auto) Neut % (Auto) Lymph % (Auto) [place] % (Auto) Eos % (Auto) Baso % (Auto) Absolute Neuts (auto) Absolute Lymphs (auto) Nucleated RBC % D-Dimer Quant (PE/DVT) Specimen Type Sample Site VBG pH VBG pO2 VBG O2 Sat (Calc) VBG O2 Content VBG Base Excess POC Mix VBG pCO2 Pt Tmp O2 Delivery Device Liter Flow Blood Gas Notified Whom Blood Gas Notified Time Sodium Potassium Chloride Carbon Dioxide Anion Gap BUN Creatinine Estim Creat Clear Calc Est GFR (MDRD) Af Amer Est GFR (MDRD) Non-Af BUN/Creatinine Ratio Glucose Hemoglobin A1c Lactic Acid Calcium Phosphorus Magnesium Ferritin Total Bilirubin AST ALT Alkaline Phosphatase Lactate Dehydrogenase Total Creatine Kinase Troponin I C-React Prot Ext Range Total Protein Albumin Globulin Albumin/Globulin Ratio Procalcitonin TSH Ethyl Alcohol Acetone Level COVID-19 (COLE) SARS Serology POC Glucose 296 H 215 H 197 H 02/03/20 02/03/20 02/03/20 03:35 03:35 03:35 WBC 12.7 H RBC 4.78 Hgb 13.2 Hct 39.3 L MCV 82.2 MCH 27.6 MCHC 33.6 RDW Std Deviation 37.9 RDW Coeff of Luanne 12.9 Plt Count 275 MPV 8.7 Immature Gran % (Auto) 1.800 H Neut % (Auto) 74.6 H Lymph % (Auto) 16.9 L [place] % (Auto) 6.4 Eos % (Auto) 0.1 Baso % (Auto) 0.2 Absolute Neuts (auto) 9.5 H Absolute Lymphs (auto) 2.15 Nucleated RBC % 0 D-Dimer Quant (PE/DVT) Specimen Type Sample Site VBG pH VBG pO2 VBG O2 Sat (Calc) VBG O2 Content VBG Base Excess POC Mix VBG pCO2 Pt Tmp O2 Delivery Device Liter Flow Blood Gas Notified Whom Blood Gas Notified Time Sodium 138 Potassium 3.1 L Chloride 109 H Carbon Dioxide 15.0 L Anion Gap 14 BUN 13 Creatinine 1.06 Estim Creat Clear Calc 83.86 Est GFR (MDRD) Af Amer 93 Est GFR (MDRD) Non-Af 77 BUN/Creatinine Ratio 12.3 Glucose 190 H Hemoglobin A1c Lactic Acid Calcium 7.7 L Phosphorus 1.6 L Magnesium 1.6 Ferritin Total Bilirubin AST ALT Alkaline Phosphatase Lactate Dehydrogenase Total Creatine Kinase Troponin I C-React Prot Ext Range Total Protein Albumin Globulin Albumin/Globulin Ratio Procalcitonin TSH Ethyl Alcohol Acetone Level COVID-19 (COLE) SARS Serology POC Glucose 02/03/20 02/03/20 02/03/20 04:21 06:22 08:32 WBC RBC Hgb Hct MCV MCH MCHC RDW Std Deviation RDW Coeff of Luanne Plt Count MPV Immature Gran % (Auto) Neut % (Auto) Lymph % (Auto) [place] % (Auto) Eos % (Auto) Baso % (Auto) Absolute Neuts (auto) Absolute Lymphs (auto) Nucleated RBC % D-Dimer Quant (PE/DVT) Specimen Type Sample Site VBG pH VBG pO2 VBG O2 Sat (Calc) VBG O2 Content VBG Base Excess POC Mix VBG pCO2 Pt Tmp O2 Delivery Device Liter Flow Blood Gas Notified Whom Blood Gas Notified Time Sodium Potassium Chloride Carbon Dioxide Anion Gap BUN Creatinine Estim Creat Clear Calc Est GFR (MDRD) Af Amer Est GFR (MDRD) Non-Af BUN/Creatinine Ratio Glucose Hemoglobin A1c Lactic Acid Calcium Phosphorus Magnesium Ferritin Total Bilirubin AST ALT Alkaline Phosphatase Lactate Dehydrogenase Total Creatine Kinase Troponin I C-React Prot Ext Range Total Protein Albumin Globulin Albumin/Globulin Ratio Procalcitonin TSH Ethyl Alcohol Acetone Level COVID-19 (COLE) SARS Serology POC Glucose 186 H 173 H 163 H 02/03/20 02/03/20 02/03/20 08:35 08:35 08:35 WBC RBC Hgb Hct MCV MCH MCHC RDW Std Deviation RDW Coeff of Luanne Plt Count MPV Immature Gran % (Auto) Neut % (Auto) Lymph % (Auto) [place] % (Auto) Eos % (Auto) Baso % (Auto) Absolute Neuts (auto) Absolute Lymphs (auto) Nucleated RBC % D-Dimer Quant (PE/DVT) 1.82 H* Specimen Type Sample Site VBG pH VBG pO2 VBG O2 Sat (Calc) VBG O2 Content VBG Base Excess POC Mix VBG pCO2 Pt Tmp O2 Delivery Device Liter Flow Blood Gas Notified Whom Blood Gas Notified Time Sodium 137 Potassium 3.6 Chloride 106 Carbon Dioxide 19.0 L Anion Gap 12 BUN 13 Creatinine 1.10 Estim Creat Clear Calc 80.81 Est GFR (MDRD) Af Amer 89 Est GFR (MDRD) Non-Af 74 BUN/Creatinine Ratio 11.8 Glucose 170 H Hemoglobin A1c 13.9 H Lactic Acid Calcium 8.4 L Phosphorus Magnesium Ferritin Total Bilirubin AST ALT Alkaline Phosphatase Lactate Dehydrogenase Total Creatine Kinase Troponin I C-React Prot Ext Range Total Protein Albumin Globulin Albumin/Globulin Ratio Procalcitonin TSH Ethyl Alcohol Acetone Level COVID-19 (COLE) SARS Serology POC Glucose 02/03/20 02/03/20 02/03/20 08:35 08:35 08:35 WBC RBC Hgb Hct MCV MCH MCHC RDW Std Deviation RDW Coeff of Luanne Plt Count MPV Immature Gran % (Auto) Neut % (Auto) Lymph % (Auto) [place] % (Auto) Eos % (Auto) Baso % (Auto) Absolute Neuts (auto) Absolute Lymphs (auto) Nucleated RBC % D-Dimer Quant (PE/DVT) Specimen Type Sample Site VBG pH VBG pO2 VBG O2 Sat (Calc) VBG O2 Content VBG Base Excess POC Mix VBG pCO2 Pt Tmp O2 Delivery Device Liter Flow Blood Gas Notified Whom Blood Gas Notified Time Sodium Potassium Chloride Carbon Dioxide Anion Gap BUN Creatinine Estim Creat Clear Calc Est GFR (MDRD) Af Amer Est GFR (MDRD) Non-Af BUN/Creatinine Ratio Glucose Hemoglobin A1c Lactic Acid Calcium Phosphorus Magnesium Ferritin 839 H Total Bilirubin AST ALT Alkaline Phosphatase Lactate Dehydrogenase 100 Total Creatine Kinase 17 L Troponin I C-React Prot Ext Range 159.00 H Total Protein Albumin Globulin Albumin/Globulin Ratio Procalcitonin 0.14 H TSH Ethyl Alcohol Acetone Level COVID-19 (COLE) Negative SARS Serology POC Glucose 02/03/20 02/03/20 02/03/20 08:35 10:47 15:46 WBC RBC Hgb Hct MCV MCH MCHC RDW Std Deviation RDW Coeff of Luanne Plt Count MPV Immature Gran % (Auto) Neut % (Auto) Lymph % (Auto) [place] % (Auto) Eos % (Auto) Baso % (Auto) Absolute Neuts (auto) Absolute Lymphs (auto) Nucleated RBC % D-Dimer Quant (PE/DVT) Specimen Type Sample Site VBG pH VBG pO2 VBG O2 Sat (Calc) VBG O2 Content VBG Base Excess POC Mix VBG pCO2 Pt Tmp O2 Delivery Device Liter Flow Blood Gas Notified Whom Blood Gas Notified Time Sodium Potassium Chloride Carbon Dioxide Anion Gap BUN Creatinine Estim Creat Clear Calc Est GFR (MDRD) Af Amer Est GFR (MDRD) Non-Af BUN/Creatinine Ratio Glucose Hemoglobin A1c Lactic Acid Calcium Phosphorus Magnesium Ferritin Total Bilirubin AST ALT Alkaline Phosphatase Lactate Dehydrogenase Total Creatine Kinase Troponin I C-React Prot Ext Range Total Protein Albumin Globulin Albumin/Globulin Ratio Procalcitonin TSH Ethyl Alcohol Acetone Level COVID-19 (COLE) SARS Serology Pending POC Glucose 99 290 H 02/03/20 02/04/20 02/04/20 21:37 03:30 03:30 WBC 10.8 RBC 4.67 Hgb 13.0 Hct 38.6 L MCV 82.7 MCH 27.8 MCHC 33.7 RDW Std Deviation 38.6 RDW Coeff of Luanne 13.2 Plt Count 263 MPV 8.8 Immature Gran % (Auto) 1.100 H Neut % (Auto) 66.7 Lymph % (Auto) 21.6 [place] % (Auto) 9.6 Eos % (Auto) 0.6 Baso % (Auto) 0.4 Absolute Neuts (auto) 7.2 Absolute Lymphs (auto) 2.34 Nucleated RBC % 0 D-Dimer Quant (PE/DVT) Specimen Type Sample Site VBG pH VBG pO2 VBG O2 Sat (Calc) VBG O2 Content VBG Base Excess POC Mix VBG pCO2 Pt Tmp O2 Delivery Device Liter Flow Blood Gas Notified Whom Blood Gas Notified Time Sodium 135 L Potassium 3.6 Chloride 104 Carbon Dioxide 19.0 L Anion Gap 12 BUN 13 Creatinine 0.95 Estim Creat Clear Calc 93.57 Est GFR (MDRD) Af Amer 106 Est GFR (MDRD) Non-Af 88 BUN/Creatinine Ratio 13.7 Glucose 269 H Hemoglobin A1c Lactic Acid Calcium 8.6 Phosphorus 1.7 L Magnesium 2.2 Ferritin Total Bilirubin 0.30 AST 7 L ALT 9 L Alkaline Phosphatase 100 Lactate Dehydrogenase Total Creatine Kinase Troponin I C-React Prot Ext Range Total Protein 6.9 Albumin 2.2 L Globulin 4.7 H Albumin/Globulin Ratio 0.5 L Procalcitonin TSH Ethyl Alcohol Acetone Level COVID-19 (COLE) SARS Serology POC Glucose 404 H Clinical Impression(s) from Imaging Studies Acute Abdomen Series 02/02/20 20:00 IMPRESSION: Marked fecal retention. No evidence for obstruction. Electronically Signed: Rajiv Wilde MD at 20:19 EDT , Service support , Chest CTA 02/03/20 09:41 IMPRESSION: Multiple pulmonary emboli in branches of the right and left lower lobe pulmonary arteries as well as in the right upper lobe pulmonary arterial branches. Electronically Signed: Kraig Lamb at 12:14 EDT , Service support , Medical Necessity - Tobacco Use Smoking Status: Never smoker Assessment/Plan All Active Problems (Last Reviewed 10/24/18 @ 05:[address] Jr Bardales MD) Stroke-like symptoms (Acute) DKA (diabetic ketoacidoses) (Acute) Contusion of left hand, initial encounter (Acute) Acute CVA (cerebrovascular accident) (Ruled-out) Right sided weakness (Resolved) Headache (Resolved) Abnormal ECG (Acute) Acute cholecystitis (Acute) Chest pain (Resolved) RECOMMENDATIONS: 1. Continue basal and sliding scale insulin regimen. 2. Continue Lovenox. Consider transitioning to either Eliquis or Xarelto for outpatient treatment of PE. 3. Phosphorus repletion as ordered. 4. Diabetic education along with endocrinology follow-up upon discharge. 5. The patient is medically stable for transfer out of the intensive care unit. Will sign off at this time. IMPRESSIONS: 1. Diabetic ketoacidosis secondary to outpatient noncompliance Resolved. The patient responded to supplemental IV fluid hydration and continuous insulin infusion. He was subsequently transitioned to basal insulin with Lantus and sliding scale coverage. The patient will require diabetic education and close outpatient follow-up with endocrinology. 2. Bilateral pulmonary emboli As part of the patient's initial presenting work-up, his d-dimer was found to be elevated, which prompted a CTA chest to be obtained. That imaging study did in fact demonstrate bilateral pulmonary emboli. Accordingly, the patient was placed on systemic anticoagulation with treatment strength Lovenox. Can consider transitioning to either Eliquis or Xarelto for outpatient treatment of PE. 3. History of coronary artery disease/questionable asthma/hypertension/hyperlipidemia/anxiety/depression/GERD Complicates care, management, recovery and prognosis. Continue home medications as indicated. This note was generated with [employer] dictation software. It may contain incorrect words, spelling, and punctuation that were not noted in checking the note before signing. Inpatient E&M: 12267 Subs Hosp L2
[2020-02-04 08:00] VITALS: BP 137/96; PULSE 90; RESP 18; TEMP 36.9; O2SAT 100
[2020-02-04] MEDS: Aspirin E.C. 81 MG Tablet PO (08:01)
[2020-02-04] MEDS: Sertraline 50 MG Tablet 200 MG PO (08:01)
[2020-02-04] MEDS: Losartan Potassium 100 MG Tablet PO (08:02)
[2020-02-04] MEDS: Pantoprazole Sodium 20 MG Tablet PO (08:02)
[2020-02-04] MEDS: Docusate Sodium 100 MG Capsule 200 MG PO (08:02)
[2020-02-04] MEDS: Divalproex (ER) 500 MG Tablet PO (08:02)
[2020-02-04] MEDS: Polyethylene Glycol 3350 17 GM PACKET PO (08:02)
[2020-02-04] MEDS: Clopidogrel Bisulfate 75 MG Tablet PO (08:02)
[2020-02-04] MEDS: Loratadine 10 MG Tablet PO (08:02)
[2020-02-04] MEDS: Bisacodyl 5 MG Tablet 10 MG PO (08:02)
--- NOTE | 2020-02-04 08:14 | PCM.DC ---
- Discharge Diagnoses Current Active Problems: Current Active and Chronic Problems (Last Reviewed 10/24/18 @ 05:[address] Jr Bardales MD) 1. DKA w/ Diabetes mellitus type II, Uncontrolled with poor compliance 2. Cough, dyspnea, nausea, emesis, RULED OUT Acute Viral Syndrome, COVID-19 and likely secondary to #3 3. Acute Bilateral pulmonary emboli 4. CAD, History of [place] 5. History CVA 6. Chronic back pain 7. Chronic asthma 8. Hypertension 9. Hyperlipidemia 10. Chronic constipation 11. Allergic rhinitis 12. Anxiety and depression 13. GERD with history of gastric ulcer You will use the following diet at home:: Calorie/Carbohydrate Controlled (specify 1200, 1400, etc), Cardiac Your food should be the consistency of: Regular Your liquids should be the consistency of: Regular/Thin Discharge Activity: - - Continue to use assist devices as needed for activity. May resume sexual activity in: No Restrictions Weight Bearing Status: Weight bearing as tolerated Call your doctor if you observe: Fever of 101 or Higher, Inability to urinate, Inability to have a bowel movement, Shortness of breath, Dizziness, Fainting spells, Chest pain, Uncontrolled pain Instructions: What Is Type 2 Diabetes?, Resources for People with Diabetes, Hyperglycemia (High Blood Sugar), Long-Term Complications of Diabetes, Using a Blood Sugar Log, Oral Therapy for Type 2 Diabetes, Types of Insulin, Healthy Meals for Diabetes, Pulmonary Embolism, Treating Constipation Additional Instructions: During the admission you were evaluated for diabetic ketoacidosis secondary to likely poorly controlled diabetes with hemoglobin A1c 13.9%. We have referred you to endocrinology and strongly encourage you to continue this follow-up. We have increased your long-acting insulin although likely will need to be further increased. Please continue your sliding scale from your previous home regimen. We strongly encourage medication compliance. During the admission you admitted to shortness of breath and cough therefore coronavirus testing was performed as well as antibody testing both negative. An evaluation of your chest was performed and it was noted to be significant for lung clots therefore he was started on a medication to anticoagulate your blood. You need to be very cautious as you are already on dual antiplatelet therapy for history of heart attack and stroke. Please also continue the medications prescribed to you for constipation. These should be taken routinely and scheduled. If you are still having ongoing symptoms we recommend continued evaluation per your primary care physician to further decide on additional regimen or follow-up with specialist. Allergies/Adverse Reactions: Allergies levofloxacin [From Levaquin] Allergy (Verified 02/02/20 19:06) rash,swelling RED RASH, SWELLING Penicillins Allergy (Verified 02/02/20 19:06) Rash Medications to take at Discharge Albuterol Inhaler [Ventolin Hfa] 1 puff INHALATION Q4H PRN PRN 01/28/15 Losartan/Hydrochlorothiazide [Hyzaar 100-25 Tablet] 1 tab PO DAILY 01/28/15 Sertraline HCl [Zoloft] 200 mg PO DAILY 01/28/15 cycloBENZAPRine HCl [Flexeril] 10 mg PO TID PRN PRN 01/28/15 Metformin HCl [Metformin HCl ER] 2,000 mg PO DAILY 12/29/15 Aspirin [Adult Low Dose Aspirin EC] 81 mg PO DAILY 06/03/16 Cetirizine HCl [Zyrtec] 10 mg PO DAILY 06/03/16 Atorvastatin Calcium 80 mg PO QHS 09/27/17 Clopidogrel Bisulfate [Plavix] 75 mg PO DAILY 09/27/17 Amitriptyline HCl [Elavil] 100 mg PO QHS 10/16/17 Diltiazem HCl [Diltiazem 24Hr ER (Cd)] 180 mg PO DAILY 10/16/17 Divalproex Sodium [Depakote ER] 500 mg PO DAILY #30 tab.er.24h 10/24/18 Insulin Lispro [Humalog] 26 - 30 units SUBCUT TID 02/02/20 Insulin Glargine [Lantus SoloStar Pen] 40 units SUBCUT BID #1 pen 02/04/20 Polyethylene Glycol 3350 [Miralax] 17 gm PO DAILY #30 packet 02/04/20 Rivaroxaban [Xarelto] 1 tab PO UD #51 tab 02/04/20 Senna/Docusate Sodium [Senokot-S] 1 tablet PO BID #60 tablet 02/04/20 The following prescriptions were given: Insulin Glargine [Lantus SoloStar Pen] 40 units SUBCUT BID #1 pen Transmission Status: Pending to [facility] Polyethylene Glycol 3350 [Miralax] 17 gm PO DAILY #30 packet Transmission Status: Pending to [facility] Senna/Docusate Sodium [Senokot-S] 1 tablet PO BID #60 tablet Rivaroxaban [Xarelto] 1 tab PO UD #51 tab Primary Care Physician: Rod Elena MD [Primary Care Provider] - Please follow up with your Primary Care Physician in: Follow-up within 3-5 days. Test Results: Test results from this visit will be discussed in further detail at your follow-up appointment, if applicable. Please Follow Up With: Bhaskar Helm MD When: Follow-up to establish, first open visit. Proposed Discharge Date: 02/04/20
--- NOTE | 2020-02-04 08:21 | DS.PCM_ITS ---
Discharge Date and Diagnosis - Problem List Patient Problems: Active and Suspected Problems (Last Reviewed 10/24/18 @ 05:[address] Jr Bardales MD) DKA (diabetic ketoacidoses) (Acute) Date of Admission: 02/02/20 Date of Discharge: 02/04/20 - Primary Discharge Diagnosis Acute Problems: Active Problems (Last Reviewed 10/24/18 @ 05:[address] Jr Bardales MD) 1. DKA w/ Diabetes mellitus type II, Uncontrolled with poor compliance 2. Cough, dyspnea, nausea, emesis, RULED OUT Acute Viral Syndrome, COVID-19 and likely secondary to #3 3. Acute Bilateral pulmonary emboli 4. CAD, History of [place] 5. History CVA 6. Chronic back pain 7. Chronic asthma 8. Hypertension 9. Hyperlipidemia 10. Chronic constipation 11. Allergic rhinitis 12. Anxiety and depression 13. GERD with history of gastric ulcer - Secondary Discharge Diagnosis Chronic Problems: Chronic Problems (Last Reviewed 10/24/18 @ 05:[address] Jr Bardales MD) Depression (Chronic) Osteoarthritis (Chronic) Asthma (Chronic) Anxiety (Chronic) CAD (coronary artery disease) (Chronic) HTN (hypertension) (Chronic) BP controlled at this visit. DM2 (diabetes mellitus, type 2) (Chronic) States recently has been told he can not return to work. He has been having some issue dealing with this so he has been trying to find a routine and can not get into one. He has forgotten to check BG and he is forgetting some of his insulin. He is getting kids ready for school while is picking up extra work. Feels like he will get adjusted eventually. We discussed ways to get into routine and helpful ways of getting into habits. He does not currently feel like he would be interested in counseling. History of myocardial infarction (Chronic) Hospital Course and Treatment Imaging Results: 02/04/20 06:40 Echo Complete [ECHO] Routine Dr. Aguila ICU Operations: [email or web address] Procedures: 2-D Echocardiogram, EKG Summary of Care Provided: The patient is a 54 y/o M w/ PMHx: CAD with Hx DE, Asthma, Anxiety and Depression, HTN, HLD, GERD w/ history of gastric ulcer, Migraines, Allergic rhinitis, Chronic back pain, Diabetes mellitus type II who presented to the [facility] ED on 02/02/20 with history of fatigue, weakness, malaise, COVID concerning symptoms as well as poor compliance with his medications and blood sugar assessments with significant hyperglycemia with near syncopal event while straining to have a bowel movement on the toilet with history of chronic constipation prompting eventual ED presentation. Admission CBC w/ WBC 17.3 with left shift with repeat 02/03/2020 with WBC 12.7 with improved left shift, BMP w/ sodium 133, anion gap 23, glucose 395, troponin less than 0.015, lactic acid 1.6, large acetone, VBG with pH 7.16, PO2 43 on 4 L nasal cannula. Patient admitted to the ICU initially with commissary helper consultation, maintained on insulin drip until gap closure x2 with transition to medical surgical status on 02/03/2020 a.m. with transition off insulin drip to subcu insulin with increase to 40 unit BID from home 30 unit BID levemir with crossover with initiation of diet, hemoglobin A1c 13.95, mag and phos assessed as supplemented as needed, nutrition consulted for education and teaching. During admission, patient noted generalized fatigue x 2 weeks with additionally recent history of vague non- productive cough, dyspnea, nausea, emesis, headaches although he has these chronically, loss of sense of taste but notes occurs with rhinitis therefore patient assessed for COVID. COVID testing negative and antibody testing unremarkable. Additional labs obtained included procalcitonin 0.14, CRP 159, CPK 17, Ferritin 839, d-dimer 1.82, LDH 100. Given elevated dimer, obtained CTPA with multiple pulmonary emboli in the branches the right and left lower lobe pulmonary arteries as well as in the right upper lobe pulmonary arterial branches. Patient started on therapeutic lovenox until assessed cost of xarelto. He noted history of LLE swelling and discomfort that was transient potentially 2 weeks prior. ECHO additionally obtained. Patient evaluated by physical and Occ upational Therapy and plans home versus outpatient therapies at discharge. Given clinical improvement patient discharged to home with strongly encouraged diet and lifestyle alterations, medication compliance with increased to Levemir 40 twice daily, continued bowel regimen given chronic constipation with specific usage parameters as well as Xarelto with follow-up closely with primary care physician and referral to endocrinology. DAY OF DISCHARGE PROGRESS NOTE: Subjective: Patient without acute event overnight per self and nursing report. Patient notes he is coughing less and has less dyspnea. He denies any current fever, chills, nausea, emesis, abdominal pain, chest pain. Patient agreeable to discharge to home with outpatient therapies, increased Levemir and initiation of bowel regimen as well as Xarelto for recently diagnosed pulmonary emboli. Patient will be discharged with follow-up with primary care physician within 3-5 days in addition to referral to endocrinology. Objective: T 98.4, heart rate 90, BP 112/78, respiratory rate 16, on a percent on room air. Physical Examination: General: awake, alert, oriented x 3 and cooperative, seated upright in the ICU bed, NAD, notes slept well and denies any current complaints. Skin: normal color, turgor, no icterus, cyanosis. HEENT: AT/NC, EOMI, PERRLA, MMM. Lungs: CTA bilaterally, moderate effort, mild decrease BL bases, no rales, ronchi or wheezing; Heart: Regular rate and rhythm; no gallop, rub audible. Abdomen: soft, obese, NTTP, ND, normal BS. Extremities: no cyanosis, clubbing, or edema although did note that left lower extremity had been swollen and uncomfortable approximately 2 weeks prior, currently appears normalized. Neurological: patient awake, alert, oriented x 3; cognitive function appears intact upon questioning,; pupils equally reactive to light and accomodation; cranial nerves II-XII grossly normal, moving all 4 extremities, strength improving, mildly to moderately global decreased. Psychiatric: affect appears less fatigued, more normal, no acute evidence of depressive or anxiety feelings. Assessment and Plan: Please see hospital summary above. Patient Problems: Active and Suspected Problems (Last Reviewed 10/24/18 @ 05:[address] Jr Bardales MD) DKA (diabetic ketoacidoses) (Acute) - Physical Exam Vitals/I&O's: Vital Signs Temp Pulse Resp BP Pulse Ox 98.4 F 90 18 137/96 H 100 02/04/20 08:00 02/04/20 08:00 02/04/20 08:00 02/04/20 08:00 02/04/20 08:00 Oxygen Delivery Method Room Air Weight: 230 lb 9.656 oz Body Mass Index (BMI) 30.6 Finger Stick Blood Glucose 163 Intake and Output for Last 24 Hours 02/02/20 02/03/20 02/04/20 23:59 23:59 23:59 Intake Total 1000 / 1000 6510.92 / 6510.92 240.75 / 240.75 Output Total 1300 / 1300 650 / 650 Balance 1000 / 1000 5210.92 / 5210.92 -409.25 / -409.25 Laboratory Results 02/03/20 08:32: POC Glucose 163 H 02/03/20 08:35: Sodium 137, Potassium 3.6, Chloride 106, Carbon Dioxide 19.0 L, Anion Gap 12, BUN 13, Creatinine 1.10, Estim Creat Clear Calc 80.81, Est GFR (MDRD) Af Amer 89, Est GFR (MDRD) Non-Af 74, BUN/Creatinine Ratio 11.8, Glucose 170 H, Calcium 8.4 L 02/03/20 08:35: Hemoglobin A1c 13.9 H 02/03/20 08:35: D-Dimer Quant (PE/DVT) 1.82 H* 02/03/20 08:35: Ferritin 839 H, Lactate Dehydrogenase 100, Total Creatine Kinase 17 L, C-React Prot Ext Range 159.00 H 02/03/20 08:35: Procalcitonin 0.14 H 02/03/20 08:35: COVID-19 (COLE) Negative 02/03/20 08:35: SARS Serology Nonreactive 02/03/20 10:47: POC Glucose 99 02/03/20 15:46: POC Glucose 290 H 02/03/20 21:37: POC Glucose 404 H 02/04/20 03:30: WBC 10.8, RBC 4.67, Hgb 13.0, Hct 38.6 L, MCV 82.7, MCH 27.8, MCHC 33.7, RDW Std Deviation 38.6, RDW Coeff of Luanne 13.2, Plt Count 263, MPV 8.8, Immature Gran % (Auto) 1.100 H, Neut % (Auto) 66.7, Lymph % (Auto) 21.6, Gulf % (Auto) 9.6, Eos % (Auto) 0.6, Baso % (Auto) 0.4, Absolute Neuts (auto) 7.2, Absolute Lymphs (auto) 2.34, Nucleated RBC % 0 02/04/20 03:30: Sodium 135 L, Potassium 3.6, Chloride 104, Carbon Dioxide 19.0 L , Anion Gap 12, BUN 13, Creatinine 0.95, Estim Creat Clear Calc 93.57, Est GFR (MDRD) Af Amer 106, Est GFR (MDRD) Non-Af 88, BUN/Creatinine Ratio 13.7, Glucose 269 H, Calcium 8.6, Phosphorus 1.7 L, Magnesium 2.2, Total Bilirubin 0.30, AST 7 L, ALT 9 L, Alkaline Phosphatase 100, Total Protein 6.9, Albumin 2.2 L, Globulin 4.7 H, Albumin/Globulin Ratio 0.5 L Current Medications Acetaminophen (Tylenol) 650 mg PO Q6H PRN PRN PRN Reason: Pain Score 1-10 /Temp>100.7 Al Hydroxide/Mg Hydroxide (Mylanta Ii) 30 ml PO Q6H PRN PRN PRN Reason: Gastric Burning Albuterol Sulfate (Ventolin Aerosols) 2.5 mg INHALATION Q4H PRN PRN PRN Reason: SHORTNESS OF BREATH Amitriptyline HCl (Elavil) 100 mg PO QHS [facility] Last Admin: 02/03/20 21:40 Dose: 100 mg Documented by: [facility] Admin: 02/04/20 08:01 Dose: 81 mg Documented by: Atorvastatin Calcium (Lipitor) 80 mg PO QHS [facility] Last Admin: 02/03/20 21:40 Dose: 80 mg Documented by: Bisacodyl (Dulcolax) 10 mg PO DAILY PRN PRN PRN Reason: Constipation Last Admin: 02/04/20 08:02 Dose: 10 mg Documented by: Clopidogrel Bisulfate (Plavix) 75 mg PO DAILY [facility] Last Admin: 02/04/20 08:02 Dose: 75 mg Documented by: Dextrose (D50w Syringe) 0 gm IV X1 PRN; Protocol PRN Reason: Hypoglycemia Divalproex Sodium (Depakote Er) 500 mg PO DAILY [facility] Last Admin: 02/04/20 08:02 Dose: 500 mg Documented by: Docusate Sodium (Colace) 200 mg PO BID PRN PRN PRN Reason: Constipation Last Admin: 02/04/20 08:02 Dose: 200 mg Documented by: Enoxaparin Sodium (Lovenox) 100 mg SC Q12@0600,1800 [facility] Last Admin: 02/04/20 04:44 Dose: 100 mg Documented by: Glucagon () 1 mg IM .X1 PRN PRN Reason: Hypoglycemia Sodium Chloride () 250 mls @ 15 mls/hr IV .[id number] PRN PRN Reason: Saline Flush Last Infusion: 02/04/20 08:12 Dose: 0 mls/hr Documented by: Sodium Chloride () 250 mls @ 15 mls/hr IV .[id number] PRN PRN Reason: Additional IVPB Infusion Potassium Phosphate 30 mm/ (Sodium Chloride) 260 mls @ 42 mls/hr IV X1 ONE Stop: 02/04/20 13:26 Last Admin: 02/04/20 08:12 Dose: 42 mls/hr Documented by: Insulin Glargine (Lantus (Bkc)) 40 units SC BID [facility] Insulin Human Lispro (Humalog Kwikpen (Bkc)) 0 unit SC ACHS [facility]; Protocol Last Admin: 02/03/20 21:39 Dose: 10 u Documented by: Insulin Human Lispro (Humalog Kwikpen (Bkc)) 5 unit SC TIDAC [facility] Loratadine (Claritin) 10 mg PO DAILY [facility] Last Admin: 02/04/20 08:02 Dose: 10 mg Documented by: Losartan Potassium (Cozaar) 100 mg PO DAILY [facility] Last Admin: 02/04/20 08:02 Dose: 100 mg Documented by: Ondansetron HCl (Zofran) 4 mg IV Q8H PRN PRN PRN Reason: NAUSEA/VOMITING Last Admin: 02/03/20 05:31 Dose: 4 mg Documented by: Pantoprazole Sodium (Protonix) 20 mg PO BID [facility] Last Admin: 02/04/20 08:02 Dose: 20 mg Documented by: Polyethylene Glycol (Miralax) 17 gm PO DAILY [facility] Last Admin: 02/04/20 08:02 Dose: 17 gm Documented by: Sertraline HCl (Zoloft) 200 mg PO DAILY [facility] Last Admin: 02/04/20 08:01 Dose: 200 mg Documented by: Sodium Chloride () 10 - 40 ml IV UD PRN PRN Reason: SALINE FLUSH Last Admin: 02/04/20 03:33 Dose: 20 ml Documented by: Discharge Activity: - - Continue to use assist devices as needed for activity. May resume sexual activity in: No Restrictions Weight Bearing Status: Weight bearing as tolerated Call your doctor if you observe: Fever of 101 or Higher, Inability to urinate, Inability to have a bowel movement, Shortness of breath, Dizziness, Fainting spells, Chest pain, Uncontrolled pain Home Medications: Medications to take at Discharge Albuterol Inhaler [Ventolin Hfa] 1 puff INHALATION Q4H PRN PRN 01/28/15 Losartan/Hydrochlorothiazide [Hyzaar 100-25 Tablet] 1 tab PO DAILY 01/28/15 Sertraline HCl [Zoloft] 200 mg PO DAILY 01/28/15 cycloBENZAPRine HCl [Flexeril] 10 mg PO TID PRN PRN 01/28/15 Metformin HCl [Metformin HCl ER] 2,000 mg PO DAILY 12/29/15 Aspirin [Adult Low Dose Aspirin EC] 81 mg PO DAILY 06/03/16 Cetirizine HCl [Zyrtec] 10 mg PO DAILY 06/03/16 Atorvastatin Calcium 80 mg PO QHS 09/27/17 Clopidogrel Bisulfate [Plavix] 75 mg PO DAILY 09/27/17 Amitriptyline HCl [Elavil] 100 mg PO QHS 10/16/17 Diltiazem HCl [Diltiazem 24Hr ER (Cd)] 180 mg PO DAILY 10/16/17 Divalproex Sodium [Depakote ER] 500 mg PO DAILY #30 tab.er.24h 10/24/18 Insulin Lispro [Humalog] 26 - 30 units SUBCUT TID 02/02/20 Insulin Detemir [Levemir] 40 unit SQ BID #1 vial 02/04/20 Polyethylene Glycol 3350 [Miralax] 17 gm PO DAILY #30 packet 02/04/20 Rivaroxaban [Xarelto] 1 tab PO UD #51 tab 02/04/20 Senna/Docusate Sodium [Senokot-S] 1 tab PO BID #60 tab 02/04/20 Following Prescrptions Were Given to Patient: Insulin Detemir [Levemir] 40 unit SQ BID #1 vial Polyethylene Glycol 3350 [Miralax] 17 gm PO DAILY #30 packet Transmission Status: Sent to [facility] Senna/Docusate Sodium [Senokot-S] 1 tab PO BID #60 tab Transmission Status: Sent to [facility] Rivaroxaban [Xarelto] 1 tab PO UD #51 tab Transmission Status: Sent to [facility] Primary Care Physician: Rod Elena MD [Primary Care Provider] - Please follow up with your Primary Care Physician in: Follow-up within 3-5 days. Please Follow Up With: Bhaskar Helm MD When: Follow-up to establish, first open visit. Patient Instructions: Using a Blood Sugar Log, Long-Term Complications of Diabetes, Hyperglycemia (High Blood Sugar), Resources for People with Diabetes, What Is Type 2 Diabetes?, Oral Therapy for Type 2 Diabetes, Types of Insulin, Healthy Meals for Diabetes, Treating Constipation, Pulmonary Embolism Disposition: Home with Home Health Minutes spent on discharge:: 35 Patient Condition:: Fair Medical Necessity - Tobacco Use Smoking Status: Never smoker Meaningful Use Info Meaningful Use Diagnoses (Choose all that apply): VTE - VTE Anticoag overlap given w/in hospital stay or rx'd at dc?: No Pt receive overlap for 5 days?: No Reason overlap not ordered, prescribed, or given for 5 days: Treatment Not Indicated - D/C on xarelto, therapeutic lovenox while inpatient Inpatient E&M: [id number] Disch Hosp
[2020-02-04 08:30] LABS: Bedside Glucose 255 mg/dL (70-110)
[2020-02-04] MEDS: Insulin Lispro 100 UNIT/ML INSULN.PEN SC ×2 (08:56→08:57)
--- NOTE | 2020-02-04 09:26 | CASEMGMT ---
MARLA CORONA Assessment Note Presentation: weakness, confusion Diagnosis: syncope, vasovagal, DKA Intro role of CM to patient in room. Pt is alert, able to participate in assessment. Discussed recommendations for therapy post discharge. Pt is agreeable to Oupt Therapy @ [facility]. MARLA CORONA let pt know script would be completed and faxed to [facility] for him. They will contact patient for first appointment. Pt states he or his can drive him. He has been using cane/walker at home, but is feeling weaker than normal. Insulin regimen changed on dc. Cost was too high per pt. Dr. Singletary changed prescription to his home Levemir with increased dosing which is covered under his insurance with lower copay. PCP: [facility] Specialists: Dr. Aguila Insurance: [facility] Preferred Pharmacy: [facility] Prescription Benefit: yes LNOK: Nivia Russo Living Arrangements: Lives with . Tranportation: can drive DME: walker, straight cane Patient DC Goals: Home DC Plan: Home with Outpt Shahrzad HENDERSONN RN ACM
[2020-02-04] MEDS: Ondansetron 4 MG/2 ML Vial IV (10:38)
--- NOTE | 2020-02-05 13:45 | CASEMGMT ---
MARLA CORONA Discharge Follow-Up Phone Call. Lace: 10 Strata: 3 Discharge Date: 02/04/20 Adm Dx: DKA, Possible COVID Attempted discharge follow-up phone call. No answer. VM message left for pt to return call if he has any questions/concerns/needs. Phone number provided. Dilcia SANTIAGO RN CM
== END 2020-02-04 12:00 | disposition home or self-care (01) | DRG 637 ==
LOC: ED 20:16 → ICU 02-03 00:14
PROVIDERS: Admitting Provider Family Medicine; Emergency Provider Emergency Medicine; PCP Family Medicine; Referring Provider Family Medicine; Visit Provider Family Medicine
DX: E11.10 Type 2 diabetes mellitus with ketoacidosis without coma (principal); I26.99 Other pulmonary embolism without acute cor pulmonale; E86.0 Dehydration; I25.2 Old myocardial infarction; I25.10 Atherosclerotic heart disease of native coronary artery without angina pectoris; Z86.73 Personal history of transient ischemic attack (TIA), and cerebral infarction without residual deficits; G89.29 Other chronic pain; M54.9 Dorsalgia, unspecified; J45.909 Unspecified asthma, uncomplicated; I10 Essential (primary) hypertension; E78.5 Hyperlipidemia, unspecified; K59.09 Other constipation; F32.9 Major depressive disorder, single episode, unspecified; F41.9 Anxiety disorder, unspecified; Z87.11 Personal history of peptic ulcer disease; K21.9 Gastro-esophageal reflux disease without esophagitis; M19.90 Unspecified osteoarthritis, unspecified site; Z79.899 Other long term (current) drug therapy; Z79.51 Long term (current) use of inhaled steroids; Z79.82 Long term (current) use of aspirin; Z79.4 Long term (current) use of insulin; Z91.14 Patient's other noncompliance with medication regimen
CPT/HCPCS: 71275; 74022; 80048; 80053; 80320; 82009; 82550; 82728; 82803; 82962; 83036; 83605; 83615; 83735; 84100; 84145; 84443; 84484; 85025; 85379; 86140; 86769; 87635; 93005; 93306; 97162; 97166; 97803; 99285; G2023; J7030; J7050; Q9957; Q9967; A4216; C8929; G0480; J2405; J7799; U0003

== ENCOUNTER 2020-03-23 17:35 | Observation (INO) | payer BC, MEDICARE, SELFPAY ==
[2020-02-03 00:23] VITALS: BMI 30.6
[2020-03-23] VITALS (9 sets, daily range): BP systolic 83–120; BP diastolic 64–82; PULSE 74–103; RESP 15–23; TEMP 36.6–37.1; O2SAT 98–100; BMI 33.6; BMI 34.0
--- NOTE | 2020-03-23 17:48 | EKG12_ITS ---
Test Reason : SYNCOPE Blood Pressure : / mmHG Vent. Rate : 098 BPM Atrial Rate : 098 BPM P-R Int : 158 ms QRS Dur : 086 ms QT Int : 374 ms P-R-T Axes : 045 -29 031 degrees QTc Int : 477 ms Normal sinus rhythm Leftward axis Confirmed by OREN JOHNSON, JAMAL ([id number]), film and video editor ERIKA TALBERT ([id number]) on 03/29/2020 9:19:17 AM Referred By: CAROLINE Confirmed By:JAMAL LOTT MD
--- NOTE | 2020-03-23 17:49 | ED.VIS.GEN ---
History of Present Illness Chief Complaint: Syncope Informant: Patient Narrative: Patient is a 55-year-old male with a past medical history of CVA, CAD, PEs, diabetes who presents to the emergency department for syncopal episode. He states that he got up around 1:00p and was feeling short of breath. Whenever he stood up he had a very brief passing out episode. He has had this happen before in the past. He took his blood pressure at home and had some readings in the 70s systolic. At this time he is currently denying any symptoms. Denies any headache or lightheadedness. Currently denies any chest pain or shortness of breath. No abdominal pain. Denies any recent illnesses including any cough, cold, congestion. No fevers or chills. He has not been nauseous or vomiting. Denies any diarrhea. No black tarry stools or bloody stools. States he has been compliant with all of his medications. He denies any significant leg swelling or calf pain. EMS did check his blood sugar and it was in the 250s. He states that this is very good for him. During the syncopal event he did fall to the ground. Denies striking his head. He is having right knee pain and right wrist pain from the fall. No obvious deformity. No neck pain or back pain. Past Medical History - Allergies and Home Meds Allergies/Adverse Reactions: Allergies levofloxacin [From Levaquin] Allergy (Verified 03/23/20 18:18) rash,swelling RED RASH, SWELLING Penicillins Allergy (Verified 03/23/20 18:18) Rash Prior records reviewed: Yes Past Medical History: - - CAD, CVA, diabetes, DKA, pulmonary embolism, hypertension, hyperlipidemia, anxiety/depression, GERD Surgical History: cholecystectomy, - - loop monitor Smoking Status: Never smoker - Family History Maternal Family History: Family History (Last Reviewed 10/24/18 @ 11:[address] Gm Crum MD) Father Asthma Heart disease Hypertension Mother Bleeding disorder Hypertension CVA (cerebral vascular accident) Brother Diabetes Heart disease Hypertension High cholesterol Family History: Reports: Stroke Paternal Family History: Family History (Last Reviewed 10/24/18 @ 11:[address] Gm Crum MD) Father Asthma Heart disease Hypertension Mother Bleeding disorder Hypertension CVA (cerebral vascular accident) Brother Diabetes Heart disease Hypertension High cholesterol Family History: Reports: Heart Disease Sibling Family History: Family History (Last Reviewed 10/24/18 @ 11:[address] Gm Crum MD) Father Asthma Heart disease Hypertension Mother Bleeding disorder Hypertension CVA (cerebral vascular accident) Brother Diabetes Heart disease Hypertension High cholesterol Family History: Reports: Diabetes, Heart Disease, Hypertension Review of Systems All systems negative except as indicated General: Denies: Chills, Fever, Sweats Eyes: Denies: Visual changes - bilaterally, Diplopia ENT: Denies: Rhinorrhea, Sore throat Cardiovascular: Denies: Chest pain, Palpitations Respiratory: Reports: Dyspnea, Dyspnea on exertion. Denies: Cough Gastrointestinal: Denies: Abdominal pain, Nausea, Vomiting, Diarrhea, Melena, Hematochezia Genitourinary: Denies: Dysuria, Hematuria, Frequency Musculoskeletal: Denies: Back pain, Extremity Pain Skin: Denies: Rash, Wounds Neurological: Reports: Weakness - Generalized. Denies: Headache, Numbness Physical Exam Vital Signs/Narrative: Vital Signs Temp Pulse Resp BP Pulse Ox 03/23/20 17:37 97.8 F 95 23 H 83/73 L 98 Inital Vital Signs reviewed: Yes General: Well nourished, Well developed, No Acute Distress Head: Normocephalic, Atraumatic Eyes: Perrl, EOMI ENT: Moist mucous membranes, No rhinorrhea Neck: Supple, Nontender Cardiovascular: Regular rate, Regular rhythm, No murmurs Respiratory: No distress, CTA bilaterally, Chest nontender Abdomen: Soft, Nontender, Nondistended, Normal bowel sounds Back: Nontender, Normal Inspection Extremities: Nontender, No edema Skin: Normal color, No rash Neurological: Alert, Oriented x3, Cranial nerves II-XII grossly intact, Normal Strength, Normal Sensation Psychological: Normal affect, Normal Mood Diagnostic/Tx/Re-eval - EKG Initial EKG Interpretation: - - Rate of 98 bpm in sinus rhythm. Normal intervals. Left axis deviation. No ST elevations or depressions appreciated. No T wave abnormalities. - Medical Decision Making Patient presents the emerge department for a syncopal episode. His only other symptom associated this was shortness of breath. Upon arrival to the emergency department he is hypotensive with systolics in the 80s to 90s. His map has been above 65. He is denying any chest pain. EKG obtained upon arrival which did not show any signs of ischemia or arrhythmia. Obtaining basic lab work along with imaging. Patient otherwise is nontoxic-appearing and conversing well. Does not appear in any distress whatsoever. Lab work-up showed a mildly elevated white blood cell count. Chest x-ray did not show any evidence of pneumonia. No other source of infection currently identified for sepsis. Blood pressure did normalize after 1 L of normal saline. His lactate did come back mildly elevated at 3.5. Whenever they sat him up to do the chest x-ray his blood pressure dropped again. Will give another liter of normal saline. At this time does not appear infectious to be causing patient's symptoms. With the orthostatic hypotension and history of CAD will bring him to the hospital for further evaluation and management. Patient understands and is agreeable this plan. He otherwise has been stable throughout ED stay. Radiologist read the wrist x-ray as possible scaphoid fracture that is nondisplaced. He has no snuffbox tenderness. All of his tenderness is over the ulnar aspect. ED Disposition - Plan for ED Patient: Disposition: Acute [facility] Diagnosis: Hypotension, Syncope and collapse, Lactic acidosis
--- NOTE | 2020-03-23 17:52 | RAD_ITS ---
STUDY: X-RAY - RIGHT WRIST REASON FOR EXAM: Male, 55 years old. RIGHT WRIST PAIN AFTER SYNCOPAL EPISODE TECHNIQUE: 3 view(s) of the wrist were obtained. COMPARISON: None. FINDINGS: There appears to be a very subtle nondisplaced fracture across the waist of the scaphoid. This could be confirmed with CT scan or MRI if clinically indicated. Normal visualized distal radius and ulna. Normal radiocarpal articulation. Normal distal radioulnar articulation. Otherwise normal carpal bones. Normal carpal articulations. Normal carpometacarpal articulation of the thumb. Normal second through fifth carpometacarpal articulations. Normal visualized metacarpal bones. The soft tissue structures are unremarkable. RAD/Wrist min 3 Views IMPRESSION: There appears to be a very subtle nondisplaced fracture across the waist of the scaphoid. This could be confirmed with CT scan or MRI if clinically indicated. Electronically Signed: Rajiv Wilde MD at 18:39 EDT , Service support ,
--- NOTE | 2020-03-23 17:52 | RAD_ITS ---
STUDY: X-RAY - RIGHT KNEE REASON FOR EXAM: Male, 55 years old. RIGHT KNEE PAIN AFTER SYNCOPAL EPISODE TECHNIQUE: 3 view(s) of the knee. COMPARISON: None. FINDINGS: Normal visualized distal femur. Normal visualized proximal tibia and fibula. Normal proximal tibiofibular articulation. There is no demonstrated fracture. Normal medial femorotibial compartment. Normal lateral femorotibial compartment. There is mild degenerative arthrosis of the patellofemoral articulation. There is a moderate volume joint effusion. The soft tissue structures are unremarkable. RAD/Knee 3 Views IMPRESSION: No fracture. No dislocation. Mild patellofemoral osteoarthritis. Effusion. Electronically Signed: Rajiv Wilde MD at 18:39 EDT , Service support ,
[2020-03-23] MEDS: 0.9% Normal Saline 1,000 ML 999 ML IV ×2 (17:56→18:30)
--- NOTE | 2020-03-23 18:02 | RAD_ITS ---
STUDY: X-RAY CHEST REASON FOR EXAM: Male, 55 years old. SYNCOPAL EPISODE TECHNIQUE: Single AP portable view of the chest. COMPARISON: 02/02/2020. FINDINGS: The lungs are clear and expanded. There is no demonstrated pleural abnormality. Normal size heart. Stable appearance of implanted library monitor. Normal mediastinum and shani. Normal visualized pulmonary arteries. Normal visualized aortic arch and descending thoracic aorta. Normal visualized thoracic spine. Normal visualized ribs, clavicles, and shoulders. There is no demonstrated abnormality of the visualized soft tissue structures of the upper abdomen. RAD/Chest 1 View (Portable) IMPRESSION: No definite acute or significant abnormality seen. Electronically Signed: Rajiv Wilde MD at 18:40 EDT , Service support ,
[2020-03-23 18:04] LABS: Absolute Lymphocyte Count 4.45 X10^3/uL (0.83-4.51); Absolute Neutrophil Count 9.2 X10^3/uL (2.0-7.7); Basophil# 0.08 X10^3/uL; Basophil% 0.5 % (0-1); Eosinophil# 0.31 X10^3/uL; Hematocrit 45.4 % (40-54); Lymphocyte # 4.45 X10^3/ul (4.0); Lymphocyte % 28.8 % (19-41); Mean Corp Hgb Conc 35.2 g/dL (32-36); Mean Corpuscular Hgb 28.3 pg (27.0-32.0); Mean Corpuscular Volume 80.4 fL (80-94); Mean Platelet Vol. 9.8 fl (6.2-12.0); Monocyte# 1.37 X10^3/uL; Monocyte% 8.9 % (0-10); NRBC Flagged by Analyzer 0 % (0-5); Neutrophil # 9.18 X10^3/uL (2.7-7.7); Neutrophil % 59.3 % (47-70); Platelet Count 339 K/mm3 (150-450); RBC Distribution Width CV 12.3 % (11.6-14.6); RBC Distribution Width SD 35.2 fl (35.1-43.9); Red Blood Count 5.65 M/mm3 (4.6-6.2); White Blood Count 15.5 K/mm3 (4.4-11.0)
[2020-03-23 18:16] LABS: ALB/GLOB Ratio 0.8 RATIO (0.9-2.4); AST(SGOT) 8 U/L (15-37); Alanine Aminotransfer ALT/SGPT 14 U/L (16-61); Albumin, Serum 3.5 g/dL (3.2-5.0); Alkaline Phosphatase 141 U/L (45-117); Anion Gap 8 (5-15); BUN 30 mg/dL (7-18); Calcium,Total 9.2 mg/dL (8.5-10.1); Chloride 101 mmol/L (98-107); Creatinine, Serum 1.25 mg/dL (0.70-1.30); EST Glomerular Filtration Rate 64 mL/min (>60); Est Glom Filt Rate - Afr Amer 77 mL/min (>60); Estimated Creatinine Clearance 72.43 ml/min; Globulin 4.5 g/dL (2.2-4.2); Glucose 234 mg/dL (74-106); Potassium 3.6 mmol/L (3.5-5.1); Sodium Level 135 mmol/L (136-145)
[2020-03-23 18:20] LABS: Lactic Acid 3.5 mmol/L (0.4-1.9)
[2020-03-23 19:04] LABS: Mucous, Urine 0 SEEN /hpf (<or=2+); Red Blood Cells-Urine 0 SEEN /hpf (0-5); Squamous Epithelial Cells - UA 0 SEEN /hpf (0-5)
[2020-03-23 19:07] LABS: Color, Urine Yellow (Yellow); Glucose, Dipstick 1000 mg/dl (Normal); Ketone-Dipstick 5 mg/dl (Negative); Leukocyte Esterase-Dipstick 25 /ul (Negative); Nitrite-Dipstick Negative (Negative); Occult Blood-Urine Negative /ul (Negative); Protein-Dipstick 100 mg/dl (Negative); Urine Bilirubin Dipstick Negative (Negative); Urine Clarity Clear (Clear); Urine Urobilinogen 1 mg/dl (Normal)
[2020-03-23 19:32] LABS: Bacteria 1+ /hpf (None Seen); Hyaline Cast 0-5 SEEN /lpf (0-5); White Blood Cells 0-5 SEEN /hpf (0-5)
--- NOTE | 2020-03-23 19:48 | HP.PCM_ITS ---
Problem List (1) Hypotension Status: Acute (2) Syncope and collapse Status: Acute (3) Lactic acidosis Status: Acute (4) Depression Status: Chronic (5) Osteoarthritis Status: Chronic (6) Asthma Status: Chronic Qualifiers: Asthma persistence: unspecified Asthma complication type: uncomplicated (7) Anxiety Status: Chronic (8) CAD (coronary artery disease) Status: Chronic (9) HTN (hypertension) Status: Chronic Qualifiers: Comment: BP controlled at this visit. (10) DM2 (diabetes mellitus, type 2) Status: Chronic Qualifiers: Comment: States recently has been told he can not return to work. He has been having some issue dealing with this so he has been trying to find a routine and can not get into one. He has forgotten to check BG and he is forgetting some of his insulin. He is getting kids ready for school while is picking up extra work. Feels like he will get adjusted eventually. We discussed ways to get into routine and helpful ways of getting into habits. He does not currently feel like he would be interested in counseling. (11) History of myocardial infarction Status: Chronic History of Present Illness Date of Admission: 03/23/20 Chief Complaint: syncope The patient is a 55 year old M with a significant history of CVA; diabetes mellitus; and hypertension who presents to the emergency department with syncope. His symptoms occurred few hours before presentation. Patient's felt like he was going to pass out and he eventually passed out. Before he realized he was on the floor with his legs in a crooked position. He reports that he fell on his legs. He has pain in his right knee. Also he has pain in his right wrist. Reportedly at the emergency department when patient was sat up on his bed his blood pressure dropped. Reportedly before getting to the hospital his blood pressure was in the 70s. His initial blood pressure at the emergency department was 83/73. He was given 2 L of normal saline and his blood pressure improved. His lactic acid was 3.5. He has a loop recorder placed when he had his first stroke. He pressed the button on the loop recorder. He is hoping that the interpretation of the loop recorder at that time will be discussed with him by his plastic tile setter, Dr. Islas. Past Medical History Past Medical History (Chronic Problems): Chronic Problems (Last Reviewed 03/23/20 @ 20:[address] Jr Bardales MD) Depression (Chronic) Osteoarthritis (Chronic) Asthma (Chronic) Anxiety (Chronic) CAD (coronary artery disease) (Chronic) HTN (hypertension) (Chronic) BP controlled at this visit. DM2 (diabetes mellitus, type 2) (Chronic) States recently has been told he can not return to work. He has been having some issue dealing with this so he has been trying to find a routine and can not get into one. He has forgotten to check BG and he is forgetting some of his insulin. He is getting kids ready for school while is picking up extra work. Feels like he will get adjusted eventually. We discussed ways to get into routine and helpful ways of getting into habits. He does not currently feel like he would be interested in counseling. History of myocardial infarction (Chronic) Medical History: Medical History (Last Reviewed 03/23/20 @ 20:[address] Jr Bardales MD) Anxiety and depression F41.8 Arthritis M19.90 Asthma J45.909 Back pain M54.9 Back problem M53.9 Bruises easily R23.8 Chest pain R07.9 Diabetes type 2, uncontrolled E11.65 dx : 2008 last exacerbation : dka : never hypoglycemic episode : never er visit : never Diarrhea R19.7 Difficulty balancing R29.818 Fatigue R53.83 Frequent headaches R51 GI problem R19.8 Gallstones K80.20 Gout M10.9 Hay fever J30.1 Hearing problem H91.90 Heart disease I51.9 High cholesterol E78.00 Kidney stones N20.0 Knee pain M25.569 Limb weakness R29.898 Migraines G43.909 Neuropathy G62.9 Pneumonia J18.9 SOB (shortness of breath) R06.02 Seasonal allergies J30.2 Stomach ulcer K25.9 Stroke I63.9 Vision problem H54.7 Weight loss R63.4 HTN (hypertension) I10 Allergies levofloxacin [From Levaquin] Allergy (Verified 03/23/20 18:18) rash,swelling RED RASH, SWELLING Penicillins Allergy (Verified 03/23/20 18:18) Rash Home Medications: Ambulatory Orders Medication Instructions Recorded Albuterol Inhaler [Ventolin Hfa] 1 puff INHALATION Q4H PRN PRN 01/28/15 Aspirin [Adult Low Dose Aspirin EC] 81 mg PO DAILY 06/03/16 Clopidogrel Bisulfate [Plavix] 75 mg PO DAILY 09/27/17 Diltiazem HCl [Diltiazem 24Hr ER 180 mg PO DAILY 10/16/17 (Cd)] Insulin Lispro [Humalog] 26 - 30 units SUBCUT TIDCM 02/02/20 Insulin Detemir [Levemir] 40 unit SQ BID #1 vial 02/04/20 Atorvastatin Calcium [Lipitor] 80 mg PO DAILY 03/23/20 Cetirizine HCl 10 mg PO DAILY 03/23/20 Cholecalciferol (VIT D3) [Vitamin 2,000 unit PO DAILY 03/23/20 D] Gabapentin [Neurontin] 100 mg PO QHS 03/23/20 Hydrochlorothiazide [Hctz] 25 mg PO DAILY 03/23/20 Losartan Potassium 100 mg PO DAILY 03/23/20 Rivaroxaban [Xarelto] 20 mg PO DAILY 03/23/20 Sertraline HCl [Zoloft] 200 mg PO DAILY 03/23/20 metFORMIN (XR) [Glucophage Xr] 2,000 mg PO DAILY 03/23/20 Surgical History: Surgical History (Last Reviewed 03/23/20 @ 20:[address] Jr Bardales MD) History of ERCP Z98.890 History of tonsillectomy Z98.890, Z90.89 Hx of cholecystectomy Z98.890, Z90.49 Surgical History: cholecystectomy, - - loop monitor Psychiatric History: Anxiety, Depression Smoking Status: Never smoker - *Family History Maternal Family History: Family History (Last Reviewed 03/23/20 @ 20:[address] Jr Bardales MD) Father Asthma Heart disease Hypertension Mother Bleeding disorder Hypertension CVA (cerebral vascular accident) Brother Diabetes Heart disease Hypertension High cholesterol History Items: Stroke Paternal Family History: Family History (Last Reviewed 03/23/20 @ 20:[address] Jr Bardales MD) Father Asthma Heart disease Hypertension Mother Bleeding disorder Hypertension CVA (cerebral vascular accident) Brother Diabetes Heart disease Hypertension High cholesterol History Items: Heart Disease Sibling Family History: Family History (Last Reviewed 03/23/20 @ 20:[address] Jr Bardales MD) Father Asthma Heart disease Hypertension Mother Bleeding disorder Hypertension CVA (cerebral vascular accident) Brother Diabetes Heart disease Hypertension High cholesterol History Items: Diabetes, Heart Disease, Hypertension Review of Systems Constitutional: Denies: Chills, Fever, Weight Change HEENT: Denies: Head Aches, Sinus Congestion, Sinus Drainage Cardiovascular: Reports: Syncope. Denies: Chest Pain, Palpitations Respiratory: Reports: Shortness of Breath. Denies: Cough, Sputum production Gastrointestinal: Denies: Abdominal Pain, Nausea, Vomiting Genitourinary: Denies: Dysuria Musculoskeletal: Reports: Joint Pain - Right knee pain and right wrist pain, Joint Tenderness - Right knee and right wrist Skin: Denies: Rash, Wounds Neurological: Denies: Numbness, Tingling, Focal weakness Psychiatric: Denies: Anxiety, Depression, Homicidal Ideations, Suicidal Ideations Hematologic/ Lymphatic: Denies: Easy Bruising, Easy Bleeding VTE Information - Inpt Only VTE Present on Admission: No VTE Mechan Device Prophylaxis: None VTE Pharm Prophylaxis ordered?: No Reason prophylaxis not ordered:: Treatment Not Indicated - Home Xarelto continued Patient Problems: Active and Suspected Problems (Last Reviewed 03/23/20 @ 20:[address] Jr Bardales MD) Hypotension (Acute) Syncope and collapse (Acute) Lactic acidosis (Acute) - Physical Exam Vitals/I&O's: Vital Signs Temp Pulse Resp BP Pulse Ox 98.8 F 74 15 112/82 H 99 03/23/20 19:23 03/23/20 19:23 03/23/20 19:23 03/23/20 19:23 03/23/20 19:23 Oxygen Delivery Method Room Air Weight: 112.4 kg Body Mass Index (BMI) 33.6 Finger Stick Blood Glucose 163 Intake and Output for Last 24 Hours 03/21/20 03/22/20 03/23/20 23:59 23:59 23:59 Intake Total 1000 / 1000 Balance 1000 / 1000 General: Alert, Oriented x3, Cooperative HEENT: Atraumatic, PERRLA, EOMI, Normocephalic Neck: Supple, No JVD, Negative Carotid Bruits Lungs: Clear to auscultation, Normal air movement Cardiovascular: Regular rate, Regular Rhythm, Normal S1, Normal S2, No murmurs Abdomen: Bowel Sounds Present, Soft, Non Tender Extremities: No edema, Capillary Refill Less than 3 Seconds Skin: - - Abrasion on right knee Musculoskeletal: No Tenderness to Palpation of Joints or Extremities Neurological: Cranial nerves II-XII grossly intact Psych/Mental Status: Normal Affect, Appropriate Laboratory Results 03/23/20 17:40: WBC 15.5 H, RBC 5.65, Hgb 16.0, Hct 45.4, MCV 80.4, MCH 28.3, MCHC 35.2, RDW Std Deviation 35.2, RDW Coeff of Luanne 12.3, Plt Count 339, MPV 9.8, Immature Gran % (Auto) 0.500, Neut % (Auto) 59.3, Lymph % (Auto) 28.8, [place] % (Auto) 8.9, Eos % (Auto) 2.0, Baso % (Auto) 0.5, Absolute Neuts (auto) 9.2 H, Absolute Lymphs (auto) 4.45, Nucleated RBC % 0 03/23/20 17:40: Sodium 135 L, Potassium 3.6, Chloride 101, Carbon Dioxide 26.0, Anion Gap 8, BUN 30 H, Creatinine 1.25, Estim Creat Clear Calc 72.43, Est GFR (MDRD) Af Amer 77, Est GFR (MDRD) Non-Af 64, BUN/Creatinine Ratio 24.0 H, Glucose 234 H, Calcium 9.2, Total Bilirubin 0.50, AST 8 L, ALT 14 L, Alkaline Phosphatase 141 H, Troponin I < 0.015, Total Protein 8.0, Albumin 3.5, Globulin 4.5 H, Albumin/Globulin Ratio 0.8 L 03/23/20 17:40: Lactic Acid 3.5 H* 03/23/20 18:42: Urine Color Yellow, Urine Clarity Clear, Urine pH 5.0, Ur Specific [place] 1.020, Urine Protein 100 H, Urine Glucose (UA) 1000 H, Urine Ketones 5 H, Urine Occult Blood Negative, Urine Nitrite Negative, Urine Bilirubin Negative, Urine Urobilinogen 1 H, Ur Leukocyte Esterase 25 H, Urine RBC 0 SEEN, Urine WBC 0-5 SEEN, Ur Squamous Epith Cells 0 SEEN, Urine Bacteria 1+, Hyaline Casts 0-5 SEEN, Urine Mucus 0 SEEN Assessment/Plan All Active Problems (Last Reviewed 03/23/20 @ 20:[address] Jr Bardales MD) Hypotension (Acute) Syncope and collapse (Acute) Lactic acidosis (Acute) Acute CVA (cerebrovascular accident) (Ruled-out) Right sided weakness (Resolved) Headache (Resolved) Chest pain (Resolved) The patient is a 55 year old M with a significant history of CVA; diabetes mellitus; and hypertension who presents to the emergency department with syncope and collapse. Syncope and collapse Likely from orthostasis. Normal saline bolus given at emergency department and maintained on normal saline maintenance infusion. Check an echocardiogram EKG was unremarkable Patient report that his cardiology group will call him to discuss reading from loop recorder. Discussed with patient that when his cardiology group calls him he should get a direct number from cardiology group so that Hospitalist can speak with cardiology group. Hold home blood pressure medication at this time. At home patient is on hydrochlorothiazide, losartan and Cardizem. Tylenol PRN for pain. Lactic acidosis Likely from syncope and metformin use. Received normal saline bolus at emerge ncy department. Maintain on normal saline IV infusion. Trend lactic acid. History of stroke Aspirin, Plavix and Xarelto continued Depression/anxiety Zoloft continued Diabetes mellitus Patient with hyperglycemia on presentation Adjust home basal and prandial insulin. Add correction scale insulin. Hold metformin because of lactic acidosis. DVT prophylaxis Not indicated since patient is on Xarelto. Xarelto continued. Inpatient E&M: 35595 In Hosp L3
[2020-03-23] MEDS: 0.9% Normal Saline 1,000 ML 100 ML IV (20:24)
[2020-03-23] MEDS: Insulin Lispro 100 UNIT/ML INSULN.PEN SC (21:04)
[2020-03-23] MEDS: Atorvastatin Calcium 80 MG Tablet PO (21:05)
[2020-03-23] MEDS: Acetaminophen 325 MG Tablet 650 MG PO (21:05)
[2020-03-23] MEDS: Gabapentin 100 MG Capsule PO (21:05)
[2020-03-23 21:51] LABS: Reflex Lactate? Y
[2020-03-23 21:51] LABS: Bedside Glucose 282 mg/dL (70-110)
[2020-03-23] MEDS: MELATONIN 3 MG TABLET PO (22:20)
[2020-03-23 22:49] LABS: Lactic Acid 1.4 mmol/L (0.4-1.9)
[2020-03-24] VITALS (10 sets, daily range): BP systolic 91–132; BP diastolic 49–101; PULSE 70–109; RESP 16–18; TEMP 36.4–36.9; O2SAT 96–98
[2020-03-24] MEDS: 0.9% Normal Saline 1,000 ML 100 ML IV (06:03)
[2020-03-24 06:23] LABS: Absolute Lymphocyte Count 3.32 X10^3/uL (0.83-4.51); Absolute Neutrophil Count 6.2 X10^3/uL (2.0-7.7); Basophil# 0.05 X10^3/uL; Basophil% 0.5 % (0-1); Eosinophil# 0.25 X10^3/uL; Eosinophils% 2.3 % (0-5); Hematocrit 44.4 % (40-54); Hemoglobin 15.3 g/dL (13.0-16.5); Lymphocyte # 3.32 X10^3/ul (4.0); Lymphocyte % 30.9 % (19-41); Mean Corp Hgb Conc 34.5 g/dL (32-36); Mean Corpuscular Hgb 28.2 pg (27.0-32.0); Mean Corpuscular Volume 81.8 fL (80-94); Mean Platelet Vol. 9.5 fl (6.2-12.0); Monocyte# 0.84 X10^3/uL; Monocyte% 7.8 % (0-10); NRBC Flagged by Analyzer 0 % (0-5); Neutrophil # 6.24 X10^3/uL (2.7-7.7); Platelet Count 221 K/mm3 (150-450); RBC Distribution Width CV 12.5 % (11.6-14.6); RBC Distribution Width SD 36.5 fl (35.1-43.9); Red Blood Count 5.43 M/mm3 (4.6-6.2); White Blood Count 10.8 K/mm3 (4.4-11.0)
[2020-03-24 06:36] LABS: Anion Gap 6 (5-15); BUN 23 mg/dL (7-18); BUN/Creat Ratio 25.9 RATIO (10-20); Calcium,Total 8.3 mg/dL (8.5-10.1); Chloride 101 mmol/L (98-107); Creatinine, Serum 0.89 mg/dL (0.70-1.30); EST Glomerular Filtration Rate 94 mL/min (>60); Est Glom Filt Rate - Afr Amer 114 mL/min (>60); Estimated Creatinine Clearance 98.71 ml/min; Glucose 346 mg/dL (74-106); Potassium 3.6 mmol/L (3.5-5.1); Sodium Level 134 mmol/L (136-145)
[2020-03-24 08:26] LABS: Bedside Glucose 369 mg/dL (70-110)
[2020-03-24] MEDS: Insulin Lispro 100 UNIT/ML INSULN.PEN 15 UNIT SC ×2 (08:26→12:21)
[2020-03-24] MEDS: Aspirin E.C. 81 MG Tablet PO (08:28)
[2020-03-24] MEDS: Rivaroxaban 20 MG Tablet PO (08:28)
[2020-03-24] MEDS: Insulin Lispro 100 UNIT/ML INSULN.PEN SC ×2 (08:29→12:22)
[2020-03-24] MEDS: Loratadine 10 MG Tablet PO (09:44)
[2020-03-24] MEDS: Sertraline 100 MG Tablet 200 MG PO (09:44)
[2020-03-24] MEDS: Clopidogrel Bisulfate 75 MG Tablet PO (09:44)
[2020-03-24 11:35] LABS: Bedside Glucose 254 mg/dL (70-110)
--- NOTE | 2020-03-24 13:50 | DCINST_ITS ---
- Discharge Diagnoses Current Active Problems: Current Active and Chronic Problems (Last Reviewed 03/23/20 @ 20:[address] Jr Bardales MD) Hypotension (Acute) Syncope and collapse (Acute) Lactic acidosis (Acute) You will use the following diet at home:: Calorie/Carbohydrate Controlled (specify 1200, 1400, etc), Cardiac Discharge Activity: Return to Normal Activity Call your doctor if you observe: Shortness of breath, Dizziness, Fainting spells, Chest pain Allergies/Adverse Reactions: Allergies levofloxacin [From Levaquin] Allergy (Verified 03/23/20 18:18) rash,swelling RED RASH, SWELLING Penicillins Allergy (Verified 03/23/20 18:18) Rash Medications to take at Discharge Albuterol Inhaler [Ventolin Hfa] 1 puff INHALATION Q4H PRN PRN 01/28/15 Aspirin [Adult Low Dose Aspirin EC] 81 mg PO DAILY 06/03/16 Clopidogrel Bisulfate [Plavix] 75 mg PO DAILY 09/27/17 Diltiazem HCl [Diltiazem 24Hr ER (Cd)] 180 mg PO DAILY 10/16/17 Insulin Lispro [Humalog] 26 - 30 units SUBCUT TIDCM 02/02/20 Insulin Detemir [Levemir] 40 unit SQ BID #1 vial 02/04/20 Atorvastatin Calcium [Lipitor] 80 mg PO DAILY 03/23/20 Cetirizine HCl 10 mg PO DAILY 03/23/20 Cholecalciferol (VIT D3) [Vitamin D3] 2,000 unit PO DAILY 03/23/20 Gabapentin [Neurontin] 100 mg PO QHS 03/23/20 Losartan Potassium 100 mg PO DAILY 03/23/20 Rivaroxaban [Xarelto] 20 mg PO DAILY 03/23/20 Sertraline HCl [Zoloft] 200 mg PO DAILY 03/23/20 metFORMIN (XR) [Glucophage Xr] 2,000 mg PO DAILY 03/23/20 Primary Care Physician: Rod Elena MD [Primary Care Provider] - Please follow up with your Primary Care Physician in: 1 Week Test Results: Test results from this visit will be discussed in further detail at your follow- up appointment, if applicable. Please Follow Up With: Bhaskar Helm MD When: As scheduled 03/26/2020 Proposed Discharge Date: 03/24/20
--- NOTE | 2020-03-24 13:51 | DS.PCM_ITS ---
<Marta Singh - Last Filed: 03/24/20 13:59> Discharge Date and Diagnosis Date of Admission: 03/23/20 Date of Discharge: 03/24/20 - Primary Discharge Diagnosis Acute Problems: Active Problems (Last Reviewed 03/23/20 @ 20:[address] Jr Bardales MD) 1. Syncope secondary to orthostatic hypotension 2. Lactic acidosis-reactive 3. Type 2 diabetes mellitus, uncontrolled with poor compliance 4. CAD 5. History of CVA 6. Chronic intermittent asthma 7. History of PE 8. Hypertension 9. Hyperlipidemia 10. Chronic back pain 11. GERD with history of gastric ulcer 12. Anxiety/depression - Secondary Discharge Diagnosis Chronic Problems: Chronic Problems (Last Reviewed 03/23/20 @ 20:[address] Jr Bardales MD) Depression (Chronic) Osteoarthritis (Chronic) Asthma (Chronic) Anxiety (Chronic) CAD (coronary artery disease) (Chronic) HTN (hypertension) (Chronic) BP controlled at this visit. DM2 (diabetes mellitus, type 2) (Chronic) States recently has been told he can not return to work. He has been having some issue dealing with this so he has been trying to find a routine and can not get into one. He has forgotten to check BG and he is forgetting some of his insulin. He is getting kids ready for school while is picking up extra work. Feels like he will get adjusted eventually. We discussed ways to get into routine and helpful ways of getting into habits. He does not currently feel like he would be interested in counseling. History of myocardial infarction (Chronic) Hospital Course and Treatment Imaging Results: Diagnostic Data Knee X-Ray 03/23/20 17:52 IMPRESSION: No fracture. No dislocation. Mild patellofemoral osteoarthritis. Effusion. Electronically Signed: Rajiv Wilde MD at 18:39 EDT , Service support , Wrist X-Ray 03/23/20 17:52 IMPRESSION: There appears to be a very subtle nondisplaced fracture across the waist of the scaphoid. This could be confirmed with CT scan or MRI if clinically indicated. Electronically Signed: Rajiv Wilde MD at 18:39 EDT , Service support , Chest X-Ray 03/23/20 18:02 IMPRESSION: No definite acute or significant abnormality seen. Electronically Signed: Rajiv Wilde MD at 18:40 EDT , Service support , Operations: None Procedures: None Summary of Care Provided: The patient is a 55 year old M admitted 03/23/2020 due to syncope. 1. Syncope secondary to orthostatic hypotension-orthostatic hypotension significantly improved following IV fluids. Suspect secondary to dehydration as a result of uncontrolled blood glucose. Recent echo in January 2020 demonstrated an EF of 65%. Troponin negative. No arrhythmias noted on telemetry. HCTZ discontinued. Follow-up with PCP in 1 week. 2. Lactic acidosis-reactive. No evidence of infectious etiology. Repeat lactic acid following fluids normal. Leukocytosis resolved following fluids as well. 3. Type 2 diabetes mellitus, uncontrolled with poor compliance-recent admission for DKA. Hemoglobin A1c 13.9% January 2020. Patient has appointment with endocrinology in 2 days, 03/26/2020. He has a history of noncompliance with insulin regimen and Accu-Cheks. 4. CAD-continue aspirin, statin. 5. History of CVA-continue aspirin, statin. 6. Chronic intermittent asthma 7. History of PE-on Xarelto. 8. Hypertension-stable, continue losartan, Cardizem. HCTZ discontinued. 9. Hyperlipidemia-continue statin. 10. Chronic back pain-PRN pain regimen. On gabapentin. 11. GERD with history of gastric ulcer-not on PPI. 12. Anxiety/depression-continue home sertraline regimen. Patient seen and examined prior to discharge. Physical assessment as noted below. Patient is stable for discharge with follow up recommendations as noted above. This patient was seen by DEBORA Alfonso under the supervision of Dr. Yung. - Physical Exam Vitals/I&O's: Vital Signs Temp Pulse Resp BP Pulse Ox 97.6 F L 88 18 131/101 H 98 03/24/20 09:08 03/24/20 13:13 03/24/20 09:10 03/24/20 13:13 03/24/20 09:08 Oxygen Delivery Method Room Air Weight: 243 lb 13.3 oz Body Mass Index (BMI) 34.0 Finger Stick Blood Glucose 163 Orthostatic Vital Signs Start: 03/23/20 20:54 Freq: q24h Status: Active Protocol: Activity Type Activity Date Activity User E-Sign Co-Sign Detail Recorded Client Recorded Date Recorded By Document 03/24/20 13:13 JENNI [id number] 03/24/20 13:18 JENNI 03/24/20 13:13 Orthostatic Vitals Standing -Blood Pressure (90/60-120/80) 111/89 H -Extremity Use Right Arm -Pulse Rate (60-100) 107 H Sitting -Blood Pressure (90/60-120/80) 113/83 H -Extremity Use Right Arm -Pulse Rate (60-100) 91 Lying -Blood Pressure (90/60-120/80) 131/101 H -Extremity Use Right Arm -Pulse Rate (60-100) 88 Intake and Output for Last 24 Hours 03/22/20 03/23/20 03/24/20 23:59 23:59 23:59 Intake Total 2658.33 / 2658.33 2455.00 / 2455.00 Output Total 1525 / 1525 Balance 2658.33 / 2658.33 930.00 / 930.00 General: Alert, Oriented x3, Cooperative HEENT: Atraumatic, PERRLA, EOMI, Normocephalic Neck: Supple, No JVD, Negative Carotid Bruits Lungs: Clear to auscultation, Normal air movement Cardiovascular: Regular rate, No murmurs Abdomen: Bowel Sounds Present, Soft, Non Tender, Non-Distended Extremities: No clubbing, No cyanosis, No edema, Capillary Refill Less than 3 Seconds Skin: No rashes, No breakdown Musculoskeletal: No Tenderness to Palpation of Joints or Extremities Neurological: Cranial nerves II-XII grossly intact, Neuro grossly intact Psych/Mental Status: Normal Affect, Appropriate Laboratory Results 03/23/20 17:40: WBC 15.5 H, RBC 5.65, Hgb 16.0, Hct 45.4, MCV 80.4, MCH 28.3, MCHC 35.2, RDW Std Deviation 35.2, RDW Coeff of Luanne 12.3, Plt Count 339, MPV 9.8, Immature Gran % (Auto) 0.500, Neut % (Auto) 59.3, Lymph % (Auto) 28.8, [place] % (Auto) 8.9, Eos % (Auto) 2.0, Baso % (Auto) 0.5, Absolute Neuts (auto) 9.2 H, Absolute Lymphs (auto) 4.45, Nucleated RBC % 0 03/23/20 17:40: Sodium 135 L, Potassium 3.6, Chloride 101, Carbon Dioxide 26.0, Anion Gap 8, BUN 30 H, Creatinine 1.25, Estim Creat Clear Calc 72.43, Est GFR (MDRD) Af Amer 77, Est GFR (MDRD) Non-Af 64, BUN/Creatinine Ratio 24.0 H, Glucose 234 H, Calcium 9.2, Total Bilirubin 0.50, AST 8 L, ALT 14 L, Alkaline Phosphatase 141 H, Troponin I < 0.015, Total Protein 8.0, Albumin 3.5, Globulin 4.5 H, Albumin/Globulin Ratio 0.8 L 03/23/20 17:40: Lactic Acid 3.5 H* 03/23/20 18:42: Urine Color Yellow, Urine Clarity Clear, Urine pH 5.0, Ur Specific [place] 1.020, Urine Protein 100 H, Urine Glucose (UA) 1000 H, Urine Ketones 5 H, Urine Occult Blood Negative, Urine Nitrite Negative, Urine Bilirubin Negative, Urine Urobilinogen 1 H, Ur Leukocyte Esterase 25 H, Urine RBC 0 SEEN, Urine WBC 0-5 SEEN, Ur Squamous Epith Cells 0 SEEN, Urine Bacteria 1+, Hyaline Casts 0-5 SEEN, Urine Mucus 0 SEEN 03/23/20 21:04: POC Glucose 282 H 03/23/20 22:15: Lactic Acid 1.4 03/24/20 06:00: WBC 10.8, RBC 5.43, Hgb 15.3, Hct 44.4, MCV 81.8, MCH 28.2, MCHC 34.5, RDW Std Deviation 36.5, RDW Coeff of Luanne 12.5, Plt Count 221, MPV 9.5, Immature Gran % (Auto) 0.500, Neut % (Auto) 58.0, Lymph % (Auto) 30.9, [place] % (Auto) 7.8, Eos % (Auto) 2.3, Baso % (Auto) 0.5, Absolute Neuts (auto) 6.2, Absolute Lymphs (auto) 3.32, Nucleated RBC % 0 03/24/20 06:00: Sodium 134 L, Potassium 3.6, Chloride 101, Carbon Dioxide 27.0, Anion Gap 6, BUN 23 H, Creatinine 0.89, Estim Creat Clear Calc 98.71, Est GFR (MDRD) Af Amer 114, Est GFR (MDRD) Non-Af 94, BUN/Creatinine Ratio 25.9 H, Glucose 346 H, Calcium 8.3 L 03/24/20 08:18: POC Glucose 369 H 03/24/20 11:30: POC Glucose 254 H Current Medications Acetaminophen (Tylenol) 650 mg PO Q6H PRN PRN PRN Reason: Pain Score 1-10/Temp > 100.7 F Last Admin: 03/23/20 21:05 Dose: 650 mg Documented by: Albuterol Sulfate (Ventolin Aerosols) 2.5 mg INHALATION Q2H PRN PRN PRN Reason: SOB &/OR WHEEZING Aspirin (Ecotrin) 81 mg PO DAILY@0800 [facility] Last Admin: 03/24/20 08:28 Dose: 81 mg Documented by: Atorvastatin Calcium (Lipitor) 80 mg PO QHS [facility] Last Admin: 03/23/20 21:05 Dose: 80 mg Documented by: Cholecalciferol ([facility]itamin [facility] (25mcg)) [facility] Last Admin: 03/24/20 08:27 Dose: 2,000 unit Documented by: Clopidogrel Bisulfate (Plavix) 75 mg PO DAILY [facility] Last Admin: 03/24/20 09:44 Dose: 75 mg Documented by: Dextrose (D50w Syringe) 0 gm IV X1 PRN; Protocol PRN Reason: Hypoglycemia Gabapentin (Neurontin) 100 mg PO QHS [facility] Last Admin: 03/23/20 21:05 Dose: 100 mg Documented by: Glucagon () 1 mg IM .X1 PRN PRN Reason: Hypoglycemia Sodium Chloride () 250 mls @ 15 mls/hr IV .[id number] PRN PRN Reason: Saline Flush Sodium Chloride () 250 mls @ 15 mls/hr IV .[id number] PRN PRN Reason: Additional IVPB Infusion Sodium Chloride () 1,000 mls @ 150 mls/hr IV .[id number] [facility] Insulin Glargine (Lantus (Bkc)) 35 units SC BID [facility] Last Admin: 03/24/20 09:43 Dose: 35 u Documented by: Insulin Human Lispro (Humalog Kwikpen (Bk)) 0 unit SC ACHS [facility]; Protocol Last Admin: 03/24/20 12:22 Dose: 6 units Documented by: Insulin Human Lispro (Humalog Kwikpen (Bk)) 15 unit SC 0800,1200,1700 [facility] Last Admin: 03/24/20 12:21 Dose: 15 u Documented by: Loratadine (Claritin) 10 mg PO DAILY [facility] Last Admin: 03/24/20 09:44 Dose: 10 mg Documented by: Melatonin (Melatonin) 3 mg PO QHS PRN PRN PRN Reason: INSOMNIA Last Admin: 03/23/20 22:20 Dose: 3 mg Documented by: Ondansetron HCl (Zofran) 4 mg IV Q8H PRN PRN PRN Reason: NAUSEA/VOMITING [facility]) [facility] Last Admin: 03/24/20 08:28 Dose: 20 mg Documented by: Sertraline HCl (Zoloft) 200 mg PO DAILY [facility] Last Admin: 03/24/20 09:44 Dose: 200 mg Documented by: Sodium Chloride () 10 - 40 ml IV UD PRN PRN Reason: SALINE FLUSH Discharge Diet: Low fat/ Low Cholesterol, Carb Control Diet Discharge Activity: Return to Normal Activity Call your doctor if you observe: Shortness of breath, Dizziness, Fainting spells, Chest pain Home Medications: Medications to take at Discharge Albuterol Inhaler [Ventolin Hfa] 1 puff INHALATION Q4H PRN PRN 01/28/15 Aspirin [Adult Low Dose Aspirin EC] 81 mg PO DAILY 06/03/16 Clopidogrel Bisulfate [Plavix] 75 mg PO DAILY 09/27/17 Diltiazem HCl [Diltiazem 24Hr ER (Cd)] 180 mg PO DAILY 10/16/17 Insulin Lispro [Humalog] 26 - 30 units SUBCUT TIDCM 02/02/20 Insulin Detemir [Levemir] 40 unit SQ BID #1 vial 02/04/20 Atorvastatin Calcium [Lipitor] 80 mg PO DAILY 03/23/20 Cetirizine HCl 10 mg PO DAILY 03/23/20 Cholecalciferol (VIT D3) [Vitamin D3] 2,000 unit PO DAILY 03/23/20 Gabapentin [Neurontin] 100 mg PO QHS 03/23/20 Losartan Potassium 100 mg PO DAILY 03/23/20 Rivaroxaban [Xarelto] 20 mg PO DAILY 03/23/20 Sertraline HCl [Zoloft] 200 mg PO DAILY 03/23/20 metFORMIN (XR) [Glucophage Xr] 2,000 mg PO DAILY 03/23/20 Primary Care Physician: Rod Elena MD [Primary Care Provider] - Please follow up with your Primary Care Physician in: 1 Week Please Follow Up With: Bhaskar Helm MD When: As scheduled 03/26/2020 Disposition: Home Minutes spent on discharge:: 35 Patient Condition:: Stable Medical Necessity - Tobacco Use Smoking Status: Never smoker Meaningful Use Info Meaningful Use Diagnoses (Choose all that apply): None applicable <Gold Yung - Last Filed: 03/24/20 15:30> Discharge Date and Diagnosis - Secondary Discharge Diagnosis Chronic Problems: Chronic Problems (Last Reviewed 03/23/20 @ 20:[address] Jr Bardales MD) Depression (Chronic) Osteoarthritis (Chronic) Asthma (Chronic) Anxiety (Chronic) CAD (coronary artery disease) (Chronic) HTN (hypertension) (Chronic) BP controlled at this visit. DM2 (diabetes mellitus, type 2) (Chronic) States recently has been told he can not return to work. He has been having some issue dealing with this so he has been trying to find a routine and can not get into one. He has forgotten to check BG and he is forgetting some of his insulin. He is getting kids ready for school while is picking up extra work. Feels like he will get adjusted eventually. We discussed ways to get into routine and helpful ways of getting into habits. He does not currently feel like he would be interested in counseling. History of myocardial infarction (Chronic) Hospital Course and Treatment Summary of Care Provided: The patient is a 55 year old M [] - Physical Exam Vitals/I&O's: Vital Signs Temp Pulse Resp BP Pulse Ox 97.6 F L 70 18 123/97 H 98 03/24/20 14:44 03/24/20 14:44 03/24/20 14:44 03/24/20 14:44 03/24/20 14:44 Oxygen Delivery Method Room Air Weight: 243 lb 13.3 oz Body Mass Index (BMI) 34.0 Finger Stick Blood Glucose 163 Orthostatic Vital Signs Start: 03/23/20 20:54 Freq: q24h Status: Active Protocol: Activity Type Activity Date Activity User E-Sign Co-Sign Detail Recorded Client Recorded Date Recorded By Document 03/24/20 13:13 JENNI [id number] 03/24/20 13:18 JENNI 03/24/20 13:13 Orthostatic Vitals Standing -Blood Pressure (90/60-120/80) 111/89 H -Extremity Use Right Arm -Pulse Rate (60-100) 107 H Sitting -Blood Pressure (90/60-120/80) 113/83 H -Extremity Use Right Arm -Pulse Rate (60-100) 91 Lying -Blood Pressure (90/60-120/80) 131/101 H -Extremity Use Right Arm -Pulse Rate (60-100) 88 Intake and Output for Last 24 Hours 03/22/20 03/23/20 03/24/20 23:59 23:59 23:59 Intake Total 2658.33 / 2658.33 2455.00 / 2455.00 Output Total 1525 / 1525 Balance 2658.33 / 2658.33 930.00 / 930.00 Laboratory Results 03/23/20 17:40: WBC 15.5 H, RBC 5.65, Hgb 16.0, Hct 45.4, MCV 80.4, MCH 28.3, M CHC 35.2, RDW Std Deviation 35.2, RDW Coeff of Luanne 12.3, Plt Count 339, MPV 9.8, Immature Gran % (Auto) 0.500, Neut % (Auto) 59.3, Lymph % (Auto) 28.8, [place] % (Auto) 8.9, Eos % (Auto) 2.0, Baso % (Auto) 0.5, Absolute Neuts (auto) 9.2 H, Absolute Lymphs (auto) 4.45, Nucleated RBC % 0 03/23/20 17:40: Sodium 135 L, Potassium 3.6, Chloride 101, Carbon Dioxide 26.0, Anion Gap 8, BUN 30 H, Creatinine 1.25, Estim Creat Clear Calc 72.43, Est GFR (MDRD) Af Amer 77, Est GFR (MDRD) Non-Af 64, BUN/Creatinine Ratio 24.0 H, Glucose 234 H, Calcium 9.2, Total Bilirubin 0.50, AST 8 L, ALT 14 L, Alkaline Phosphatase 141 H, Troponin I < 0.015, Total Protein 8.0, Albumin 3.5, Globulin 4.5 H, Albumin/Globulin Ratio 0.8 L 03/23/20 17:40: Lactic Acid 3.5 H* 03/23/20 18:42: Urine Color Yellow, Urine Clarity Clear, Urine pH 5.0, Ur Specific [place] 1.020, Urine Protein 100 H, Urine Glucose (UA) 1000 H, Urine Ketones 5 H, Urine Occult Blood Negative, Urine Nitrite Negative, Urine Bilirubin Negative, Urine Urobilinogen 1 H, Ur Leukocyte Esterase 25 H, Urine RBC 0 SEEN, Urine WBC 0-5 SEEN, Ur Squamous Epith Cells 0 SEEN, Urine Bacteria 1+, Hyaline Casts 0-5 SEEN, Urine Mucus 0 SEEN 03/23/20 21:04: POC Glucose 282 H 03/23/20 22:15: Lactic Acid 1.4 03/24/20 06:00: WBC 10.8, RBC 5.43, Hgb 15.3, Hct 44.4, MCV 81.8, MCH 28.2, MCHC 34.5, RDW Std Deviation 36.5, RDW Coeff of Luanne 12.5, Plt Count 221, MPV 9.5, Immature Gran % (Auto) 0.500, Neut % (Auto) 58.0, Lymph % (Auto) 30.9, [place] % (Auto) 7.8, Eos % (Auto) 2.3, Baso % (Auto) 0.5, Absolute Neuts (auto) 6.2, Absolute Lymphs (auto) 3.32, Nucleated RBC % 0 03/24/20 06:00: Sodium 134 L, Potassium 3.6, Chloride 101, Carbon Dioxide 27.0, Anion Gap 6, BUN 23 H, Creatinine 0.89, Estim Creat Clear Calc 98.71, Est GFR (MDRD) Af Amer 114, Est GFR (MDRD) Non-Af 94, BUN/Creatinine Ratio 25.9 H, Glucose 346 H, Calcium 8.3 L 03/24/20 08:18: POC Glucose 369 H 03/24/20 11:30: POC Glucose 254 H Addendum: Dr. Yung I personally examined the patient and reviewed the chart. I agree with the above. 55-year-old male presents to the ER with an episode of syncope. He was found to have orthostatic hypotension with a systolic of 91 while standing. He was bolused 2 L on admission and he was given another half liter bolus today followed by an increase in his fluid rate to 150 cc an hour. He had a repeat orthostatic vital signs done and his blood pressure systolic lying was 131 but standing was 111. Though this is still orthostatic he felt better and was therefore wanting to go home. He does have a history of diabetes and it does not appear that he is compliant, his A1c about a month ago was over 13 and he had presented with DKA plus pulmonary embolisms. We discussed again the need to follow a diabetic diet and will take his insulin appropriately. He does have a follow-up with endocrinology on Sunday. Also his hydrochlorothiazide was discontinued secondary to his orthostatic hypotension and his issues with dehydration I discussed the discharge plan with him and he expressed understanding to the risks and benefits of going home and would like to go home today. OBSV E&M: [id number] Observation care discharge
--- NOTE | 2020-03-24 14:10 | CASEMGMT ---
MARLA CORONA NOTE: Pt being discharged home. MARLA CM to room to talk w/pt and who is at bedside. Introduced self and role of MARLA CORONA . Pt states he has an appt w/[facility] for his PCP Dr Elena tomorrow. He is also aware of the appt with Dr Helm on Sunday @ 1 PM. He states he has a walker and a cane, but he is interested in getting a medical alert button. MARLA CORONA provided pt w/list of local companies that provide medical alert buttons. Pt denies need for other DME. He states he has a glucometer that is working properly. Discussed Diabetic Clinic w/pt and he states he is interested. Pt provided w/[facility] card w/info and contact number. Discussed therapy with pt, as he states he is still having some weakness. He states he is still interested in going to [facility] for therapy. Noted orders had been faxed to [facility] in January when pt admitted at that time. MARLA CORONA placed call to [facility] and they confirmed they do have current orderS for PT and OT. Pt made aware and given [facility] contact number. Pt/ instructed to call [facility] to make appts. They voice understanding. Pt denies having any concerns w/transportation to the appts. Pt/ deny having any other needs/concerns w/going home at discharge and deny having any further questions. Dilcia SANTIAGO RN, CM
--- NOTE | 2020-03-24 14:28 | PHA.DC.MR ---
Pharmacy Service has performed discharge medication reconciliation for this patient. The patient's discharge medication list was reviewed for discrepancies and discrepancies were resolved. Home Medications Albuterol Inhaler [Ventolin Hfa] 1 puff INHALATION Q4H PRN PRN 01/28/15 Aspirin [Adult Low Dose Aspirin EC] 81 mg PO DAILY 06/03/16 Clopidogrel Bisulfate [Plavix] 75 mg PO DAILY 09/27/17 Diltiazem HCl [Diltiazem 24Hr ER (Cd)] 180 mg PO DAILY 10/16/17 Insulin Lispro [Humalog] 26 - 30 units SUBCUT TIDCM 02/02/20 Insulin Detemir [Levemir] 40 unit SQ BID #1 vial 02/04/20 Atorvastatin Calcium [Lipitor] 80 mg PO DAILY 03/23/20 Cetirizine HCl 10 mg PO DAILY 03/23/20 Cholecalciferol (VIT D3) [Vitamin D3] 2,000 unit PO DAILY 03/23/20 Gabapentin [Neurontin] 100 mg PO QHS 03/23/20 Losartan Potassium 100 mg PO DAILY 03/23/20 Rivaroxaban [Xarelto] 20 mg PO DAILY 03/23/20 Sertraline HCl [Zoloft] 200 mg PO DAILY 03/23/20 metFORMIN (XR) [Glucophage Xr] 2,000 mg PO DAILY 03/23/20
== END 2020-03-24 13:51 | disposition home or self-care (01) ==
LOC: ED 18:01 → PCU 19:57
PROVIDERS: Admitting Provider Hospitalist; Emergency Provider Emergency Medicine; PCP Family Medicine; Visit Provider Family Medicine
DX: I95.1 Orthostatic hypotension (principal); I25.10 Atherosclerotic heart disease of native coronary artery without angina pectoris; M19.90 Unspecified osteoarthritis, unspecified site; F32.9 Major depressive disorder, single episode, unspecified; F41.9 Anxiety disorder, unspecified; J45.20 Mild intermittent asthma, uncomplicated; I10 Essential (primary) hypertension; I25.2 Old myocardial infarction; E11.42 Type 2 diabetes mellitus with diabetic polyneuropathy; K21.9 Gastro-esophageal reflux disease without esophagitis; E78.5 Hyperlipidemia, unspecified; G89.29 Other chronic pain; Z86.711 Personal history of pulmonary embolism; Z86.73 Personal history of transient ischemic attack (TIA), and cerebral infarction without residual deficits; Z79.899 Other long term (current) drug therapy; Z79.01 Long term (current) use of anticoagulants; Z79.02 Long term (current) use of antithrombotics/antiplatelets; Z79.4 Long term (current) use of insulin; Z87.11 Personal history of peptic ulcer disease
CPT/HCPCS: 36415; 71045; 73110; 73562; 80048; 80053; 81001; 82962; 83605; 84484; 85025; 87040; 87086; 87088; 93005; 96360; 96361; 97802; 99218; 99285; J7030; J7040; A4216; G0378

== ENCOUNTER → 2022-10-23 | Outpatient (CLI) | payer OTHER, MEDICARE, SELFPAY ==
[2022-10-23 11:44] LABS: Vitamin D,25 Hydroxy 29.3 ng/mL
[2022-10-23 11:50] LABS: ALB/GLOB Ratio 0.8 RATIO (0.9-2.4); AST(SGOT) 15 U/L (15-37); Alanine Aminotransfer ALT/SGPT 22 U/L (16-61); Albumin, Serum 3.4 g/dL (3.2-5.0); Alkaline Phosphatase 94 U/L (45-117); Anion Gap 6 (5-15); BUN 18 mg/dL (7-18); BUN/Creat Ratio 17.6 RATIO (10-20); Calcium,Total 8.6 mg/dL (8.5-10.1); Chloride 103 mmol/L (98-107); Cholesterol 138 mg/dL (200); Creatinine, Serum 1.02 mg/dL (0.70-1.30); EST Glomerular Filtration Rate 80 mL/min (>60); Est Glom Filt Rate - Afr Amer 96 mL/min (>60); Glucose 215 mg/dL (74-106); High Density Lipoprotein 40 mg/dL; Potassium 3.9 mmol/L (3.5-5.1); Protein, Total 7.4 g/dL (6.4-8.2); Sodium Level 137 mmol/L (136-145); Thyroid Stim Hormone (TSH) 3.31 uIU/mL (0.358-3.74); Triglycerides 121 mg/dL; Very Low Density Lipoprotein 24 mg/dL (5-40)
[2022-10-23 11:56] LABS: Microalbumin:Creatinine Ratio 358.4 mg/g CRE (<30 mg/g CRE)
== END | disposition home or self-care (01) ==
PROVIDERS: PCP Family Medicine; Referring Provider Nurse Practitioner Family; Visit Provider Nurse Practitioner Family
DX: E11.9 Type 2 diabetes mellitus without complications (principal)
CPT/HCPCS: 36415; 80053; 80061; 82043; 82306; 82570; 84443

== ENCOUNTER 2022-12-14 08:43 | Inpatient (IN) | payer OTHER, MEDICARE, SELFPAY ==
[2022-12-14] VITALS (38 sets, daily range): BP systolic 120–168; BP diastolic 70–101; PULSE 65–85; RESP 13–22; TEMP 36.1–37.2; O2SAT 95–100; BMI 46.7; BMI 46.5; BMI 44.8
--- NOTE | 2022-12-14 08:49 | CT_ITS ---
HISTORY: Neuro deficit, acute, stroke suspected. TECHNIQUE: [place] of [place]/head and carotid CT angiogram protocol was performed after the intravenous administration of 100 mL Isovue . NASCET criteria using the distal ICAs for comparison were used for evaluation of stenoses. 3D reconstructions were reviewed. A radiation dose optimization technique was used for this scan. 1811 images. COMPARISON: CT head same day, MRI [id number] FINDINGS: AORTIC ARCH AND BRANCHES: Minimal atherosclerotic cyst. Bovine arch configuration. RIGHT CCA: No occlusion, significant stenosis or dissection. RIGHT ICA: No occlusion, significant stenosis or dissection. LEFT CCA: No occlusion, significant stenosis or dissection. LEFT ICA: No occlusion, significant stenosis or dissection. RIGHT VERTEBRAL ARTERY: No occlusion, significant stenosis or dissection. LEFT VERTEBRAL ARTERY: No occlusion, significant stenosis or dissection. SOFT TISSUES: Implanted device in the chest wall. ICAs: No significant stenosis at the intracranial/visualized segments. ACAs: No significant stenosis at the visualized segments. 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 MCAs: No significant stenosis at the visualized segments. electronic tech: No significant stenosis at the visualized segments. BASILAR ARTERY: No significant stenosis. VERTEBRAL ARTERIES: No significant stenosis at the intradural/visualized segments. Dominant right and hypoplastic left intracranial vertebral arteries with a small fenestration incidentally noted. No evidence of intracranial aneurysm or vascular malformation. CT/STROKE CTA Head AND Neck W/Con IMPRESSION: No evidence for significant stenosis or occlusion in the carotid or vertebral arteries of the neck. No evidence for large vessel occlusion or other focal vascular abnormality in the [place] of [place] region. N.B. : The above Results were Read Back by Josephine Jackson MD to Sheila Rowland MD, and understanding confirmed on 12/14/2022 09:15:35 (ET). Electronically Signed: Josephine Jackson MD at 9:16 EDT ,
--- NOTE | 2022-12-14 08:49 | EKG12_ITS ---
Test Reason : STROKE Blood Pressure : / mmHG Vent. Rate : 074 BPM Atrial Rate : 000 BPM P-R Int : 000 ms QRS Dur : 108 ms QT Int : 394 ms P-R-T Axes : 000 -34 -05 degrees QTc Int : 437 ms Sinus rhythm Left axis deviation Moderate voltage criteria for LVH, may be normal variant ( R in aVL , Naman product ) Abnormal ECG Confirmed by AZEB JOHNSON, MESFIN ([id number]), editor at large ERIKA TALBERT ([id number]) on 12/18/2022 11:37:35 AM Referred By: YAMEL Confirmed By:JEFF BOWIE MD
--- NOTE | 2022-12-14 08:49 | CT_ITS ---
We are attempting to reach an attending provider to discuss findings. An addendum with communication details will be sent when the communication is complete. HISTORY: Neuro deficit, acute, stroke suspected. TECHNIQUE: Multiple axial images were obtained of the head without intravenous contrast. A radiation dose optimization technique was used for this scan. 267 images. COMPARISON: MRI 10/24/2018. FINDINGS: BRAIN PARENCHYMA: Multiple foci and zones of low attenuation in the bilateral cerebral white matter compatible with chronic small vessel ischemic gliosis. No acute intra-axial hemorrhage identified. CSF SPACES: Mild generalized volume loss. No midline shift or other significant mass effect. No acute extra-axial hemorrhage seen. OTHER: Intact calvarium. No significant air fluid levels in the paranasal sinuses or mastoid air cells. Unremarkable orbits. ASPECTS Score for Acute Strokes: 10 CT/STROKE Brain/Head without Cont IMPRESSION: No acute intracranial process identified. Chronic involutional and white matter changes. Electronically Signed: Josephine Jackson MD at 9:08 EDT ,
--- NOTE | 2022-12-14 08:51 | EDS_ITS ---
HPI History of Present Illness Chief Complaint: Stroke Alert Informant: patient Narrative Narrative: Patient is a 57-year-old male with history of hypertension, poorly controlled diabetes mellitus, peripheral neuropathy as well as multiple strokes. states he has generalized weakness from his prior strokes. He was normal at 7 AM and went to breakfast where he is irregular. Patient states that he felt tired this morning but states he was at his baseline when she saw him. He states that when he got to to started to feel worse and staff at the restaurant who know him's thought that he seemed weaker, slower to respond and ultimately called 911. When EMS arrived patient was noted to have left-sided weakness and stroke alert was called in the field. Patient also complained of some dizziness. Patient denies any chest pain, difficulty breathing or any other new complaints just states he feels tired and weak. Patient denies being on any blood thinners. Confirms that he has previously been on Xarelto for blood clots and has been off of it for about 6 months. Patient states that he had prior strokes and received tPA in the past but not recently. He states he got better within 10 minutes after that. states he is also been possibly diagnosed with conversion disorder before. [facility] Medical History Anxiety and depression Arthritis Asthma Back pain Back problem Bilateral cataracts Bruises easily Chest pain Diabetes type 2, uncontrolled Diarrhea Difficulty balancing Fatigue Frequent headaches Gallstones GI problem Gout Hay fever Hearing problem Heart disease High cholesterol HTN (hypertension) Kidney stones Knee pain Limb weakness Migraines Mixed hyperlipidemia Myopia of both eyes Neuropathy Pneumonia Seasonal allergies SOB (shortness of breath) Stomach ulcer Stroke Vision problem Weight loss Home Medications albuterol sulfate 90 mcg/actuation aerosol inhaler 1 puff inhalation Q4H PRN PRN Shortness Of Breath 01/28/15 [History Last Taken Unknown] aspirin 81 mg tablet,delayed release 81 mg PO DAILY health maintenance 06/03/16 [History Last Taken 03/23/20] clopidogrel 75 mg tablet 75 mg PO DAILY blood thinner 09/27/17 [History Last Taken 03/23/20] diltiazem HCl 180 mg capsule,extended release 24 hr 180 mg PO DAILY blood pres sure/heart 10/16/17 [History Last Taken 03/23/20] atorvastatin 80 mg tablet 80 mg PO DAILY CHOLESTEROL 03/23/20 [History Last Taken 03/22/20] cetirizine 10 mg tablet 10 mg PO DAILY ALLERGIES 03/23/20 [History Last Taken 03/23/20] cholecalciferol (vitamin D3) 25 mcg (1,000 unit) tablet 2,000 unit PO DAILY SUPPLEMENT 03/23/20 [History Last Taken 03/23/20] losartan 100 mg tablet 100 mg PO DAILY BP 03/23/20 [History Last Taken 03/23/20] albuterol sulfate 2.5 mg/3 mL (0.083 %) solution for nebulization 1.25 mg continuous nebulization Q4H 10/25/20 [History Last Taken Unknown] gabapentin 300 mg capsule 300 mg PO TID 10/25/20 [History Last Taken Unknown] hydrochlorothiazide 25 mg tablet 25 mg PO DAILY 10/25/20 [History Last Taken Unknown] pen needle, diabetic 32 gauge x 5/32 (BD Ultra-Fine Rachel Pen Needle) #180 ea 03/11/21 [Rx Last Taken Unknown] flash glucose sensor (FreeStyle Cyndie 2 Sensor kit) #2 ea 05/29/22 [Rx Last Taken Unknown] fluoxetine 20 mg capsule 20 mg PO DAILY 12/14/22 [History Last Taken Unknown] insulin detemir U-100 100 unit/mL (3 mL) subcutaneous pen (Levemir FlexTouch U- 100 Insulin) 64 unit subcut DAILY 12/14/22 [History Last Taken Unknown] insulin lispro 100 unit/mL subcutaneous pen (Humalog KwikPen (U-100) Insulin) 34 unit subcut TIDWMEAL 12/14/22 [History Last Taken Unknown] Allergy/AdvReac Type Severity Reaction Status Date / Time levofloxacin [From Levaquin] Allergy rash,swelli Verified 12/14/22 09:03 ng Penicillins Allergy Rash Verified 12/14/22 09:03 Family History Father Asthma Heart disease Hypertension Mother Bleeding disorder Hypertension CVA (cerebral vascular accident) Brother Diabetes Heart disease Hypertension High cholesterol Surgical History History of ERCP History of tonsillectomy Hx of cholecystectomy Social History Smoking Status: Never smoker second hand exposure: No alcohol intake: never substance use type: does not use ROS ROS ED Constitutional Constitutional ED: Denies chills or fever(s) Eyes Eyes: Reports blurry vision; Denies change in vision Cardiovascular Cardiovascular: Denies chest pain or palpitations Respiratory/Chest Respiratory/Chest: Denies cough Gastrointestinal Gastrointestinal: Denies abdominal pain, nausea or vomiting Musculoskeletal Musculoskeletal: Denies arthralgias or myalgias Integumentary Denies rash Neurologic Neurologic: Reports weakness; Denies headache(s) or paresthesias Hematologic/Lymphatic Hematologic/Lymphatic: Denies easy bleeding or easy bruising EXAM Physical Exam Const Vital Signs: 12/14/22 08:44 12/14/22 09:01 12/14/22 09:05 Temperature 97.1 F L Temperature Source Temporal Pulse Rate 68 74 74 Respiratory Rate 18 14 13 Blood Pressure 161/101 H 165/98 H 165/98 H Blood Pressure Mean 121 120 120 Blood Pressure Source Blood Pressure Position Blood Pressure Location Pulse Ox 99 99 99 Oxygen Delivery Method Room Air Room Air Room Air 12/14/22 09:06 12/14/22 09:20 12/14/22 09:27 Temperature Temperature Source Pulse Rate 68 Respiratory Rate 16 Blood Pressure 161/101 H 142/92 H Blood Pressure Mean 121 Blood Pressure Source Monitor Blood Pressure Position Supine Blood Pressure Location Right Arm Pulse Ox 98 99 Oxygen Delivery Method Room Air Room Air 12/14/22 09:30 12/14/22 09:35 12/14/22 09:50 Temperature Temperature Source Pulse Rate 71 70 70 Respiratory Rate 18 13 16 Blood Pressure 141/92 H 141/92 H 143/87 H Blood Pressure Mean 108 108 105 Blood Pressure Source Monitor Blood Pressure Position Semi-Fowlers Semi-Fowlers Blood Pressure Location Right Arm Pulse Ox 98 98 98 Oxygen Delivery Method Room Air Room Air 12/14/22 10:01 Temperature Temperature Source Pulse Rate 66 Respiratory Rate 14 Blood Pressure 134/93 H Blood Pressure Mean 106 Blood Pressure Source Blood Pressure Position Blood Pressure Location Pulse Ox 98 Oxygen Delivery Method Room Air Positive well nourished, well developed and obese General Appearance ED: well developed and NAD Nutritional Appearance: obese HEENT Reports moist mucous membranes atraumatic Eyes PERRL and EOMs intact bilaterally Eyes Narrative: No visual field cut appreciated. No nystagmus on exam. Neck supple and no JVD Chest Wall inspection of chest normal and palpation of chest normal Resp normal respiratory effort and clear to auscultation bilaterally Cardio no murmurs Rate: regular rate Rhythm: regular rhythm GI normal to inspection, nondistended, normoactive bowel sounds and soft to palpation Palpation: Negative for tender Extremity General Extremety ED: Negative for deformity, edema or tenderness General Extremity: Negative for deformity or edema Neuro oriented x3 Neuro Narrative: Speech is not slurred but is slightly slowed/deliberate. On initial exam patient has drift of his left upper extremity. He has drift with his leg hitting the bed on the left. He has slight drift with the right lower extremity. Benita Coma Scale: document GCS findings Spontaneous Obeys Commands Oriented 15 Sensorium / Orientation: alert Sensory Exam: No sensory level loss detected Psych Mood & Affect: depressed Skin no wounds Rashes: no rashes NIHSS NIHSS Initial: 1a Level of Consciousness: 0 1b LOC Questions (Score 2 if aphasic/stupor): 0 1c LOC Commands (Only score 1st attempt): 0 2 Best Gaze (If aphasic, use reflexive mvmts.): 0 3 Visual: 0 4 Facial Palsy: 0 5 Motor Arm Right (UN = amputation/fusion): 0 5 Motor Arm Left: 1 6 Motor Leg Right: 1 6 Motor Leg Left: 2 7 Limb ataxia (Only + if out of proportion): 0 8 Sensory (Aphasia/stupor=0 or 1, coma=2): 0 9 Best Language: 0 10 Dysarthria (mute, coma=2, intubated=UN): 0 11 Extinction and Inattention (only scored if +): 0 Total Score: 4 Follow up: 1a Level of Consciousness: 0 1b LOC Questions (Score 2 if aphasic/stupor): 0 1c LOC Commands (Only score 1st attempt): 0 2 Best Gaze (If aphasic, use reflexive mvmts.): 0 3 Visual: 0 4 Facial Palsy: 1 (right face ) 5 Motor Arm Right (UN = amputation/fusion): 0 5 Motor Arm Left: 1 6 Motor Leg Right: 0 6 Motor Leg Left: 2 7 Limb ataxia (Only + if out of proportion): 0 8 Sensory (Aphasia/stupor=0 or 1, coma=2): 0 9 Best Language: 0 10 Dysarthria (mute, coma=2, intubated=UN): 0 Total Score: 4 MDM MDM MDM Narrative Medical decision making narrative: Patient is evaluated for sudden onset of generalized weakness, confusion with left-sided deficits. Is a history of stroke but also sounds like he has been diagnosed with conversion disorder. states this was at least a year ago and was at [facility]. Stroke alert was called. Patient was evaluated by teleneurology, Dr. Campa, who does feel that the benefits outweigh the risk of TNK. Patient is amenable. Patient is given TNK in the ER and about 10 minutes later states his symptoms have completely resolved. BMP is remarkable for mild hyperglycemia with a glucose of 327 and normal anion gap. This appears to be near patient's baseline. Case is also discussed with neuroradiology does not see any acute process on CT brain or CTA of the head and neck. Patient will be admitted to the ICU for further stroke evaluation and monitoring. Patient agreeable this plan of care. Remains hemodynamically stable in the ER. Patient was mildly hypertensive in the ER however did not meet exclusion criteria for TNK. Blood pressure improved without any intervention History & Record Review Discussion w/independent historian: EMS personnel Lab Data Attestation: I reviewed the patient's lab results. Labs: Laboratory Results - last 24 hr 12/14/22 12/14/22 12/14/22 08:50 08:50 08:50 WBC 11.0 RBC 5.83 Hgb 16.1 Hct 47.8 MCV 82.0 MCH 27.6 MCHC 33.7 RDW Std Deviation 36.0 RDW Coeff of Luanne 12.1 Plt Count 265 MPV 9.6 Immature Gran % (Auto) 0.500 Neut % (Auto) 60.8 Lymph % (Auto) 27.6 [place] % (Auto) 7.2 Eos % (Auto) 3.0 Baso % (Auto) 0.9 Absolute Neuts (auto) 6.7 Absolute Lymphs (auto) 3.04 Nucleated RBC % 0 PT 12.7 INR 1.0 APTT 23.9 L Sodium 134 L Potassium 3.6 Chloride 103 Carbon Dioxide 27.0 Anion Gap 4 L BUN 28 H Creatinine 1.23 Estim Creat Clear Calc 69.72 Est GFR (MDRD) Af Amer 78 Est GFR (MDRD) Non-Af 64 BUN/Creatinine Ratio 22.8 H Glucose 327 H Calcium 9.2 Troponin I High Sens 8 Radiography Chest X-Ray - ED: 1 View, Read by ED Physician and No Acute Disease Diagnostic Testing: Clinical Impression(s) from Imaging Studies Brain CT 12/14/22 08:49 IMPRESSION: No acute intracranial process identified. Chronic involutional and white matter changes. Electronically Signed: Josephine Jackson MD at 9:08 EDT , ADDENDUM: 12/14/22 0918 IMPRESSION: No acute intracranial process identified. Chronic involutional and white matter changes. N.B. : The above Results were Read Back by Josephine Jackson MD to Sheila Rowland MD, and understanding confirmed on 12/14/2022 09:11:21 (ET). Electronically Signed: Josephine Jackson MD at 9:08 EDT , Head/Neck CTA 12/14/22 08:49 IMPRESSION: No evidence for significant stenosis or occlusion in the carotid or vertebral arteries of the neck. No evidence for large vessel occlusion or other focal vascular abnormality in the [place]. N.B. : The above Results were Read Back by Josephine Jackson MD to Sheila Rowland MD, and understanding confirmed on 12/14/2022 09:15:35 (ET). Electronically Signed: Josephine Jackson MD at 9:16 EDT , ADDENDUM: 12/14/22 0923 IMPRESSION: No evidence for significant stenosis or occlusion in the carotid or vertebral arteries of the neck. No evidence for large vessel occlusion or other focal vascular abnormality in the [place]. N.B. : The above Results were Read Back by Josephine Jackson MD to Sheila Rowland MD, and understanding confirmed on 12/14/2022 09:15:35 (ET). Electronically Signed: Josephine Jackson MD at 9:16 EDT , Chest X-Ray 12/14/22 09:40 IMPRESSION: No acute cardiopulmonary process identified. Electronically Signed: Josephine Jackson MD at 9:58 EDT , Rhythm Strip Rhythm Strip: Sinus Rhythm Rate: 74 Ectopy: None EKG Initial EKG: Attestation: I personally reviewed and interpreted this EKG as follows: Interpretation: Sinus Rhythm Comments: Normal sinus rhythm at a rate of 74 bpm Left axis deviation Moderate voltage criteria for LVH Nonspecific T wave inversion in 3 and aVR Compared to prior EKG on 03/23/2020, T wave inversion in 3 is new Management Discussion w/another healthcare provider: Hospitalist, Dialysis Nurse and Radiologist Critical Care Time Critical Care Time: Yes Critical care time (excluding procedures): 30-74 minutes (40), Discussing w/Patient &/or Family/Research Administrator, Discussing w/Consultants, Arranging Admission or Transfer and Performing Direct Patient Care at Bedside Discharge Plan Dx/Rx/DC Orders Clinical Impression: Acute left-sided weakness, HTN (hypertension), Diabetes Disposition Disposition: Acute Care Hospital [facility] Discharge Date/Time: 12/14/22 10:53
[2022-12-14 09:02] LABS: Absolute Lymphocyte Count 3.04 X10^3/uL (0.83-4.51); Absolute Neutrophil Count 6.7 X10^3/uL (2.0-7.7); Basophil% 0.9 % (0-1); Eosinophil# 0.33 X10^3/uL; Hematocrit 47.8 % (40-54); Hemoglobin 16.1 g/dL (13.0-16.5); Lymphocyte # 3.04 X10^3/ul (0.83-4.51); Lymphocyte % 27.6 % (19-41); Mean Corp Hgb Conc 33.7 g/dL (32-36); Mean Corpuscular Hgb 27.6 pg (27.0-32.0); Mean Platelet Vol. 9.6 fl (6.2-12.0); Monocyte# 0.79 X10^3/uL; Monocyte% 7.2 % (0-10); NRBC Flagged by Analyzer 0 % (0-5); Neutrophil # 6.71 X10^3/uL (2.7-7.7); Neutrophil % 60.8 % (47-70); Platelet Count 265 K/mm3 (150-450); RBC Distribution Width CV 12.1 % (11.6-14.6); Red Blood Count 5.83 M/mm3 (4.6-6.2)
[2022-12-14] MEDS: 0.9% Normal Saline 1,000 ML 100 ML IV (09:13)
[2022-12-14 09:18] LABS: Anion Gap 4 (5-15); BUN 28 mg/dL (7-18); BUN/Creat Ratio 22.8 RATIO (10-20); Calcium,Total 9.2 mg/dL (8.5-10.1); Chloride 103 mmol/L (98-107); Creatinine, Serum 1.23 mg/dL (0.70-1.30); EST Glomerular Filtration Rate 64 mL/min (>60); Est Glom Filt Rate - Afr Amer 78 mL/min (>60); Estimated Creatinine Clearance 69.72 ml/min; Glucose 327 mg/dL (74-106); Potassium 3.6 mmol/L (3.5-5.1); Sodium Level 134 mmol/L (136-145); Troponin-I HS 8 pg/mL (3.0-78.0)
[2022-12-14 09:19] LABS: Prothrombin Time (Protime)PT. 12.7 SECONDS (11.7-14.9)
[2022-12-14 09:20] LABS: Partial Thromboplast Time 23.9 Seconds (24.1-36.2)
[2022-12-14] MEDS: Tenecteplase 25 MG in Syringe 1 EACH 3600 MG IV (09:27)
[2022-12-14] MEDS: 0.9% Saline Lock 10 ML Syringe IV ×2 (09:29)
--- NOTE | 2022-12-14 09:40 | RAD_ITS ---
HISTORY: Neuro deficit, acute, stroke suspected. TECHNIQUE: XR Chest 1 View. COMPARISON: 03/23/2020. FINDINGS: CARDIOMEDIASTINAL BORDERS: Cardiac silhouette within normal limits in size with implanted loop recorder again seen. Mediastinal contour unremarkable with calcification of the aortic knob. LUNGS: Radiographically clear. PLEURA: No pleural effusion or pneumothorax seen. OSSEOUS STRUCTURES: Mild degenerative change. RAD/Chest 1 View IMPRESSION: No acute cardiopulmonary process identified. Electronically Signed: Josephine Jackson MD at 9:58 EDT ,
[2022-12-14] MEDS: Insulin Lispro 100 UNIT/ML INSULN.PEN 34 UNIT SC ×2 (11:32→16:06)
[2022-12-14] MEDS: Insulin Lispro 100 UNIT/ML INSULN.PEN SC ×3 (11:32→20:56)
[2022-12-14] MEDS: Gabapentin 300 MG Capsule PO ×2 (13:03→20:55)
--- NOTE | 2022-12-14 13:29 | EX.PCM.CONCC ---
Assessment & Plan Assessment/Plan (1) Stroke-like symptoms: PLAN: Plan RECOMMENDATIONS: 1. Continue post tenecteplase protocol 2. Bedrest until completes 24 hours 3. MRI tomorrow 4. Okay to continue baseline medications except aspirin and Plavix 5. Potentially titrate up antihypertensives after 24 hours 6. Will follow peripherally from a critical care perspective for 24 hours IMPRESSIONS: 1. Strokelike symptoms versus conversion disorder Unclear etiology at this time. Patient did have an NIH of 4 on presentation was given tenecteplase with rapid improvement. Patient does have a history of conversion disorder, but reportedly did not have a stressful event prior to the onset of symptoms. Continue with post thrombolytic protocol. Patient did have significant hypertension on presentation, so as needed medications may be necessary. Patient may benefit from blood pressure optimization after 24 hours, but would continue permissive hypertension at this time. 2. Insulin-dependent diabetes mellitus Patient does not have any signs of DKA at this time. Patient will need to continue on basal insulin and is taking p.o. well. Sliding scale insulin would be appropriate. 3. History of PE/CAD/questionable asthma/hypertension/hyperlipidemia/anxiety/depression/GERD/morbid obesity Complicates care, management, recovery and prognosis. Patient is not currently on anticoagulation. Saturations are good on room air. Patient is not having any significant tachycardia despite hypertension. Albuterol as needed was likely appropriate. Patient would not require steroids from pulmonary perspective. HPI Consult Data Date of Consult: 12/14/22 HPI Narrative Reason for Consultation: Status post thrombolytic therapy HPI Narrative: ADELIA NGUYEN is a 57 M, with past medical history listed below, who presents to [facility] on 12/14/2022 secondary to generalized weakness and slowness to respond. Patient had gone to a restaurant and the staff ultimately called 911. EMS noted left-sided weakness and dizziness. Stroke alert was called in the field the patient was transferred to the ER for further evaluation. Patient does have a history of multiple prior strokes with tPA. Patient has typically responded very rapidly to thrombolytic therapy. Patient does carry diagnosis of conversion disorder. In the ER, patient was afebrile, but hypertensive at 161/101. Patient was saturating well on room air. Patient's initial NIH in the ER was 4 secondary to left-sided weakness and right lower leg drift. Laboratory data showed a white blood cell count of 11, hemoglobin of 16.1 and platelets of 265. Coagulation studies were within normal limits. Chemistries were significant for a bicarbonate of 27, creatinine of 1.23 and a glucose of 327. Troponins were negative and CT of the head was within normal limits. CTA did not show any large vessel occlusion. Stroke neurologist was consulted and patient was ultimately given tenecteplase. Patient was transferred to the intensive care unit for further evaluation. On evaluation in the emergency department, patient had an NIH of 4, but evaluation in the intensive care unit showed an NIH of 0. Patient was eating a meal during my evaluation with no signs or symptoms of dysphagia. There was no cough associated with eating. Patient's was at the bedside and had no additional information. There was no stressful situation already prior to the onset of symptoms. Review of systems otherwise negative from a constitutional, HEENT, respiratory, cardiovascular, GI, genitourinary, musculoskeletal, skin, neurologic, psychiatric and hematologic system unless stated above. [facility] Medical History Anxiety and depression Arthritis Asthma Back pain Back problem Bilateral cataracts Bruises easily Chest pain Diabetes type 2, uncontrolled Diarrhea Difficulty balancing Fatigue Frequent headaches Gallstones GI problem Gout Hay fever Hearing problem Heart disease High cholesterol HTN (hypertension) Kidney stones Knee pain Limb weakness Migraines Mixed hyperlipidemia Myopia of both eyes Neuropathy Pneumonia Seasonal allergies SOB (shortness of breath) Stomach ulcer Stroke Vision problem Weight loss Home Medications albuterol sulfate 90 mcg/actuation aerosol inhaler 1 puff inhalation Q4H PRN PRN Shortness Of Breath 01/28/15 [History Last Taken Unknown] aspirin 81 mg tablet,delayed release 81 mg PO DAILY health maintenance 06/03/16 [History Last Taken 03/23/20] clopidogrel 75 mg tablet 75 mg PO DAILY blood thinner 09/27/17 [History Last Taken 03/23/20] diltiazem HCl 180 mg capsule,extended release 24 hr 180 mg PO DAILY blood pressure/heart 10/16/17 [History Last Taken 03/23/20] atorvastatin 80 mg tablet 80 mg PO DAILY CHOLESTEROL 03/23/20 [History Last Taken 03/22/20] cetirizine 10 mg tablet 10 mg PO DAILY ALLERGIES 03/23/20 [History Last Taken 03/23/20] cholecalciferol (vitamin D3) 25 mcg (1,000 unit) tablet 2,000 unit PO DAILY SUPPLEMENT 03/23/20 [History Last Taken 03/23/20] losartan 100 mg tablet 100 mg PO DAILY BP 03/23/20 [History Last Taken 03/23/20] albuterol sulfate 2.5 mg/3 mL (0.083 %) solution for nebulization 1.25 mg continuous nebulization Q4H 10/25/20 [History Last Taken Unknown] gabapentin 300 mg capsule 300 mg PO TID 10/25/20 [History Last Taken Unknown] hydrochlorothiazide 25 mg tablet 25 mg PO DAILY 10/25/20 [History Last Taken Unknown] pen needle, diabetic 32 gauge x 5/32 (BD Ultra-Fine Rachel Pen Needle) #180 ea 03/11/21 [Rx Last Taken Unknown] flash glucose sensor (FreeStyle Cyndie 2 Sensor kit) #2 ea 05/29/22 [Rx Last Taken Unknown] fluoxetine 20 mg capsule 20 mg PO DAILY 12/14/22 [History Last Taken Unknown] insulin detemir U-100 100 unit/mL (3 mL) subcutaneous pen (Levemir FlexTouch U-100 Insulin) 64 unit subcut DAILY 12/14/22 [History Last Taken Unknown] insulin lispro 100 unit/mL subcutaneous pen (Humalog KwikPen (U-100) Insulin) 34 unit subcut TIDWMEAL 12/14/22 [History Last Taken Unknown] Allergy/AdvReac Type Severity Reaction Status Date / Time levofloxacin [From Levaquin] Allergy rash,swelli Verified 12/14/22 09:03 ng Penicillins Allergy Rash Verified 12/14/22 09:03 Family History Father Asthma Heart disease Hypertension Mother Bleeding disorder Hypertension CVA (cerebral vascular accident) Brother Diabetes Heart disease Hypertension High cholesterol Surgical History History of ERCP History of tonsillectomy Hx of cholecystectomy Social History Smoking Status: Never smoker second hand exposure: No alcohol intake: never substance use type: does not use ROS ROS Narrative See HPI Physical Exam Const alert, oriented x3 and no apparent distress Constitutional Narrative: Morbidly obese General Appearance: cooperative and well developed HEENT normocephalic, head/scalp atraumatic and moist oral mucous membranes Eyes PERRL and EOMs intact bilaterally Eyes Narrative: Glasses in place Neck full ROM and no lymphadenopathy Chest inspection of chest normal Resp normal respiratory effort and no use of accessory muscles Effort and Inspection: able to speak in complete sentences Auscultation: clear to auscultation bilaterally; Negative for rales, rhonchi or wheezes Percussion: Negative for dullness Cardio regular rate, regular rhythm, S1 normal heart sound, S2 normal heart sound, no murmurs, no rub and no gallops GI normal to inspection, nondistended, normoactive bowel sounds no CVA tenderness Extremity General Extremity: edema bilateral (Trace bilateral) lower extremity; Negative for clubbing Skin no rashes or lesions noted Neuro oriented x3, CN's II-XII intact bilaterally, moves all extremities and no focal motor deficits Neuro Narrative: NIH 0 Psych cooperative and affect normal Medical Records Data Attestation: I reviewed the patient's medical records Lab / Micro Data Attestation: I reviewed the patient's lab results. Result Diagrams: 12/14/22 08:50 12/14/22 08:50 Labs: Laboratory Results - last 24 hr 12/14/22 08:50: WBC 11.0, RBC 5.83, Hgb 16.1, Hct 47.8, MCV 82.0, MCH 27.6, MCHC 33.7, RDW Std Deviation 36.0, RDW Coeff of Luanne 12.1, Plt Count 265, MPV 9.6, Immature Gran % (Auto) 0.500, Neut % (Auto) 60.8, Lymph % (Auto) 27.6, [place] % (Auto) 7.2, Eos % (Auto) 3.0, Baso % (Auto) 0.9, Absolute Neuts (auto) 6.7, Absolute Lymphs (auto) 3.04, Nucleated RBC % 0 12/14/22 08:50: PT 12.7, INR 1.0, APTT 23.9 L 12/14/22 08:50: Sodium 134 L, Potassium 3.6, Chloride 103, Carbon Dioxide 27.0, Anion Gap 4 L, BUN 28 H, Creatinine 1.23, Estim Creat Clear Calc 69.72, Est GFR (MDRD) Af Amer 78, Est GFR (MDRD) Non-Af 64, BUN/Creatinine Ratio 22.8 H, Glucose 327 H, Calcium 9.2, Troponin I High Sens 8 Rhythm Strip Rhythm Strip: Sinus Rhythm Rate: 74 Ectopy: None Radiology Impression Brain CT 12/14/22 08:49 IMPRESSION: No acute intracranial process identified. Chronic involutional and white matter changes. Electronically Signed: Josephine Jackson MD at 9:08 EDT , ADDENDUM: 12/14/22 0918 IMPRESSION: No acute intracranial process identified. Chronic involutional and white matter changes. N.B. : The above Results were Read Back by Josephine Jackson MD to Sheila Rowland MD, and understanding confirmed on 12/14/2022 09:11:21 (ET). Electronically Signed: Josephine Jackson MD at 9:08 EDT , Head/Neck CTA 12/14/22 08:49 IMPRESSION: No evidence for significant stenosis or occlusion in the carotid or vertebral arteries of the neck. No evidence for large vessel occlusion or other focal vascular abnormality in the [place]. N.B. : The above Results were Read Back by Josephine Jackson MD to Sheila Rowland MD, and understanding confirmed on 12/14/2022 09:15:35 (ET). Electronically Signed: Josephine Jackson MD at 9:16 EDT , ADDENDUM: 12/14/22 0923 IMPRESSION: No evidence for significant stenosis or occlusion in the carotid or vertebral arteries of the neck. No evidence for large vessel occlusion or other focal vascular abnormality in the [place]. N.B. : The above Results were Read Back by Josephine Jackson MD to Sheila Rowland MD, and understanding confirmed on 12/14/2022 09:15:35 (ET). Electronically Signed: Josephine Jackson MD at 9:16 EDT , Chest X-Ray 12/14/22 09:40 IMPRESSION: No acute cardiopulmonary process identified. Electronically Signed: Josephine Jackson MD at 9:58 EDT , Charges/Coding Visit Charges Inpatient E&M: 07532 Init Hosp L2
--- NOTE | 2022-12-14 13:47 | PCM.HP.STD ---
HPI - General General Date of Admission: 12/14/22 Date of Service: 12/14/22 Chief Complaint: Left-sided weakness HPI Narrative ADELIA NGUYEN, is a 57 M who presents to the emergency room at [facility] via squad due to a sudden onset of left-sided weakness and dysphoria which occurred while he was at a restaurant this morning at approximately 7 AM. Patient has a past history of an ischemic stroke in the past approximately 3 to 4 years ago, he was treated at [facility] in [facility] and given tPA at that time. Patient is currently on Plavix and aspirin, he states he has been taking this for several years-he recalls that he may have been on it before the stroke 3 to 4 years ago. A stroke team was initiated, patient underwent a CT of the brain which showed no evidence of bleed, teleneurology was contacted, patient's NIH stroke score was 4, it was recommended that the patient received tenecteplase, patient was in agreement with this and he received a dose resulting and an improvement in his left-sided weakness when it was administered according to nursing. Labs on the patient reveal normal CBC, chemistry profile revealed a BUN of 28, sodium of 134, and a glucose of 327. Patient will be admitted to ICU, he will be seen in consultation by critical care, he will have an MRI performed tomorrow, patient's Plavix and aspirin will be held at this time due to the administration of the tenecteplase. Blood sugars will be monitored, sliding scale insulin will be administered as needed. [facility] Medical History Anxiety and depression Arthritis Asthma Back pain Back problem Bilateral cataracts Bruises easily Chest pain Diabetes type 2, uncontrolled Diarrhea Difficulty balancing Fatigue Frequent headaches Gallstones GI problem Gout Hay fever Hearing problem Heart disease High cholesterol HTN (hypertension) Kidney stones Knee pain Limb weakness Migraines Mixed hyperlipidemia Myopia of both eyes Neuropathy Pneumonia Seasonal allergies SOB (shortness of breath) Stomach ulcer Stroke Vision problem Weight loss Home Medications albuterol sulfate 90 mcg/actuation aerosol inhaler 1 puff inhalation Q4H PRN PRN Shortness Of Breath 01/28/15 [History Last Taken Unknown] aspirin 81 mg tablet,delayed release 81 mg PO DAILY health maintenance 06/03/16 [History Last Taken 03/23/20] clopidogrel 75 mg tablet 75 mg PO DAILY blood thinner 09/27/17 [History Last Taken 03/23/20] diltiazem HCl 180 mg capsule,extended release 24 hr 180 mg PO DAILY blood pressure/heart 10/16/17 [History Last Taken 03/23/20] atorvastatin 80 mg tablet 80 mg PO DAILY CHOLESTEROL 03/23/20 [History Last Taken 03/22/20] cetirizine 10 mg tablet 10 mg PO DAILY ALLERGIES 03/23/20 [History Last Taken 03/23/20] cholecalciferol (vitamin D3) 25 mcg (1,000 unit) tablet 2,000 unit PO DAILY SUPPLEMENT 03/23/20 [History Last Taken 03/23/20] losartan 100 mg tablet 100 mg PO DAILY BP 03/23/20 [History Last Taken 03/23/20] albuterol sulfate 2.5 mg/3 mL (0.083 %) solution for nebulization 1.25 mg continuous nebulization Q4H 10/25/20 [History Last Taken Unknown] gabapentin 300 mg capsule 300 mg PO TID 10/25/20 [History Last Taken Unknown] hydrochlorothiazide 25 mg tablet 25 mg PO DAILY 10/25/20 [History Last Taken Unknown] pen needle, diabetic 32 gauge x 5/32 (BD Ultra-Fine Rachel Pen Needle) #180 ea 03/11/21 [Rx Last Taken Unknown] flash glucose sensor (FreeStyle Cyndie 2 Sensor kit) #2 ea 05/29/22 [Rx Last Taken Unknown] fluoxetine 20 mg capsule 20 mg PO DAILY 12/14/22 [History Last Taken Unknown] insulin detemir U-100 100 unit/mL (3 mL) subcutaneous pen (Levemir FlexTouch U-100 Insulin) 64 unit subcut DAILY 12/14/22 [History Last Taken Unknown] insulin lispro 100 unit/mL subcutaneous pen (Humalog KwikPen (U-100) Insulin) 34 unit subcut TIDWMEAL 12/14/22 [History Last Taken Unknown] Allergy/AdvReac Type Severity Reaction Status Date / Time levofloxacin [From Levaquin] Allergy rash,swelli Verified 12/14/22 09:03 ng Penicillins Allergy Rash Verified 12/14/22 09:03 Family History Father Asthma Heart disease Hypertension Mother Bleeding disorder Hypertension CVA (cerebral vascular accident) Brother Diabetes Heart disease Hypertension High cholesterol Surgical History History of ERCP History of tonsillectomy Hx of cholecystectomy Social History Smoking Status: Never smoker second hand exposure: No alcohol intake: never substance use type: does not use ROS Constitutional Constitutional: Denies anorexia, change in weight, chills, fatigue, fever(s), night sweats or weakness Eyes Eyes: Denies blurry vision, change in vision, discharge from eye(s) or eye pain Cardiovascular Cardiovascular: Denies chest pain, claudication, dyspnea on exertion, edema, lightheadedness or palpitations Respiratory/Chest Respiratory/Chest: Denies cough, hemoptysis, shortness of breath at rest or shortness of breath with exertion Gastrointestinal Gastrointestinal: Denies abdominal pain, constipation, diarrhea, hematemesis, hematochezia, melena, nausea or vomiting Genitourinary Genitourinary: Denies dysuria, hematuria, urinary frequency, urinary hesitancy, urinary incontinence or urinary urgency Musculoskeletal Musculoskeletal: Denies back pain, joint pain, joint stiffness, joint swelling, myalgias or neck pain Neurologic Neurologic: Reports focal weakness; Denies abnormal gait, abnormal speech, confusion, disequilibrium, dizziness, headache(s), loss of vision, numbness, other visual disturbances, paresthesias, syncope or tingling Psychiatric Psychiatric: Denies anxiety, cognitive impairment, depression, irritability, mood swings or suicidal ideation Endocrine Endocrinology: Denies change in body appearance, cold intolerance, excessive sweating, heat intolerance, polydipsia or polyuria Hematologic/Lymphatic Hematologic/Lymphatic: Denies none, anemia, easy bleeding, easy bruising or lymphadenopathy Allergic/Immunologic Allergic/Immunologic: Denies rhinitis, urticaria, eczemia or asthma Vital Signs Vital Signs Vital Signs: 12/14/22 08:44 12/14/22 09:01 12/14/22 09:05 Temperature 97.1 F L Temperature Source Temporal Pulse Rate 68 74 74 Respiratory Rate 18 14 13 Blood Pressure 161/101 H 165/98 H 165/98 H Blood Pressure Mean 121 120 120 Blood Pressure Source Blood Pressure Position Blood Pressure Location Pulse Ox 99 99 99 Oxygen Delivery Method Room Air Room Air Room Air 12/14/22 09:06 12/14/22 09:20 12/14/22 09:27 Temperature Temperature Source Pulse Rate 68 Respiratory Rate 16 Blood Pressure 161/101 H 142/92 H Blood Pressure Mean 121 Blood Pressure Source Monitor Blood Pressure Position Supine Blood Pressure Location Right Arm Pulse Ox 98 99 Oxygen Delivery Method Room Air Room Air 12/14/22 09:30 12/14/22 09:35 12/14/22 09:50 Temperature Temperature Source Pulse Rate 71 70 70 Respiratory Rate 18 13 16 Blood Pressure 141/92 H 141/92 H 143/87 H Blood Pressure Mean 108 108 105 Blood Pressure Source Monitor Blood Pressure Position Semi-Fowlers Semi-Fowlers Blood Pressure Location Right Arm Pulse Ox 98 98 98 Oxygen Delivery Method Room Air Room Air 12/14/22 10:01 12/14/22 10:05 12/14/22 10:07 Temperature 97.6 F L Temperature Source Temporal Pulse Rate 66 70 68 Respiratory Rate 14 15 16 Blood Pressure 134/93 H 134/93 H 134/93 H Blood Pressure Mean 106 106 106 Blood Pressure Source Monitor Blood Pressure Position Semi-Fowlers Blood Pressure Location Pulse Ox 98 98 98 Oxygen Delivery Method Room Air Room Air Room Air 12/14/22 10:45 12/14/22 10:40 12/14/22 10:37 Temperature 97.0 F L 97.0 F L Temperature Source Temporal Temporal Pulse Rate 68 69 76 Respiratory Rate 16 15 16 Blood Pressure 148/90 H 140/86 H 145/92 H Blood Pressure Mean 109 104 109 Blood Pressure Source Monitor Monitor Blood Pressure Position Semi-Fowlers Semi-Fowlers Semi-Fowlers Blood Pressure Location Left Arm Left Arm Pulse Ox 98 99 99 Oxygen Delivery Method Room Air Room Air 12/14/22 11:00 12/14/22 11:45 12/14/22 11:15 Temperature Temperature Source Pulse Rate 68 71 67 Respiratory Rate 16 22 H 15 Blood Pressure 143/90 H 143/96 H 143/95 H Blood Pressure Mean 107 111 111 Blood Pressure Source Monitor Monitor Monitor Blood Pressure Position Semi-Fowlers Semi-Fowlers Semi-Fowlers Blood Pressure Location Left Arm Left Arm Left Arm Pulse Ox 98 98 96 Oxygen Delivery Method Room Air Room Air Room Air 12/14/22 11:30 12/14/22 12:00 12/14/22 12:30 Temperature Temperature Source Pulse Rate 69 65 67 Respiratory Rate 16 16 17 Blood Pressure 143/95 H 146/86 H 143/84 H Blood Pressure Mean 111 106 103 Blood Pressure Source Monitor Monitor Monitor Blood Pressure Position Semi-Fowlers Semi-Fowlers Semi-Fowlers Blood Pressure Location Left Arm Left Arm Left Arm Pulse Ox 100 99 99 Oxygen Delivery Method Room Air Room Air Room Air 12/14/22 13:00 12/14/22 13:30 Temperature Temperature Source Pulse Rate 73 73 Respiratory Rate 20 H 14 Blood Pressure 158/86 H 158/86 H Blood Pressure Mean 110 110 Blood Pressure Source Monitor Monitor Blood Pressure Position Semi-Fowlers Semi-Fowlers Blood Pressure Location Left Arm Left Arm Pulse Ox 97 98 Oxygen Delivery Method Room Air Room Air Weight Weight: 145.7 kg Body Mass Index (BMI) 44.8 Physical Exam Const alert, oriented x3, no apparent distress and healthy appearing Constitutional Narrative: Patient is morbidly obese General Appearance: cooperative, well kempt and well developed Orientation / Consciousness: awake, oriented to person, oriented to place and oriented to time HEENT normocephalic, head/scalp atraumatic, hearing grossly normal bilaterally and moist oral mucous membranes Eyes PERRL, EOMs intact bilaterally and conjunctivae normal Neck supple, no JVD, thyroid normal and no carotid bruits General: trachea midline Resp normal respiratory effort, no retractions, no use of accessory muscles and clear to auscultation bilaterally Auscultation: Negative for rales, rhonchi or wheezes Cardio regular rate, regular rhythm, S1 normal heart sound, S2 normal heart sound, no murmurs, no rub and no gallops GI normal to inspection, nondistended, normoactive bowel sounds, soft to palpation, non-tender and non-distended Extremity no clubbing, cyanosis or edema Skin no rashes or lesions noted General Skin Exam: no breakdown Neuro oriented x3, CN's II-XII intact bilaterally, moves all extremities, no focal motor deficits and no sensory deficits noted Sensorium / Orientation: awake, alert, oriented to person, oriented to place and oriented to time Speech: speech normal Psych affect normal Results Lab / Micro Data Result Diagrams: 12/14/22 08:50 12/14/22 08:50 Labs: Laboratory Results - last 24 hr 12/14/22 08:50: WBC 11.0, RBC 5.83, Hgb 16.1, Hct 47.8, MCV 82.0, MCH 27.6, MCHC 33.7, RDW Std Deviation 36.0, RDW Coeff of Luanne 12.1, Plt Count 265, MPV 9.6, Immature Gran % (Auto) 0.500, Neut % (Auto) 60.8, Lymph % (Auto) 27.6, [place] % (Auto) 7.2, Eos % (Auto) 3.0, Baso % (Auto) 0.9, Absolute Neuts (auto) 6.7, Absolute Lymphs (auto) 3.04, Nucleated RBC % 0 12/14/22 08:50: PT 12.7, INR 1.0, APTT 23.9 L 12/14/22 08:50: Sodium 134 L, Potassium 3.6, Chloride 103, Carbon Dioxide 27.0, Anion Gap 4 L, BUN 28 H, Creatinine 1.23, Estim Creat Clear Calc 69.72, Est GFR (MDRD) Af Amer 78, Est GFR (MDRD) Non-Af 64, BUN/Creatinine Ratio 22.8 H, Glucose 327 H, Calcium 9.2, Troponin I High Sens 8 Rhythm Strip Rhythm Strip: Sinus Rhythm Rate: 74 Ectopy: None Radiology Impression Brain CT 12/14/22 08:49 IMPRESSION: No acute intracranial process identified. Chronic involutional and white matter changes. Electronically Signed: Josephine Jackson MD at 9:08 EDT Reading Location ID and State: [facility] / [place] Tel , Service support , ADDENDUM: 12/14/2218 IMPRESSION: No acute intracranial process identified. Chronic involutional and white matter changes. N.B. : The above Results were Read Back by Josephine Jackson MD to Sheila Rowland MD, and understanding confirmed on 12/14/2022 09:11:21 (ET). Electronically Signed: Josephine Jackson MD at 9:08 EDT , Head/Neck CTA 12/14/22 08:49 IMPRESSION: No evidence for significant stenosis or occlusion in the carotid or vertebral arteries of the neck. No evidence for large vessel occlusion or other focal vascular abnormality in the [place]. N.B. : The above Results were Read Back by Josephine Jackson MD to Sheila Rowland MD, and understanding confirmed on 12/14/2022 09:15:35 (ET). Electronically Signed: Josephine Jackson MD at 9:16 EDT , ADDENDUM: 12/14/22 0923 IMPRESSION: No evidence for significant stenosis or occlusion in the carotid or vertebral arteries of the neck. No evidence for large vessel occlusion or other focal vascular abnormality in the [place]. N.B. : The above Results were Read Back by Josephine Jackson MD to Sheila Rowland MD, and understanding confirmed on 12/14/2022 09:15:35 (ET). Electronically Signed: Josephine Jackson MD at 9:16 EDT , Chest X-Ray 12/14/22 09:40 IMPRESSION: No acute cardiopulmonary process identified. Electronically Signed: Josephine Jackson MD at 9:58 EDT , Assessment & Plan Assessment/Plan (1) Stroke-like symptoms: PLAN: Plan 1. Left-sided hemiparesis-etiology unclear at this point, again patient was given tenecteplase, he was admitted to ICU, he will undergo an MRI tomorrow and his Plavix and aspirin will be restarted tomorrow. Patient will be seen by PT, OT, and speech therapy. Patient will remain on his statin. #2 type 2 diabetes-under poor control, patient's blood sugars will be monitored, sliding scale insulin will be administered as needed, patient will remain on his home medication #3 hyperlipidemia-patient is on a statin currently #4 essential hypertension-patient is on losartan and hydrochlorothiazide #5 morbid obesity-complicates care, medical course, recovery, and prognosis #6 chronic depression-patient is on Prozac #7 history of cerebrovascular disease-I will obtain reports of any previous imaging studies from [facility] Total clinical time spent by myself addressing patient's medical issues, reviewing all of his data, and collaborating with patient's care team: 75 minutes Charges/Coding Visit Charges Inpatient E&M: 19355 Init Hosp L3
--- NOTE | 2022-12-14 14:34 | PCM.HOSP.N ---
Hospitalist Note I called [facility] in [facility] today to obtain results of a previous MRI on the patient, they had records of MRIs that were done in 2017, one in April 2017 showed a left parietal stroke and one in June 2017 showed an old left parietal stroke. These were added to the patient's chart in the hospital here
[2022-12-14] MEDS: Atorvastatin Calcium 80 MG Tablet PO (20:55)
[2022-12-14] MEDS: FLUoxetine 20 MG Capsule PO (20:55)
[2022-12-15] VITALS (15 sets, daily range): BP systolic 117–150; BP diastolic 73–97; PULSE 81–94; RESP 16–20; TEMP 36.4–36.8; O2SAT 93–98; BMI 44.8; BMI 45.2
[2022-12-15] MEDS: Gabapentin 300 MG Capsule PO (05:34)
[2022-12-15] MEDS: Insulin Lispro 100 UNIT/ML INSULN.PEN 34 UNIT SC ×2 (08:02→12:00)
[2022-12-15] MEDS: Insulin Lispro 100 UNIT/ML INSULN.PEN SC ×2 (08:02→12:00)
[2022-12-15] MEDS: hydroCHLOROthiazide 25 MG Tablet PO (08:04)
[2022-12-15] MEDS: dilTIAZem CD 180 MG Capsule PO (08:04)
[2022-12-15] MEDS: Insulin Glargine-YFGN 100 UNIT/ML Pen 64 UNIT SC (08:04)
[2022-12-15] MEDS: Losartan Potassium 100 MG Tablet PO (08:04)
[2022-12-15] MEDS: FLUoxetine 20 MG Capsule PO (08:04)
[2022-12-15 08:30] LABS: Bedside Glucose 348 mg/dL (74-106)
--- NOTE | 2022-12-15 10:17 | MRI_ITS ---
HISTORY: CVA -- MRI 24 hours after IV thrombolytic administration. TECHNIQUE: Multiplanar and multisequence MR images of the brain were obtained without contrast. 288 images. COMPARISON: CT prior day. MRI 10/24/2018. FINDINGS: BRAIN PARENCHYMA: Mild foci of increased T2 FLAIR signal in the cerebral white matter. Mild chronic right cerebellar infarcts. No abnormal focus of restricted diffusion. No acute intracranial hemorrhage identified. CSF SPACES: Mild generalized volume loss. No significant midline shift or other mass effect.No extra-axial fluid collection. VASCULAR SYSTEM: Major intracranial flow voids are maintained. PARANASAL SINUSES AND MASTOID AIR CELLS: No significant air fluid levels. ORBITS: Symmetric contents. MRI/Brain without Contrast IMPRESSION: No evidence for acute infarct. Mild chronic involutional and white matter changes. Electronically Signed: Josephine Jackson MD at 10:59 EDT ,
--- NOTE | 2022-12-15 11:12 | CASEMGMT ---
Social Work SW met w/pt, completed PHQ-9. The PHQ-9 does not show an indication for depression. Pt did inform SW that he is on an antidepressant that helps, he takes Prozac. Pt explained that he has some cognitive issues from past strokes in regard to memory. He does not feel the need for therapy at this time. Pt reports that he has a supportive family, is with two teenagers. He also reports his community of [place] is very supportive, as well as an online community he is part of. Pt is hopeful to be going home later today. No further social service needs. SHIRLEY Carver
--- NOTE | 2022-12-15 11:56 | PCM.DC.SUM ---
Providers Date of Admission: 12/14/22 Date of Discharge: 12/15/22 Primary Care Physician: Dr. Rod Elena MD Consultations 12/14/22 09:20 Consult: And Drying Supervisor [employer]ing C[employer] / Pulmonary Medicine Routine Consulting Provider: Roni Saldana Reason for Consult: stroke for thrombolytic administration EMERGENT Consult: Yes Notified: Yes Date Notified: 12/14/22 Time Notified: 09:20 Method of Notification: Text Comments:: Consult may be done in ED or ICU 12/14/22 10:37 Consult: And Drying Supervisor [employer] / Pulmonary Medicine Routine Consulting Provider: Roni Saldana Reason for Consult: stroke for thrombolytic EMERGENT Consult: Yes MD Notified: Yes Date Notified: 12/14/22 Time Notified: 10:17 Method of Notification: Verbal Reason For Visit: ISCHEMIC STROKE Diagnosis Discharge Diagnosis (1) Stroke-like symptoms: Status: Inactive Code(s): R29.90 - Unspecified symptoms and signs involving the nervous system Plan 1. Transient ischemic attack #2 type 2 diabetes-under poor control, patient's blood sugars will be monitored, sliding scale insulin will be administered as needed, patient will remain on his home medication #3 hyperlipidemia-patient is on a statin currently #4 essential hypertension-patient is on losartan and hydrochlorothiazide #5 morbid obesity-complicates care, medical course, recovery, and prognosis #6 chronic depression-patient is on Prozac #7 history of cerebrovascular disease-I will obtain reports of any previous imaging studies from [facility] Total clinical time spent by myself addressing patient's medical issues, reviewing all of his data, and collaborating with patient's care team: 75 minutes Medications at Discharge Home Medications albuterol sulfate 90 mcg/actuation aerosol inhaler 1 puff inhalation Q4H PRN PRN Shortness Of Breath 01/28/15 aspirin 81 mg tablet,delayed release 81 mg PO DAILY health maintenance 06/03/16 clopidogrel 75 mg tablet 75 mg PO DAILY blood thinner 09/27/17 diltiazem HCl 180 mg capsule,extended release 24 hr 180 mg PO DAILY blood pressure/heart 10/16/17 atorvastatin 80 mg tablet 80 mg PO DAILY CHOLESTEROL 03/23/20 cetirizine 10 mg tablet 10 mg PO DAILY ALLERGIES 03/23/20 cholecalciferol (vitamin D3) 25 mcg (1,000 unit) tablet 2,000 unit PO DAILY SUPPLEMENT 03/23/20 losartan 100 mg tablet 100 mg PO DAILY BP 03/23/20 albuterol sulfate 2.5 mg/3 mL (0.083 %) solution for nebulization 1.25 mg continuous nebulization Q4H 10/25/20 gabapentin 300 mg capsule 300 mg PO TID 10/25/20 hydrochlorothiazide 25 mg tablet 25 mg PO DAILY 10/25/20 pen needle, diabetic 32 gauge x 5/32 (BD Ultra-Fine Rachel Pen Needle) #180 ea 03/11/21 flash glucose sensor (FreeStyle Cyndie 2 Sensor kit) #2 ea 05/29/22 fluoxetine 20 mg capsule 20 mg PO DAILY 12/14/22 insulin detemir U-100 100 unit/mL (3 mL) subcutaneous pen (Levemir FlexTouch U-100 Insulin) 64 unit subcut DAILY 12/14/22 insulin lispro 100 unit/mL subcutaneous pen (Humalog KwikPen (U-100) Insulin) 34 unit subcut TIDWMEAL 12/14/22 Hospital Course Operations None Procedures None Summary of Care Provided Minutes Spent on Discharge: 32 Hospital Course: This 57-year-old white male was seen in the emergency room at [facility] with complaints of a sudden onset of left-sided weakness. A stroke team was called, CT of the brain was obtained which did not show any evidence of acute disease, he was seen by teleneurology and it was recommended that he receive tenecteplase. Patient's symptoms resolved during the infusion of the tenecteplase, he was transferred to ICU, echocardiogram was not obtained due to the fact he had a previous echocardiogram which showed no evidence of atrial septal defect. Patient was seen by PT and OT as well as speech therapy and underwent an MRI which showed no evidence of acute infarction. On 12/15/2022, patient was seen and examined: On examination he appeared in good health and spirits. Vital signs as documented. Skin warm and dry and without overt rashes. Neck without JVD, neck was supple, trachea midline, thyroid was normal. Lungs clear bilaterally, normal air movement was noted. Heart exam notable for regular rhythm, normal sounds and absence of murmurs, rubs or gallops. Abdomen unremarkable and without evidence of organomegaly, masses, or abdominal aortic enlargement. Bowel sounds are present, abdomen is not distended. Extremities nonedematous, no cyanosis was noted, no clubbing was noted. Neuro: Cranial nerves II through XII are grossly intact, no focal motor deficits were noted, sensation to light touch and pinprick intact, motor exam 5/5 throughout. Psych: Patient is alert and oriented x3, he does not appear anxious or depressed, he does not appear agitated. Patient appears stable for discharge on 12/15/2022. Weight / BMI Weight Weight: 147.2 kg Body Mass Index (BMI) 45.2 ABG / Lab / Microbiology Data Result Diagrams: 12/14/22 08:50 12/14/22 08:50 Laboratory: Laboratory Results - last 24 hr 12/15/22 08:01: POC Glucose 348 H Radiography Diagnostic Testing: Radiology Impression Brain MRI 12/15/22 10:17 IMPRESSION: No evidence for acute infarct. Mild chronic involutional and white matter changes. Electronically Signed: Josephine Jackson MD at 10:59 EDT Reading Location ID and State: [facility] / [place] Tel , Service support , D/C Instructions Discharge Diet: 1800 Calorie Control Diet Weight Bearing Status: Full weight bearing Meaningful Use Info Meaningful Use Diagnoses (Choose all that apply): None applicable Discharge Plan Admission Admit Date/Time: 12/14/22 10:02 Primary Reason for Your Visit: TIA Attending Provider: Rajesh Lewis Primary Care Provider: Rod Elena Consulting Providers: Rebel Mccracken ; Alexy Aguila ; Don Melo ; Karlos Call ; Keya Gallego SALES DEVELOPMENT DIRECTOR Discharge Orders/Prescriptions Prescriptions: Continued gabapentin 300 mg capsule 300 mg PO TID Label Comments: TAKE 1 CAPSULE THREE TIMES DAILY hydrochlorothiazide 25 mg tablet 25 mg PO DAILY Label Comments: Take 1 tablet by mouth daily albuterol sulfate 2.5 mg /3 mL (0.083 %) solution for nebulization 1.25 mg continuous nebulization Q4H Label Comments: use 1 (ONE) ampule (3ml) EVERY 6 HOURS NEEDED for FOR WHEEZING (DME) pen needle, diabetic [BD Ultra-Fine Rachel Pen Needle] 32 gauge x 5/32 needle See Rx Instructions .ROUTE .MEDSUPPLY Qty: 180 6RF Rx Instructions: 6 times daily (DME) FreeStyle Cyndie 2 Sensor Kit See Rx Instructions .Route Qty: 2 5RF Rx Instructions: As directed albuterol sulfate 1 INHALER inhaler 1 puff INHALATION Q4H PRN PRN (Reason: Shortness Of Breath) Label Comments: ASTHMA aspirin 81 MG tablet,delayed release (DR/EC) 81 mg PO DAILY clopidogrel 75 MG tablet 75 mg PO DAILY diltiazem HCl 180 MG capsule,extended release 24hr 180 mg PO DAILY atorvastatin 80 mg tablet 80 mg PO DAILY Label Comments: Take 1 tablet by mouth nightly cetirizine 10 MG tablet 10 mg PO DAILY losartan 100 MG tablet 100 mg PO DAILY cholecalciferol (vitamin D3) 1,000 UNIT tablet 2,000 unit PO DAILY fluoxetine 20 mg capsule 20 mg PO DAILY insulin lispro [Humalog KwikPen Insulin] 100 unit/mL insulin pen 34 unit subcut TIDWMEAL MDD 200 Levemir FlexTouch U-100 Insuln 100 unit/mL (3 mL) insulin pen 64 unit SC DAILY Referrals / Follow Up: Rod Elena MD [Primary Care Provider] - Within 2 Weeks Disposition Disposition (needs filled in before D/C Order can be placed): Home, Self Care Charges/Coding Visit Charges Inpatient E&M: 65706 Disch Hosp >30min
[2022-12-15 12:26] LABS: Bedside Glucose 285 mg/dL (74-106)
--- NOTE | 2022-12-15 13:10 | CASEMGMT ---
RN CM Face to Face with patient for initial transition planning/care coordination assessment. RN CM introduced self and role at [facility]. Patient sitting in chair, alert and oriented, at bedside. Patient willing to participate in assessment and is able to answer all questions appropriately. Care providers, pharmacy, and demographics verified. Patient wishes to discharge home, denies need for home health at this time. Patient states he has no further needs or concerns at this time. CM to follow for discharge planning needs that may arise. PCP: Rod Elena Specialists: [employer] [facility] Pharmacy: Ricki Lau Insurance: [facility] [place] [place], [facility] Prescription Benefit: yes Living Will/HPOA: none LNOK: Living Arrangements: Patient lives with in a single story home with 1 step to enter. Patient states he is independent at home. Transportation: self, DME/HHC: Patient has raised toilet, cane, walker, grab bars, cpap, nebulizer, pulse ox, glucometer with supplies. No previous HHC or SNF. Disposition Plan: Patient to discharge home with family support and follow-up plans in place. Anita SANTIAGO, RN, CM
== END 2022-12-15 13:30 | disposition home or self-care (01) | DRG 62 ==
LOC: ED 09:48 → ICU 10:51
PROVIDERS: Admitting Provider Internal Medicine; Emergency Provider Emergency Medicine; PCP Family Medicine; Visit Provider Internal Medicine
DX: G45.9 Transient cerebral ischemic attack, unspecified (principal); Z68.41 Body mass index [BMI] 40.0-44.9, adult; E11.42 Type 2 diabetes mellitus with diabetic polyneuropathy; E11.65 Type 2 diabetes mellitus with hyperglycemia; Z79.4 Long term (current) use of insulin; E66.01 Morbid (severe) obesity due to excess calories; I10 Essential (primary) hypertension; I25.10 Atherosclerotic heart disease of native coronary artery without angina pectoris; E78.00 Pure hypercholesterolemia, unspecified; J45.909 Unspecified asthma, uncomplicated; R29.898 Other symptoms and signs involving the musculoskeletal system; F32.A Depression, unspecified; Z79.02 Long term (current) use of antithrombotics/antiplatelets; Z79.82 Long term (current) use of aspirin; Z79.899 Other long term (current) drug therapy; Z86.73 Personal history of transient ischemic attack (TIA), and cerebral infarction without residual deficits; Z86.711 Personal history of pulmonary embolism
CPT/HCPCS: 70450; 70496; 70498; 70551; 71045; 80048; 82962; 84484; 85025; 85610; 85730; 92610; 93005; 97162; 97166; 99285; J3101; J7030; Q9967; A4216

== ENCOUNTER 2023-08-17 14:00 | Outpatient (RCR) | payer OTHER, MEDICARE, SELFPAY ==
--- NOTE | 2023-03-28 09:26 | HP.PTEVAL_ITS ---
Patient's Visit Information Visit Information Visit Information: ADELIA NGUYEN is a 58 year old M referred to Physical Therapy by DEBORA Allen with a diagnosis of CVA. Date of Evaluation: 03/28/23 Physical Therapist: Eunice Mondragon DPT Visit Plan Frequency: 2x /Week Duration: 4 Weeks Plan: Aquatics- focus on LE and core strength/stabilization and balance Subjective Subjective: Back in November he had stroke #6- since then he has had deficits starting to show- he was at the foot doctor yesterday- they are talking braces and diabetic shoes. 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 The last one has shows more deficits on the left side. He wears soft soled low to the ground so it does not roll him over to the ground. He is falling weekly. He uses a cane- but if he is having a good day he does not use it- he does not use a walker. If he has a really bad he normally just stays in bed all day. He lives with his and two children who can help as needed. He can do his own dressing and bathing. He does drive short distances. 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 Falling 1x a week- normally forwards- his brain loses where his feet are and down he goes. Any sort of uneven surfaces are really hard. Stairs are hard- he only has one step to get into his home- and can hold onto his door frame. He can get up/down a curb with a cane but its really hard. Does have dizziness sometimes but not very often. He sits outside on his couch for most of the day or lays on his bed- plays on his phone or sleeps. Work: does not work. He is not doing any exercise at home. PMHx/Meds: see chart- listed Objective Objective: Posture: FH, RS- can correct with verbal and tactile cues but does not maintain Gait: wide base of support- roles out on outside of bilateral LE- decreased dione- straight cane HR/TR: able with UE A SLS: weight shift only Stairs: non recip with bilateral HR and uses for significant support ROM:WFL in all planes Strength: Core poor. Left: Hip: flexion: 3+/5, Extn: 4-/5, Abd: 4/5, Add: 4/5, Knee: 4-/5 throughout, Ankle: 4-/5 Right: Hip Flexion: 4-/5, Extn: 4/5, Abd: 4+/5, Add: 4+/5, Knee: 4/5, Ankle: 4/5. Sensation: diminished to light touch in LE Sit to Stand: requires UE A Balance/Special Test Scores Functional Gait Assessment Score: 11 % Disability: 63.3400 CATSIB Score (Max score 120 seconds): 120 Lower Extremity Functional Score: 14 Goals Goal 1:: Patient will be I with HEP and progression Goal Time Frame: 4-6 Weeks Goal 2:: Patient will demo 2 sit to stands without UE A Goal Time Frame: 4-6 Weeks Goal 3:: Patient will report no falls for 1 week Goal Time Frame: 4-6 Weeks Goal 4:: Patient will asc/desc 8 stairs recip with 1 HR Goal Time Frame: 4-6 Weeks Goal 5:: Patient will report 80% improvement Goal Time Frame: 4-6 Weeks Rehabilitation Potential Physical Therapy Diagnosis: Patient presents with hypomobility- he has decreased LE and core strength/stabilization, proprioception, flex and muscular endurance leading to falls, poor posture and decreased ability to perform ADL's. Anticipated Interventions Patient/Client Instruction: Educate patient on: Benefits of Fitness Program Therapeutic Exercise to Include: Strength training, Endurance training, Balance training, Coordination, Agility training, Body mechanics, Postural training, Flexibilty training, Gait and locomotor training, Neuromotor development, In an aquatic setting , Passive ROM, Active ROM, Dynamic Lumbar Stabilization and Scapular Strength/Stabilization Text: Thank you for the opportunity to evaluate your patient. For Medicare and Medicare HMO plans, please review the plan of care and approve it. It will need to be FAXED BACK to us at [phone] for Medicare purposes. For Medicare only, by signing this I certify the plan of care. Please let me know if there are questions or concerns regarding this plan of care. Physician Signature: Date:
--- NOTE | 2023-04-26 14:53 | HP.PTREVAL ---
Re-Evaluation Intro: DEBORA Allen, It has been my pleasure to treat ADELIA NGUYEN over the last 9 visits for CVA. Please see the progress note below for an update on the physical therapy plan of care! Subjective Subjective: He reports that he has no severe pain but soreness. He has had one fall since starting therapy. He really likes the pool and he feels that he is getting a workout- feels the resistance- but safe. They have had some days when he had to back off a little bit. When he doesn't go in the pool he misses it. He likes to float and feels that its really helpful to take some weight off. He does feel that he is gaining more stamina. Objective Objective/Function: Posture: FH, RS- can correct with verbal and tactile cues but does not maintain Gait: wide base of support- roles out on outside of bilateral LE- decreased dione- no AD today- getting braces next week HR/TR: able with UE A SLS: weight shift only Stairs: non recip with bilateral HR and uses for significant support ROM:WFL in all planes Strength: Core poor. Left: Hip: flexion: 4/5, Extn: 4-/5, Abd: 4+/5, Add: 4/5, Knee: 4/5 throughout, Ankle: 4/5 Right: Hip Flexion: 4/5, Extn: 4/5, Abd: 4+/5, Add: 4+/5, Knee: 4/5, Ankle: 4/5. Sensation: diminished to light touch in LE Sit to Stand: requires a single UE A Plan Plan Plan: 04/26/23: Continue aquatic therapy 2x a week for 4 weeks- progress towards goals Aquatics- focus on LE and core strength/stabilization and balance Balance/Gait/Functional tests Balance/Special Test Scores Functional Gait Assessment Score: 11 % Disability: 63.3400 CATSIB Score (Max score 120 seconds): 120 Lower Extremity Functional Score: 27 Goals Goals Goal 1:: Patient will be I with HEP and progression Goal Time Frame: 4-6 Weeks Goal Progress: Progressing Goal 2:: Patient will demo 2 sit to stands without UE A Goal Time Frame: 4-6 Weeks Goal Progress: Progressing Goal 3:: Patient will report no falls for 1 week Goal Time Frame: 4-6 Weeks Goal Progress: Progressing Goal 4:: Patient will asc/desc 8 stairs recip with 1 HR Goal Time Frame: 4-6 Weeks Goal Progress: Progressing Goal 5:: Patient will report 80% improvement Goal Time Frame: 4-6 Weeks Goal Progress: Progressing Anticipated Interventions Anticipated Interventions Patient/Client Instruction: Educate patient on: Benefits of Fitness Program Therapeutic Exercise to Include: Strength training, Endurance training, Balance training, Coordination, Agility training, Body mechanics, Postural training, Flexibilty training, Gait and locomotor training, Neuromotor development, In an aquatic setting , Passive ROM, Active ROM, Dynamic Lumbar Stabilization and Scapular Strength/Stabilization Re-Evaluation Ending Re-evaluation ending: Please do not hesitate to contact me at [phone] by phone or if you have questions or concerns regarding this new plan of care! Sincerely, LETI OcasioT
--- NOTE | 2023-05-29 13:34 | HP.PTREVAL ---
Re-Evaluation Intro: DEBORA Allen, It has been my pleasure to treat ADELIA NGUYEN over the last 17 visits for CVA. Please see the progress note below for an update on the physical therapy plan of care! Subjective Subjective: Patient reports that he got his ankle braces - new shoes this hopefully this week. He is using a standard walker and realizes that he needs wheels. He has a few blisters that he plans to go back and show the MD today. He saw his MD who has cleared him to go back in the pool. Patient feels that the pool is really helping. He feels the pool is helping. He can almost get out of the chair without using him arms. Objective Objective/Function: Posture: FH, RS- can correct with verbal and tactile cues but does not maintain Gait: new braces today but old shoes- standard walker HR/TR: able with UE A SLS: weight shift only Stairs: non recip with bilateral HR and uses for significant support ROM:WFL in all planes Strength: Core poor. Left: Hip: flexion: 4/5, Extn: 4-/5, Abd: 4+/5, Add: 4/5, Knee: 4/5 throughout, Ankle: 4/5 Right: Hip Flexion: 4/5, Extn: 4/5, Abd: 4+/5, Add: 4+/5, Knee: 4/5, Ankle: 4/5. Sensation: diminished to light touch in LE Sit to Stand: requires a single UE A Plan Plan Plan: 05/29/23: Pt has been cleared by MD to continue aquatic PT- he will continue 2x a week for 4 weeks- when he has new shoes and braces he will then schedule with PT for balance and gait assessment for land appropriateness. 04/26/23: Continue aquatic therapy 2x a week for 4 weeks- progress towards goals Aquatics- focus on LE and core strength/stabilization and balance Balance/Gait/Functional tests Balance/Special Test Scores Functional Gait Assessment Score: 11 % Disability: 63.3400 CATSIB Score (Max score 120 seconds): 120 Lower Extremity Functional Score: 27 Goals Goals Goal 1:: Patient will be I with HEP and progression Goal Time Frame: 4-6 Weeks Goal Progress: Progressing Goal 2:: Patient will demo 2 sit to stands without UE A Goal Time Frame: 4-6 Weeks Goal Progress: Progressing Goal 3:: Patient will report no falls for 1 week Goal Time Frame: 4-6 Weeks Goal Progress: Progressing Goal 4:: Patient will asc/desc 8 stairs recip with 1 HR Goal Time Frame: 4-6 Weeks Goal Progress: Progressing Goal 5:: Patient will report 80% improvement Goal Time Frame: 4-6 Weeks Goal Progress: Progressing Anticipated Interventions Anticipated Interventions Patient/Client Instruction: Educate patient on: Benefits of Fitness Program Therapeutic Exercise to Include: Strength training, Endurance training, Balance training, Coordination, Agility training, Body mechanics, Postural training, Flexibilty training, Gait and locomotor training, Neuromotor development, In an aquatic setting , Passive ROM, Active ROM, Dynamic Lumbar Stabilization and Scapular Strength/Stabilization Re-Evaluation Ending Re-evaluation ending: Please do not hesitate to contact me at [phone] by phone or if you have questions or concerns regarding this new plan of care! Sincerely, Eunice Mondragon DPT
--- NOTE | 2023-06-29 15:08 | HP.PTREVAL ---
Re-Evaluation Intro: DEBORA Allen, It has been my pleasure to treat ADELIA NGUYEN over the last 25 visits for CVA. Please see the progress note below for an update on the physical therapy plan of care! Subjective Subjective: Pt reports he feels much stronger at this time, but still feels some weakness and decreased balance Objective Objective/Function: Pt is unable to perform 1 sit to stand without use of UE's Pt experienced one fall in the past week Pt is able to negotiate 1 flight of stairs at this time but requires 2 UE's and one step at a time Pt reports 55% improvement at this time Pt is progressing toward Rx goals but has not achieved them at this time. Plan Plan Plan: 06/29/23: Pt was assessed this date. Land assessment provoked B knee pain and LE pain. Aquatic therapy remains more appropriate at this time as pt is able to tolerate it and make overall progress. Cont with aquatic therapy. 05/29/23: Pt has been cleared by to continue aquatic PT- he will continue 2x a week for 4 weeks- when he has new shoes and braces he will then schedule with PT for balance and gait assessment for land appropriateness. 04/26/23: Continue aquatic therapy 2x a week for 4 weeks- progress towards goals Aquatics- focus on LE and core strength/stabilization and balance Balance/Gait/Functional tests Balance/Special Test Scores Functional Gait Assessment Score: 11 % Disability: 63.3400 CATSIB Score (Max score 120 seconds): 120 Lower Extremity Functional Score: 16 Goals Goals Goal 1:: Patient will be I with HEP and progression Goal Time Frame: 4-6 Weeks Goal Progress: Progressing Goal 2:: Patient will demo 2 sit to stands without UE A Goal Time Frame: 4-6 Weeks Goal Progress: Progressing Goal 3:: Patient will report no falls for 1 week Goal Time Frame: 4-6 Weeks Goal Progress: Progressing Goal 4:: Patient will asc/desc 8 stairs recip with 1 HR Goal Time Frame: 4-6 Weeks Goal Progress: Progressing Goal 5:: Patient will report 80% improvement Goal Time Frame: 4-6 Weeks Goal Progress: Progressing Anticipated Interventions Anticipated Interventions Patient/Client Instruction: Educate patient on: Benefits of Fitness Program Therapeutic Exercise to Include: Strength training, Endurance training, Balance training, Coordination, Agility training, Body mechanics, Postural training, Flexibilty training, Gait and locomotor training, Neuromotor development, In an aquatic setting , Passive ROM, Active ROM, Dynamic Lumbar Stabilization and Scapular Strength/Stabilization Re-Evaluation Ending Re-evaluation ending: Please do not hesitate to contact me at [phone] by phone or if you have questions or concerns regarding this new plan of care! Sincerely, Lyle Warner, PT, ATC
--- NOTE | 2023-08-03 14:36 | HP.PTREVAL_ITS ---
Re-Evaluation Intro: DEBORA Allen, It has been my pleasure to treat ADELIA NGUYEN over the last 33 visits for CVA. Please see the progress note below for an update on the physical therapy plan of care! Subjective Subjective: No falls in last two weeks. Fell two weeks ago on grass for no reason. No spinning. neuropathy from strokes in both legs in all extremities. Pool is going well and feels like it is helping his balance. Maybe has kept him from falling. HEP: band exercises with UE, nothing for balance or legs. pain level consistent for last 4 yrs. Objective Objective/Function: Pt walks with B ankle braces due to ankle weakness and no push off available at ankles. Wide PATRICE but I. very little knee flexion. Funcitonall very weak in B LE L>R. one rail on steps but hard time bending L knee very far and so he circumducts to progress and pulls with UE. But can do it with one rail. romberg eo adn ec 30 sec foam eo 20 and ec 4 sec Unable to stand from chair without UE push today even once. Overall feels safer with balance but still weak and hard to know how much improced this will get. Fe3els like he still has ex to learn in pool and will look to join [facility] emergency department and continue on his own along with progressing to land therapy for attempted strength adn balance. Plan Plan Plan: 2x/week x 4(one land and one water if insurance will cover or two water) for progression of water ex to I AND balance and LE strength, giat on land and progression to I home leg strength and balance ex. Fair prognosis to new goals: other goals not met still appropriate with questionable prognosis Balance/Gait/Functional tests Balance/Special Test Scores Functional Gait Assessment Score: 11 % Disability: 63.3400 CATSIB Score (Max score 120 seconds): 120 Lower Extremity Functional Score: 18 Goals Goals Goal 1:: Patient will be I with HEP and progression Goal Time Frame: 4-6 Weeks Goal Progress: Not Progressing Goal 2:: Patient will demo 2 sit to stands without UE A Goal Time Frame: 4-6 Weeks Goal Progress: Progressing Goal 3:: Patient will report no falls for 1 week Goal Time Frame: 4-6 Weeks Goal Progress: Goal Met Goal 4:: Patient will asc/desc 8 stairs recip with 1 HR Goal Time Frame: 4-6 Weeks Goal Progress: met, unconventional Goal 5:: Patient will report 80% improvement Goal Time Frame: 4-6 Weeks Goal Progress: 65%, slow improved Goal 6:: compliant and I with home strength , balance and in pool at [facility] emergency department to continue progress. Goal Time Frame: 4-6 Weeks Goal Progress: NEW GOAL Anticipated Interventions Anticipated Interventions Patient/Client Instruction: Educate patient on: Benefits of Fitness Program Therapeutic Exercise to Include: Strength training, Endurance training, Balance training, Coordination, Agility training, Body mechanics, Postural training, Flexibilty training, Gait and locomotor training, Neuromotor development, In an aquatic setting , Passive ROM, Active ROM, Dynamic Lumbar Stabilization and Scapular Strength/Stabilization Re-Evaluation Ending Re-evaluation ending: Please do not hesitate to contact me at [phone] by phone or if you have questions or concerns regarding this new plan of care! Sincerely, Sang Gant, DPT, OCS, CSCS
== END 2023-08-17 19:00 | disposition home or self-care (01) ==
LOC: PT 14:00
PROVIDERS: PCP Family Medicine; Referring Provider Registered Nurse; Visit Provider Registered Nurse
DX: Z86.73 Personal history of transient ischemic attack (TIA), and cerebral infarction without residual deficits (principal); R53.1 Weakness; R29.6 Repeated falls
CPT/HCPCS: 97110; 97113; 97162; 97164

== ENCOUNTER → 2024-07-15 | Outpatient (CLI) | payer OTHER, MEDICARE, SELFPAY | END | disposition home or self-care (01) | PROVIDERS: PCP Family Medicine; Visit Provider Podiatrist Foot & Ankle Surgery | DX: S99.921A Unspecified injury of right foot, initial encounter (principal); X58.XXXA Exposure to other specified factors, initial encounter | CPT/HCPCS: 87070; 87075; 87077; 87101; 87186; 87205 ==

== ENCOUNTER 2024-07-22 10:11 | Inpatient (IN) | payer OTHER, MEDICARE, SELFPAY ==
[2024-07-22 10:12] VITALS: BP 180/105; PULSE 76; RESP 20; TEMP 36.6; O2SAT 100
--- NOTE | 2024-07-22 10:21 | EKG12_ITS ---
Test Reason : PALPITATION Blood Pressure : */* mmHG Vent. Rate : 75 BPM Atrial Rate : 75 BPM P-R Int : 166 ms QRS Dur : 98 ms QT Int : 416 ms P-R-T Axes : 48 -34 -3 degrees QTcB Int : 464 ms Normal sinus rhythm Left axis deviation Abnormal ECG Confirmed by Angel Okeefe ([id number]), digital editor ERIKA TALBERT ([id number]) on 07/23/2024 6:01:08 AM Referred By: Confirmed By: Angel Okeefe
[2024-07-22 10:54] LABS: Erythrocyte Sedimentation Rate 18 mm/hr (0-20)
[2024-07-22 10:56] LABS: Absolute Neutrophil Count 12.3 X10^3/uL (2.0-7.7); Basophil% 0.6 % (0-1); Eosinophil# 0.24 X10^3/uL; Eosinophils% 1.4 % (0-5); Hemoglobin 14.5 g/dL (13.0-16.5); Lymphocyte % 19.5 % (19-41); Mean Corp Hgb Conc 33.7 g/dL (32-36); Mean Corpuscular Hgb 27.4 pg (27.0-32.0); Mean Corpuscular Volume 81.3 fL (80-94); Mean Platelet Vol. 9.4 fl (6.2-12.0); Monocyte# 1.26 X10^3/uL; Monocyte% 7.2 % (0-10); NRBC Flagged by Analyzer 0 % (0-5); Neutrophil # 12.29 X10^3/uL (2.7-7.7); Neutrophil % 70.6 % (47-70); POSITIVE MORPHOLOGY YES; Platelet Count 293 K/mm3 (150-450); RBC Distribution Width CV 11.8 % (11.6-14.6); RBC Distribution Width SD 34.5 fl (35.1-43.9); Red Blood Count 5.29 M/mm3 (4.6-6.2); White Blood Count 17.4 K/mm3 (4.4-11.0)
[2024-07-22 10:58] LABS: Differential Indicated SCAN CRITERIA MET
--- NOTE | 2024-07-22 11:05 | RAD_ITS ---
STUDY: X-RAY CHEST REASON FOR EXAM: Male, 59 years old. cough TECHNIQUE: Single AP portable view of the chest. COMPARISON: Chest x-ray dated December 14, 2022 FINDINGS: Stable left chest cardiac loop device. No visualized consolidation. There are interstitial fibrotic changes of the lungs. There is no demonstrated pleural abnormality. Normal size heart. Normal mediastinum and shani. Normal visualized pulmonary arteries. Normal visualized aortic arch and descending thoracic aorta. There are diffuse degenerative changes of the visualized thoracic spine. Normal visualized ribs, clavicles, and shoulders. There is no demonstrated abnormality of the visualized soft tissue structures of the upper abdomen. RAD/Chest 1 View (Portable) IMPRESSION: Degenerative changes, as described above. No demonstrated acute cardiopulmonary process. Electronically Signed: Joon Barros MD at 11:57 EST ,
--- NOTE | 2024-07-22 11:05 | RAD_ITS ---
STUDY: X-RAY - RIGHT FOOT CLINICAL: Male, 59 years old. foot wound WOUND TO BOTTOM OF FOOT X 1 WEEK TECHNIQUE: 4 view(s) of the foot. COMPARISON: None. FINDINGS: Normal talus, calcaneus, and tarsal bones. Normal visualized subtalar, talonavicular, calcaneocuboid, tarsal and tarsometatarsal articulations. Normal metatarsi. There is moderate degenerative arthrosis of the metatarsophalangeal joint of the hallux . Normal tibial and fibular sesamoid bones. Normal interphalangeal joint of the great toe. Normal phalanges of the great toe. Normal second through fifth metatarsophalangeal joints. Normal interphalangeal joints and phalanges of the lesser toes. Mild to moderate focal soft tissue swelling is present beneath the head of the calcaneus with overlying bandage material consistent with the reported wound. There is no demonstrated fracture. No visualized subcutaneous air or radiopaque foreign body or osteomyelitis. Moderate sized plantar calcaneal spur noted. Moderate enthesopathy of the posterior calcaneal facet at the Achilles tendon site noted. RAD/Foot min 3 Views IMPRESSION: 1. Mild to moderate focal soft tissue swelling is present beneath the head of the calcaneus with overlying bandage material consistent with the reported wound. There is no demonstrated fracture. No visualized subcutaneous air or radiopaque foreign body or osteomyelitis. Electronically Signed: Joon Barros MD at 11:53 EST ,
[2024-07-22 11:11] VITALS: BMI 39.8
[2024-07-22] MEDS: Morphine 4 MG/ML Syringe IV (11:11)
[2024-07-22] MEDS: Ondansetron 4 MG/2 ML Vial IV (11:11)
[2024-07-22 11:15] LABS: ALB/GLOB Ratio 0.5 RATIO (0.9-2.4); AST(SGOT) 26 U/L (15-37); Alanine Aminotransfer ALT/SGPT 28 U/L (16-61); Albumin, Serum 2.6 g/dL (3.2-5.0); Alkaline Phosphatase 179 U/L (45-117); Anion Gap 12 (5-15); BUN 26 mg/dL (7-18); BUN/Creat Ratio 19.7 RATIO (10-20); Calcium,Total 9.1 mg/dL (8.5-10.1); Chloride 101 mmol/L (98-107); Creatinine, Serum 1.32 mg/dL (0.70-1.30); EST Glomerular Filtration Rate 59 mL/min (>60); Est Glom Filt Rate - Afr Amer 71 mL/min (>60); Estimated Creatinine Clearance 81.67 ml/min; Glucose 169 mg/dL (74-106); Potassium 3.6 mmol/L (3.5-5.1); Protein, Total 7.6 g/dL (6.4-8.2); Sodium Level 136 mmol/L (136-145)
[2024-07-22 11:25] LABS: Lactic Acid 2.3 mmol/L (0.4-1.9)
[2024-07-22 11:30] VITALS: BP 138/83; PULSE 73; RESP 16; TEMP 37.2; O2SAT 98
--- NOTE | 2024-07-22 11:31 | EDS_ITS ---
HPI History of Present Illness Chief Complaint: Wound Informant: patient Narrative Narrative: Patient is a 59-year-old male with history of diabetic neuropathy, coronary artery disease, hypertension and right-sided weakness presenting at the request of his senior water resources engineer for right foot infection. Patient stepped on a staple that went through his house slipper and punctured his foot about 2 weeks ago. He did not feel it and continue to walk on it throughout the day. He noticed when he took his shoe/sock off at night and there was blood. He followed with podiatry, Dr. Niño, who performed bedside I&D, to the culture and place the patient on antibiotics ( believes it is doxycycline). Follow-up in the office today and the patient is not doing well. Dr. Niño symptom to the emergency room to be admitted as patient will require IV antibiotics as well as operative I&D. Patient states for the past few days he has not been feeling well. He has had generalized malaise and nausea. He said subjective fevers. Said continued pain in his right foot. Has had a mild cough and mucus production but also reports a history of asthma. He denies any other complaints at this time. [facility] Medical History Myopia of both eyes Bilateral cataracts Mixed hyperlipidemia Back pain Limb weakness Difficulty balancing Bruises easily Knee pain Diarrhea Chest pain Migraines Hay fever Fatigue SOB (shortness of breath) Weight loss Vision problem Stomach ulcer Stroke Pneumonia Neuropathy Kidney stones High cholesterol HTN (hypertension) Heart disease Hearing problem Frequent headaches Gout GI problem Gallstones Diabetes type 2, uncontrolled Back problem Asthma Arthritis Anxiety and depression Seasonal allergies Home Medications ?Medication ?Instructions ?Recorded ?Last Taken ?Type albuterol sulfate 90 mcg/actuation 1 puff inhalation Q4H PRN PRN 01/28/15 Unknown History aerosol inhaler Shortness Of Breath aspirin 81 mg tablet,delayed 81 mg PO DAILY health maintenance 06/03/16 03/23/20 History release clopidogrel 75 mg tablet 75 mg PO DAILY blood thinner 09/27/17 03/23/20 History diltiazem HCl 180 mg 180 mg PO DAILY blood 10/16/17 03/23/20 History capsule,extended release 24 hr pressure/heart atorvastatin 80 mg tablet 80 mg PO DAILY CHOLESTEROL 03/23/20 03/22/20 History cetirizine 10 mg tablet 10 mg PO DAILY ALLERGIES 03/23/20 03/23/20 History cholecalciferol (vitamin D3) 25 2,000 unit PO DAILY SUPPLEMENT 03/23/20 03/23/20 History mcg (1,000 unit) tablet losartan 100 mg tablet 100 mg PO DAILY BP 03/23/20 03/23/20 History albuterol sulfate 2.5 mg/3 mL 1.25 mg continuous nebulization Q4H 10/25/20 Unknown History (0.083 %) solution for nebulization gabapentin 300 mg capsule 300 mg PO TID 10/25/20 Unknown History hydrochlorothiazide 25 mg tablet 25 mg PO DAILY 10/25/20 Unknown History pen needle, diabetic 32 gauge x #180 ea 03/11/21 Unknown Rx / (BD Ultra-Fine Rachel Pen Needle) fluoxetine 20 mg capsule 40 mg PO DAILY 03/15/23 Unknown History flash glucose sensor (FreeStyle #2 ea 07/17/23 Unknown Rx Cyndie 2 Sensor kit) insulin regular hum U-500 conc 500 75 unit (0.15 mL) subcut TID #40.5 06/30/24 Unknown Rx unit/mL(3 mL) subcut pen (Humulin mL R U-500 (Conc) Insulin Kwikpen) Allergy/AdvReac Type Severity Reaction Status Date / Time levofloxacin (From Levaquin) Allergy rash,swelli Verified 07/22/24 10:14 ng Penicillins Allergy Rash Verified 07/22/24 10:14 Family History Father Asthma Heart disease Hypertension Mother Bleeding disorder Hypertension CVA (cerebral vascular accident) Brother Diabetes Heart disease Hypertension High cholesterol Surgical History History of ERCP Hx of cholecystectomy History of tonsillectomy Social History Smoking Status: Never smoker second hand exposure: No alcohol intake: never substance use type: does not use ROS ROS ED Constitutional Constitutional ED: Reports chills, fever(s), subjective and sweats Respiratory/Chest Respiratory/Chest: Reports cough; Denies dyspnea Gastrointestinal Gastrointestinal: Reports nausea; Denies abdominal pain, constipation or diarrhea Musculoskeletal Musculoskeletal: Reports other Details: Right foot pain ; Denies arthralgias Integumentary Reports abscess and other Details: Right foot wound Neurologic Neurologic: Reports paresthesias and other Details: Chronic polyneuropathy of the lower extremities Hematologic/Lymphatic Hematologic/Lymphatic: Denies easy bleeding or easy bruising EXAM Physical Exam Const Vital Signs: 07/22/24 10:12 07/22/24 11:30 Temperature 97.9 F 99 F Temperature Source Oral Oral Pulse Rate 76 73 Respiratory Rate 20 H 16 Blood Pressure 180/105 H 138/83 H Blood Pressure Mean 130 101 Pulse Ox 100 98 Oxygen Delivery Method Room Air Room Air Positive well nourished and well developed Constitutional Narrative: Mildly ill-appearing General Appearance ED: well developed HEENT Reports moist mucous membranes Neck full ROM and supple Chest Wall inspection of chest normal Resp normal respiratory effort Resp Narrative: Mildly coarse breath sounds throughout with scattered rhonchi Auscultation: Negative for wheezes or diminished lung sounds Cardio regular rate and regular rhythm GI non-tender and non-distended Extremity Extremity Narrative: No obvious deformity, no edema appreciated Neuro oriented x3 Sensorium / Orientation: alert Motor Exam: general weakness Psych mental status grossly normal Skin Skin Narrative: Patient has a 1 cm circumferential wound on the plantar surface of the foot at the proximal arch and just distal to that there is 1/2 cm wound. There is no associated drainage at this time. He has callus is mildly tender on the lateral aspect of the right fifth MTP. No drainage or fluctuance appreciated there. There is associated warmth and erythema over the lateral aspect of the dorsal foot consistent with cellulitis. No associate lymphangitic streaking. No crepitus appreciated. Tenderness to palpation of these wounds. MDM MDM MDM Narrative Medical decision making narrative: Patient is evaluated for worsening diabetic foot wound. Patient is mildly ill- appearing looks like he does not feel well. Initial vital signs significant for hypertension. Workup including lactic acid, CBC, CMP, CRP and ESR is obtained as well as foot x-ray. Will add on a chest x-ray as he has a mild cough as well as a COVID and flu swab. Lab work shows a leukocytosis of 17.4, elevation of his CRP at 91.5 but normal ESR at 18. Patient is a mild renal insufficiency with creatinine 1.32 with this appears near his baseline. He is mildly hyperglycemic with a glucose of 169 with a normal anion gap and normal bicarb. Lactate is elevated at 2.3. Patient is ordered a liter of IV fluids. X-ray of the foot reviewed by myself does not show any free air or bony involvement. Chest x-ray reviewed by myself does not show any acute process. Patient started on broad-spectrum antibiotics including vancomycin and meropenem (has a penicillin and Levaquin allergy). Patient is admitted to the medicine service, case discussed with Dr. Mccall. At this time patient has only 1 SIRS criteria with a leukocytosis and does not meet criteria for sepsis. Will continue to monitor and blood cultures are pending I do not think he requires ICU admission at this time. Lab Data Attestation: I reviewed the patient's lab results. Labs: Laboratory Results - last 24 hr 07/22/24 10:23 WBC 17.4 H RBC 5.29 Hgb 14.5 Hct 43.0 MCV 81.3 MCH 27.4 MCHC 33.7 RDW Std Deviation 34.5 L RDW Coeff of Luanne 11.8 Plt Count 293 MPV 9.4 Immature Gran % (Auto) 0.700 Neut % (Auto) 70.6 H Lymph % (Auto) 19.5 [place] % (Auto) 7.2 Eos % (Auto) 1.4 Baso % (Auto) 0.6 Absolute Neuts (auto) 12.3 H Absolute Lymphs (auto) 3.40 Nucleated RBC % 0 Atypical Lymphocytes 1+ ESR 18 Sodium 136 Potassium 3.6 Chloride 101 Carbon Dioxide 23.0 Anion Gap 12 BUN 26 H Creatinine 1.32 H Estim Creat Clear Calc 81.67 Est GFR (MDRD) Af Amer 71 Est GFR (MDRD) Non-Af 59 L BUN/Creatinine Ratio 19.7 Glucose 169 H Lactic Acid 2.3 H* Calcium 9.1 Total Bilirubin 0.90 AST 26 ALT 28 Alkaline Phosphatase 179 H C-React Prot Ext Range 91.50 H Total Protein 7.6 Albumin 2.6 L Globulin 5.0 H Albumin/Globulin Ratio 0.5 L Radiography Chest X-Ray - ED: 1 View, Read by ED Physician, Read by Radiologist and No Acute Disease Rhythm Strip Rhythm Strip: Sinus Rhythm Rate: 75 Ectopy: None EKG Initial EKG: Attestation: I personally reviewed and interpreted this EKG as follows: Interpretation: Sinus Rhythm Comments: Normal sinus rhythm rate of 75 bpm Left axis deviation Normal intervals Normal ST segments Management Discussion w/another healthcare provider: Hospitalist and Adult Basic Education Instructor (Podiatry- Dr. Niño ) Discharge Plan Triage Chief Complaint: Wound ED Provider: Sheila Rowland Dx/Rx/DC Orders Clinical Impression: Diabetic infection of right foot, Failure of outpatient treatment, Leukocytosis, Elevated lactic acid level Prescriptions: No Action gabapentin 300 mg capsule 300 mg PO TID Patient Comments: TAKE 1 CAPSULE THREE TIMES DAILY hydrochlorothiazide 25 mg tablet 25 mg PO DAILY Patient Comments: Take 1 tablet by mouth daily albuterol sulfate 2.5 mg /3 mL (0.083 %) solution for nebulization 1.25 mg continuous nebulization Q4H Patient Comments: use 1 (ONE) ampule (3ml) EVERY 6 HOURS NEEDED for FOR WHEEZING (DME) pen needle, diabetic [BD Ultra-Fine Rachel Pen Needle] 32 gauge x 5/32 needle See Rx Instructions .ROUTE .MEDSUPPLY Qty: 180 6RF Rx Instructions: 6 times daily Humulin R U-500 (Conc) Kwikpen 500 unit/mL (3 mL) insulin pen 75 unit subcut TID Qty: 40.5 1RF albuterol sulfate 1 INHALER inhaler 1 puff INHALATION Q4H PRN PRN (Reason: Shortness Of Breath) Patient Comments: ASTHMA aspirin 81 MG tablet,delayed release (DR/EC) 81 mg PO DAILY clopidogrel 75 MG tablet 75 mg PO DAILY diltiazem HCl 180 MG capsule,extended release 24hr 180 mg PO DAILY atorvastatin 80 mg tablet 80 mg PO DAILY Patient Comments: Take 1 tablet by mouth nightly cetirizine 10 MG tablet 10 mg PO DAILY losartan 100 MG tablet 100 mg PO DAILY cholecalciferol (vitamin D3) 1,000 UNIT tablet 2,000 unit PO DAILY fluoxetine 20 mg capsule 40 mg PO DAILY (DME) FreeStyle Cyndie 2 Sensor Kit See Rx Instructions .Route Qty: 2 5RF Rx Instructions: 1 sensor q 14 days Primary Care Provider: Rod Elena Referrals: Rod Elena MD [Primary Care Provider] - Print Language: Mauritanian Disposition Disposition: Acute Care [facility]
[2024-07-22 11:35] LABS: Atypical Lymphocyte 1+ %
--- NOTE | 2024-07-22 11:42 | ED.RN ---
awaiting antibiotic from pharmacy
--- NOTE | 2024-07-22 11:52 | PCM.HP.STD ---
HPI - General General Date of Admission: 07/22/24 Date of Service: 07/22/24 Chief Complaint: Right foot wound HPI Narrative ADELIA NGUYEN, is a 59 M with past medical history significant diabetes mellitus type 2 who presented with right foot wound infection. Patient had apparently stepped on a staple 2 weeks prior to his admission. Was seen and managed by his vehicle dynamics engineer Dr. Ovalle patient symptoms however did worsen. He was sent to the emergency department as a case of diabetic foot infection needing incision and drainage. Patient was found to have elevated lactic acid level however he only had leukocytosis. He had no fever no tachycardia. Antibiotics initiated per protocol admitted to regular nursing floor for further manage [facility] Medical History Myopia of both eyes Bilateral cataracts Mixed hyperlipidemia Back pain Limb weakness Difficulty balancing Bruises easily Knee pain Diarrhea Chest pain Migraines Hay fever Fatigue SOB (shortness of breath) Weight loss Vision problem Stomach ulcer Stroke Pneumonia Neuropathy Kidney stones High cholesterol HTN (hypertension) Heart disease Hearing problem Frequent headaches Gout GI problem Gallstones Diabetes type 2, uncontrolled Back problem Asthma Arthritis Anxiety and depression Seasonal allergies Home Medications ?Medication ?Instructions ?Recorded ?Last Taken ?Type albuterol sulfate 90 mcg/actuation 1 puff inhalation Q4H PRN 01/28/15 Unknown History aerosol inhaler Shortness Of Breath aspirin 81 mg tablet,delayed 81 mg PO DAILY health maintenance 06/03/16 07/20/24 History release clopidogrel 75 mg tablet 75 mg PO DAILY blood thinner 09/27/17 07/20/24 History diltiazem HCl 180 mg 180 mg PO DAILY blood 10/16/17 07/20/24 History capsule,extended release 24 hr pressure/heart atorvastatin 80 mg tablet 80 mg PO QHS CHOLESTEROL 03/23/20 07/20/24 History cetirizine 10 mg tablet 10 mg PO DAILY ALLERGIES 03/23/20 07/20/24 History cholecalciferol (vitamin D3) 25 2,000 unit PO DAILY SUPPLEMENT 03/23/20 07/20/24 History mcg (1,000 unit) tablet losartan 100 mg tablet 100 mg PO DAILY BP 03/23/20 03/23/20 History albuterol sulfate 2.5 mg/3 mL 1.25 mg continuous nebulization 10/25/20 Unknown History (0.083 %) solution for nebulization Q4H PRN shortness of breath or wheezing gabapentin 300 mg capsule 300 mg PO TID 10/25/20 Unknown History hydrochlorothiazide 25 mg tablet 25 mg PO DAILY 10/25/20 Unknown History pen needle, diabetic 32 gauge x #180 ea 03/11/21 Unknown Rx (BD Ultra-Fine Rachel Pen Needle) fluoxetine 20 mg capsule 20 mg PO DAILY 03/15/23 07/20/24 History flash glucose sensor (FreeStyle #2 ea 07/17/23 Unknown Rx Cyndie 2 Sensor kit) insulin regular hum U-500 conc 500 50 unit subcut TIDCM 07/22/24 07/20/24 History unit/mL(3 mL) subcut pen (Humulin R U-500 (Conc) Insulin Kwikpen) insulin regular hum U-500 conc 500 70 unit subcut 0800 07/22/24 07/20/24 History unit/mL(3 mL) subcut pen (Humulin R U-500 (Conc) Insulin Kwikpen) melatonin 3 mg tablet 3 mg PO QHS 07/22/24 Unknown History ropinirole 1 mg tablet 1 - 2 mg PO QPM RESTLESS LEG 07/22/24 Unknown History Allergy/AdvReac Type Severity Reaction Status Date / Time levofloxacin (From Levaquin) Allergy rash,swelli Verified 07/22/24 10:14 ng Penicillins Allergy Rash Verified 07/22/24 10:14 Family History Father Asthma Heart disease Hypertension Mother Bleeding disorder Hypertension CVA (cerebral vascular accident) Brother Diabetes Heart disease Hypertension High cholesterol Surgical History History of ERCP Hx of cholecystectomy History of tonsillectomy Social History Smoking Status: Never smoker second hand exposure: No alcohol intake: never substance use type: does not use ROS ROS Narrative GENERAL: denies fever, chills, night sweats, weight loss, anorexia HEENT: denies headache, sinus congestion, or drainage, dysphagia RESPIRATORY: denies cough, sputum production, shortness of breath, dyspnea on exertion CARDIAC: denies chest pain, palpitations, orthopnea, PND GASTROINTESTINAL: denies abdominal pain, nausea, vomiting, melena, GENITOURINARY: denies dysuria, urgency, frequency, heamaturia EXTREMITY: denies swelling MUSCULOSKELETAL: denies current joint pain or tenderness NEUROLOGIC: denies focal numbness, weakness, tingling HEMATOLOGIC: denies easy bruising and/or hemorrhage INTEGUMENT: denies rashes PSYCHIATRIC: denies suicidal or homicidal ideation Vital Signs Vital Signs Vital Signs: 07/22/24 10:12 07/22/24 11:30 Temperature 97.9 F 99 F Temperature Source Oral Oral Pulse Rate 76 73 Respiratory Rate 20 H 16 Blood Pressure 180/105 H 138/83 H Blood Pressure Mean 130 101 Pulse Ox 100 98 Oxygen Delivery Method Room Air Room Air Weight Weight: 129.6 kg Body Mass Index (BMI) 39.8 Physical Exam Narrative GENERAL: cooperative HEENT: Atraumatic; normocephalic EYES; Anicteric, Normal Conjunctiva NECK; supple, normal thyroid, RESPIRATORY: Diminished to auscultation CARDIOVASCULAR: Regular S1 S2, GI: soft, normoactive bowel sounds, : No Renal angle tenderness; EXTREMITIES: No edema, no clubbing, MUSCULOSKELETAL: An area of ulceration on the plantar surface of the right foot NEURO: Awake; no lateralizing signs. SKIN: No Rash and PSYCH; Flat affect Results Lab / Micro Data 07/22/24 10:23 07/22/24 10:23 Labs: Laboratory Results - last 24 hr 07/22/24 10:23: WBC 17.4 H, RBC 5.29, Hgb 14.5, Hct 43.0, MCV 81.3, MCH 27.4, MCHC 33.7, RDW Std Deviation 34.5 L, RDW Coeff of Luanne 11.8, Plt Count 293, MPV 9.4, Immature Gran % (Auto) 0.700, Neut % (Auto) 70.6 H, Lymph % (Auto) 19.5, [place] % (Auto) 7.2, Eos % (Auto) 1.4, Baso % (Auto) 0.6, Absolute Neuts (auto) 12.3 H, Absolute Lymphs (auto) 3.40, Nucleated RBC % 0, Atypical Lymphocytes 1+, ESR 18, Sodium 136, Potassium 3.6, Chloride 101, Carbon Dioxide 23.0, Anion Gap 12, BUN 26 H, Creatinine 1.32 H, Estim Creat Clear Calc 81.67, Est GFR (MDRD) Af Amer 71, Est GFR (MDRD) Non-Af 59 L, BUN/Creatinine Ratio 19.7, Glucose 169 H, Lactic Acid 2.3 H*, Calcium 9.1, Total Bilirubin 0.90, AST 26, ALT 28, Alkaline Phosphatase 179 H, C-React Prot Ext Range 91.50 H, Total Protein 7.6, Albumin 2.6 L, Globulin 5.0 H, Albumin/Globulin Ratio 0.5 L Rhythm Strip Rhythm Strip: Sinus Rhythm Rate: 75 Ectopy: None Assessment & Plan Assessment/Plan (1) Diabetic infection of right foot: PLAN: Plan Patient is a 59-year-old gentleman with history of diabetes presented with diabetic foot infection involving the right foot 1. Diabetic foot infection ? Patient apparently did fail outpatient therapy. Imaging studies obtained on admission did show mild to moderate focal soft tissue swelling is present beneath the head of the calcaneus with overlying bandage material consistent with the reported wound. There is no demonstrated fracture. No visualized subcutaneous air or radiopaque foreign body or osteomyelitis Admitted to regular nursing floor started on broad-spectrum antibiotic therapy with ceftriaxone and Flagyl as well as vancomycin. Consult was placed to Dr. Niño with podiatry for possible I&D 2. Lactic acidosis ? Patient did not meet sepsis criteria had only 1 SIRS criteria was not tachycardic had no fever. Patient was however resuscitated with IV fluids 3. Diabetes mellitus type II -patient's oral hypoglycemics held. Placed on long acting insulin, Accu-Cheks a.c. and at bedtime and covered with sliding scale insulin 4. History of previous GA ? Per patient no intervention performed. Patient is on guideline directed medical therapy 5. Hypertension ? Blood pressure controlled, home medications continued with dose adjustment as needed 6. Dyslipidemia ?Patient is on statin therapy, continued at home dose 7. Allergic rhinitis ? Patient is on cetirizine 8. Restless leg syndrome ? Patient is on ropinirole 9. Depression ? Patient is on fluoxetine did continue 10.Class II obesity with BMI of 39.8 ? Complicating care weight loss advised 11. Previous history of CVA ? With no residual effects patient is on antiplatelet therapy as well as statin therapy 12. Chronic kidney disease stage III ? Patient appears to be at baseline we will monitor with daily BMP 13. DVT prophylaxis ? Subcu heparin. Time spent in the patient's overall evaluation,decision-making process, review of diagnostic data, adjustment of management, discussion with other providers, nursing nursing and ancillary staff involved in patient's care documentation, 75 minutes Advance planning; did discuss with the patient and family regarding advanced directives as well as CODE STATUS. Did explain the various scenarios involved ( FULL CODE, DNR CCA, DNR CCA with no intubation, and DNR CC and what each meant) patient elected to full code with CPR and intubation if needed. Order was placed. Time spent on discussion 18 minutes. Charges/Coding Multi Select Codes Visit Charges Visit Charges: 98033 Init Hosp Hospitalists' Procedures Procedures: 59995 Advncd Care Plan 30 Min
[2024-07-22] MEDS: Meropenem 1 GM in 0.9% Normal Saline (100mL MB+) 100 ML IV (11:53)
[2024-07-22] MEDS: 0.9% Normal Saline (1000mL) 1,000 ML 999 ML IV (11:55)
[2024-07-22 11:57] VITALS: BP 142/81; PULSE 73; RESP 16; TEMP 37.2; O2SAT 100
[2024-07-22 12:50] VITALS: BP 147/74; PULSE 79; RESP 14; TEMP 37.7; O2SAT 94; BMI 39.4
[2024-07-22] MEDS: Vancomycin HCl 2,000 MG in 0.9% Normal Saline (500mL Bag) 500 ML 250 MG IV (13:19)
--- NOTE | 2024-07-22 13:30 | WOUNDNOTE ---
wound photo: right foot
--- NOTE | 2024-07-22 13:30 | WOUNDNOTE ---
wound photo: right lateral foot
[2024-07-22 13:31] VITALS: RESP 16
--- NOTE | 2024-07-22 13:31 | PCM.RX.CS ---
Consult Antibiotic Management Pharmacy has been consulted to manage selected antibiotic: Vancomycin Type of Intervention Type of Consult: New start Suspected Infection Suspected Infection: Skin/Soft tissue Prior Doses of Antibiotics Prior Doses of Antibiotics Received/Current Regimen: Received vanc 2000mg IV x1 in E.R. starting at 13:19 Labs Labs: Sodium 136 mmol/L (136-145) 07/22/24 10:23 Potassium 3.6 mmol/L (3.5-5.1) 07/22/24 10:23 Chloride 101 mmol/L (98-107) 07/22/24 10:23 Carbon Dioxide 23.0 mmol/L (21.0-32.0) 07/22/24 10:23 Anion Gap 12 (5-15) 07/22/24 10:23 BUN 26 mg/dL (7-18) H 07/22/24 10:23 Creatinine 1.32 mg/dL (0.70-1.30) H 07/22/24 10:23 Est GFR (MDRD) Af Amer 71 mL/min (>60) 07/22/24 10:23 Est GFR (MDRD) Non-Af 59 mL/min (>60) L 07/22/24 10:23 BUN/Creatinine Ratio 19.7 RATIO (10-20) 07/22/24 10:23 Glucose 169 mg/dL (74-106) H 07/22/24 10:23 Microbiology Microbiology: Microbiology 07/22/24 11:12 Mucosa - Nose SARS-CoV-2, Influenza & RSV (PCR) - Final Dosing Weight Weight used for dosin.5 kg Estimated Creatinine Clearance Estimated Creatinine Clearance: 82 ml/min Goal Trough Goal Trough: 15-20 mcg/mL Pharmacy Plan for Drug Dosing Pharmacy Plan for Drug Dosing: Starting 12 hours after the E.R. dose, continue with vanc 2000mg IV q12h per [facility] dosing protocol. Check a trough before 4th overall dose. Pharmacy Service will continue to monitor and adjust dosing as required. Follow-Up Labs Follow-Up Labs: Trough: Vancomycin Date/Time Labs Ordered Labs to be done on [date and time ordered]: 07/24/24 00:30
--- NOTE | 2024-07-22 13:43 | MRI_ITS ---
STUDY: MRI RIGHT MIDFOOT REASON FOR EXAM: Male, 59 years old. Nonhealing wounds, r/o OM TECHNIQUE: Standardized fat and water weighted pulse sequences were obtained in all 3 orthogonal planes. COMPARISON: X-ray FINDINGS: Normal talonavicular articulation. Normal calcaneocuboid articulation. Normal navicular-cuneiform articulations. Normal intercuneiform articulations. There are plantar and dorsal spurs of the calcaneus. Normal first tarsometatarsal articulation. Normal Lisfranc ligament. Normal second and third tarsometatarsal articulations. Normal cuboid fourth and cuboid fifth tarsometatarsal articulation. Normal first through fifth metatarsi. There is moderate joint space narrowing and spurring at the first MTP joint. Normal tibialis anterior tendon. Normal extensor hallucis longus tendon. Normal extensor digitorum longus tendons. Normal peroneus longus tendon and distal insertion. Normal peroneus brevis tendon and distal insertion. Normal intrinsic muscles of the mid and forefoot region. Normal extensor digitorum brevis muscle. There is focal skin defect on the plantar aspect at the level of the anterior process of the calcaneus. There is soft tissue swelling of the dorsum of the foot. There is no abscess or fluid collection MRI/Lower Ext/No Jt/w/o IMPRESSION: Soft tissue defect on the plantar aspect. No evidence of osteomyelitis. Electronically Signed: Scottie Larson MD at 21:44 EST ,
[2024-07-22] MEDS: oxyCODONE 5 MG Tablet PO ×2 (13:45→20:04)
[2024-07-22] MEDS: Acetaminophen 500 MG Tablet 1000 MG PO ×2 (13:46→21:27)
[2024-07-22 14:42] LABS: Reflex Lactate? Y
[2024-07-22] MEDS: metroNIDAZOLE 500 MG/100 ML BAG 100 MG IV ×2 (15:53→21:26)
[2024-07-22 15:56] LABS: Lactic Acid 1.2 mmol/L (0.4-1.9)
[2024-07-22] MEDS: Ceftriaxone 2 GM in 0.9% Normal Saline (50mL MB+) 50 ML IV (17:10)
[2024-07-22] MEDS: Insulin Lispro 100 UNIT/ML INSULN.PEN SC ×2 (17:14→21:26)
[2024-07-22 17:21] LABS: Bedside Glucose 230 mg/dL (74-106)
[2024-07-22] MEDS: FLUoxetine 20 MG Capsule PO (17:23)
[2024-07-22] MEDS: Insulin U-500 UNITS/ML PEN 50 UNITS SC (17:24)
[2024-07-22 21:19] VITALS: BP 142/81; PULSE 77; RESP 16; TEMP 36.6; O2SAT 100
[2024-07-22] MEDS: Pramipexole Di-HCl 0.5 MG Tablet PO (21:25)
[2024-07-22] MEDS: Heparin Injection (Vial) 5,000 UNIT/ML VIAL 5000 UNIT SC (21:26)
[2024-07-22] MEDS: Atorvastatin Calcium 80 MG Tablet PO (21:26)
[2024-07-22] MEDS: Gabapentin 300 MG Capsule PO (21:27)
[2024-07-23] MEDS: Vancomycin HCl 2,000 MG in 0.9% Normal Saline (500mL Bag) 500 ML 250 MG IV ×2 (00:25→14:16)
[2024-07-23] MEDS: oxyCODONE 5 MG Tablet PO ×2 (00:42→20:03)
[2024-07-23] MEDS: MELATONIN 3 MG TABLET PO ×2 (00:42→21:35)
[2024-07-23 00:47] LABS: Bedside Glucose 184 mg/dL (74-106)
[2024-07-23 03:19] VITALS: BP 137/72; PULSE 79; RESP 16; TEMP 37.1; O2SAT 98
[2024-07-23] MEDS: Gabapentin 300 MG Capsule PO ×3 (06:05→21:35)
[2024-07-23] MEDS: Acetaminophen 500 MG Tablet 1000 MG PO ×3 (06:05→21:35)
[2024-07-23] MEDS: metroNIDAZOLE 500 MG/100 ML BAG 100 MG IV ×3 (06:10→21:34)
[2024-07-23 06:30] LABS: Bedside Glucose 68 mg/dL (74-106)
[2024-07-23 06:30] LABS: Bedside Glucose 56 mg/dL (74-106)
[2024-07-23 06:30] LABS: Bedside Glucose 90 mg/dL (74-106)
[2024-07-23 06:39] LABS: Bedside Glucose 180 mg/dL (74-106)
--- NOTE | 2024-07-23 07:23 | PCM.CONS.GEN ---
Assessment & Plan Assessment/Plan (1) Cutaneous abscess of right foot: PLAN: Patient was examined and evaluated. All findings were discussed with the patient. All questions were answered to the patient satisfaction. Excisional debridement down to and including subcutaneous tissue, fascia and muscle with a number 5 mm dermal curette to the plantar aspect of the right foot. Predebridement measurement was 5.0 x 5.0 x 0.2 cm. Postdebridement measurement is 0.6 x 0.6 x 0.5 cm. Purulent drainage appreciated. The plantar vault was flushed with 20 mL of sterile saline. The right foot was wiped clean and patted dry. Both wounds were dressed with Betadine soaked gauze dry sterile dressing and a single layer Barone compression bandage was donned to the right lower extremity. Wound care nurse was present for dressing changes and will change dressing as needed. MRI: Right lower extremity: MRI shows no evidence of osteomyelitis at this time. However there is evidence of a plantar vault wound to the right foot with concern of tissue abscess. Plan will be to take the patient to the operating room tomorrow, , 07/24/2024 at 3 PM for complex incision and drainage, and delayed primary closure if able. Please clear the patient medically with recommendations. WBC: 17.4 -> 14.9 ESR: 18 CRP: 91.50 Glucose (POC): 180 Hemoglobin A1c: Pending LA: 2.3 -> 1.2 Medicine: On board, medical management. IV antibiotics broad-spectrum antibiotic therapy with ceftriaxone and Flagyl as well as vancomycin. Please reach out to Dr. Niño for any question or concerns. Thank for the consultation! (2) Cellulitis of right foot: (3) Chronic painful diabetic polyneuropathy: HPI Consult Data Date of Consult: 07/23/24 HPI Narrative Reason for Consultation: Right foot cellulitis and abscess HPI Narrative: ADELIA NGUYEN, is a 59 M who presented to [facility]'s emergency department for worsening right foot infection. Patient was seen in my clinic 1 week prior where he was diagnosed with a full-thickness wound to the plantar aspect and lateral aspect of the right foot after stepping on a staple and having in his foot for about 1 day. When the patient initially presented to clinic he showed evidence of a draining wound plantarly as well as laterally with concerns of cellulitis. Aggressive debridement was performed in clinic and the patient was placed on doxycycline 100 mg twice daily for 1 week while cultures returned. At follow-up patient showed worsening infection to the right foot with episodes of nausea and vomiting. Right then the patient was instructed to present to the emergency department at [place] for evaluation and admission. Patient was ultimately admitted under medicine and given IV antibiotics. Since then the patient has improved but still shows evidence and concern for a deep tissue infection and possible abscess to the right foot. Patient does admit to trauma. He admits his nausea and vomiting has improved and denies any additional constitutional symptoms. No other pedal complaints at this time. Podiatry was consulted for right foot care and surgical intervention. [facility] Medical History Loose, teeth Restless legs High cholesterol Myocardial infarct Stroke/cerebrovascular accident Myopia of both eyes Bilateral cataracts Mixed hyperlipidemia Back pain Limb weakness Difficulty balancing Bruises easily Knee pain Diarrhea Chest pain Migraines Hay fever Fatigue SOB (shortness of breath) Weight loss Vision problem Stomach ulcer Stroke Pneumonia Neuropathy Kidney stones High cholesterol HTN (hypertension) Heart disease Hearing problem Frequent headaches Gout GI problem Gallstones Diabetes type 2, uncontrolled Back problem Asthma Arthritis Anxiety and depression Seasonal allergies Home Medications ?Medication ?Instructions ?Recorded ?Last Taken ?Type albuterol sulfate 90 mcg/actuation 1 puff inhalation Q4H PRN 01/28/15 Unknown History aerosol inhaler Shortness Of Breath aspirin 81 mg tablet,delayed 81 mg PO DAILY health maintenance 06/03/16 07/20/24 History release clopidogrel 75 mg tablet 75 mg PO DAILY blood thinner 09/27/17 07/20/24 History diltiazem HCl 180 mg 180 mg PO DAILY blood 10/16/17 07/20/24 History capsule,extended release 24 hr pressure/heart atorvastatin 80 mg tablet 80 mg PO QHS CHOLESTEROL 03/23/20 07/20/24 History cetirizine 10 mg tablet 10 mg PO DAILY ALLERGIES 03/23/20 07/20/24 History cholecalciferol (vitamin D3) 25 2,000 unit PO DAILY SUPPLEMENT 03/23/20 07/20/24 History mcg (1,000 unit) tablet losartan 100 mg tablet 100 mg PO DAILY BP 03/23/20 07/20/24 History albuterol sulfate 2.5 mg/3 mL 1.25 mg continuous nebulization 10/25/20 Unknown History (0.083 %) solution for nebulization Q4H PRN shortness of breath or wheezing gabapentin 300 mg capsule 300 mg PO TID 10/25/20 07/20/24 History hydrochlorothiazide 25 mg tablet 25 mg PO DAILY 10/25/20 07/20/24 History pen needle, diabetic 32 gauge x #180 ea 03/11/21 Unknown Rx 32 (BD Ultra-Fine Rachel Pen Needle) fluoxetine 20 mg capsule 20 mg PO DAILY 03/15/23 07/20/24 History flash glucose sensor (FreeStyle #2 ea 07/17/23 Unknown Rx Cyndie 2 Sensor kit) insulin regular hum U-500 conc 500 50 unit subcut TIDCM 07/22/24 07/20/24 History unit/mL(3 mL) subcut pen (Humulin R U-500 (Conc) Insulin Kwikpen) insulin regular hum U-500 conc 500 70 unit subcut 0800 07/22/24 07/20/24 History unit/mL(3 mL) subcut pen (Humulin R U-500 (Conc) Insulin Kwikpen) melatonin 3 mg tablet 3 mg PO QHS 07/22/24 Unknown History ropinirole 1 mg tablet 1 - 2 mg PO QPM RESTLESS LEG 07/22/24 07/20/24 History Allergy/AdvReac Type Severity Reaction Status Date / Time levofloxacin (From Levaquin) Allergy rash,swelli Verified 07/22/24 10:14 ng Penicillins Allergy Rash Verified 07/22/24 10:14 Family History Father Asthma Heart disease Hypertension Mother Bleeding disorder Hypertension CVA (cerebral vascular accident) Brother Diabetes Heart disease Hypertension High cholesterol Surgical History H/O cardiac catheterization History of ERCP Hx of cholecystectomy History of tonsillectomy Social History Smoking Status: Never smoker second hand exposure: No alcohol intake: never substance use type: does not use Physical Exam Narrative Vascular: DP and PT pulse are palpable. CFT is brisk. Skin temperature great is warm to warm from proximal ankles to distal digits with focal increase appreciated to the right foot laterally and dorsally. Erythema is present but improved. Neurological: Light touch intact. Patient is responding to painful stimuli. Protective station is absent. Dermatological: Evidence of 2 full-thickness ulcerations to the lateral subfifth metatarsal and plantar foot of the right lower extremity. Evidence of purulent drainage appreciated to the plantar vault of the right foot. Negative probe to bone. Malodor is present. Excisional debridement down to and including subcutaneous tissue, fascia and muscle with a number 5 mm dermal curette to the plantar aspect of the right foot. Predebridement measurement was 5.0 x 5.0 x 0.2 cm. Postdebridement measurement is 0.6 x 0.6 x 0.5 cm. Purulent drainage appreciated. Musculoskeletal: Muscle strength is 5 out of 5 to the right lower extremity. Pain on palpation to the full-thickness wound on the plantar aspect of the right foot. No pain on palpation to the lateral full-thickness wound at the level of the subfifth metatarsal head. No pain with calf compression. Lab / Micro Data 07/23/24 05:33 07/22/24 10:23 Labs: Laboratory Results - last 24 hr 07/22/24 10:23: WBC 17.4 H, RBC 5.29, Hgb 14.5, Hct 43.0, MCV 81.3, MCH 27.4, MCHC 33.7, RDW Std Deviation 34.5 L, RDW Coeff of Luanne 11.8, Plt Count 293, MPV 9.4, Immature Gran % (Auto) 0.700, Neut % (Auto) 70.6 H, Lymph % (Auto) 19.5, [place] % (Auto) 7.2, Eos % (Auto) 1.4, Baso % (Auto) 0.6, Absolute Neuts (auto) 12.3 H, Absolute Lymphs (auto) 3.40, Nucleated RBC % 0, Atypical Lymphocytes 1+, ESR 18, Sodium 136, Potassium 3.6, Chloride 101, Carbon Dioxide 23.0, Anion Gap 12, BUN 26 H, Creatinine 1.32 H, Estim Creat Clear Calc 81.67, Est GFR (MDRD) Af Amer 71, Est GFR (MDRD) Non-Af 59 L, BUN/Creatinine Ratio 19.7, Glucose 169 H, Lactic Acid 2.3 H*, Calcium 9.1, Total Bilirubin 0.90, AST 26, ALT 28, Alkaline Phosphatase 179 H, C-React Prot Ext Range 91.50 H, Total Protein 7.6, Albumin 2.6 L, Globulin 5.0 H, Albumin/Globulin Ratio 0.5 L 07/22/24 14:57: Lactic Acid 1.2 07/22/24 16:08: POC Glucose 230 H 07/22/24 21:24: POC Glucose 184 H 07/23/24 00:31: POC Glucose 56 L 07/23/24 00:49: POC Glucose 68 L 07/23/24 01:05: POC Glucose 90 07/23/24 06:08: POC Glucose 180 H Micro: Microbiology 07/22/24 13:00 Wound - Right Foot Skin and Soft Tissue MRSA/MSSA (PCR - Final 07/22/24 11:12 Mucosa - Nose SARS-CoV-2, Influenza & RSV (PCR) - Final Rhythm Strip Rhythm Strip: Sinus Rhythm Rate: 75 Ectopy: None Imaging Radiology Impression Chest X-Ray 07/22/24 11:05 IMPRESSION: Degenerative changes, as described above. No demonstrated acute cardiopulmonary process. Electronically Signed: Joon Barros MD at 11:57 EST , Foot X-Ray 07/22/24 11:05 IMPRESSION: 1. Mild to moderate focal soft tissue swelling is present beneath the head of the calcaneus with overlying bandage material consistent with the reported wound. There is no demonstrated fracture. No visualized subcutaneous air or radiopaque foreign body or osteomyelitis. Electronically Signed: Joon Barros MD at 11:53 EST , Lower Extremity MRI 07/22/24 13:43 IMPRESSION: Soft tissue defect on the plantar aspect. No evidence of osteomyelitis. Electronically Signed: Scottie Larson MD at 21:44 EST ,
[2024-07-23 07:39] LABS: Absolute Lymphocyte Count 3.15 X10^3/uL (0.83-4.51); Absolute Neutrophil Count 10.2 X10^3/uL (2.0-7.7); Basophil# 0.09 X10^3/uL; Basophil% 0.6 % (0-1); Eosinophil# 0.27 X10^3/uL; Eosinophils% 1.8 % (0-5); Hematocrit 37.2 % (40-54); Hemoglobin 12.4 g/dL (13.0-16.5); Lymphocyte # 3.15 X10^3/ul (0.83-4.51); Lymphocyte % 21.1 % (19-41); Mean Corp Hgb Conc 33.3 g/dL (32-36); Mean Corpuscular Hgb 27.9 pg (27.0-32.0); Mean Corpuscular Volume 83.8 fL (80-94); Mean Platelet Vol. 9.6 fl (6.2-12.0); Monocyte# 1.17 X10^3/uL; Monocyte% 7.8 % (0-10); NRBC Flagged by Analyzer 0 % (0-5); Neutrophil # 10.16 X10^3/uL (2.7-7.7); Neutrophil % 68.1 % (47-70); POSITIVE MORPHOLOGY YES; Platelet Count 255 K/mm3 (150-450); RBC Distribution Width SD 36.3 fl (35.1-43.9); Red Blood Count 4.44 M/mm3 (4.6-6.2); White Blood Count 14.9 K/mm3 (4.4-11.0)
[2024-07-23 07:40] LABS: Differential Indicated SCAN CRITERIA MET
[2024-07-23 08:16] VITALS: BP 123/64; PULSE 74; RESP 18; TEMP 36.9; O2SAT 97
[2024-07-23 08:42] LABS: Anion Gap 9 (5-15); BUN 31 mg/dL (7-18); BUN/Creat Ratio 23.1 RATIO (10-20); Calcium,Total 8.3 mg/dL (8.5-10.1); Chloride 104 mmol/L (98-107); Creatinine, Serum 1.34 mg/dL (0.70-1.30); EST Glomerular Filtration Rate 58 mL/min (>60); Est Glom Filt Rate - Afr Amer 70 mL/min (>60); Estimated Creatinine Clearance 80.08 ml/min; Glucose 188 mg/dL (74-106); Magnesium 1.7 mg/dL (1.6-2.6); Potassium 3.8 mmol/L (3.5-5.1); Sodium Level 138 mmol/L (136-145)
[2024-07-23] MEDS: 0.9% Saline Lock 10 ML Syringe IV (08:58)
[2024-07-23] MEDS: Ceftriaxone 2 GM in 0.9% Normal Saline (50mL MB+) 50 ML IV (08:58)
[2024-07-23] MEDS: Ondansetron 4 MG/2 ML Vial IV ×2 (08:58→20:03)
[2024-07-23 09:36] LABS: Atypical Lymphocyte 1+ %
[2024-07-23 10:37] LABS: Hemoglobin A1c 11.4 % (3.8-5.6)
--- NOTE | 2024-07-23 11:06 | PCM.PN.HOSP ---
Reason for Visit Reason for Visit: Diagnoses Type 2 diabetes mellitus with other skin complications (07/22/24) Local infection of the skin and subcutaneous tissue, unspecified (07/22/24) Subjective Subjective Patient is a 59-year-old gentleman with history of diabetes presented with diabetic foot infection involving the right foot Objective Data Objective Data Vital Signs: Vital Signs Temp Pulse Resp BP Pulse Ox O2 Del Method 98.5 F 74 18 123/64 H 97 Room Air 07/23/24 08:16 07/23/24 08:16 07/23/24 08:16 07/23/24 08:16 07/23/24 08:16 07/23/24 08:16 Oxygen Delivery Method Room Air Weight: 128.503 kg Body Mass Index (BMI) 39.4 Intake & Output: Intake and Output for Last 24 Hours 07/21/24 07/22/24 07/23/24 23:59 23:59 23:59 Intake Total 1890 / 2340 1340 / 1340 Output Total 675 / 675 Balance 1890 / 2040 665 / 665 Lab / Micro Data 07/23/24 05:33 07/23/24 05:33 Labs: Laboratory Results - last 24 hr 07/22/24 10:23: Atypical Lymphocytes 1+, Sodium 136, Potassium 3.6, Chloride 101, Carbon Dioxide 23.0, Anion Gap 12, BUN 26 H, Creatinine 1.32 H, Estim Creat Clear Calc 81.67, Est GFR (MDRD) Af Amer 71, Est GFR (MDRD) Non-Af 59 L, BUN/Creatinine Ratio 19.7, Glucose 169 H, Lactic Acid 2.3 H*, Calcium 9.1, Total Bilirubin 0.90, AST 26, ALT 28, Alkaline Phosphatase 179 H, C-React Prot Ext Range 91.50 H, Total Protein 7.6, Albumin 2.6 L, Globulin 5.0 H, Albumin/Globulin Ratio 0.5 L 07/22/24 14:57: Lactic Acid 1.2 07/22/24 16:08: POC Glucose 230 H 07/22/24 21:24: POC Glucose 184 H 07/23/24 00:31: POC Glucose 56 L 07/23/24 00:49: POC Glucose 68 L 07/23/24 01:05: POC Glucose 90 07/23/24 05:33: WBC 14.9 H, RBC 4.44 L, Hgb 12.4 L, Hct 37.2 L, MCV 83.8, MCH 27.9, MCHC 33.3, RDW Std Deviation 36.3, RDW Coeff of Luanne 12.0, Plt Count 255, MPV 9.6, Immature Gran % (Auto) 0.600, Neut % (Auto) 68.1, Lymph % (Auto) 21.1, Bertie % (Auto) 7.8, Eos % (Auto) 1.8, Baso % (Auto) 0.6, Absolute Neuts (auto) 10.2 H, Absolute Lymphs (auto) 3.15, Nucleated RBC % 0, Atypical Lymphocytes 1+, Sodium 138, Potassium 3.8, Chloride 104, Carbon Dioxide 24.0, Anion Gap 9, BUN 31 H, Creatinine 1.34 H, Estim Creat Clear Calc 80.08, Est GFR (MDRD) Af Amer 70, Est GFR (MDRD) Non-Af 58 L, BUN/Creatinine Ratio 23.1 H, Glucose 188 H, Hemoglobin A1c 11.4 H, Calcium 8.3 L, Phosphorus 4.0, Magnesium 1.7 07/23/24 06:08: POC Glucose 180 H Micro: Microbiology 07/22/24 13:00 Wound - Right Foot Skin and Soft Tissue MRSA/MSSA (PCR - Final 07/22/24 11:12 Mucosa - Nose SARS-CoV-2, Influenza & RSV (PCR) - Final Radiography Diagnostic Testing: Radiology Impression Chest X-Ray 07/22/24 11:05 IMPRESSION: Degenerative changes, as described above. No demonstrated acute cardiopulmonary process. Electronically Signed: Joon Barros MD at 11:57 EST , Foot X-Ray 07/22/24 11:05 IMPRESSION: 1. Mild to moderate focal soft tissue swelling is present beneath the head of the calcaneus with overlying bandage material consistent with the reported wound. There is no demonstrated fracture. No visualized subcutaneous air or radiopaque foreign body or osteomyelitis. Electronically Signed: Joon Barros MD at 11:53 EST , Lower Extremity MRI 07/22/24 13:43 IMPRESSION: Soft tissue defect on the plantar aspect. No evidence of osteomyelitis. Electronically Signed: Scottie Larson MD at 21:44 EST , Rhythm Strip Rhythm Strip: Sinus Rhythm Rate: 75 Ectopy: None Physical Exam Narrative GENERAL: cooperative HEENT: Atraumatic; normocephalic EYES; Anicteric, Normal Conjunctiva NECK; supple, normal thyroid, RESPIRATORY: Diminished to auscultation CARDIOVASCULAR: Regular S1 S2, GI: soft, normoactive bowel sounds, : No Renal angle tenderness; EXTREMITIES: No edema, no clubbing, MUSCULOSKELETAL: An area of ulceration on the plantar surface of the right foot NEURO: Awake; no lateralizing signs. SKIN: No Rash and PSYCH; Flat affect Assessment & Plan Assessment/Plan (1) Diabetic infection of right foot: PLAN: Plan Patient is a 59-year-old gentleman with history of diabetes presented with diabetic foot infection involving the right foot 1. Diabetic foot infection ? Patient apparently did fail outpatient therapy. Imaging studies obtained on admission did show mild to moderate focal soft tissue swelling is present beneath the head of the calcaneus with overlying bandage material consistent with the reported wound. There is no demonstrated fracture. No visualized subcutaneous air or radiopaque foreign body or osteomyelitis Admitted to regular nursing floor started on broad-spectrum antibiotic therapy with ceftriaxone and Flagyl as well as vancomycin. Consult was placed to Dr. Niño with podiatry for possible I&D ? 07/23/2024 patient had bedside debridement performed by Dr. Niño. Patient was found to have some purulent drainage. Patient is scheduled to undergo complex incision and drainage and delayed primary closure if possible on 07/24/2024 2. Lactic acidosis ? Patient did not meet sepsis criteria had only 1 SIRS criteria was not tachycardic had no fever. Patient was however resuscitated with IV fluids 3. Diabetes mellitus type II -Patient is on long acting insulin, Accu-Cheks a.c. and at bedtime and covered with sliding scale insulin ? 07/23/2024 patient had a hypoglycemic episode subsequently adjusted patient home insulin regimen 4. History of previous PA ? Per patient no intervention performed. Patient is on guideline directed medical therapy 5. Hypertension ? Blood pressure controlled, home medications continued with dose adjustment as needed 6. Dyslipidemia ?Patient is on statin therapy, continued at home dose 7. Allergic rhinitis ? Patient is on cetirizine 8. Restless leg syndrome ? Patient is on ropinirole 9. Depression ? Patient is on fluoxetine did continue 10.Class II obesity with BMI of 39.8 ? Complicating care weight loss advised 11. Previous history of CVA ? With no residual effects patient is on antiplatelet therapy as well as statin therapy 12. Chronic kidney disease stage III ? Patient appears to be at baseline we will monitor with daily BMP ? 07/23/2024 no change in kidney function 13. DVT prophylaxis ? Subcu heparin. Time spent in the patient's overall evaluation,decision-making process, review of diagnostic data, adjustment of management, discussion with other providers, nursing nursing and ancillary staff involved in patient's care documentation, 50 minutes Charges/Coding Visit Charges Inpatient E&M: 96456 Subs Hosp L3
[2024-07-23] MEDS: Insulin Lispro 100 UNIT/ML INSULN.PEN SC ×3 (11:22→21:34)
[2024-07-23] MEDS: Insulin U-500 UNITS/ML PEN 30 UNITS SC ×2 (11:25→16:51)
[2024-07-23] MEDS: Heparin Injection (Vial) 5,000 UNIT/ML VIAL 5000 UNIT SC ×2 (11:26→21:34)
[2024-07-23 11:40] LABS: Bedside Glucose 253 mg/dL (74-106)
--- NOTE | 2024-07-23 11:53 | WOUNDNOTE ---
In to see patient with Dr Niño this am. plan is for I&D tomorrow afternoon. pt aware. dressing was changed by Dr Niño. pt tolerated well.
[2024-07-23 14:13] VITALS: BP 135/79; PULSE 70; RESP 18; TEMP 36.8; O2SAT 97
[2024-07-23] MEDS: Aspirin E.C. 81 MG Tablet PO (14:18)
[2024-07-23] MEDS: Losartan Potassium 100 MG Tablet PO (14:18)
[2024-07-23] MEDS: Loratadine 10 MG Tablet PO (14:19)
[2024-07-23] MEDS: Clopidogrel Bisulfate 75 MG Tablet PO (14:19)
[2024-07-23] MEDS: dilTIAZem CD 180 MG Capsule PO (14:19)
[2024-07-23] MEDS: FLUoxetine 20 MG Capsule PO (14:20)
[2024-07-23 14:34] VITALS: O2SAT 97
--- NOTE | 2024-07-23 15:15 | CASEMGMT ---
MARLA CORONA Assessment: Face to Face with pt for initial transition planning/care coordination assessment. MARLA CORONA introduced self and role at [facility], pt voices understanding and consents to assessment. Pt is A&O x4 and answers all questions appropriately at this time. Pt sitting up in chair in no distress, at bedside. Care providers, pharmacy, and demographics verified/updated. Admitting Dx: DFU Strata Score: 2 PCP:Kassy Specialists:[place], pod; [facility] endo; Jose L, neuro Preferred Pharmacy: [facility] Insurance: [facility] Prescription Benefit: yes LNOK: Nivia Russo, Living Arrangements: Pt lives in a single story home with 2 steps to enter with his and 2 dtrs. Pt reports he is typically I in ADLs and IADLs but pt gets the groceries. Pt denies concerns at home. Transportation: Pt drives self and denies concerns with transportation. Pt also transports pt. DME:FWW, cane, CHC, shower chair, braces for feet, insulin in sufficient supply as well as needles, BGM with sufficient supply of strips and lancets HHC/SNF: Pt denies hx of Pt states no concerns with going home at time of dc. Pt states he has been NWB for a week. He states he has mostly stayed in bed because he cannot hop with his walker typically d/t his balance from previous strokes. Pt states he worked with therapy and hopping did not go well and a knee scooter was mentioned. Pt had mostly been staying in bed at home d/t this wt bearing status. Instructed on the importance of movement. 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 Previously they were not changing the dressing. Pt to go to OR tomorrow. ID c/s. Pt and state no further concerns/needs. CM to follow. Advised pt to ask CM if any further question/concerns/needs arise, voices understanding. Pt Goal: Home Plan: Home pending OR, course of hospitalization Dagmar GUTIÉRREZ CM
[2024-07-23 17:14] LABS: Bedside Glucose 204 mg/dL (74-106)
[2024-07-23 21:32] VITALS: BP 135/79; PULSE 68; RESP 16; TEMP 36.9; O2SAT 99
[2024-07-23] MEDS: Pramipexole Di-HCl 0.5 MG Tablet PO (21:34)
[2024-07-23] MEDS: Atorvastatin Calcium 80 MG Tablet PO (21:35)
[2024-07-23 22:29] LABS: Mucous, Urine 0 SEEN /hpf (<or=2+)
[2024-07-23 22:32] LABS: Color, Urine Yellow (Yellow); Glucose, Dipstick 50 mg/dl (Normal); Ketone-Dipstick 5 mg/dl (Negative); Leukocyte Esterase-Dipstick 25 /ul (Negative); Nitrite-Dipstick Negative (Negative); Occult Blood-Urine 25 /ul (Negative); Protein-Dipstick 100 mg/dl (Negative); Specific Gravity, Urine 1.025 (1.002-1.030); Urine Bilirubin Dipstick Negative (Negative); Urine Clarity Clear (Clear); Urine Urobilinogen 1 mg/dl (Normal)
[2024-07-23 22:40] LABS: Bacteria 1+ /hpf (None Seen); Red Blood Cells-Urine 0-5 SEEN /hpf (0-5); Squamous Epithelial Cells - UA 0-5 SEEN /hpf (0-5); White Blood Cells 0-5 SEEN /hpf (0-5)
[2024-07-23 22:45] LABS: Bedside Glucose 161 mg/dL (74-106)
[2024-07-24] VITALS (13 sets, daily range): BP systolic 124–174; BP diastolic 69–100; PULSE 68–81; RESP 14–18; TEMP 36.1–37.4; O2SAT 93–100; BMI 39.4
[2024-07-24 01:14] LABS: Vancomycin, Trough Level 27.7 ug/mL (5.0-15.0)
--- NOTE | 2024-07-24 01:20 | PHA.PHARE_ITS ---
Consult Antibiotic Management Pharmacy has been consulted to manage selected antibiotic: Vancomycin Type of Intervention Type of Consult: Follow-up Suspected Infection Suspected Infection: Skin/Soft tissue Labs Labs: Sodium 138 mmol/L (136-145) 07/23/24 05:33 Potassium 3.8 mmol/L (3.5-5.1) 07/23/24 05:33 Chloride 104 mmol/L (98-107) 07/23/24 05:33 Carbon Dioxide 24.0 mmol/L (21.0-32.0) 07/23/24 05:33 Anion Gap 9 (5-15) 07/23/24 05:33 BUN 31 mg/dL (7-18) H 07/23/24 05:33 Creatinine 1.34 mg/dL (0.70-1.30) H 07/23/24 05:33 Est GFR (MDRD) Af Amer 70 mL/min (>60) 07/23/24 05:33 Est GFR (MDRD) Non-Af 58 mL/min (>60) L 07/23/24 05:33 BUN/Creatinine Ratio 23.1 RATIO (10-20) H 07/23/24 05:33 Glucose 188 mg/dL (74-106) H 07/23/24 05:33 Vancomycin Trough 27.7 ug/mL (5.0-15.0) H 07/24/24 00:33 Microbiology Microbiology: Microbiology 07/22/24 13:00 Wound - Right Foot Gram Stain - Final 07/22/24 13:00 Wound - Right Foot Wound Culture - Preliminary Streptococcus agalactiae (B) Staphylococcus species 07/22/24 13:00 Wound - Right Foot Skin and Soft Tissue MRSA/MSSA (PCR - Final 07/22/24 11:12 Mucosa - Nose SARS-CoV-2, Influenza & RSV (PCR) - Final Dosing Weight Weight used for dosin.5 kg Estimated Creatinine Clearance Estimated Creatinine Clearance: 80 Goal Trough Goal Trough: 15-20 mcg/mL Pharmacy Plan for Drug Dosing Pharmacy Plan for Drug Dosing: Vancomycin trough level was high at 27.7. This was drawn just 10.25hrs post- dose, but still much higher than the target range of 15-20. Will suspend current dosing, and will draw a random level in 12 hours to determine further orders. Pharmacy Service will continue to monitor and adjust dosing as required. Follow-Up Labs Follow-Up Labs: Trough: Vancomycin (random) Date/Time Labs Ordered Labs to be done on [date and time ordered]: 07/24/24 @1230 (random)
[2024-07-24] MEDS: Ondansetron 4 MG/2 ML Vial IV ×2 (04:01→17:07)
[2024-07-24] MEDS: metroNIDAZOLE 500 MG/100 ML BAG 100 MG IV ×3 (05:25→21:27)
[2024-07-24 06:06] LABS: Absolute Lymphocyte Count 2.15 X10^3/uL (0.83-4.51); Absolute Neutrophil Count 8.9 X10^3/uL (2.0-7.7); Basophil# 0.08 X10^3/uL; Basophil% 0.6 % (0-1); Eosinophil# 0.28 X10^3/uL; Eosinophils% 2.3 % (0-5); Hematocrit 35.9 % (40-54); Hemoglobin 11.9 g/dL (13.0-16.5); Lymphocyte # 2.15 X10^3/ul (0.83-4.51); Lymphocyte % 17.4 % (19-41); Mean Corp Hgb Conc 33.1 g/dL (32-36); Mean Corpuscular Hgb 27.2 pg (27.0-32.0); Mean Corpuscular Volume 82.2 fL (80-94); Mean Platelet Vol. 9.1 fl (6.2-12.0); Monocyte# 0.87 X10^3/uL; Monocyte% 7.1 % (0-10); NRBC Flagged by Analyzer 0 % (0-5); Neutrophil # 8.88 X10^3/uL (2.7-7.7); Platelet Count 245 K/mm3 (150-450); RBC Distribution Width CV 11.9 % (11.6-14.6); RBC Distribution Width SD 35.8 fl (35.1-43.9); Red Blood Count 4.37 M/mm3 (4.6-6.2); White Blood Count 12.3 K/mm3 (4.4-11.0)
[2024-07-24 06:41] LABS: Bedside Glucose 175 mg/dL (74-106)
[2024-07-24 06:55] LABS: Anion Gap 8 (5-15); BUN 27 mg/dL (7-18); Calcium,Total 8.2 mg/dL (8.5-10.1); Chloride 107 mmol/L (98-107); Creatinine, Serum 1.23 mg/dL (0.70-1.30); EST Glomerular Filtration Rate 64 mL/min (>60); Est Glom Filt Rate - Afr Amer 77 mL/min (>60); Estimated Creatinine Clearance 87.24 ml/min; Glucose 170 mg/dL (74-106); Potassium 3.7 mmol/L (3.5-5.1); Sodium Level 138 mmol/L (136-145)
--- NOTE | 2024-07-24 08:14 | WOUNDNOTE ---
Pt still slightly nauseated this am. pt is scheduled for I&D later today with Dr Niño. will leave dressing in place. pt denies further needs at this time. will continue to follow.
[2024-07-24] MEDS: 0.9% Saline Lock 10 ML Syringe IV ×3 (08:31→17:41)
[2024-07-24] MEDS: proCHLORPERazine 10 MG/2 ML Vial IV (08:31)
--- NOTE | 2024-07-24 08:38 | PN.HOSP_ITS ---
Reason for Visit Reason for Visit: Diagnoses Type 2 diabetes mellitus with diabetic polyneuropathy (07/22/24) Type 2 diabetes mellitus with other skin complications (07/22/24) Cutaneous abscess of right foot (07/22/24) Cellulitis of right lower limb (07/22/24) Local infection of the skin and subcutaneous tissue, unspecified (07/22/24) Subjective Subjective Patient still complains of intractable nausea vomiting Compazine added to his antiemetic regimen. Objective Data Objective Data Vital Signs: Vital Signs Temp Pulse Resp BP Pulse Ox O2 Del Method 98.7 F 72 18 125/69 H 98 Room Air 07/24/24 07:36 07/24/24 07:36 07/24/24 07:36 07/24/24 07:36 07/24/24 07:36 07/24/24 07:36 Oxygen Delivery Method Room Air Weight: 128.5 kg Body Mass Index (BMI) 39.4 Intake & Output: Intake and Output for Last 24 Hours 07/22/24 07/23/24 07/24/24 23:59 23:59 23:59 Intake Total 1890 / 2340 2080 / 2320 340 / 340 Output Total 675 / 675 300 / 300 Balance 1890 / 2040 1405 / 1645 40 / 40 Lab / Micro Data 07/24/24 05:21 07/24/24 05:21 Labs: Laboratory Results - last 24 hr 07/23/24 05:33: Atypical Lymphocytes 1+, Sodium 138, Potassium 3.8, Chloride 104, Carbon Dioxide 24.0, Anion Gap 9, BUN 31 H, Creatinine 1.34 H, Estim Creat Clear Calc 80.08, Est GFR (MDRD) Af Amer 70, Est GFR (MDRD) Non-Af 58 L, B UN/Creatinine Ratio 23.1 H, Glucose 188 H, Hemoglobin A1c 11.4 H, Calcium 8.3 L, Phosphorus 4.0, Magnesium 1.7 07/23/24 11:21: POC Glucose 253 H 07/23/24 16:47: POC Glucose 204 H 07/23/24 21:30: POC Glucose 161 H 07/23/24 22:15: Urine Color Yellow, Urine Clarity Clear, Urine pH 6.0, Ur Specific [place] 1.025, Urine Protein 100 H, Urine Glucose (UA) 50 H, Urine Ketones 5 H, Urine Occult Blood 25 H, Urine Nitrite Negative, Urine Bilirubin Negative, Urine Urobilinogen 1 H, Ur Leukocyte Esterase 25 H, Urine RBC 0-5 SEEN, Urine WBC 0-5 SEEN, Ur Squamous Epith Cells 0-5 SEEN, Urine Bacteria 1+, Urine Mucus 0 SEEN 07/24/24 00:33: Vancomycin Trough 27.7 H 07/24/24 05:21: WBC 12.3 H, RBC 4.37 L, Hgb 11.9 L, Hct 35.9 L, MCV 82.2, MCH 27.2, MCHC 33.1, RDW Std Deviation 35.8, RDW Coeff of Luanne 11.9, Plt Count 245, MPV 9.1, Immature Gran % (Auto) 0.600, Neut % (Auto) 72.0 H, Lymph % (Auto) 17.4 L, [place] % (Auto) 7.1, Eos % (Auto) 2.3, Baso % (Auto) 0.6, Absolute Neuts (auto) 8.9 H, Absolute Lymphs (auto) 2.15, Nucleated RBC % 0, Sodium 138, Potassium 3.7, Chloride 107, Carbon Dioxide 24.0, Anion Gap 8, BUN 27 H, Creatinine 1.23, Estim Creat Clear Calc 87.24, Est GFR (MDRD) Af Amer 77, Est GFR (MDRD) Non-Af 64, BUN/Creatinine Ratio 22.0 H, Glucose 170 H, Calcium 8.2 L 07/24/24 05:23: POC Glucose 175 H Micro: Microbiology 07/22/24 13:00 Wound - Right Foot Gram Stain - Final 07/22/24 13:00 Wound - Right Foot Wound Culture - Preliminary Streptococcus agalactiae (B) Staphylococcus species 07/22/24 13:00 Wound - Right Foot Skin and Soft Tissue MRSA/MSSA (PCR - Final 07/22/24 10:23 Blood Culture (Wb) - Anticubital Right Blood Culture - Preliminary No growth in 48 hours. 07/22/24 11:12 Mucosa - Nose SARS-CoV-2, Influenza & RSV (PCR) - Final Rhythm Strip Rhythm Strip: Sinus Rhythm Rate: 75 Ectopy: None Physical Exam Narrative GENERAL: cooperative HEENT: Atraumatic; normocephalic EYES; Anicteric, Normal Conjunctiva NECK; supple, normal thyroid, RESPIRATORY: Diminished to auscultation CARDIOVASCULAR: Regular S1 S2, GI: soft, normoactive bowel sounds, : No Renal angle tenderness; EXTREMITIES: No edema, no clubbing, MUSCULOSKELETAL: An area of ulceration on the plantar surface of the right foot NEURO: Awake; no lateralizing signs. SKIN: No Rash and PSYCH; Flat affect Assessment & Plan Assessment/Plan (1) Diabetic infection of right foot: PLAN: Plan Patient is a 59-year-old gentleman with history of diabetes presented with diabetic foot infection involving the right foot 1. Diabetic foot infection ? Patient apparently did fail outpatient therapy. Imaging studies obtained on admission did show mild to moderate focal soft tissue swelling is present beneath the head of the calcaneus with overlying bandage material consistent with the reported wound. There is no demonstrated fracture. No visualized subcutaneous air or radiopaque foreign body or osteomyelitis Admitted to regular nursing floor started on broad-spectrum antibiotic therapy with ceftriaxone and Flagyl as well as vancomycin. Consult was placed to Dr. Niño with podiatry for possible I&D ? 07/23/2024 patient had bedside debridement performed by Dr. Niño. Patient was found to have some purulent drainage. Patient is scheduled to undergo complex incision and drainage and delayed primary closure if possible on 07/24/2024 ? 07/24/2024; patient scheduled to undergo I&D and anesthesia 2. Lactic acidosis ? Patient did not meet sepsis criteria had only 1 SIRS criteria was not tachycardic had no fever. Patient was however resuscitated with IV fluids 3. Diabetes mellitus type II -Patient is on long acting insulin, Accu-Cheks a.c. and at bedtime and covered with sliding scale insulin ? 07/23/2024 patient had a hypoglycemic episode subsequently adjusted patient home insulin regimen 4. History of previous SC ? Per patient no intervention performed. Patient is on guideline directed medical therapy 5. Hypertension ? Blood pressure controlled, home medications continued with dose adjustment as needed 6. Dyslipidemia ?Patient is on statin therapy, continued at home dose 7. Allergic rhinitis ? Patient is on cetirizine 8. Restless leg syndrome ? Patient is on ropinirole 9. Depression ? Patient is on fluoxetine did continue 10.Class II obesity with BMI of 39.8 ? Complicating care weight loss advised 11. Previous history of CVA ? With no residual effects patient is on antiplatelet therapy as well as statin therapy 12. Chronic kidney disease stage III ? Patient appears to be at baseline we will monitor with daily BMP ? 07/23/2024 no change in kidney function 13. DVT prophylaxis ? Subcu heparin. Time spent in the patient's overall evaluation,decision-making process, review of diagnostic data, adjustment of management, discussion with other providers, nursing nursing and ancillary staff involved in patient's care documentation, 38 minutes Charges/Coding Visit Charges Inpatient E&M: 61716 Subs Hosp L2
[2024-07-24] MEDS: Ceftriaxone 2 GM in 0.9% Normal Saline (50mL MB+) 50 ML IV (09:42)
[2024-07-24] MEDS: Loratadine 10 MG Tablet PO (09:43)
[2024-07-24] MEDS: Losartan Potassium 100 MG Tablet PO (09:43)
[2024-07-24] MEDS: FLUoxetine 20 MG Capsule PO (09:43)
[2024-07-24] MEDS: dilTIAZem CD 180 MG Capsule PO (09:44)
--- NOTE | 2024-07-24 10:40 | PCM.CONS.GEN ---
Assessment & Plan Assessment/Plan (1) Cutaneous abscess of right foot: PLAN: OR planned with Dr. Niño. Wound cx with staph and GBS. Outpt wound cx 07/15/24 with MSSA, GBS, strep, and anaerobes. Cont vanc/ceftriaxone/flagyl. Will follow, thank you (2) Polyneuropathy due to type 2 diabetes mellitus: HPI Consult Data Date of Consult: 07/24/24 HPI Narrative HPI Narrative: ADELIA NGUYEN, is a 59 M with DM neuropathy, presented 07/22/24 with 2 weeks R foot redness, swelling, mild pain. In ED reported stepping on a staple. No fever or chills. Had been put on po doxy as outpt. Came to ED, admitted on vanc/ceftriaxone/flagyl. OR planned for today. Feeling a little better since admit. Full ROS performed and neg except as noted above. [facility] Medical History Loose, teeth Restless legs High cholesterol Myocardial infarct Stroke/cerebrovascular accident Myopia of both eyes Bilateral cataracts Mixed hyperlipidemia Back pain Limb weakness Difficulty balancing Bruises easily Knee pain Diarrhea Chest pain Migraines Hay fever Fatigue SOB (shortness of breath) Weight loss Vision problem Stomach ulcer Stroke Pneumonia Neuropathy Kidney stones High cholesterol HTN (hypertension) Heart disease Hearing problem Frequent headaches Gout GI problem Gallstones Diabetes type 2, uncontrolled Back problem Asthma Arthritis Anxiety and depression Seasonal allergies Home Medications ?Medication ?Instructions ?Recorded ?Last Taken ?Type albuterol sulfate 90 mcg/actuation 1 puff inhalation Q4H PRN 01/28/15 Unknown History aerosol inhaler Shortness Of Breath aspirin 81 mg tablet,delayed 81 mg PO DAILY health maintenance 06/03/16 07/20/24 History release clopidogrel 75 mg tablet 75 mg PO DAILY blood thinner 09/27/17 07/20/24 History diltiazem HCl 180 mg 180 mg PO DAILY blood 10/16/17 07/20/24 History capsule,extended release 24 hr pressure/heart atorvastatin 80 mg tablet 80 mg PO QHS CHOLESTEROL 03/23/20 07/20/24 History cetirizine 10 mg tablet 10 mg PO DAILY ALLERGIES 03/23/20 07/20/24 History cholecalciferol (vitamin D3) 25 2,000 unit PO DAILY SUPPLEMENT 03/23/20 07/20/24 History mcg (1,000 unit) tablet losartan 100 mg tablet 100 mg PO DAILY BP 03/23/20 07/20/24 History albuterol sulfate 2.5 mg/3 mL 1.25 mg continuous nebulization 10/25/20 Unknown History (0.083 %) solution for nebulization Q4H PRN shortness of breath or wheezing gabapentin 300 mg capsule 300 mg PO TID 10/25/20 07/20/24 History hydrochlorothiazide 25 mg tablet 25 mg PO DAILY 10/25/20 07/20/24 History pen needle, diabetic 32 gauge x #180 ea 03/11/21 Unknown Rx 32 (BD Ultra-Fine Rachel Pen Needle) fluoxetine 20 mg capsule 20 mg PO DAILY 03/15/23 07/20/24 History flash glucose sensor (FreeStyle #2 ea 07/17/23 Unknown Rx Cyndie 2 Sensor kit) insulin regular hum U-500 conc 500 50 unit subcut TIDCM 07/22/24 07/20/24 History unit/mL(3 mL) subcut pen (Humulin R U-500 (Conc) Insulin Kwikpen) insulin regular hum U-500 conc 500 70 unit subcut 0800 07/22/24 07/20/24 History unit/mL(3 mL) subcut pen (Humulin R U-500 (Conc) Insulin Kwikpen) melatonin 3 mg tablet 3 mg PO QHS 07/22/24 Unknown History ropinirole 1 mg tablet 1 - 2 mg PO QPM RESTLESS LEG 07/22/24 07/20/24 History Allergy/AdvReac Type Severity Reaction Status Date / Time levofloxacin (From Levaquin) Allergy rash,swelli Verified 07/22/24 10:14 ng Penicillins Allergy Rash Verified 07/22/24 10:14 Family History Father Asthma Heart disease Hypertension Mother Bleeding disorder Hypertension CVA (cerebral vascular accident) Brother Diabetes Heart disease Hypertension High cholesterol Surgical History H/O cardiac catheterization History of ERCP Hx of cholecystectomy History of tonsillectomy Social History Smoking Status: Never smoker second hand exposure: No alcohol intake: never substance use type: does not use Physical Exam Const alert, oriented x3 and no apparent distress General Appearance: cooperative HEENT normocephalic and head/scalp atraumatic Eyes PERRL and EOMs intact bilaterally Neck supple and No nodes Resp normal air movement and clear to auscultation bilaterally Cardio regular rate and regular rhythm GI soft to palpation, non-tender and non-distended Extremity General Extremity: Negative for edema Skin Skin Narrative: reviewed wound photos Neuro CN's II-XII intact bilaterally Lab / Micro Data Attestation: I reviewed the patient's lab results. 07/24/24 05:21 07/24/24 05:21 Labs: Laboratory Results - last 24 hr 07/23/24 11:21: POC Glucose 253 H 07/23/24 16:47: POC Glucose 204 H 07/23/24 21:30: POC Glucose 161 H 07/23/24 22:15: Urine Color Yellow, Urine Clarity Clear, Urine pH 6.0, Ur Specific [place] 1.025, Urine Protein 100 H, Urine Glucose (UA) 50 H, Urine Ketones 5 H, Urine Occult Blood 25 H, Urine Nitrite Negative, Urine Bilirubin Negative, Urine Urobilinogen 1 H, Ur Leukocyte Esterase 25 H, Urine RBC 0-5 SEEN, Urine WBC 0-5 SEEN, Ur Squamous Epith Cells 0-5 SEEN, Urine Bacteria 1+, Urine Mucus 0 SEEN 07/24/24 00:33: Vancomycin Trough 27.7 H 07/24/24 05:21: WBC 12.3 H, RBC 4.37 L, Hgb 11.9 L, Hct 35.9 L, MCV 82.2, MCH 27.2, MCHC 33.1, RDW Std Deviation 35.8, RDW Coeff of Luanne 11.9, Plt Count 245, MPV 9.1, Immature Gran % (Auto) 0.600, Neut % (Auto) 72.0 H, Lymph % (Auto) 17.4 L, [place] % (Auto) 7.1, Eos % (Auto) 2.3, Baso % (Auto) 0.6, Absolute Neuts (auto) 8.9 H, Absolute Lymphs (auto) 2.15, Nucleated RBC % 0, Sodium 138, Potassium 3.7, Chloride 107, Carbon Dioxide 24.0, Anion Gap 8, BUN 27 H, Creatinine 1.23, Estim Creat Clear Calc 87.24, Est GFR (MDRD) Af Amer 77, Est GFR (MDRD) Non-Af 64, BUN/Creatinine Ratio 22.0 H, Glucose 170 H, Calcium 8.2 L 07/24/24 05:23: POC Glucose 175 H Micro: Microbiology 07/22/24 13:00 Wound - Right Foot Gram Stain - Final 07/22/24 13:00 Wound - Right Foot Wound Culture - Preliminary Streptococcus agalactiae (B) Staphylococcus species 07/22/24 13:00 Wound - Right Foot Skin and Soft Tissue MRSA/MSSA (PCR - Final 07/22/24 10:23 Blood Culture (Wb) - Anticubital Right Blood Culture - Preliminary No growth in 48 hours. Rhythm Strip Rhythm Strip: Sinus Rhythm Rate: 75 Ectopy: None
[2024-07-24 11:55] LABS: Bedside Glucose 222 mg/dL (74-106)
[2024-07-24 12:53] LABS: Vancomycin, Random Level 17.5 ug/mL (0.0-15.0)
--- NOTE | 2024-07-24 13:00 | CASEMGMT ---
Made SELAM Huynh aware that at next treatment if pt is still NWB, pt is requesting to be trialed on a knee scooter.
--- NOTE | 2024-07-24 13:09 | PCM.RX.CS ---
Consult Antibiotic Management Pharmacy has been consulted to manage selected antibiotic: Vancomycin Type of Intervention Type of Consult: Follow-up Suspected Infection Suspected Infection: Skin/Soft tissue Prior Doses of Antibiotics Prior Doses of Antibiotics Received/Current Regimen: Vancomycin 2000 mg Q12H last dose given 07/23 @ 1416 Labs Labs: Sodium 138 mmol/L (136-145) 07/24/24 05:21 Potassium 3.7 mmol/L (3.5-5.1) 07/24/24 05:21 Chloride 107 mmol/L (98-107) 07/24/24 05:21 Carbon Dioxide 24.0 mmol/L (21.0-32.0) 07/24/24 05:21 Anion Gap 8 (5-15) 07/24/24 05:21 BUN 27 mg/dL (7-18) H 07/24/24 05:21 Creatinine 1.23 mg/dL (0.70-1.30) 07/24/24 05:21 Est GFR (MDRD) Af Amer 77 mL/min (>60) 07/24/24 05:21 Est GFR (MDRD) Non-Af 64 mL/min (>60) 07/24/24 05:21 BUN/Creatinine Ratio 22.0 RATIO (10-20) H 07/24/24 05:21 Glucose 170 mg/dL (74-106) H 07/24/24 05:21 Vancomycin Trough 27.7 ug/mL (5.0-15.0) H 07/24/24 00:33 Random Vancomycin 17.5 ug/mL (0.0-15.0) H 07/24/24 12:20 Microbiology Microbiology: Microbiology 07/22/24 13:00 Wound - Right Foot Gram Stain - Final 07/22/24 13:00 Wound - Right Foot Wound Culture - Preliminary Streptococcus agalactiae (B) Staphylococcus species 07/22/24 13:00 Wound - Right Foot Skin and Soft Tissue MRSA/MSSA (PCR - Final 07/22/24 10:23 Blood Culture (Wb) - Anticubital Right Blood Culture - Preliminary No growth in 48 hours. 07/22/24 11:12 Mucosa - Nose SARS-CoV-2, Influenza & RSV (PCR) - Final Dosing Weight Weight used for dosin kg Estimated Creatinine Clearance Estimated Creatinine Clearance: ~ 87 Goal Trough Goal Trough: 15-20 mcg/mL Pharmacy Plan for Drug Dosing Pharmacy Plan for Drug Dosing: Vancomycin random level = 17.5, resume dosing at 1250 mg Q12H Pharmacy Service will continue to monitor and adjust dosing as required. Follow-Up Labs Follow-Up Labs: Trough: Vancomycin Date/Time Labs Ordered Labs to be done on [date and time ordered]: 07/26/24 @ 0030
--- NOTE | 2024-07-24 14:06 | NURSING ---
1345 pt to OR per bed/transporter. Vanc just arrived and sent down on pole with pt. Spouse with pt
--- NOTE | 2024-07-24 14:31 | PRE.ANES_ITS ---
ASA Classification* ASA Classification ASA Classification: 3 Assessment & Plan Anesthesia* Anesthesia Assessment Anesthesia Assessment: Discussed sedation and/or anesthesia options, risks, benefits, and alternatives with patient/parents/legal guardian/POA. Questions invited. The patient/parents/legal guardian/POA seems to understand and agrees to proceed with anesthesia plan. Reviewed the physical assessment, medical history, allergy history and patient home medications list prior to surgery/procedure/anesthetic and documented any changes. Performed airway and anesthesia risk assessments. Anesthesia Type Anesthesia Type: General History Source History Obtained from:: Patient and Chart Anesthesia Focused Assessment* Temperature: 98.3 F Pulse Rate: 73 Blood Pressure: 152/83 Respiratory Rate: 16 Pulse Ox: 97 Oxygen Delivery Method: Room Air Airway Assessment Mouth opens: >3 cm Mallampati Score: IV Teeth Condition: Loose (Left upper molar is loose) and Missing (Multiple missing.) Neck Range of motion (ROM): Limited ROM (Slight decrease in extension) Focused Labs Anesthesia Preop lab: CBC WBC 12.3 K/mm3 (4.4-11.0) H 07/24/24 05:21 RBC 4.37 M/mm3 (4.6-6.2) L 07/24/24 05:21 Hgb 11.9 g/dL (13.0-16.5) L 07/24/24 05:21 Hct 35.9 % (40-54) L 07/24/24 05:21 Plt Count 245 K/mm3 (150-450) 07/24/24 05:21 CHEMISTRY Potassium 3.7 mmol/L (3.5-5.1) 07/24/24 05:21 Sodium 138 mmol/L (136-145) 07/24/24 05:21 Magnesium 1.7 mg/dL (1.6-2.6) 07/23/24 05:33 Phosphorus 4.0 mg/dL (2.5-4.9) 07/23/24 05:33 BUN 27 mg/dL (7-18) H 07/24/24 05:21 Creatinine 1.23 mg/dL (0.70-1.30) 07/24/24 05:21 Glucose 170 mg/dL (74-106) H 07/24/24 05:21 POC Glucose 222 mg/dL (74-106) H 07/24/24 11:23 TSH 3.31 uIU/mL (0.358-3.74) 10/23/22 10:56 COAG PT 12.7 SECONDS (11.7-14.9) 12/14/22 08:50 Pre-Assessment Diagnosis/Proposed Procedure Planned Operative Procedure(s): Complex incision and drainage, possible delayed primary closure, right foot. 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 When Was Last Pacemaker Check QUESTION #4 FULL TEXT: You/Your Family Experience fever (hyperthermia) with Anesthesia Last Oral Intake Last Oral intake: Last Oral Intake NPO since 00:00 07/24/24 11:25 Meds taken in AM with sips of Yes 07/24/24 11:25 water? Meds patient instructed to take am of surgery PONV PONV - realty loan specialist: PONV - realty loan specialist Female HX of Motion Sickness HX of N/V After Surgery Non-Smoker Duration of Surgery greater than 60 minutes Number of Risk Factors PONV Score Height & Weight Height & Weight: Anesthesia: Height & Weight Height 5 ft 11 in 07/24/24 11:25 Weight: 128.5 kg 07/24/24 11:25 Body Mass Index (BMI) 39.4 07/24/24 11:25 Respiratory Assessment Respiratory Assessment - realty loan specialist: Respiratory Tract Infection Hx - realty loan specialist Hx Respiratory Tract Infection Yes: sinus drainage 07/22/24 13:03 STOP Sleep Apnea STOP Sleep Apnea - realty loan specialist: STOP Sleep Apnea - realty loan specialist Hx Hypertension Yes 07/23/24 14:34 Hx Sleep Apnea Yes 07/22/24 12:55 CPAP No 07/22/24 12:55 BIPAP No 07/22/24 12:55 Do you snore loudly (louder than talking or can be heard Do you often feel tired/ fatigued/ sleepy during daytime? Has anyone observed you stop breathing during sleep? STOP Results Positive 07/22/24 12:55 QUESTION #5 FULL TEXT : Do you snore loudly (louder than talking or can be heard through closed doors)? 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 Specify any problems Hx of Preganancy in last 3 N/A 07/22/24 12:55 Months Nurse Filling Out Transfusion SHESS 07/22/24 12:55 & Questions: Date: 07/22/24 07/22/24 12:55 Time: 12:57 07/22/24 12:55 Patient unable to answer at this time (ie. confused, unrespo /Reproduction History /Reproductive History - realty loan specialist: /Reproductive Hx- realty loan specialist Hx Now No 07/22/24 13:03 Gestational Age (in weeks): EDC: Hx Hx Para Hx Section SAB No 07/22/24 13:03 Active Medications Active Medications: Current Medications Generic Name Dose Route Start Last Admin Trade Name Freq PRN Reason Stop Dose Admin Acetaminophen 1,000 mg 07/22/24 14:00 07/24/24 11:49 Acetaminophen 500 Mg Tablet PO Not Given Q8 CATRACHITA Albuterol Sulfate 1.25 mg 07/22/24 15:47 Albuterol 2.5 Mg/3 Ml Vial.Neb. INHALATION Q4H PRN shortness of breath or wheezing Aspirin 81 mg 07/23/24 10:00 07/24/24 09:44 Aspirin E.C. 81 Mg Tablet PO Not Given DAILY CATRACHITA Atorvastatin Calcium 80 mg 07/22/24 22:00 07/23/24 21:35 Atorvastatin Calcium 80 Mg Tablet PO 80 mg QHS CATRACHITA Administration Clopidogrel Bisulfate 75 mg 07/23/24 10:00 07/24/24 09:44 Clopidogrel Bisulfate 75 Mg Tablet PO Not Given DAILY CATRACHITA Diltiazem HCl 180 mg 07/23/24 10:00 07/24/24 09:44 Diltiazem Cd 180 Mg Capsule PO 180 mg DAILY CATRACHITA Administration Protocol Fluoxetine HCl 20 mg 07/23/24 10:00 07/24/24 09:43 Fluoxetine 20 Mg Capsule PO 20 mg DAILY CATRACHITA Administration Gabapentin 300 mg 07/22/24 22:00 07/24/24 11:49 Gabapentin 300 Mg Capsule PO Not Given TID CATRACHITA Glucagon 1 mg 07/22/24 12:43 Glucagon 1 Mg/Ml Syringe IM X1 PRN HYPOGLYCEMIA Protocol Glucagon 1 mg 07/22/24 15:59 Glucagon 1 Mg/Ml Syringe IM X1 PRN Hypoglycemia Protocol Heparin Sodium (Porcine) 5,000 unit 07/22/24 22:00 07/24/24 09:44 Heparin Injection (Vial) 5,000 Unit/Ml Vial SC Not Given Q12 CATRACHITA Hydromorphone HCl 0.5 - 1 mg 07/22/24 12:43 Hydromorphone 1 Mg/Ml Syringe IV Q3H PRN PRN Pain Score 6-10 Dextrose 250 mls @ 0 mls/hr 07/22/24 12:43 Dextrose 10%-Water IV .Q0M PRN HYPOGLYCEMIA Protocol As Directed Vancomycin IV-PHARMACY TO DOSE 500 mls @ 250 mls/hr 07/22/24 12:43 1 each/ Sodium Chloride IV X1 PRN Rx to Dose Protocol Metronidazole 500 mg in 100 mls @ 100 mls/hr 07/22/24 14:00 07/24/24 14:30 Flagyl IV Infused Q8 CATRACHITA Infusion Sodium Chloride 500 mls @ 15 mls/hr 07/22/24 12:44 IV .[id number] PRN Saline Flush Sodium Chloride 500 mls @ 15 mls/hr 07/22/24 12:44 IV .[id number] PRN Additional IVPB Infusion Dextrose 250 mls @ 0 mls/hr 07/22/24 15:59 Dextrose 10%-Water IV .Q0M PRN HYPOGLYCEMIA Protocol As Directed Vancomycin HCl 1,250 mg/ 275 mls @ 167 mls/hr 07/24/24 13:00 Sodium Chloride IV Q12H [facility] Ceftriaxone Sodium 2 gm/ 50 mls @ 100 mls/hr 07/25/24 10:00 Sodium Chloride IV Q24 [facility] Insulin Human Lispro 0 unit 07/22/24 16:00 07/24/24 11:29 Insulin Lispro 100 Unit/Ml Insuln.Pen SC Not Given ACHS [facility] Protocol Insulin Human Regular 30 units 07/24/24 08:00 07/24/24 08:24 Insulin U-500 Units/Ml Pen SC Not Given DAILY@0800 CATRACHITA Insulin Human Regular 30 units 07/23/24 12:00 07/24/24 11:29 Insulin U-500 Units/Ml Pen SC Not Given BIDCM@1200,1700 [facility] Loratadine 10 mg 07/23/24 10:00 07/24/24 09:43 Loratadine 10 Mg Tablet PO 10 mg DAILY [facility] Administration Losartan Potassium 100 mg 07/23/24 10:00 07/24/24 09:43 Losartan Potassium 100 Mg Tablet PO 100 mg DAILY [facility] Administration Protocol Melatonin 3 mg 07/22/24 12:43 07/23/24 21:35 Melatonin 3 Mg Tablet PO 3 mg QHS PRN PRN Administration INSOMNIA Nitroglycerin 0.4 mg 07/22/24 12:43 Nitroglycerin (Inpatient Use) 0.4 Mg Tab.Subl SL Q5M PRN CARDIAC/CHEST PAIN Ondansetron HCl 4 mg 07/23/24 08:28 07/24/24 04:01 Ondansetron 4 Mg/2 Ml Vial IV 4 mg Q6H PRN PRN Administration NAUSEA/VOMITING Oxycodone HCl 5 mg 07/22/24 12:43 07/23/24 20:03 Oxycodone 5 Mg Tablet PO 5 mg Q4H PRN PRN Administration Pain Score 4-10 Pramipexole Dihydrochloride 0.5 mg 07/22/24 21:00 07/23/24 21:34 Pramipexole Di-Hcl 0.5 Mg Tablet PO 0.5 mg QPM [facility] Administration Senna/Docusate Sodium 2 tablet 07/22/24 12:43 Senna/Docusate Sodium 1 Tablet PO BID PRN PRN Constipation Sodium Chloride 10 - 40 ml 07/22/24 12:44 07/24/24 08:31 0.9% Saline Lock 10 Ml Syringe IV 10 ml UD PRN Administration SALINE FLUSH Vancomycin Protocol 1 lab 07/25/24 22:30 Vancomycin Trough/Random Due 07/26/24 02:30 DAILY CATRACHITA PFSH Medical History Loose, teeth Restless legs High cholesterol Myocardial infarct Stroke/cerebrovascular accident Myopia of both eyes Bilateral cataracts Mixed hyperlipidemia Back pain Limb weakness Difficulty balancing Bruises easily Knee pain Diarrhea Chest pain Migraines Hay fever Fatigue SOB (shortness of breath) Weight loss Vision problem Stomach ulcer Stroke Pneumonia Neuropathy Kidney stones High cholesterol HTN (hypertension) Heart disease Hearing problem Frequent headaches Gout GI problem Gallstones Diabetes type 2, uncontrolled Back problem Asthma Arthritis Anxiety and depression Seasonal allergies Home Medications ?Medication ?Instructions ?Recorded ?Last Taken ?Type albuterol sulfate 90 mcg/actuation 1 puff inhalation Q4H PRN 01/28/15 Unknown History aerosol inhaler Shortness Of Breath aspirin 81 mg tablet,delayed 81 mg PO DAILY health maintenance 06/03/16 07/20/24 History release clopidogrel 75 mg tablet 75 mg PO DAILY blood thinner 09/27/17 07/20/24 History diltiazem HCl 180 mg 180 mg PO DAILY blood 10/16/17 07/20/24 History capsule,extended release 24 hr pressure/heart atorvastatin 80 mg tablet 80 mg PO QHS CHOLESTEROL 03/23/20 07/20/24 History cetirizine 10 mg tablet 10 mg PO DAILY ALLERGIES 03/23/20 07/20/24 History cholecalciferol (vitamin D3) 25 2,000 unit PO DAILY SUPPLEMENT 03/23/20 07/20/24 History mcg (1,000 unit) tablet losartan 100 mg tablet 100 mg PO DAILY BP 03/23/20 07/20/24 History albuterol sulfate 2.5 mg/3 mL 1.25 mg continuous nebulization 10/25/20 Unknown History (0.083 %) solution for nebulization Q4H PRN shortness of breath or wheezing gabapentin 300 mg capsule 300 mg PO TID 10/25/20 07/20/24 History hydrochlorothiazide 25 mg tablet 25 mg PO DAILY 10/25/20 07/20/24 History pen needle, diabetic 32 gauge x #180 ea 07/23/21 Unknown Rx (BD Ultra-Fine Rachel Pen Needle) fluoxetine 20 mg capsule 20 mg PO DAILY 03/15/23 07/20/24 History flash glucose sensor (FreeStyle #2 ea 07/17/23 Unknown Rx Cyndie 2 Sensor kit) insulin regular hum U-500 conc 500 50 unit subcut TIDCM 07/22/24 07/20/24 History unit/mL(3 mL) subcut pen (Humulin R U-500 (Conc) Insulin Kwikpen) insulin regular hum U-500 conc 500 70 unit subcut 0800 07/22/24 07/20/24 History unit/mL(3 mL) subcut pen (Humulin R U-500 (Conc) Insulin Kwikpen) melatonin 3 mg tablet 3 mg PO QHS 07/22/24 Unknown History ropinirole 1 mg tablet 1 - 2 mg PO QPM RESTLESS LEG 07/22/24 07/20/24 History Allergy/AdvReac Type Severity Reaction Status Date / Time levofloxacin (From Levaquin) Allergy rash,swelli Verified 07/22/24 10:14 ng Penicillins Allergy Rash Verified 07/22/24 10:14 Family History Father Asthma Heart disease Hypertension Mother Bleeding disorder Hypertension CVA (cerebral vascular accident) Brother Diabetes Heart disease Hypertension High cholesterol Surgical History H/O cardiac catheterization History of ERCP Hx of cholecystectomy History of tonsillectomy Social History Smoking Status: Never smoker second hand exposure: No alcohol intake: never substance use type: does not use Review of Systems (Anesthesia) ROS Narrative System reviewed and no additional complaints, except as documented.
--- NOTE | 2024-07-24 15:08 | CHAPLAIN ---
Type of Pastoral Visit _x__ Initial Visit ___ Follow-up Visit ___ On-call Visit ___ General Patient Visit ___ Spiritual Assessment ___ Family Conference ___ Bereavement ___ Rapid Response ___ Code Blue ___ Other (describe below) Pastoral Care Referral From _x__ Patient ___ Family ___ Nurse ___ Physician ___ Spring Fitter ___ Sole Leveler Machine ___ Other (describe below) Sacrament/Intervention _x__ Active listening ___ Anointing ___ Tenriism ___ Bereavement ___ Communion _x__ Skylar exploration ___ ___ Life review _x__ Prayer ___ Reconciliation ___ Sacrament of Sick _x__ Supportive presence ___ Wedding ___ Other (describe below) Pastoral Comments patient gives information on his health and current need and situation; spouse is at the bedside; pt identifies self as a believer and relying on God for his help; pt says skylar is important to him; pt welcomes presence and prayer for support before he goes for a procedure soon
[2024-07-24] MEDS: Vancomycin HCl 1,250 MG in 0.9% Normal Saline (250mL Bag) 250 ML 167 MG IV (15:12)
[2024-07-24] MEDS: Bupivacaine Mpf 0.5% 30 ML VIAL (15:33)
--- NOTE | 2024-07-24 16:09 | PCM.POST.ANE ---
Anesthesia: Postop Eval I Current Vital Signs Temperature: 97 F Pulse Rate: 81 Blood Pressure: 144/78 Respiratory Rate: 16 Pulse Ox: 93 Oxygen Delivery Method: Room Air Assessment Airway patent: Yes Spontaneous unlabored respirations: Yes Mental status: Awake and Calm nausea: No Vomiting: No Anesthesia Complication: No Fluid Hydration Crystalloid volume administer (ml): 450 Total IV fluid infused: 450 Progress Note Anesthesia document: Postop Eval 1 completed: Yes
--- NOTE | 2024-07-24 16:10 | POSTOPAN2_ITS ---
Anesthesia Postop Eval I Sum Postop Eval Completion status Anesthesia document: Postop Eval 1 completed: Yes Anesthesia Postop Eval I Summary Anesthesia Postop Eval I Summary: Anesthesia Postop Eval I: Assessment Summary Airway patent Yes 07/24/24 16:10 ELECTRICAL SIGN [email or web address].[email or web address] Spontaneous unlabored Yes 07/24/24 16:10 ELECTRICAL SIGN WIRER.MDOT respirations Mental status Awake,Calm 07/24/24 16:10 ELECTRICAL SIGN WIRER.MDOT nausea No 07/24/24 16:10 ELECTRICAL SIGN [email or web address].MDOT Vomiting No 07/24/24 16:10 ELECTRICAL SIGN [email or web address].[email or web address] Anesthesia Postop Eval I: Fluid Summary Crystalloid volume administer 450 07/24/24 16:10 ELECTRICAL SIGN WIRER.MDOT (ml) Colloids volume administered ( ml) Blood Product volume administered (ml) Total IV fluid infused 450 07/24/24 16:10 ELECTRICAL SIGN [email or web address].MDOT Anesthesia Postop Eval I: Summary Notes Anesthesia Complication No 07/24/24 16:10 ELECTRICAL SIGN [email or web address].[email or web address] Anesthesia Complication Comment: Post-operative progress note Anesthesia: Postop Eval II Evaluation Mental status: Awake and Calm Pain Level: 0 nausea: No Vomiting: No Complications Anesthesia Complication: No
--- NOTE | 2024-07-24 16:10 | PCM.POSTANE2 ---
Anesthesia Postop Eval I Sum Postop Eval Completion status Anesthesia document: Postop Eval 1 completed: Yes Anesthesia Postop Eval I Summary Anesthesia Postop Eval I Summary: Anesthesia Postop Eval I: Assessment Summary Airway patent Yes 07/24/24 16:10 ATHLETIC [email or web address] Spontaneous unlabored Yes 07/24/24 16:10 ATHLETIC COACH.MDOT respirations Mental status Awake,Calm 07/24/24 16:10 ATHLETIC COACH.MDOT nausea No 07/24/24 16:10 ATHLETIC COACH.MDOT Vomiting No 07/24/24 16:10 ATHLETIC COACH.MDOT Anesthesia Postop Eval I: Fluid Summary Crystalloid volume administer 450 07/24/24 16:10 ATHLETIC COACH.MDOT (ml) Colloids volume administered ( ml) Blood Product volume administered (ml) Total IV fluid infused 450 07/24/24 16:10 ATHLETIC COACH.MDOT Anesthesia Postop Eval I: Summary Notes Anesthesia Complication No 07/24/24 16:10 ATHLETIC [email or web address].MDOT Anesthesia Complication Comment: Post-operative progress note Anesthesia: Postop Eval II Evaluation Mental status: Awake and Calm Pain Level: 0 nausea: No Vomiting: No Complications Anesthesia Complication: No
--- NOTE | 2024-07-24 16:16 | PCM.OPRPT ---
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 Complex incision and drainage, right foot 2. Delayed primary closure, right foot Surgeon: Simón Niño Date of Procedure: 07/24/24 Procedure Start Time: 15:33 Procedure Stop Time: 16:02 Pre-Operative Diagnosis: 1. Cutaneous abscess, right foot 2. Full-thickness wound down to muscle, right foot 3. Diabetes type 2 peripheral neuropathy Post-Operative Diagnosis: Same as preoperative diagnosis Select all DRAINS/GRAFTS/IMPLANTS that apply: None Type of Anesthesia: General and Local Special Medications: Per anesthesia Estimated Blood Loss: 30 mL Fluids Replaced: Per anesthesia Specimen collected: Yes Description of specimen(s) removed: Prelavage cultures, right foot, post lavage cultures, right foot Description of surgery: Indications For Operation: Mr. Russo is a 59-year-old diabetic male who was admitted to [facility] for worsening right foot infection. Patient was seen in the office 1 week prior to his admission where he had excisional Logan down to muscle and placed on oral antibiotics doxycycline 100 mg twice daily with culture taken of the right foot full-thickness ulceration down to muscle. Patient with presented 1 week after an office evaluation for worsening infection as well as concerns for nausea and vomiting over the weekend. Patient was ultimately told to present to the emergency department for admission under medicine for IV antibiotics and surgical workup by podiatry. After patient was medically cleared it was deemed necessary at this time to take the patient the operating room to perform the above procedure to help remove the deep lining abscess after confirmation with magnetic resonance imaging to the right foot. Due to findings on MRI it was deemed necessary at this time to take patient the operating room perform the above procedure to help remove the abscess from his foot and to help heal his full-thickness wound. The nature of the problem, anticipated procedures, postop recovery/convalences and risk/complications include but not limited to infection, wound healing complications, digital amputation, hypertrophic scarring, numbness, tingling, chronic pain, CRPS, over and under correction, recurrence of deformity, DVT and or PE and the need for further surgery have been discussed in great detail with the patient. All questions have been answered to the patient's satisfaction. There are no guarantees given as to the outcome of the procedure. Description of Procedure: Under mild sedation, the patient was brought into the operating room and placed on the operating table in supine position. Once the patient was under general anesthesia with laryngeal mask airway, the right lower extremity was blocked using approximately 27 mL 0.5% Marcaine plain. No tourniquet was used for this case. Next, the right lower extremity was prepped and draped in normal aseptic manner. Next, a timeout was then undertaken verifying the correct patient, extremity, visibility of preoperative markings, availability of the equipment. Procedure #1: Complex incision and drainage, right foot (CPT code: 84961) Next, attention was directed to the level of the right foot. There showed evidence of proximal streaking and cellulitis at the level of the plantar vault and lateral aspect of the right foot overlying the styloid process. There showed evidence of positive probe to muscle to the plantar aspect of the right foot and healed full-thickness wound to the subfifth metatarsal head. Using a sterile skin marker a large incision was applied equidistant between the plantar and dorsal skin on the lateral right foot. Complex incision and drainage was performed with a #10 blade was performed without incident down to the level of subcutaneous tissue, fascia and muscle. Continued blunt dissection with Metzenbaum scissors was carried down to the level of the plantar vault. At this time evacuation of 5 to 10 cc of purulent drainage was appreciated with sanguinous drainage. Using a Harold there showed evidence of tunneling to the plantar vault where the 2 incision and wound connected. At this time, prelavage cultures were taken and passed to the back table to be sent off for microbiology culture and sensitivity. Next, using pulse lavage 3000 mL of warm saline were pulsed out of the lateral incision and flushing out all the remaining purulence there were not seen after the lavage. At this time, post lavage cultures were taken and passed the back table to be sent off for microbiology culture and sensitivity. Procedure #2: Delayed primary closure, right foot (CPT code: 83287) Next, attention was directed to the lateral aspect of the right foot at the level of the incision. The incision was flushed with copious normal saline. The skin was reapproximated closed using 3-0 nylon in a combination of horizontal and vertical mattress suture technique. Next, quarter inch iodoform packing was applied to the full-thickness wound to the plantar aspect of the right foot. Next, 1 larger tender suture was applied with 3-0 nylon allowing for delayed primary closure. The right foot was wiped clean and patted dry. The lateral incision was dressed with Betadine soaked Adaptic and the iodoform packing was covered with 4 x 4 gauze followed by dry sterile dressing and double layer Barone compression bandage was donned to the right lower extremity. The patient tolerated the procedure and anesthesia well and apparent satisfactory condition and was transported to the PACU for further monitoring prior to discharge back to the floor. Vital signs stable and vascular status intact to all digits bilateral. Post Operative Plan: Weightbearing: No weightbearing to the right lower extremity. Full weightbearing to left lower extremity. Antibiotics: Vancomycin and Flagyl DVT Prophylaxis: Heparin and Plavix Lamas: None Dressing: Betadine soaked Adaptic, quarter inch iodoform, 4 x 4's dry sterile dressing and a double layer Barone compression bandage. Pain Medication: Per medicine Follow-up: Patient will be discharged back to the floor for continued IV antibiotics. Once cultures and sensitivity returned the patient will need 2-4 weeks of oral antibiotics. Patient will follow-up in private office for continued evaluation and care of the right lower extremity surgical site. Surgical Findings: 1. Evidence of 5 to 10 cc of purulent drainage evacuated from the plantar vault of the right foot. 2. Evidence of sanguinous drainage after removal of all purulence from the plantar vault of the right foot. Felt Puller ballistic expert: No Complications Complications: No Admit VTE Documentation VTE Present on Admission: No VTE Mechan Device Prophylaxis: SCD's VTE Pharm Prophylaxis ordered?: Yes
[2024-07-24] MEDS: Gabapentin 300 MG Capsule PO ×2 (17:07→21:28)
[2024-07-24] MEDS: Insulin Lispro 100 UNIT/ML INSULN.PEN SC ×2 (17:08→21:27)
[2024-07-24] MEDS: Insulin U-500 UNITS/ML PEN 30 UNITS SC (17:08)
[2024-07-24 17:32] LABS: Bedside Glucose 200 mg/dL (74-106)
[2024-07-24] MEDS: proMETHazine 25 MG/ML Syringe IM (20:12)
[2024-07-24] MEDS: Pramipexole Di-HCl 0.5 MG Tablet PO (21:27)
[2024-07-24] MEDS: Heparin Injection (Vial) 5,000 UNIT/ML VIAL 5000 UNIT SC (21:27)
[2024-07-24] MEDS: MELATONIN 3 MG TABLET PO (21:28)
[2024-07-24] MEDS: Acetaminophen 500 MG Tablet 1000 MG PO (21:28)
[2024-07-24] MEDS: Atorvastatin Calcium 80 MG Tablet PO (21:28)
[2024-07-24 22:32] LABS: Bedside Glucose 233 mg/dL (74-106)
[2024-07-25 00:52] VITALS: BP 152/78; PULSE 87; RESP 18; TEMP 37.2; O2SAT 98
[2024-07-25] MEDS: Vancomycin HCl 1,250 MG in 0.9% Normal Saline (250mL Bag) 250 ML 167 MG IV ×2 (00:57→13:49)
[2024-07-25 04:52] VITALS: BP 150/88; PULSE 75; RESP 18; TEMP 36.9; O2SAT 97
[2024-07-25] MEDS: metroNIDAZOLE 500 MG/100 ML BAG 100 MG IV ×3 (05:58→21:14)
[2024-07-25] MEDS: Acetaminophen 500 MG Tablet 1000 MG PO ×3 (05:58→21:13)
[2024-07-25] MEDS: Gabapentin 300 MG Capsule PO ×3 (05:58→21:13)
[2024-07-25] MEDS: Ondansetron 4 MG/2 ML Vial IV (05:59)
[2024-07-25] MEDS: oxyCODONE 5 MG Tablet PO (05:59)
[2024-07-25 06:31] LABS: Absolute Lymphocyte Count 2.17 X10^3/uL (0.83-4.51); Absolute Neutrophil Count 9.9 X10^3/uL (2.0-7.7); Basophil# 0.07 X10^3/uL; Basophil% 0.5 % (0-1); Eosinophil# 0.16 X10^3/uL; Eosinophils% 1.2 % (0-5); Hemoglobin 12.3 g/dL (13.0-16.5); Lymphocyte # 2.17 X10^3/ul (0.83-4.51); Lymphocyte % 16.2 % (19-41); Mean Corp Hgb Conc 33.2 g/dL (32-36); Mean Corpuscular Hgb 27.8 pg (27.0-32.0); Mean Corpuscular Volume 83.7 fL (80-94); Mean Platelet Vol. 9.1 fl (6.2-12.0); Monocyte# 1.04 X10^3/uL; Monocyte% 7.7 % (0-10); NRBC Flagged by Analyzer 0 % (0-5); Neutrophil # 9.91 X10^3/uL (2.7-7.7); Neutrophil % 73.8 % (47-70); Platelet Count 255 K/mm3 (150-450); RBC Distribution Width CV 11.9 % (11.6-14.6); RBC Distribution Width SD 36.4 fl (35.1-43.9); Red Blood Count 4.42 M/mm3 (4.6-6.2); White Blood Count 13.4 K/mm3 (4.4-11.0)
[2024-07-25 06:52] LABS: Anion Gap 6 (5-15); BUN 23 mg/dL (7-18); BUN/Creat Ratio 19.3 RATIO (10-20); Calcium,Total 8.3 mg/dL (8.5-10.1); Chloride 108 mmol/L (98-107); Creatinine, Serum 1.19 mg/dL (0.70-1.30); EST Glomerular Filtration Rate 66 mL/min (>60); Est Glom Filt Rate - Afr Amer 80 mL/min (>60); Estimated Creatinine Clearance 90.18 ml/min; Glucose 186 mg/dL (74-106); Potassium 3.9 mmol/L (3.5-5.1); Sodium Level 139 mmol/L (136-145)
--- NOTE | 2024-07-25 07:16 | PCM.PN.HOSP ---
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 Postoperative period complicated by single nausea and vomiting Phenergan added to patient antiemetic treatment Objective Data Objective Data Vital Signs: Vital Signs Temp Pulse Resp BP Pulse Ox O2 Del Method 98.4 F 75 18 150/88 H 97 Room Air 07/25/24 04:52 07/25/24 04:52 07/25/24 04:52 07/25/24 04:52 07/25/24 04:52 07/25/24 04:52 Oxygen Delivery Method Room Air Weight: 128.5 kg Body Mass Index (BMI) 39.4 Intake & Output: Intake and Output for Last 24 Hours 07/23/24 07/24/24 07/25/24 23:59 23:59 23:59 Intake Total 2080 / 2320 865 / 1315 875 / 875 Output Total 675 / 675 600 / 900 300 / 300 Balance 1405 / 1645 265 / 415 575 / 575 Lab / Micro Data 07/25/24 05:51 07/25/24 05:51 Labs: Laboratory Results - last 24 hr 07/24/24 11:23: POC Glucose 222 H 07/24/24 12:20: Random Vancomycin 17.5 H 07/24/24 16:56: POC Glucose 200 H 07/24/24 21:25: POC Glucose 233 H 07/25/24 05:51: WBC 13.4 H, RBC 4.42 L, Hgb 12.3 L, Hct 37.0 L, MCV 83.7, MCH 27.8, MCHC 33.2, RDW Std Deviation 36.4, RDW Coeff of Luanne 11.9, Plt Count 255, MPV 9.1, Immature Gran % (Auto) 0.600, Neut % (Auto) 73.8 H, Lymph % (Auto) 16.2 L, [place] % (Auto) 7.7, Eos % (Auto) 1.2, Baso % (Auto) 0.5, Absolute Neuts (auto) 9.9 H, Absolute Lymphs (auto) 2.17, Nucleated RBC % 0, Sodium 139, Potassium 3.9, Chloride 108 H, Carbon Dioxide 25.0, Anion Gap 6, BUN 23 H, Creatinine 1.19, Estim Creat Clear Calc 90.18, Est GFR (MDRD) Af Amer 80, Est GFR (MDRD) Non-Af 66, BUN/Creatinine Ratio 19.3, Glucose 186 H, Calcium 8.3 L Micro: Microbiology 07/22/24 13:00 Wound - Right Foot Gram Stain - Final 07/22/24 13:00 Wound - Right Foot Wound Culture - Preliminary Streptococcus agalactiae (B) Staphylococcus species 07/22/24 13:00 Wound - Right Foot Skin and Soft Tissue MRSA/MSSA (PCR - Final 07/22/24 10:23 Blood Culture (Wb) - Anticubital Right Blood Culture - Preliminary No growth in 48 hours. 07/22/24 11:12 Mucosa - Nose SARS-CoV-2, Influenza & RSV (PCR) - Final Rhythm Strip Rhythm Strip: Sinus Rhythm Rate: 75 Ectopy: None Physical Exam Narrative GENERAL: cooperative HEENT: Atraumatic; normocephalic EYES; Anicteric, Normal Conjunctiva NECK; supple, normal thyroid, RESPIRATORY: Diminished to auscultation CARDIOVASCULAR: Regular S1 S2, GI: soft, normoactive bowel sounds, : No Renal angle tenderness; EXTREMITIES: No edema, no clubbing, MUSCULOSKELETAL: Right lower extremity surgical dressing NEURO: Awake; no lateralizing signs. SKIN: No Rash and PSYCH; Flat affect Assessment & Plan Assessment/Plan (1) Diabetic infection of right foot: PLAN: Plan Patient is a 59-year-old gentleman with history of diabetes presented with diabetic foot infection involving the right foot 1. Diabetic foot infection ? Patient apparently did fail outpatient therapy. Imaging studies obtained on admission did show mild to moderate focal soft tissue swelling is present beneath the head of the calcaneus with overlying bandage material consistent with the reported wound. There is no demonstrated fracture. No visualized subcutaneous air or radiopaque foreign body or osteomyelitis Admitted to regular nursing floor started on broad-spectrum antibiotic therapy with ceftriaxone and Flagyl as well as vancomycin. Consult was placed to Dr. Niño with podiatry for possible I&D ? 07/23/2024 patient had bedside debridement performed by Dr. Niño. Patient was found to have some purulent drainage. Patient is scheduled to undergo complex incision and drainage and delayed primary closure if possible on 07/24/2024 ? 07/24/2024; patient scheduled to undergo I&D and anesthesia -07/25/2025 patient underwent complex incision and drainage and delayed primary closure on 07/24/2024. Postoperative period complicated by single nausea and vomiting Phenergan added to patient antiemetic treatment. Wound cultures obtained from bedside so far positive for Streptococcus agalactiae (B) and Staphylococcus species. 2. Lactic acidosis ? Patient did not meet sepsis criteria had only 1 SIRS criteria was not tachycardic had no fever. Patient was however resuscitated with IV fluids 3. Diabetes mellitus type II -Patient is on long acting insulin, Accu-Cheks a.c. and at bedtime and covered with sliding scale insulin ? 07/23/2024 patient had a hypoglycemic episode subsequently adjusted patient home insulin regimen 4. History of previous AR ? Per patient no intervention performed. Patient is on guideline directed medical therapy 5. Hypertension ? Blood pressure controlled, home medications continued with dose adjustment as needed 6. Dyslipidemia ?Patient is on statin therapy, continued at home dose 7. Allergic rhinitis ? Patient is on cetirizine 8. Restless leg syndrome ? Patient is on ropinirole 9. Depression ? Patient is on fluoxetine did continue 10.Class II obesity with BMI of 39.8 ? Complicating care weight loss advised 11. Previous history of CVA ? With no residual effects patient is on antiplatelet therapy as well as statin therapy 12. Chronic kidney disease stage III ? Patient appears to be at baseline we will monitor with daily BMP ? 07/23/2024 no change in kidney function 13. DVT prophylaxis ? Subcu heparin. Time spent in the patient's overall evaluation,decision-making process, review of diagnostic data, adjustment of management, discussion with other providers, nursing nursing and ancillary staff involved in patient's care documentation, 38 minutes Charges/Coding Visit Charges Inpatient E&M: 00796 Subs Hosp L2
[2024-07-25] MEDS: proMETHazine 25 MG/ML Syringe IM (07:33)
[2024-07-25 08:01] VITALS: BP 130/77; PULSE 69; RESP 18; TEMP 36.8; O2SAT 98
[2024-07-25] MEDS: Insulin Lispro 100 UNIT/ML INSULN.PEN SC ×4 (08:11→21:22)
[2024-07-25] MEDS: Insulin U-500 UNITS/ML PEN 30 UNITS SC ×3 (08:11→16:34)
[2024-07-25] MEDS: Aspirin E.C. 81 MG Tablet PO (08:13)
[2024-07-25] MEDS: Clopidogrel Bisulfate 75 MG Tablet PO (08:13)
[2024-07-25] MEDS: dilTIAZem CD 180 MG Capsule PO (08:13)
[2024-07-25] MEDS: FLUoxetine 20 MG Capsule PO (08:13)
[2024-07-25] MEDS: Losartan Potassium 100 MG Tablet PO (08:13)
[2024-07-25] MEDS: Heparin Injection (Vial) 5,000 UNIT/ML VIAL 5000 UNIT SC ×2 (08:14→21:14)
[2024-07-25 08:38] LABS: Bedside Glucose 192 mg/dL (74-106)
[2024-07-25] MEDS: Ceftriaxone 2 GM in 0.9% Normal Saline (50mL Bag) 50 ML IV (09:31)
[2024-07-25 12:01] LABS: Bedside Glucose 203 mg/dL (74-106)
--- NOTE | 2024-07-25 12:25 | CASEMGMT ---
Addendum entered by Mariann Guevara 07/25/24 15:04: MARLA CORONA spoke with wound nurse. MARLA CORONA into pt room, pt states he did well on knee scooter. Discussed options for receiving one. Pt to address with his . Provided pt with a list of [facility] providers created by dc unit assistant. Pt would like to discuss this with his as well. Pt aware that MARLA CORONA will check back with him on Sunday for his top 3 preferences. Pt denies further needs at this time. Original Note: MARLA CORONA spoke with therapy who stated pt did well with knee scooter.
--- NOTE | 2024-07-25 12:44 | PCM.PN.ID ---
Physical Exam Narrative Feeling better, no pain in foot, no fever, no n/v/d/ Const alert and no apparent distress General Appearance: cooperative Resp normal air movement and clear to auscultation bilaterally Cardio regular rate and regular rhythm GI soft to palpation, non-tender and non-distended Skin Skin Narrative: foot wrapped ID ID: Route of nutrition/ use of supplements: [] Nutritional Intake: [] IV Site: [] Lamas Catheter: [] Assessment & Plan Assessment/Plan (1) Cutaneous abscess of right foot: PLAN: OR 07/24/[address] Niño. Wound cx with staph and GBS. Outpt wound cx 07/15/24 with MSSA, GBS, strep, and anaerobes. Cont vanc/ceftriaxone/flagyl. Plan on two weeks po doxy 100mg bid, keflex 500mg tid, and flagyl 500mg tid at discharge (pending further cx data) Will follow (2) Polyneuropathy due to type 2 diabetes mellitus:
--- NOTE | 2024-07-25 13:47 | CASEMGMT ---
Discharge Planning A list of HH providers including quality and resource use data and consistent with the patient's preferred geographic region, medical needs, and insurance network was created in [employer].? This list was provided to the RN CHLOE. Renate Cruz, Discharge Planning Asst.
[2024-07-25] MEDS: CETIRIZINE HCL 10 MG TABLET PO (13:48)
[2024-07-25 14:00] VITALS: BP 132/75; PULSE 71; RESP 18; TEMP 37.2; O2SAT 98
--- NOTE | 2024-07-25 14:41 | WOUNDNOTE ---
wound photo: right lateral foot
--- NOTE | 2024-07-25 14:42 | WOUNDNOTE ---
wound photo: right plantar foot
--- NOTE | 2024-07-25 16:48 | PN.SURG_ITS ---
Subjective Subjective Mr Russo 59-year-old diabetic male seen at bedside today status post complex incision and drainage and delayed primary closure to the right foot. DOS: 07/24/2024. Patient states she is doing better after the procedure. He denies any continued nausea or vomiting. He denies any pain to the right foot. No acute events overnight. Objective Data Objective Data Vital Signs: Vital Signs Temp Pulse Resp BP Pulse Ox O2 Del Method 98.9 F 71 18 132/75 H 98 Room Air 07/25/24 14:00 07/25/24 14:00 07/25/24 14:00 07/25/24 14:00 07/25/24 14:00 07/25/24 14:00 Oxygen Delivery Method Room Air Weight: 128.5 kg Body Mass Index (BMI) 39.4 Intake & Output: Intake and Output for Last 24 Hours 07/23/24 07/24/24 07/25/24 23:59 23:59 23:59 Intake Total 2080 / 2320 865 / 1315 1300 / 1300 Output Total 675 / 675 600 / 900 300 / 300 Balance 1405 / 1645 265 / 415 1000 / 1000 Lab / Micro Data 07/25/24 05:51 07/25/24 05:51 Labs: Laboratory Results - last 24 hr 07/24/24 16:56: POC Glucose 200 H 07/24/24 21:25: POC Glucose 233 H 07/25/24 05:51: WBC 13.4 H, RBC 4.42 L, Hgb 12.3 L, Hct 37.0 L, MCV 83.7, MCH 27.8, MCHC 33.2, RDW Std Deviation 36.4, RDW Coeff of Luanne 11.9, Plt Count 255, MPV 9.1, Immature Gran % (Auto) 0.600, Neut % (Auto) 73.8 H, Lymph % (Auto) 16.2 L, [place] % (Auto) 7.7, Eos % (Auto) 1.2, Baso % (Auto) 0.5, Absolute Neuts (auto) 9.9 H, Absolute Lymphs (auto) 2.17, Nucleated RBC % 0, Sodium 139, Potassium 3.9, Chloride 108 H, Carbon Dioxide 25.0, Anion Gap 6, BUN 23 H, Creatinine 1.19, Estim Creat Clear Calc 90.18, Est GFR (MDRD) Af Amer 80, Est GFR (MDRD) Non-Af 66, BUN/Creatinine Ratio 19.3, Glucose 186 H, Calcium 8.3 L 07/25/24 07:59: POC Glucose 192 H 07/25/24 11:31: POC Glucose 203 H Micro: Microbiology 07/24/24 16:00 Wound - Right Foot Gram Stain - Final 07/24/24 16:00 Wound - Right Foot Wound Culture - Preliminary Staphylococcus species Beta streptococcus 07/24/24 16:00 Wound - Right Foot Gram Stain - Final 07/24/24 16:00 Wound - Right Foot Wound Culture - Preliminary No growth-Final to follow 07/22/24 13:00 Wound - Right Foot Gram Stain - Final 07/22/24 13:00 Wound - Right Foot Wound Culture - Final Streptococcus agalactiae (B) Staphylococcus aureus 07/22/24 13:00 Wound - Right Foot Skin and Soft Tissue MRSA/MSSA (PCR - Final 07/22/24 10:23 Blood Culture (Wb) - Anticubital Right Blood Culture - Preliminary No growth in 48 hours. 07/22/24 11:12 Mucosa - Nose SARS-CoV-2, Influenza & RSV (PCR) - Final Rhythm Strip Rhythm Strip: Sinus Rhythm Rate: 75 Ectopy: None Physical Exam Narrative Neurovascular status is unchanged. Nonpitting edema to the distal and proximal aspect of the right lower extremity dressing. Active and passive range of motion of the digits is pain-free. No pain on palpation over the dressing to the lateral or plantar incision of the right foot. No pain with calf pressure. Assessment & Plan Assessment/Plan (1) Cutaneous abscess of right foot: PLAN: Patient was examined and evaluated. All findings were discussed with the patient. All questions were answered to the patient's satisfaction. Patient is status post complex incision and drainage with delayed primary closure to the right foot. DOS: Is 07/24/2024. Patient recovering well. Dressing changes by wound care nurse. No plan for additional surgery while patient is in house. Medicine: On board, medical management Infectious disease: On board, IV antibiotics vancomycin, ceftriaxone and Flagyl plan for oral antibiotics for 2 weeks at discharge, doxycycline 100 mg twice daily, Keflex 500 mg 3 times daily Flagyl 500 mg 3 times daily (Pending further Cx Data) WBC: 14.9 -> 12.3 -> 13.4 Glu: 186 HbA1c (07/23/24): 11.4 Cx: Post Lavage: Staph species, Beta strept Cx: Pre Lavage: No growth Cx (07/22): Strept agalactiae, S aureus Educated the patient about strict blood sugar control after discharge. Educated the patient that if his blood sugar is not controlled he is at risk for loss of limb and possibly loss of life if bllod sugar and HbA1c is not improved which he was understanding of. Podiatry will continue to follow while the patient is in house. Please reach out to Dr. Niño with any questions or concerns.Patient was examined and evaluated. All findings were discussed with the patient. All questions were answered to the patient's satisfaction. Patient is status post complex incision and drainage with delayed primary closure to the right foot. DOS: Is 07/24/2024. Patient recovering well. Dressing changes by wound care nurse. No plan for additional surgery while patient is in house. Medicine: On board, medical management Infectious disease: On board, IV antibiotics vancomycin, ceftriaxone and Flagyl plan for oral antibiotics for 2 weeks at discharge, doxycycline 100 mg twice daily, Keflex 500 mg 3 times daily Flagyl 500 mg 3 times daily (Pending further Cx Data) WBC: 14.9 -> 12.3 -> 13.4 Glu: 186 HbA1c (07/23/24): 11.4 Cx: Post Lavage: Staph species, Beta strept Cx: Pre Lavage: No growth Cx (07/22): Strept agalactiae, S aureus Educated the patient about strict blood sugar control after discharge. Educated the patient that if his blood sugar is not controlled he is at risk for loss of limb and possibly loss of life if bllod sugar and HbA1c is not improved which he was understanding of. Podiatry will continue to follow while the patient is in house. Please reach out to Dr. Niño with any questions or concerns. 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
[2024-07-25 16:58] LABS: Bedside Glucose 174 mg/dL (74-106)
[2024-07-25 21:04] VITALS: BP 158/85; PULSE 65; RESP 16; TEMP 36.8; O2SAT 100
[2024-07-25] MEDS: Atorvastatin Calcium 80 MG Tablet PO (21:13)
[2024-07-25] MEDS: Pramipexole Di-HCl 0.5 MG Tablet PO (21:13)
[2024-07-25] MEDS: MELATONIN 3 MG TABLET PO (21:16)
[2024-07-25 23:25] LABS: Bedside Glucose 168 mg/dL (74-106)
[2024-07-26 01:01] LABS: Vancomycin, Trough Level 21.8 ug/mL (5.0-15.0)
--- NOTE | 2024-07-26 01:08 | PCM.RX.CS ---
Consult Antibiotic Management Pharmacy has been consulted to manage selected antibiotic: Vancomycin Type of Intervention Type of Consult: Follow-up Suspected Infection Suspected Infection: Skin/Soft tissue Labs Labs: Sodium 139 mmol/L (136-145) 07/25/24 05:51 Potassium 3.9 mmol/L (3.5-5.1) 07/25/24 05:51 Chloride 108 mmol/L (98-107) H 07/25/24 05:51 Carbon Dioxide 25.0 mmol/L (21.0-32.0) 07/25/24 05:51 Anion Gap 6 (5-15) 07/25/24 05:51 BUN 23 mg/dL (7-18) H 07/25/24 05:51 Creatinine 1.19 mg/dL (0.70-1.30) 07/25/24 05:51 Est GFR (MDRD) Af Amer 80 mL/min (>60) 07/25/24 05:51 Est GFR (MDRD) Non-Af 66 mL/min (>60) 07/25/24 05:51 BUN/Creatinine Ratio 19.3 RATIO (10-20) 07/25/24 05:51 Glucose 186 mg/dL (74-106) H 07/25/24 05:51 Vancomycin Trough 21.8 ug/mL (5.0-15.0) H 07/26/24 00:23 Random Vancomycin 17.5 ug/mL (0.0-15.0) H 07/24/24 12:20 Microbiology Microbiology: Microbiology 07/24/24 16:00 Wound - Right Foot Gram Stain - Final 07/24/24 16:00 Wound - Right Foot Wound Culture - Preliminary Staphylococcus species Beta streptococcus 07/24/24 16:00 Wound - Right Foot Gram Stain - Final 07/24/24 16:00 Wound - Right Foot Wound Culture - Preliminary No growth-Final to follow 07/22/24 13:00 Wound - Right Foot Gram Stain - Final 07/22/24 13:00 Wound - Right Foot Wound Culture - Final Streptococcus agalactiae (B) Staphylococcus aureus 07/22/24 13:00 Wound - Right Foot Skin and Soft Tissue MRSA/MSSA (PCR - Final 07/22/24 10:23 Blood Culture (Wb) - Anticubital Right Blood Culture - Preliminary No growth in 48 hours. 07/22/24 11:12 Mucosa - Nose SARS-CoV-2, Influenza & RSV (PCR) - Final Dosing Weight Weight used for dosin.5 kg Estimated Creatinine Clearance Estimated Creatinine Clearance: 90 Goal Trough Goal Trough: 15-20 mcg/mL Pharmacy Plan for Drug Dosing Pharmacy Plan for Drug Dosing: Vancomycin trough level of 21.8, drawn 10.5hrs post-dose, was above the target range of 15-20. Will suspend current dosing and draw a random vanco level in 12 hours to determine further orders. Pharmacy Service will continue to monitor and adjust dosing as required. Follow-Up Labs Follow-Up Labs: Trough: Vancomycin (random) Date/Time Labs Ordered Labs to be done on [date and time ordered]: 07/26/24 @1238
[2024-07-26 03:51] VITALS: BP 128/69; PULSE 67; RESP 16; TEMP 36.7; O2SAT 97
[2024-07-26 05:38] LABS: Absolute Lymphocyte Count 3.09 X10^3/uL (0.83-4.51); Absolute Neutrophil Count 6.2 X10^3/uL (2.0-7.7); Basophil# 0.06 X10^3/uL; Basophil% 0.6 % (0-1); Eosinophil# 0.37 X10^3/uL; Eosinophils% 3.4 % (0-5); Hematocrit 36.3 % (40-54); Hemoglobin 11.8 g/dL (13.0-16.5); Lymphocyte # 3.09 X10^3/ul (0.83-4.51); Lymphocyte % 28.7 % (19-41); Mean Corp Hgb Conc 32.5 g/dL (32-36); Mean Corpuscular Hgb 27.3 pg (27.0-32.0); Mean Platelet Vol. 9.1 fl (6.2-12.0); Monocyte# 0.96 X10^3/uL; Monocyte% 8.9 % (0-10); NRBC Flagged by Analyzer 0 % (0-5); Neutrophil # 6.22 X10^3/uL (2.7-7.7); Neutrophil % 57.8 % (47-70); Platelet Count 252 K/mm3 (150-450); RBC Distribution Width CV 11.9 % (11.6-14.6); RBC Distribution Width SD 36.1 fl (35.1-43.9); Red Blood Count 4.32 M/mm3 (4.6-6.2); White Blood Count 10.8 K/mm3 (4.4-11.0)
[2024-07-26 05:57] LABS: Anion Gap 6 (5-15); BUN 24 mg/dL (7-18); BUN/Creat Ratio 21.1 RATIO (10-20); Chloride 106 mmol/L (98-107); Creatinine, Serum 1.14 mg/dL (0.70-1.30); EST Glomerular Filtration Rate 70 mL/min (>60); Est Glom Filt Rate - Afr Amer 84 mL/min (>60); Estimated Creatinine Clearance 94.13 ml/min; Glucose 202 mg/dL (74-106); Potassium 3.6 mmol/L (3.5-5.1); Sodium Level 136 mmol/L (136-145)
[2024-07-26] MEDS: metroNIDAZOLE 500 MG/100 ML BAG 100 MG IV ×3 (06:10→22:12)
[2024-07-26] MEDS: Acetaminophen 500 MG Tablet 1000 MG PO ×2 (06:10→22:12)
[2024-07-26] MEDS: Gabapentin 300 MG Capsule PO ×2 (06:10→22:11)
[2024-07-26] MEDS: Insulin Lispro 100 UNIT/ML INSULN.PEN SC ×2 (06:14→22:12)
[2024-07-26 08:25] VITALS: BP 156/86; PULSE 67; RESP 16; TEMP 36.4; O2SAT 100
[2024-07-26 08:39] LABS: Bedside Glucose 191 mg/dL (74-106)
[2024-07-26] MEDS: proMETHazine 25 MG/ML Syringe 12.5 MG IM (09:49)
[2024-07-26] MEDS: Insulin U-500 UNITS/ML PEN 30 UNITS SC ×2 (09:51→17:06)
[2024-07-26] MEDS: Heparin Injection (Vial) 5,000 UNIT/ML VIAL 5000 UNIT SC ×2 (09:52→22:12)
[2024-07-26] MEDS: Ceftriaxone 2 GM in 0.9% Normal Saline (50mL MB+) 50 ML IV (10:10)
[2024-07-26 11:23] VITALS: BP 124/75; PULSE 70; RESP 16; TEMP 36.8; O2SAT 99
[2024-07-26 11:32] LABS: Bedside Glucose 234 mg/dL (74-106)
--- NOTE | 2024-07-26 11:36 | PCM.PN.HOSP ---
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 Patient was sitting up at edge of bed. Was mildly fatigued appearing but otherwise in no acute distress. Did report feeling somewhat nauseous again this morning, similar to yesterday. Noted that he was able to eat all of his meals yesterday but did not want to eat much breakfast this morning. He denies any foot pain or discomfort. No other new concerns today. Objective Data Objective Data Vital Signs: Vital Signs Temp Pulse Resp BP Pulse Ox O2 Del Method 98.2 F 70 16 124/75 H 99 Room Air 07/26/24 11:23 07/26/24 11:23 07/26/24 11:23 07/26/24 11:23 07/26/24 11:23 07/26/24 11:23 Oxygen Delivery Method Room Air Weight: 128.5 kg Body Mass Index (BMI) 39.4 Intake & Output: Intake and Output for Last 24 Hours 07/24/24 07/25/24 07/26/24 23:59 23:59 23:59 Intake Total 865 / 1315 1500 / 1800 750 / 750 Output Total 600 / 900 300 / 300 500 / 500 Balance 265 / 415 1200 / 1500 250 / 250 Lab / Micro Data 07/26/24 04:30 07/26/24 04:30 Labs: Laboratory Results - last 24 hr 07/25/24 11:31: POC Glucose 203 H 07/25/24 16:32: POC Glucose 174 H 07/25/24 21:21: POC Glucose 168 H 07/26/24 00:23: Vancomycin Trough 21.8 H 07/26/24 04:30: WBC 10.8, RBC 4.32 L, Hgb 11.8 L, Hct 36.3 L, MCV 84.0, MCH 27.3, MCHC 32.5, RDW Std Deviation 36.1, RDW Coeff of Luanne 11.9, Plt Count 252, MPV 9.1, Immature Gran % (Auto) 0.600, Neut % (Auto) 57.8, Lymph % (Auto) 28.7, [place] % (Auto) 8.9, Eos % (Auto) 3.4, Baso % (Auto) 0.6, Absolute Neuts (auto) 6.2, Absolute Lymphs (auto) 3.09, Nucleated RBC % 0, Sodium 136, Potassium 3.6, Chloride 106, Carbon Dioxide 24.0, Anion Gap 6, BUN 24 H, Creatinine 1.14, Estim Creat Clear Calc 94.13, Est GFR (MDRD) Af Amer 84, Est GFR (MDRD) Non-Af 70, BUN/Creatinine Ratio 21.1 H, Glucose 202 H, Calcium 8.0 L 07/26/24 06:14: POC Glucose 191 H 07/26/24 11:03: POC Glucose 234 H Micro: Microbiology 07/24/24 16:00 Wound - Right Foot Gram Stain - Final 07/24/24 16:00 Wound - Right Foot Wound Culture - Preliminary Staphylococcus aureus Streptococcus group B 07/24/24 16:00 Wound - Right Foot Gram Stain - Final 07/24/24 16:00 Wound - Right Foot Wound Culture - Preliminary No growth-Final to follow 07/22/24 13:00 Wound - Right Foot Gram Stain - Final 07/22/24 13:00 Wound - Right Foot Wound Culture - Final Streptococcus agalactiae (B) Staphylococcus aureus 07/22/24 13:00 Wound - Right Foot Skin and Soft Tissue MRSA/MSSA (PCR - Final 07/22/24 10:23 Blood Culture (Wb) - Anticubital Right Blood Culture - Preliminary No growth in 48 hours. 07/22/24 11:12 Mucosa - Nose SARS-CoV-2, Influenza & RSV (PCR) - Final Rhythm Strip Rhythm Strip: Sinus Rhythm Rate: 75 Ectopy: None Physical Exam Const alert, oriented x3 and no apparent distress Constitutional Narrative: Elderly male, obese, mildly fatigued appearing, otherwise sitting up comfortably in bed, conversing normally, no acute distress. General Appearance: cooperative and comfortable HEENT normocephalic, head/scalp atraumatic, hearing grossly normal bilaterally, nasal mucous membranes and turbinates normal and moist oral mucous membranes Eyes PERRL, EOMs intact bilaterally and conjunctivae normal Neck full ROM Chest inspection of chest normal Resp normal respiratory effort, normal air movement, no use of accessory muscles and clear to auscultation bilaterally Cardio regular rate, regular rhythm, no murmurs and peripheral pulses 2+ throughout GI normal to inspection, nondistended, normoactive bowel sounds, soft to palpation, non-tender and non-distended Back/Spine normal ROM Extremity normal to inspection, full ROM and no pedal edema Skin no rashes or lesions noted Psych mental status grossly normal Assessment & Plan Assessment/Plan (1) Diabetic infection of right foot: PLAN: Plan Patient is a 59-year-old male who presented to [facility] ED on 07/22/2024 with right foot wound infection. 1. Right diabetic foot infection ? Podiatry and infectious disease following. Right foot MRI on admit showed soft tissue defect with no evidence of osteomyelitis. S/p I&D with complex wound closure with podiatry on 07/24. Wound cultures growing staph and GBS. Notably outpatient wound cultures from 07/15 grew MSSA, GBS, strep and anaerobes. Continue IV vancomycin, ceftriaxone and Flagyl while inpatient. Tentative plan is for 2 weeks of p.o. doxycycline, Keflex and Flagyl on discharge but awaiting final culture results prior to discharge. Tentatively planning for discharge home on Saturday 07/28. 2. Elevated lactic acid, resolved ? Lactate 2.3 on admission but no acidosis and did not meet any other sepsis criteria. Resolved with IV fluid resuscitation. 3. Poorly controlled type 2 diabetes mellitus with diabetic neuropathy ? A1c 11.4% on admit. Continue U-500 insulin 30 units with meals plus sliding scale insulin as needed for now. This notably is dose reduced from his home regimen. 4. Mild acute debility ? PT/OT/case management following. Planning for home with home health care on discharge. Chronic medical conditions: ? Obesity: BMI 39 on admit. Encouraged lifestyle modifications. Complicates hospital course, care and prognosis. ? History of CAD with stenting, hypertension, hyperlipidemia, history of CVA: No residual deficits from CVA. Continue home aspirin, Plavix, statin, diltiazem and losartan. ? Allergic rhinitis: Continue home Zyrtec. ? Restless leg syndrome: Continue home ropinirole. ? Depression: Stable. Continue home Prozac. DVT prophylaxis: Heparin subcu CODE STATUS: Full code, verified Expected disposition: Home with home health care, 2 to 3 days Total clinical time spent by myself addressing the patient's medical issues, reviewing all the data, and collaborating with patient's care team: 35 minutes. Charges/Coding Visit Charges Inpatient E&M: 11816 Subs Hosp L2
[2024-07-26 13:02] LABS: Vancomycin, Random Level 15.6 ug/mL (0.0-15.0)
--- NOTE | 2024-07-26 13:12 | PCM.RX.CS ---
Consult Antibiotic Management Pharmacy has been consulted to manage selected antibiotic: Vancomycin Type of Intervention Type of Consult: Follow-up Suspected Infection Suspected Infection: Skin/Soft tissue Prior Doses of Antibiotics Prior Doses of Antibiotics Received/Current Regimen: Vancomycin 1250 mg Q12H last dose given 07/25 @ 1349 Labs Labs: Sodium 136 mmol/L (136-145) 07/26/24 04:30 Potassium 3.6 mmol/L (3.5-5.1) 07/26/24 04:30 Chloride 106 mmol/L (98-107) 07/26/24 04:30 Carbon Dioxide 24.0 mmol/L (21.0-32.0) 07/26/24 04:30 Anion Gap 6 (5-15) 07/26/24 04:30 BUN 24 mg/dL (7-18) H 07/26/24 04:30 Creatinine 1.14 mg/dL (0.70-1.30) 07/26/24 04:30 Est GFR (MDRD) Af Amer 84 mL/min (>60) 07/26/24 04:30 Est GFR (MDRD) Non-Af 70 mL/min (>60) 07/26/24 04:30 BUN/Creatinine Ratio 21.1 RATIO (10-20) H 07/26/24 04:30 Glucose 202 mg/dL (74-106) H 07/26/24 04:30 Vancomycin Trough 21.8 ug/mL (5.0-15.0) H 07/26/24 00:23 Random Vancomycin 15.6 ug/mL (0.0-15.0) H 07/26/24 12:22 Microbiology Microbiology: Microbiology 07/24/24 16:00 Wound - Right Foot Gram Stain - Final 07/24/24 16:00 Wound - Right Foot Wound Culture - Preliminary Staphylococcus aureus Streptococcus group B 07/24/24 16:00 Wound - Right Foot Gram Stain - Final 07/24/24 16:00 Wound - Right Foot Wound Culture - Preliminary No growth-Final to follow 07/22/24 13:00 Wound - Right Foot Gram Stain - Final 07/22/24 13:00 Wound - Right Foot Wound Culture - Final Streptococcus agalactiae (B) Staphylococcus aureus 07/22/24 13:00 Wound - Right Foot Skin and Soft Tissue MRSA/MSSA (PCR - Final 12/03/24 10:23 Blood Culture (Wb) - Anticubital Right Blood Culture - Preliminary No growth in 48 hours. 07/22/24 11:12 Mucosa - Nose SARS-CoV-2, Influenza & RSV (PCR) - Final Dosing Weight Weight used for dosin kg Estimated Creatinine Clearance Estimated Creatinine Clearance: ~94 Goal Trough Goal Trough: 15-20 mcg/mL Pharmacy Plan for Drug Dosing Pharmacy Plan for Drug Dosing: Vancomycin random = 15.6, resume dosing with 1000 mg Q12H Pharmacy Service will continue to monitor and adjust dosing as required. Follow-Up Labs Follow-Up Labs: Trough: Vancomycin Date/Time Labs Ordered Labs to be done on [date and time ordered]: 07/28/24 @ 0100
[2024-07-26] MEDS: Vancomycin IV 1,000 MG/200 ML BAG 200 MG IV (13:45)
[2024-07-26] MEDS: Ondansetron 4 MG/2 ML Vial IV ×2 (14:58→21:13)
[2024-07-26] MEDS: DiphenhydrAMINE 25 MG Capsule PO (15:31)
[2024-07-26 15:36] VITALS: BP 169/88; PULSE 65; RESP 16; TEMP 36.7; O2SAT 100
[2024-07-26 16:38] LABS: Bedside Glucose 231 mg/dL (74-106)
--- NOTE | 2024-07-26 17:11 | PN.SURG_ITS ---
Subjective Subjective Mr. Russo is a 59-year-old diabetic male seen at bedside today for dressing change right lower extremity status post complex incision and drainage with delayed primary closure to the right foot. Patient is postoperative day #2. Denies any pain to the right foot. Does admit to some emesis during the day but relates it more towards a upper respiratory infection. Was given some Benadryl and now doing better. No other pedal complaints at this time. Objective Data Objective Data Vital Signs: Vital Signs Temp Pulse Resp BP Pulse Ox O2 Del Method 98.1 F 65 16 169/88 H 100 Room Air 07/26/24 15:36 07/26/24 15:36 07/26/24 15:36 07/26/24 15:36 07/26/24 15:36 07/26/24 15:36 Oxygen Delivery Method Room Air Weight: 128.5 kg Body Mass Index (BMI) 39.4 Intake & Output: Intake and Output for Last 24 Hours 07/24/24 07/25/24 07/26/24 23:59 23:59 23:59 Intake Total 865 / 1315 1500 / 1800 1300 / 1300 Output Total 600 / 900 300 / 300 500 / 500 Balance 265 / 415 1200 / 1500 800 / 800 Lab / Micro Data 07/26/24 04:30 07/26/24 04:30 Labs: Laboratory Results - last 24 hr 07/25/24 21:21: POC Glucose 168 H 07/26/24 00:23: Vancomycin Trough 21.8 H 07/26/24 04:30: WBC 10.8, RBC 4.32 L, Hgb 11.8 L, Hct 36.3 L, MCV 84.0, MCH 27.3, MCHC 32.5, RDW Std Deviation 36.1, RDW Coeff of Luanne 11.9, Plt Count 252, MPV 9.1, Immature Gran % (Auto) 0.600, Neut % (Auto) 57.8, Lymph % (Auto) 28.7, Charlton % (Auto) 8.9, Eos % (Auto) 3.4, Baso % (Auto) 0.6, Absolute Neuts (auto) 6.2, Absolute Lymphs (auto) 3.09, Nucleated RBC % 0, Sodium 136, Potassium 3.6, Chloride 106, Carbon Dioxide 24.0, Anion Gap 6, BUN 24 H, Creatinine 1.14, Estim Creat Clear Calc 94.13, Est GFR (MDRD) Af Amer 84, Est GFR (MDRD) Non-Af 70, B UN/Creatinine Ratio 21.1 H, Glucose 202 H, Calcium 8.0 L 07/26/24 06:14: POC Glucose 191 H 07/26/24 11:03: POC Glucose 234 H 07/26/24 12:22: Random Vancomycin 15.6 H 07/26/24 16:18: POC Glucose 231 H Micro: Microbiology 07/24/24 16:00 Wound - Right Foot Gram Stain - Final 07/24/24 16:00 Wound - Right Foot Wound Culture - Preliminary Staphylococcus aureus Streptococcus group B 07/24/24 16:00 Wound - Right Foot Gram Stain - Final 07/24/24 16:00 Wound - Right Foot Wound Culture - Preliminary No growth-Final to follow 07/22/24 13:00 Wound - Right Foot Gram Stain - Final 07/22/24 13:00 Wound - Right Foot Wound Culture - Final Streptococcus agalactiae (B) Staphylococcus aureus 07/22/24 13:00 Wound - Right Foot Skin and Soft Tissue MRSA/MSSA (PCR - Final 07/22/24 10:23 Blood Culture (Wb) - Anticubital Right Blood Culture - Preliminary No growth in 48 hours. 07/22/24 11:12 Mucosa - Nose SARS-CoV-2, Influenza & RSV (PCR) - Final Rhythm Strip Rhythm Strip: Sinus Rhythm Rate: 75 Ectopy: None Physical Exam Narrative Neurovascular status is unchanged. All incision well coapted with suture to the right foot. Blanchable erythema to the right lower extremity improving. No active drainage or malodor is appreciated. Nonpitting edema appreciated right lower extremity. Skin temp great is warm to warm from proximal ankles to distal digits. No pain with calf pressure. Assessment & Plan Assessment/Plan (1) Cutaneous abscess of right foot: PLAN: Patient was examined and evaluated. All findings were discussed with the patient. All questions were answered to the patient's satisfaction. Patient is status post complex incision and drainage with delayed primary closure to the right foot. DOS: 07/24/2024. Dressing change performed today to the right lower extremity consisting of Betadine soaked Adaptic, Betadine soaked gauze dry sterile dressing single-layer Barone compression bandage. No plan for additional surgery while patient is in house. Medicine: On board, medical management Infectious disease: On board, IV antibiotics vancomycin, ceftriaxone and Flagyl plan for oral antibiotics for 2 weeks at discharge, doxycycline 100 mg twice daily, Keflex 500 mg 3 times daily Flagyl 500 mg 3 times daily (Pending further Cx Data) WBC: 13.4 -> 10.8 Glu: 202 HbA1c (07/23/24): 11.4 Cx: Post Lavage: Staph aureus, strep group B Cx: Pre Lavage: No growth Cx (07/22): Strep agalactiae, S aureus Educated the patient to continue strict blood sugar control as he is having elevated blood sugar today. Patient is cleared to discharge from a podiatry perspective once he is cleared by the medicine team and infectious disease team with recommendation on oral antibiotics at discharge. Please reach out to Dr. Niño for any question or concerns. 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
[2024-07-26] MEDS: FLUoxetine 20 MG Capsule PO (18:01)
[2024-07-26] MEDS: dilTIAZem CD 180 MG Capsule PO (18:01)
[2024-07-26] MEDS: Clopidogrel Bisulfate 75 MG Tablet PO (18:02)
[2024-07-26] MEDS: CETIRIZINE HCL 10 MG TABLET PO (18:02)
[2024-07-26] MEDS: Aspirin E.C. 81 MG Tablet PO (18:04)
[2024-07-26 20:11] VITALS: BP 176/94; PULSE 72; RESP 18; TEMP 36.8; O2SAT 97
[2024-07-26] MEDS: 0.9% Saline Lock 10 ML Syringe IV (21:13)
[2024-07-26 22:07] VITALS: BP 155/79
[2024-07-26] MEDS: Pramipexole Di-HCl 0.5 MG Tablet PO (22:11)
[2024-07-26] MEDS: Atorvastatin Calcium 80 MG Tablet PO (22:11)
[2024-07-26 23:16] LABS: Bedside Glucose 239 mg/dL (74-106)
[2024-07-27 02:10] VITALS: BP 157/82; PULSE 68; RESP 16; TEMP 36.6; O2SAT 98
[2024-07-27] MEDS: Vancomycin IV 1,000 MG/200 ML BAG 200 MG IV ×2 (02:16→12:52)
[2024-07-27 03:16] LABS: Bedside Glucose 176 mg/dL (74-106)
[2024-07-27] MEDS: 0.9% Normal Saline (500mL Bag) 500 ML 15 ML IV (03:30)
[2024-07-27] MEDS: Ondansetron 4 MG/2 ML Vial IV ×3 (03:30→14:24)
[2024-07-27] MEDS: 0.9% Saline Lock 10 ML Syringe IV (03:30)
[2024-07-27] MEDS: Acetaminophen 500 MG Tablet 1000 MG PO ×3 (05:55→21:45)
[2024-07-27] MEDS: metroNIDAZOLE 500 MG/100 ML BAG 100 MG IV ×3 (05:55→21:44)
[2024-07-27] MEDS: Gabapentin 300 MG Capsule PO ×3 (05:55→21:55)
[2024-07-27] MEDS: Insulin Lispro 100 UNIT/ML INSULN.PEN SC ×3 (06:55→16:56)
[2024-07-27 07:22] LABS: Absolute Lymphocyte Count 2.88 X10^3/uL (0.83-4.51); Absolute Neutrophil Count 6.1 X10^3/uL (2.0-7.7); Basophil# 0.07 X10^3/uL; Basophil% 0.7 % (0-1); Eosinophil# 0.32 X10^3/uL; Eosinophils% 3.1 % (0-5); Hematocrit 35.5 % (40-54); Hemoglobin 11.9 g/dL (13.0-16.5); Lymphocyte # 2.88 X10^3/ul (0.83-4.51); Lymphocyte % 28.1 % (19-41); Mean Corp Hgb Conc 33.5 g/dL (32-36); Mean Corpuscular Hgb 27.9 pg (27.0-32.0); Mean Corpuscular Volume 83.3 fL (80-94); Mean Platelet Vol. 9.1 fl (6.2-12.0); Monocyte# 0.81 X10^3/uL; Monocyte% 7.9 % (0-10); NRBC Flagged by Analyzer 0 % (0-5); Neutrophil # 6.11 X10^3/uL (2.7-7.7); Neutrophil % 59.5 % (47-70); Platelet Count 267 K/mm3 (150-450); RBC Distribution Width CV 11.9 % (11.6-14.6); RBC Distribution Width SD 35.9 fl (35.1-43.9); Red Blood Count 4.26 M/mm3 (4.6-6.2); White Blood Count 10.3 K/mm3 (4.4-11.0)
[2024-07-27 07:47] LABS: Bedside Glucose 185 mg/dL (74-106)
[2024-07-27 08:13] LABS: Anion Gap 6 (5-15); BUN 16 mg/dL (7-18); BUN/Creat Ratio 15.1 RATIO (10-20); Calcium,Total 8.3 mg/dL (8.5-10.1); Chloride 106 mmol/L (98-107); Creatinine, Serum 1.06 mg/dL (0.70-1.30); EST Glomerular Filtration Rate 76 mL/min (>60); Est Glom Filt Rate - Afr Amer 92 mL/min (>60); Estimated Creatinine Clearance 101.24 ml/min; Glucose 197 mg/dL (74-106); Potassium 3.9 mmol/L (3.5-5.1); Sodium Level 138 mmol/L (136-145)
[2024-07-27] MEDS: Insulin U-500 UNITS/ML PEN 30 UNITS SC ×3 (08:42→16:55)
[2024-07-27 08:47] VITALS: BP 166/91; PULSE 67; RESP 18; TEMP 36.8; O2SAT 99
[2024-07-27] MEDS: FLUoxetine 20 MG Capsule PO (08:52)
[2024-07-27] MEDS: Pantoprazole Sodium 40 MG Tablet PO (11:00)
[2024-07-27] MEDS: Calcium Carbonate 500 MG Tablet PO ×3 (11:00→20:55)
[2024-07-27] MEDS: Ceftriaxone 2 GM in 0.9% Normal Saline (50mL MB+) 50 ML IV (11:02)
[2024-07-27] MEDS: dilTIAZem CD 180 MG Capsule PO (11:02)
[2024-07-27] MEDS: CETIRIZINE HCL 10 MG TABLET PO (11:02)
[2024-07-27] MEDS: Heparin Injection (Vial) 5,000 UNIT/ML VIAL 5000 UNIT SC ×2 (11:03→21:44)
[2024-07-27] MEDS: Aspirin E.C. 81 MG Tablet PO (11:03)
[2024-07-27] MEDS: Losartan Potassium 100 MG Tablet PO (11:03)
[2024-07-27] MEDS: Clopidogrel Bisulfate 75 MG Tablet PO (11:04)
[2024-07-27] MEDS: hydroCHLOROthiazide 25 MG Tablet PO (11:19)
[2024-07-27 11:33] LABS: Bedside Glucose 169 mg/dL (74-106)
--- NOTE | 2024-07-27 12:07 | PCM.PN.HOSP ---
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 Patient was sitting back comfortably in bed, in no acute distress. Stated his nausea felt moderately improved today. Was able to eat almost a full breakfast without significant issue. Has had acid reflux type symptoms and states he is never been on acid reflux medication before. Has taken Tums at home before with some improvement. Denies any foot pain or discomfort. No fevers or chills. No other new concerns today. Objective Data Objective Data Vital Signs: Vital Signs Temp Pulse Resp BP Pulse Ox O2 Del Method 98.2 F 67 18 166/91 H 99 Room Air 07/27/24 08:47 07/27/24 08:47 07/27/24 08:47 07/27/24 08:47 07/27/24 08:47 07/27/24 08:54 Oxygen Delivery Method Room Air Weight: 128.5 kg Body Mass Index (BMI) 39.4 Intake & Output: Intake and Output for Last 24 Hours 07/25/24 07/26/24 07/27/24 23:59 23:59 23:59 Intake Total 1500 / 1800 1400 / 1800 786.25 / 786.25 Output Total 300 / 300 500 / 500 Balance 1200 / 1500 900 / 1300 786.25 / 786.25 Lab / Micro Data 07/27/24 06:17 07/27/24 06:17 Labs: Laboratory Results - last 24 hr 07/26/24 12:22: Random Vancomycin 15.6 H 07/26/24 16:18: POC Glucose 231 H 07/26/24 22:10: POC Glucose 239 H 07/27/24 02:59: POC Glucose 176 H 07/27/24 06:17: WBC 10.3, RBC 4.26 L, Hgb 11.9 L, Hct 35.5 L, MCV 83.3, MCH 27.9, MCHC 33.5, RDW Std Deviation 35.9, RDW Coeff of Luanne 11.9, Plt Count 267, MPV 9.1, Immature Gran % (Auto) 0.700, Neut % (Auto) 59.5, Lymph % (Auto) 28.1, Davidson % (Auto) 7.9, Eos % (Auto) 3.1, Baso % (Auto) 0.7, Absolute Neuts (auto) 6.1, Absolute Lymphs (auto) 2.88, Nucleated RBC % 0, Sodium 138, Potassium 3.9, Chloride 106, Carbon Dioxide 26.0, Anion Gap 6, BUN 16, Creatinine 1.06, Estim Creat Clear Calc 101.24, Est GFR (MDRD) Af Amer 92, Est GFR (MDRD) Non-Af 76, BUN/Creatinine Ratio 15.1, Glucose 197 H, Calcium 8.3 L 07/27/24 06:53: POC Glucose 185 H 07/27/24 11:07: POC Glucose 169 H Micro: Microbiology 07/24/24 16:00 Wound - Right Foot Gram Stain - Final 07/24/24 16:00 Wound - Right Foot Wound Culture - Preliminary No growth-Final to follow 07/24/24 16:00 Wound - Right Foot Anaerobic Culture - Preliminary 07/22/24 10:23 Blood Culture (Wb) - Anticubital Right Blood Culture - Final No growth in 5 days. 07/24/24 16:00 Wound - Right Foot Gram Stain - Final 07/24/24 16:00 Wound - Right Foot Wound Culture - Final Staphylococcus aureus Streptococcus agalactiae (B) 07/22/24 13:00 Wound - Right Foot Gram Stain - Final 07/22/24 13:00 Wound - Right Foot Wound Culture - Final Streptococcus agalactiae (B) Staphylococcus aureus 07/22/24 13:00 Wound - Right Foot Skin and Soft Tissue MRSA/MSSA (PCR - Final 07/22/24 11:12 Mucosa - Nose SARS-CoV-2, Influenza & RSV (PCR) - Final Rhythm Strip Rhythm Strip: Sinus Rhythm Rate: 75 Ectopy: None Physical Exam Const alert, oriented x3 and no apparent distress Constitutional Narrative: Elderly male, obese, mildly fatigued appearing, otherwise sitting up comfortably in bed, conversing normally, no acute distress. General Appearance: cooperative and comfortable HEENT normocephalic, head/scalp atraumatic, hearing grossly normal bilaterally, nasal mucous membranes and turbinates normal and moist oral mucous membranes Eyes PERRL, EOMs intact bilaterally and conjunctivae normal Neck full ROM Chest inspection of chest normal Resp normal respiratory effort, normal air movement, no use of accessory muscles and clear to auscultation bilaterally Cardio regular rate, regular rhythm, no murmurs and peripheral pulses 2+ throughout GI normal to inspection, nondistended, normoactive bowel sounds, soft to palpation, non-tender and non-distended Back/Spine normal ROM Extremity full ROM Extremity Narrative: Right foot wrapped in Quirino wrap. Skin no rashes or lesions noted Psych mental status grossly normal Assessment & Plan Assessment/Plan (1) Diabetic infection of right foot: PLAN: Plan Patient is a 59-year-old male who presented to [facility] ED on 07/22/2024 with right foot wound infection. 1. Right diabetic foot infection ? Podiatry and infectious disease following. Right foot MRI on admit showed soft tissue defect with no evidence of osteomyelitis. S/p I&D with complex wound closure with podiatry on 07/24. Wound cultures growing staph and GBS. Notably outpatient wound cultures from 07/15 grew MSSA, GBS, strep and anaerobes. Continue IV vancomycin, ceftriaxone and Flagyl while inpatient. Tentative plan is for 2 weeks of p.o. doxycycline, Keflex and Flagyl on discharge but awaiting final culture results prior to discharge. Tentatively planning for discharge home on Saturday 07/28. 2. Elevated lactic acid, resolved ? Lactate 2.3 on admission but no acidosis and did not meet any other sepsis criteria. Resolved with IV fluid resuscitation. 3. Poorly controlled type 2 diabetes mellitus with diabetic neuropathy ? A1c 11.4% on admit. Continue U-500 insulin 30 units with meals plus sliding scale insulin as needed for now. This notably is dose reduced from his home regimen. 4. Mild acute debility ? PT/OT/case management following. Planning for home with home health care on discharge. 5. Intermittent nausea with GERD symptoms ? Initially suspected secondary to anesthesia from procedure on 07/24 but may be more consistent with GERD. Started p.o. PPI daily and Tums as needed on 07/27. Chronic medical conditions: ? Obesity: BMI 39 on admit. Encouraged lifestyle modifications. Complicates hospital course, care and prognosis. ? History of CAD with stenting, hypertension, hyperlipidemia, history of CVA: No residual deficits from CVA. Continue home aspirin, Plavix, statin, diltiazem and losartan. ? Allergic rhinitis: Continue home Zyrtec. ? Restless leg syndrome: Continue home ropinirole. ? Depression: Stable. Continue home Prozac. DVT prophylaxis: Heparin subcu CODE STATUS: Full code, verified Expected disposition: Home with home health care, 1 to 2 days Total clinical time spent by myself addressing the patient's medical issues, reviewing all the data, and collaborating with patient's care team: 35 minutes. Charges/Coding Visit Charges Inpatient E&M: 32061 Subs Hosp L2
[2024-07-27 14:18] VITALS: BP 154/94; PULSE 65; RESP 16; TEMP 36.8; O2SAT 99
[2024-07-27 17:17] LABS: Bedside Glucose 203 mg/dL (74-106)
[2024-07-27 18:46] VITALS: BP 156/91; PULSE 77; RESP 18; TEMP 36.8; O2SAT 98
[2024-07-27] MEDS: Pramipexole Di-HCl 0.5 MG Tablet PO (20:50)
[2024-07-27 21:41] VITALS: BP 162/78; PULSE 64; RESP 15; TEMP 36.9; O2SAT 99
[2024-07-27] MEDS: Atorvastatin Calcium 80 MG Tablet PO (21:45)
[2024-07-27 22:00] VITALS: RESP 15
[2024-07-27 22:17] LABS: Bedside Glucose 143 mg/dL (74-106)
[2024-07-28 01:33] LABS: Vancomycin, Trough Level 19.6 ug/mL (5.0-15.0)
--- NOTE | 2024-07-28 01:43 | PCM.RX.CS ---
Consult Antibiotic Management Pharmacy has been consulted to manage selected antibiotic: Vancomycin Type of Intervention Type of Consult: Follow-up Suspected Infection Suspected Infection: Skin/Soft tissue Labs Labs: Sodium 138 mmol/L (136-145) 07/27/24 06:17 Potassium 3.9 mmol/L (3.5-5.1) 07/27/24 06:17 Chloride 106 mmol/L (98-107) 07/27/24 06:17 Carbon Dioxide 26.0 mmol/L (21.0-32.0) 07/27/24 06:17 Anion Gap 6 (5-15) 07/27/24 06:17 BUN 16 mg/dL (7-18) 07/27/24 06:17 Creatinine 1.06 mg/dL (0.70-1.30) 07/27/24 06:17 Est GFR (MDRD) Af Amer 92 mL/min (>60) 07/27/24 06:17 Est GFR (MDRD) Non-Af 76 mL/min (>60) 07/27/24 06:17 BUN/Creatinine Ratio 15.1 RATIO (10-20) 07/27/24 06:17 Glucose 197 mg/dL (74-106) H 07/27/24 06:17 Vancomycin Trough 19.6 ug/mL (5.0-15.0) H 07/28/24 01:00 Random Vancomycin 15.6 ug/mL (0.0-15.0) H 07/26/24 12:22 Microbiology Microbiology: Microbiology 07/24/24 16:00 Wound - Right Foot Gram Stain - Final 07/24/24 16:00 Wound - Right Foot Wound Culture - Final Staphylococcus aureus Streptococcus agalactiae (B) 07/24/24 16:00 Wound - Right Foot Anaerobic Culture - Preliminary 07/24/24 16:00 Wound - Right Foot Gram Stain - Final 07/24/24 16:00 Wound - Right Foot Wound Culture - Preliminary No growth-Final to follow 07/24/24 16:00 Wound - Right Foot Anaerobic Culture - Preliminary 07/22/24 10:23 Blood Culture (Wb) - Anticubital Right Blood Culture - Final No growth in 5 days. 07/22/24 13:00 Wound - Right Foot Gram Stain - Final 07/22/24 13:00 Wound - Right Foot Wound Culture - Final Streptococcus agalactiae (B) Staphylococcus aureus 07/22/24 13:00 Wound - Right Foot Skin and Soft Tissue MRSA/MSSA (PCR - Final 07/22/24 11:12 Mucosa - Nose SARS-CoV-2, Influenza & RSV (PCR) - Final Dosing Weight Weight used for dosin.5 kg Estimated Creatinine Clearance Estimated Creatinine Clearance: 101 Goal Trough Goal Trough: 15-20 mcg/mL Pharmacy Plan for Drug Dosing Pharmacy Plan for Drug Dosing: Vancomycin trough level of 19.6, drawn 12hrs post-dose, was within the target range of 15-20. Will continue dosing at 1000mg q12h, and will draw another trough level in two days. Pharmacy Service will continue to monitor and adjust dosing as required. Follow-Up Labs Follow-Up Labs: Trough: Vancomycin Date/Time Labs Ordered Labs to be done on [date and time ordered]: 07/30/24 @0100
[2024-07-28] MEDS: Vancomycin IV 1,000 MG/200 ML BAG 200 MG IV ×2 (02:15→12:52)
[2024-07-28 05:00] VITALS: BP 140/69; PULSE 67; RESP 15; TEMP 36.9; O2SAT 96
[2024-07-28] MEDS: metroNIDAZOLE 500 MG/100 ML BAG 100 MG IV ×2 (05:42→14:37)
[2024-07-28] MEDS: Acetaminophen 500 MG Tablet 1000 MG PO ×2 (06:43→14:42)
[2024-07-28] MEDS: Gabapentin 300 MG Capsule PO ×2 (06:44→14:42)
[2024-07-28 07:01] LABS: Bedside Glucose 132 mg/dL (74-106)
[2024-07-28] MEDS: Ondansetron 4 MG/2 ML Vial IV (08:56)
[2024-07-28] MEDS: Ceftriaxone 2 GM in 0.9% Normal Saline (50mL MB+) 50 ML IV (08:56)
[2024-07-28] MEDS: 0.9% Saline Lock 10 ML Syringe IV (08:56)
[2024-07-28 09:00] VITALS: BP 175/90; PULSE 71; RESP 18; TEMP 36.7; O2SAT 100
[2024-07-28] MEDS: Insulin U-500 UNITS/ML PEN 30 UNITS SC ×3 (09:10→16:27)
[2024-07-28] MEDS: Aspirin E.C. 81 MG Tablet PO (09:12)
[2024-07-28] MEDS: dilTIAZem CD 180 MG Capsule PO (09:12)
[2024-07-28] MEDS: Pantoprazole Sodium 40 MG Tablet PO (09:12)
[2024-07-28] MEDS: FLUoxetine 20 MG Capsule PO (09:13)
[2024-07-28] MEDS: Clopidogrel Bisulfate 75 MG Tablet PO (09:13)
[2024-07-28] MEDS: hydroCHLOROthiazide 25 MG Tablet PO (09:14)
[2024-07-28] MEDS: Heparin Injection (Vial) 5,000 UNIT/ML VIAL 5000 UNIT SC (09:14)
[2024-07-28] MEDS: Losartan Potassium 100 MG Tablet PO (09:14)
[2024-07-28] MEDS: CETIRIZINE HCL 10 MG TABLET PO (09:14)
--- NOTE | 2024-07-28 10:02 | CASEMGMT ---
Addendum entered by Renate Cruz 07/28/24 15:04: Discharge instructions sent to [facility]. Renate Cruz DC Planning Asst. Addendum entered by Renate Cruz 07/28/24 11:26: [facility] has accepted. MARLA CORONA updated. Renate Cruz DC Planning Asst. Original Note: Discharge Planning preference are 1) [facility] 2) [facility] 3) [facility]. MARLA CORONA updated. Referral sent via [facility] to [facility]. Renate Cruz DC Planning Asst.
--- NOTE | 2024-07-28 11:18 | DCINST_ITS ---
Discharge Instructions Diet Discharge Diet: Carb Control Diet DC O2, CPAP, BIPAP needs Additional Home O2 Discharge instructions: No Dressing / Incision Weight Bearing Status: No weight bearing (Right lower extremity) Dressing / Incision Call your doctor if your incision/area has: Continuous Slow Oozing, Increased Redness and Foul Smelling Discharge Call your doctor if you observe: Fever of 101 or Higher, Shortness of breath, Dizziness, Fainting spells, Swelling in the ankles and Increased palpitations (irregular heartbeat) Follow Up Care Test Results: Test results from this visit will be discussed in further detail at your follow- up appointment, if applicable. Discharge Plan Admission Admit Date/Time: 07/22/24 11:38 Attending Provider: Gold Yung Primary Care Provider: Rod Elena Consulting Providers: Edu Aceves; Simón Niño; Elmer Mccall; Papo Grider Discharge Orders/Prescriptions Prescriptions: New cefdinir 300 mg capsule 300 mg PO Q12H Qty: 20 0RF metronidazole 500 mg tablet 500 mg PO TID Qty: 30 0RF Rx Instructions: Avoid alcohol while on this medication No Action gabapentin 300 mg capsule 300 mg PO TID hydrochlorothiazide 25 mg tablet 25 mg PO DAILY albuterol sulfate 2.5 mg /3 mL (0.083 %) solution for nebulization 1.25 mg continuous nebulization Q4H PRN (Reason: shortness of breath or whe ezing) (DME) pen needle, diabetic [BD Ultra-Fine Rachel Pen Needle] 32 gauge x 5/32 needle See Rx Instructions .ROUTE .MEDSUPPLY Qty: 180 6RF Rx Instructions: 6 times daily albuterol sulfate 1 INHALER inhaler 1 puff INHALATION Q4H PRN (Reason: Shortness Of Breath) aspirin 81 MG tablet,delayed release (DR/EC) 81 mg PO DAILY clopidogrel 75 MG tablet 75 mg PO DAILY diltiazem HCl 180 MG capsule,extended release 24hr 180 mg PO DAILY atorvastatin 80 mg tablet 80 mg PO QHS cetirizine 10 MG tablet 10 mg PO DAILY losartan 100 MG tablet 100 mg PO DAILY cholecalciferol (vitamin D3) 1,000 UNIT tablet 2,000 unit PO DAILY fluoxetine 20 mg capsule 20 mg PO DAILY ropinirole 1 mg tablet 1 - 2 mg PO QPM Humulin R U-500 (Conc) Kwikpen 500 unit/mL (3 mL) insulin pen 50 unit subcut TIDCM melatonin 3 mg tablet 3 mg PO QHS Humulin R U-500 (Conc) Kwikpen 500 unit/mL (3 mL) insulin pen 70 unit subcut 0800 (DME) FreeStyle Cyndie 2 Sensor Kit See Rx Instructions .Route Qty: 2 5RF Rx Instructions: 1 sensor q 14 days Referrals / Follow Up: Rod Elena MD [Primary Care Provider] - Within 1 Week Simón Niño DPM [Med Staff - Active Staff] - Within 2 Weeks Disposition Disposition (needs filled in before D/C Order can be placed): Home, Self Care
[2024-07-28] MEDS: Insulin Lispro 100 UNIT/ML INSULN.PEN SC ×2 (12:04→16:26)
[2024-07-28 12:26] LABS: Bedside Glucose 206 mg/dL (74-106)
--- NOTE | 2024-07-28 13:27 | PCM.PN.ID ---
Physical Exam Narrative Feeling better, no fever, no n/v/d. Const alert and no apparent distress General Appearance: cooperative Resp normal air movement and clear to auscultation bilaterally Cardio regular rate and regular rhythm GI soft to palpation, non-tender and non-distended Skin Skin Narrative: no new rash, foot wrapped ID ID: Route of nutrition/ use of supplements: [] Nutritional Intake: [] IV Site: [] Lamas Catheter: [] Assessment & Plan Assessment/Plan (1) Cutaneous abscess of right foot: PLAN: OR 07/24/[address] Niño. Wound cx with staph and GBS. Outpt wound cx 07/15/24 with MSSA, GBS, strep, and anaerobes. On vanc/ceftriaxone/flagyl. Plan on 10 days cefdinir and flagyl. Wrote rx, ok for discharge home. Will follow prn (2) Polyneuropathy due to type 2 diabetes mellitus:
[2024-07-28 14:00] VITALS: BP 128/81; PULSE 78; RESP 16; TEMP 36.9; O2SAT 96
--- NOTE | 2024-07-28 14:46 | CASEMGMT ---
MARLA CORONA into pt room, pt at bedside. Pt and aware that [facility] has accepted for care and they will be in touch with him to set up a time. Pt was able to get a knee scooter from [employer] and it is in the room. Pt inquires about dressing changes, none noted. Pt nurse states the charge nurse is clarifying this. Pt nurse in room as well. Pt and aware that the nurse will review this with them. also inquires on follow up appt, they are aware that the litigation secretary will make the appt before pt leaves. Pt then received a call from 's office who states appt is 08/14 at 12:30. MARLA CORONA checked computer and appt listed is 08/15, litigation secretary to call and confirm which is correct and update dc instructions. Pt and deny further needs at this time. Pt to be dc'd on po atb.
--- NOTE | 2024-07-28 15:09 | DS.PCM_ITS ---
Providers Date of Admission: 07/22/24 Primary Care Physician: Dr. 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 chemicals inspector Routine Comment: Consult: Podiatry Routine Consulting Provider: Simón Niño Reason for Consult: dfu EMERGENT Consult: Yes Notified: Yes Date Notified: 07/22/24 Time Notified: 11:49 Method of Notification: ED Physician Initiated 07/23/24 13:19 Consult: Infectious Disease Routine Consulting Provider: Edu Aceves Reason for Consult: DFU EMERGENT Consult: No Notified: Yes Date Notified: 07/23/24 Time Notified: 13:44 Method of Notification: Text Reason For Visit: DFU Diagnosis Discharge Diagnosis (1) Cutaneous abscess of right foot: Status: Acute Code(s): L02.611 - Cutaneous abscess of right foot (2) Polyneuropathy due to type 2 diabetes mellitus: Status: Chronic Code(s): E11.42 - Type 2 diabetes mellitus with diabetic polyneuropathy Medications at Discharge Home Medications albuterol sulfate 90 mcg/actuation aerosol inhaler 1 puff inhalation Q4H PRN Shortness Of Breath 01/28/15 aspirin 81 mg tablet,delayed release 81 mg PO DAILY health maintenance 06/03/16 clopidogrel 75 mg tablet 75 mg PO DAILY blood thinner 09/27/17 diltiazem HCl 180 mg capsule,extended release 24 hr 180 mg PO DAILY blood pressure/heart 10/16/17 atorvastatin 80 mg tablet 80 mg PO QHS CHOLESTEROL 03/23/20 cetirizine 10 mg tablet 10 mg PO DAILY ALLERGIES 03/23/20 cholecalciferol (vitamin D3) 25 mcg (1,000 unit) tablet 2,000 unit PO DAILY SUPPLEMENT 03/23/20 losartan 100 mg tablet 100 mg PO DAILY BP 03/23/20 albuterol sulfate 2.5 mg/3 mL (0.083 %) solution for nebulization 1.25 mg continuous nebulization Q4H PRN shortness of breath or wheezing 10/25/20 gabapentin 300 mg capsule 300 mg PO TID 10/25/20 hydrochlorothiazide 25 mg tablet 25 mg PO DAILY 10/25/20 pen needle, diabetic 32 gauge x 5/32 (BD Ultra-Fine Rachel Pen Needle) #180 ea 03/11/21 fluoxetine 20 mg capsule 20 mg PO DAILY 03/15/23 flash glucose sensor (FreeStyle Cyndie 2 Sensor kit) #2 ea 07/17/23 insulin regular hum U-500 conc 500 unit/mL(3 mL) subcut pen (Humulin R U-500 (Conc) Insulin Kwikpen) 50 unit subcut TIDCM 07/22/24 insulin regular hum U-500 conc 500 unit/mL(3 mL) subcut pen (Humulin R U-500 (Conc) Insulin Kwikpen) 70 unit subcut 0800 07/22/24 melatonin 3 mg tablet 3 mg PO QHS 07/22/24 ropinirole 1 mg tablet 1 - 2 mg PO QPM RESTLESS LEG 07/22/24 cefdinir 300 mg capsule 300 mg PO Q12H #20 caps 07/28/24 metronidazole 500 mg tablet 500 mg PO TID #30 tabs 07/28/24 Hospital Course Operations - ( Complex incision and drainage, right foot ) Procedures None Summary of Care Provided Minutes Spent on Discharge: 33 Hospital Course: Per HPI: ADELIA NGUYEN, is a 59 M with past medical history significant diabetes mellitus type 2 who presented with right foot wound infection. Patient had apparently stepped on a staple 2 weeks prior to his admission. Was seen and managed by his rn hospice Dr. Ovalle patient symptoms however did worsen. He was sent to the emergency department as a case of diabetic foot infection needing incision and drainage. Patient was found to have elevated lactic acid level however he only had leukocytosis. He had no fever no tachycardia. Antibiotics initiated per protocol admitted to regular nursing floor for further manage. Hospital Course: 1. Right diabetic foot infection with an abscess status post I&D with complex wound closure on 07/24/2024?59-year-old male with uncontrolled diabetes with an A1c of 11.5 on admission presented to the hospital with right foot abscess. He underwent surgical invention by podiatry and wound cultures grew Staphylococcus and Streptococcus agalactiae. Final cultures today were obtained and infectious disease recommended cefdinir 300 mg p.o. twice daily as well as Flagyl 500 mg p.o. 3 times daily for 10 days total. I recommend outpatient follow-up with Dr. Otero who would like him to be nonweightbearing on his right lower extremity. We will provide dressing change teaching on discharge and I discussed with him the plan for discharge today he expressed understanding of the risk benefits of going home and would like to go home today. 2. Type 2 diabetes, coronary artery disease status post stent, essential hypertension, hyperlipidemia, history of CVA, anxiety, depression, restless leg syndrome are all chronic medical conditions which complicate his care. His home medications were continued where appropriate Physical Exam Narrative General: Alert, Oriented x3, Cooperative, No apparent distress HEENT: Atraumatic, PERRLA, EOMI, Normocephalic Oral: Moist Mucosa Neck: Supple, No JVD Lungs: Diminished, Normal air movement, No rhonchi, No wheeze, No rales Cardiovascular: Regular rate, Regular Rhythm, Normal S1, Normal S2, No murmurs Abdomen: Soft, Non Tender, Non-Distended, No Hepato-splenomegaly Extremities: No edema, Capillary Refill Less than 3 Seconds Skin: Right lower extremity wound dressing intact Musculoskeletal: No Tenderness to Palpation of Joints or Extremities Neurological: No focal neurological deficits, Motor Exam 5/5 strength throughout, Sensory exam intact to light touch and pain Psych/Mental Status: Normal Affect, Appropriate Weight / BMI Weight Weight: 283 lb 4.704 oz Body Mass Index (BMI) 39.4 ABG / Lab / Microbiology Data 07/27/24 06:17 07/27/24 06:17 Laboratory: Laboratory Results - last 24 hr 07/27/24 16:53: POC Glucose 203 H 07/27/24 21:57: POC Glucose 143 H 07/28/24 01:00: Vancomycin Trough 19.6 H 07/28/24 06:38: POC Glucose 132 H 07/28/24 12:03: POC Glucose 206 H Microbiology: Microbiology 07/24/24 16:00 Wound - Right Foot Gram Stain - Final 07/24/24 16:00 Wound - Right Foot Wound Culture - Preliminary No growth-Final to follow 07/24/24 16:00 Wound - Right Foot Gram Stain - Final 07/24/24 16:00 Wound - Right Foot Wound Culture - Final Staphylococcus aureus Streptococcus agalactiae (B) 07/24/24 16:00 Wound - Right Foot Anaerobic Culture - Preliminary 07/22/24 10:23 Blood Culture (Wb) - Anticubital Right Blood Culture - Final No growth in 5 days. 07/22/24 13:00 Wound - Right Foot Gram Stain - Final 07/22/24 13:00 Wound - Right Foot Wound Culture - Final Streptococcus agalactiae (B) Staphylococcus aureus 07/22/24 13:00 Wound - Right Foot Skin and Soft Tissue MRSA/MSSA (PCR - Final 07/22/24 11:12 Mucosa - Nose SARS-CoV-2, Influenza & RSV (PCR) - Final D/C Instructions Discharge Diet: Carb Control Diet Weight Bearing Status: No weight bearing (Right lower extremity) Call your doctor if your incision/area has: Continuous Slow Oozing, Increased Redness and Foul Smelling Discharge Call your doctor if you observe: Fever of 101 or Higher, Shortness of breath, Dizziness, Fainting spells, Swelling in the ankles and Increased palpitations (irregular heartbeat) DC O2, CPAP, BIPAP Needs Additional Home O2 Discharge instructions: No DC home with Oxygen: No Meaningful Use Info Meaningful Use Meaningful Use Diagnoses (Choose all that apply): None applicable Ischemic Stroke Statin Dosing Therapy Reference: STATIN DOSE THERAPY REFERENCE: * Patients > 75 years receive moderate or high dose statin therapy. * Patients 75 years or YOUNGER should receive HIGH intensity statin dose unless contraindicated. You will be required to document reason for non-treatment if statin daily dose does not meet guidelines. HIGH DOSE STATIN THERAPY DAILY Atorvastatin > than or = to 40 mg Rosuvastatin > than or = to 20 mg Amlodipine + Atorvastatin > than or = to 2.5/40 mg Ezetimibe + Simvastatin 10/80 mg Simvastatin 80mg Discharge Plan Admission Admit Date/Time: 07/22/24 11:38 Attending Provider: Gold Yung Primary Care Provider: Rod Elena Consulting Providers: Edu Aceves; Simón Niño; Elmer Mccall; Papo Grider Discharge Orders/Prescriptions Prescriptions: New cefdinir 300 mg capsule 300 mg PO Q12H Qty: 20 0RF metronidazole 500 mg tablet 500 mg PO TID Qty: 30 0RF Rx Instructions: Avoid alcohol while on this medication Continued gabapentin 300 mg capsule 300 mg PO TID hydrochlorothiazide 25 mg tablet 25 mg PO DAILY albuterol sulfate 2.5 mg /3 mL (0.083 %) solution for nebulization 1.25 mg continuous nebulization Q4H PRN (Reason: shortness of breath or wheezing) (DME) pen needle, diabetic [BD Ultra-Fine Rachel Pen Needle] 32 gauge x 5/32 needle See Rx Instructions .ROUTE .MEDSUPPLY Qty: 180 6RF Rx Instructions: 6 times daily albuterol sulfate 1 INHALER inhaler 1 puff INHALATION Q4H PRN (Reason: Shortness Of Breath) aspirin 81 MG tablet,delayed release (DR/EC) 81 mg PO DAILY clopidogrel 75 MG tablet 75 mg PO DAILY diltiazem HCl 180 MG capsule,extended release 24hr 180 mg PO DAILY atorvastatin 80 mg tablet 80 mg PO QHS cetirizine 10 MG tablet 10 mg PO DAILY losartan 100 MG tablet 100 mg PO DAILY cholecalciferol (vitamin D3) 1,000 UNIT tablet 2,000 unit PO DAILY fluoxetine 20 mg capsule 20 mg PO DAILY ropinirole 1 mg tablet 1 - 2 mg PO QPM Humulin R U-500 (Conc) Kwikpen 500 unit/mL (3 mL) insulin pen 50 unit subcut TIDCM melatonin 3 mg tablet 3 mg PO QHS Humulin R U-500 (Conc) Kwikpen 500 unit/mL (3 mL) insulin pen 70 unit subcut 0800 (DME) FreeStyle Cyndie 2 Sensor Kit See Rx Instructions .Route Qty: 2 5RF Rx Instructions: 1 sensor q 14 days Referrals / Follow Up: Rod Elena MD [Primary Care Provider] - 08/05/24 10:00 am (Bring ID and INSURANCE. ) Simón Niño DPM [Med Staff - Active Staff] - 08/14/24 12:30 pm Disposition Disposition (needs filled in before D/C Order can be placed): Home, Self Care Charges/Coding Visit Charges Inpatient E&M: 19401 Disch Hosp >30min
--- NOTE | 2024-07-28 15:31 | PHA.DC_ITS ---
Pharmacy [facility] has performed discharge medication reconciliation and counseling for this patient. 1. CEFDINIR 300MG PO BID X 10 DAYS 2. METRONIDAZOLE 500MG PO TID X 10 DAYS The patient's discharge medication list was reviewed for discrepancies and discrepancies were resolved. The patient was counseled on the following discharge medications and changes in medications for homegoing were reviewed. The Reason for Use, instructions for use, and potential side effects were reviewed for all new medications. The patient's questions regarding all of their medications were answered. The patient was able to verbally demonstrate an understanding of their discharge medications. Medications at Discharge Home Medications albuterol sulfate 90 mcg/actuation aerosol inhaler 1 puff inhalation Q4H PRN Shortness Of Breath 01/28/15 aspirin 81 mg tablet,delayed release 81 mg PO DAILY health maintenance 06/03/16 clopidogrel 75 mg tablet 75 mg PO DAILY blood thinner 09/27/17 diltiazem HCl 180 mg capsule,extended release 24 hr 180 mg PO DAILY blood pressure/heart 10/16/17 atorvastatin 80 mg tablet 80 mg PO QHS CHOLESTEROL 03/23/20 cetirizine 10 mg tablet 10 mg PO DAILY ALLERGIES 03/23/20 cholecalciferol (vitamin D3) 25 mcg (1,000 unit) tablet 2,000 unit PO DAILY SUPPLEMENT 03/23/20 losartan 100 mg tablet 100 mg PO DAILY BP 03/23/20 albuterol sulfate 2.5 mg/3 mL (0.083 %) solution for nebulization 1.25 mg continuous nebulization Q4H PRN shortness of breath or wheezing 10/25/20 gabapentin 300 mg capsule 300 mg PO TID 10/25/20 hydrochlorothiazide 25 mg tablet 25 mg PO DAILY 10/25/20 pen needle, diabetic 32 gauge x 5/32 (BD Ultra-Fine Rachel Pen Needle) #180 ea 03/11/21 fluoxetine 20 mg capsule 20 mg PO DAILY 03/15/23 flash glucose sensor (FreeStyle Cyndie 2 Sensor kit) #2 ea 07/17/23 insulin regular hum U-500 conc 500 unit/mL(3 mL) subcut pen (Humulin R U-500 (Conc) Insulin Kwikpen) 50 unit subcut TIDCM 07/22/24 insulin regular hum U-500 conc 500 unit/mL(3 mL) subcut pen (Humulin R U-500 (Conc) Insulin Kwikpen) 70 unit subcut 0800 07/22/24 melatonin 3 mg tablet 3 mg PO QHS 07/22/24 ropinirole 1 mg tablet 1 - 2 mg PO QPM RESTLESS LEG 07/22/24 cefdinir 300 mg capsule 300 mg PO Q12H #20 caps 07/28/24 metronidazole 500 mg tablet 500 mg PO TID #30 tabs 07/28/24
[2024-07-28 16:00] VITALS: BP 157/97; PULSE 60; RESP 14; TEMP 36.6; O2SAT 100
[2024-07-28] MEDS: oxyCODONE 5 MG Tablet PO (16:35)
[2024-07-28 16:57] LABS: Bedside Glucose 228 mg/dL (74-106)
--- NOTE | 2024-07-28 17:04 | PCM.PN.SRG ---
Subjective Subjective Mr. Russo is a 59-year-old diabetic male seen at bedside today for dressing changes right lower extremity. Doing well no acute events overnight. Denies constitutional symptoms. No other pedal complaints at this time. Objective Data Objective Data Vital Signs: Vital Signs Temp Pulse Resp BP Pulse Ox O2 Del Method 98.5 F 78 16 128/81 H 96 Room Air 07/28/24 14:00 07/28/24 14:00 07/28/24 14:00 07/28/24 14:00 07/28/24 14:00 07/28/24 14:00 Oxygen Delivery Method Room Air Weight: 128.5 kg Body Mass Index (BMI) 39.4 Intake & Output: Intake and Output for Last 24 Hours 07/26/24 07/27/24 07/28/24 23:59 23:59 23:59 Intake Total 1400 / 1800 2086.25 / 2086.25 913.75 / 913.75 Output Total 500 / 500 250 / 450 1100 / 1100 Balance 900 / 1300 1836.25 / 1636.25 -186.25 / -186.25 Lab / Micro Data 07/27/24 06:17 07/27/24 06:17 Labs: Laboratory Results - last 24 hr 07/27/24 16:53: POC Glucose 203 H 07/27/24 21:57: POC Glucose 143 H 07/28/24 01:00: Vancomycin Trough 19.6 H 07/28/24 06:38: POC Glucose 132 H 07/28/24 12:03: POC Glucose 206 H 07/28/24 16:25: POC Glucose 228 H Micro: Microbiology 07/24/24 16:00 Wound - Right Foot Gram Stain - Final 07/24/24 16:00 Wound - Right Foot Wound Culture - Preliminary No growth-Final to follow 07/24/24 16:00 Wound - Right Foot Gram Stain - Final 07/24/24 16:00 Wound - Right Foot Wound Culture - Final Staphylococcus aureus Streptococcus agalactiae (B) 07/24/24 16:00 Wound - Right Foot Anaerobic Culture - Preliminary 07/22/24 10:23 Blood Culture (Wb) - Anticubital Right Blood Culture - Final No growth in 5 days. 07/22/24 13:00 Wound - Right Foot Gram Stain - Final 07/22/24 13:00 Wound - Right Foot Wound Culture - Final Streptococcus agalactiae (B) Staphylococcus aureus 07/22/24 13:00 Wound - Right Foot Skin and Soft Tissue MRSA/MSSA (PCR - Final 07/22/24 11:12 Mucosa - Nose SARS-CoV-2, Influenza & RSV (PCR) - Final Rhythm Strip Rhythm Strip: Sinus Rhythm Rate: 75 Ectopy: None Physical Exam Narrative Neurovascular status is unchanged. All incision well coapted with suture to the right foot. Blanchable erythema to the right lower extremity improving. No active drainage or malodor is appreciated. Nonpitting edema appreciated right lower extremity. Skin temp great is warm to warm from proximal ankles to distal digits. No pain with calf pressure. Assessment & Plan Assessment/Plan (1) Cutaneous abscess of right foot: PLAN: Patient was examined and evaluated. All findings were discussed with the patient. All questions were answered to the patient's satisfaction. Right lower extremity was dressed with Betadine soaked gauze dry sterile dressing and single-layer Barone compression management down to the right lower extremity. Medicine: On board, medical management Infectious disease: On board, IV antibiotics vancomycin, ceftriaxone and Flagyl. Patient will be discharged on 10 days of cefdinir and Flagyl. WBC: 10.8 -> 10.3 Glu: 197 HbA1c (07/23/24): 11.4 Cx: Post Lavage: Staph aureus, strep group B Cx: Pre Lavage: No growth Cx (07/22): Strep agalactiae, S aureus Educated the patient continue strict blood sugar control. Patient is cleared to discharge from podiatry perspective. He will follow-up in private office on 08/14 for dressing change. He also will see home health care in the time that is waiting to follow-up for home dressing changes. Please reach out to Dr. Niño for any question or concerns. 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
--- NOTE | 2024-07-28 18:00 | NURSING ---
DR SCOTT REPLIED BACK W/FOLLOWING [facility] CHANGE ORDERS FOR HOME HEALTH. BETADINE SOAKED GAUZE TO PLANTAR ULCER, DRY STERILE DRESSING, SINGLE LAYER COMPRESSION. CHANGE 2-3 TIMES PER WEEK
== END 2024-07-28 18:17 | disposition home or self-care (01) | DRG 623 ==
LOC: ED 11:51 → MS3 11:55
PROVIDERS: Hospitalist; Internal Medicine; Internal Medicine Infectious Disease; Podiatrist Foot & Ankle Surgery; Admitting Provider Internal Medicine; Emergency Provider Emergency Medicine; PCP Family Medicine; Visit Provider Family Medicine
PROC: 0KBV0ZZ Excision of Right Foot Muscle, Open Approach (ICD-10-PCS; principal; 2024-07-24 14:50)
DX: E11.621 Type 2 diabetes mellitus with foot ulcer (principal); E87.20 Acidosis, unspecified; L03.115 Cellulitis of right lower limb; L97.515 Non-pressure chronic ulcer of other part of right foot with muscle involvement without evidence of necrosis; L02.611 Cutaneous abscess of right foot; E11.22 Type 2 diabetes mellitus with diabetic chronic kidney disease; B95.61 Methicillin susceptible Staphylococcus aureus infection as the cause of diseases classified elsewhere; B95.1 Streptococcus, group B, as the cause of diseases classified elsewhere; N18.30 Chronic kidney disease, stage 3 unspecified; I12.9 Hypertensive chronic kidney disease with stage 1 through stage 4 chronic kidney disease, or unspecified chronic kidney disease; G25.81 Restless legs syndrome; F32.A Depression, unspecified; J45.909 Unspecified asthma, uncomplicated; Z68.39 Body mass index [BMI] 39.0-39.9, adult; E11.39 Type 2 diabetes mellitus with other diabetic ophthalmic complication; E11.42 Type 2 diabetes mellitus with diabetic polyneuropathy; E11.65 Type 2 diabetes mellitus with hyperglycemia; I25.10 Atherosclerotic heart disease of native coronary artery without angina pectoris; E78.2 Mixed hyperlipidemia; Z79.4 Long term (current) use of insulin; K21.9 Gastro-esophageal reflux disease without esophagitis; E11.628 Type 2 diabetes mellitus with other skin complications; I25.2 Old myocardial infarction; J06.9 Acute upper respiratory infection, unspecified; M19.90 Unspecified osteoarthritis, unspecified site; Z79.02 Long term (current) use of antithrombotics/antiplatelets; E66.812 Obesity, class 2; Z82.3 Family history of stroke; Z86.73 Personal history of transient ischemic attack (TIA), and cerebral infarction without residual deficits; Z79.82 Long term (current) use of aspirin; Z79.2 Long term (current) use of antibiotics; Z79.899 Other long term (current) drug therapy; Z83.3 Family history of diabetes mellitus; Z90.49 Acquired absence of other specified parts of digestive tract; Z79.51 Long term (current) use of inhaled steroids
CPT/HCPCS: 36415; 71045; 73630; 73718; 80048; 80053; 80202; 81001; 82962; 83036; 83605; 83735; 84100; 85025; 85652; 86140; 87040; 87070; 87075; 87077; 87186; 87205; 87631; 87640; 93005; 97116; 97162; 97166; 97530; 97535; 99284; J2185; A4216; J0696; J2405

== ENCOUNTER 2025-04-28 18:56 | Emergency (ER) | payer OTHER, MEDICARE, SELFPAY ==
[2025-04-28 18:57] VITALS: BP 161/74; PULSE 73; RESP 16; TEMP 36.3; O2SAT 99; BMI 45.7
[2025-04-28 19:56] VITALS: BP 139/77; PULSE 66; RESP 18; O2SAT 97
[2025-04-28 20:00] VITALS: BP 139/71; PULSE 66; RESP 18; O2SAT 97
[2025-04-28] MEDS: Famotidine 200 MG/20 ML MDV 20 MG in 0.9% Normal Saline (Pres. free 8 ML 300 MG IV (20:09)
--- NOTE | 2025-04-28 20:57 | EX.ED.DYSGE1 ---
HPI History of Present Illness Chief Complaint: Allergic Reaction [facility] Medical History (Updated 04/28/25 @ 22:[address] Dustin Magallanes, DO) Loose, teeth Restless legs High cholesterol Myocardial infarct Stroke/cerebrovascular accident Myopia of both eyes Bilateral cataracts Mixed hyperlipidemia Back pain Limb weakness Difficulty balancing Bruises easily Knee pain Diarrhea Chest pain Migraines Hay fever Fatigue SOB (shortness of breath) Weight loss Vision problem Stomach ulcer Stroke Pneumonia Neuropathy Kidney stones High cholesterol HTN (hypertension) Heart disease Hearing problem Frequent headaches Gout GI problem Gallstones Diabetes type 2, uncontrolled Back problem Asthma Arthritis Anxiety and depression Seasonal allergies Home Medications ?Medication ?Instructions ?Recorded ?Last Taken ?Type albuterol sulfate 90 mcg/actuation 1 puff inhalation Q4H PRN 01/28/15 Unknown History aerosol inhaler Shortness Of Breath aspirin 81 mg tablet,delayed 81 mg PO DAILY health maintenance 06/03/16 07/20/24 History release clopidogrel 75 mg tablet 75 mg PO DAILY blood thinner 09/27/17 07/20/24 History diltiazem HCl 180 mg 180 mg PO DAILY blood 10/16/17 07/20/24 History capsule,extended release 24 hr pressure/heart atorvastatin 80 mg tablet 80 mg PO QHS CHOLESTEROL 03/23/20 07/20/24 History cetirizine 10 mg tablet 10 mg PO DAILY ALLERGIES 03/23/20 07/20/24 History cholecalciferol (vitamin D3) 25 2,000 unit PO DAILY SUPPLEMENT 03/23/20 07/20/24 History mcg (1,000 unit) tablet losartan 100 mg tablet 100 mg PO DAILY BP 03/23/20 07/20/24 History albuterol sulfate 2.5 mg/3 mL 1.25 mg continuous nebulization 10/25/20 Unknown History (0.083 %) solution for nebulization Q4H PRN shortness of breath or wheezing gabapentin 300 mg capsule 300 mg PO TID 10/25/20 07/20/24 History hydrochlorothiazide 25 mg tablet 25 mg PO DAILY 10/25/20 07/20/24 History pen needle, diabetic 32 gauge x #180 ea 03/11/21 Unknown Rx (BD Ultra-Fine Rachel Pen Needle) fluoxetine 20 mg capsule 20 mg PO DAILY 03/15/23 07/20/24 History melatonin 3 mg tablet 3 mg PO QHS 12/03/24 Unknown History ropinirole 1 mg tablet 1 - 2 mg PO QPM RESTLESS LEG 07/22/24 07/20/24 History duloxetine 30 mg capsule,delayed 30 mg PO QDAY 08/27/24 Unknown History release flash glucose sensor (FreeStyle #6 ea 08/27/24 Unknown Rx Cyndie 2 Sensor kit) blood-glucose sensor (FreeStyle #2 ea 02/04/25 Unknown Rx Cyndie 2 Plus Sensor device) insulin pump cart,auto,BT,G6/L #10 ea 02/04/25 Unknown Rx (Omnipod 5 (G6/Cyndie 2 Plus) subcutaneous cartridge) insulin pump cartridge,auto #1 ea 02/04/25 Unknown Rx dose,BT,G6/L2 with controller subcutaneous (Omnipod 5 Intro Kit(G6/Vhlnv9Dyky) subcutaneous cartridge) insulin regular hum U-500 conc 500 80 unit (0.16 mL) subcut TID #43.2 02/04/25 Unknown Rx unit/mL(3 mL) subcut pen (Humulin mL R U-500 (Conc) Insulin Kwikpen) epinephrine 0.3 mg/0.3 mL 0.3 mg (0.3 mL) IM Q10M PRN PRN 04/28/25 Unknown Rx injection, auto-injector anaphylaxis #2 ea prednisone 50 mg tablet 50 mg PO DAILY 5 days #5 tabs 04/28/25 Unknown Rx Allergy/AdvReac Type Severity Reaction Status Date / Time bee venom protein (honey Allergy Severe Angioedema Verified 04/28/25 19:03 bee) (bee sting) levofloxacin (From Levaquin) Allergy rash,swelli Verified 04/28/25 19:03 ng Penicillins Allergy Rash Verified 04/28/25 19:03 Family History Father Asthma Heart disease Hypertension Mother Bleeding disorder Hypertension CVA (cerebral vascular accident) Brother Diabetes Heart disease Hypertension High cholesterol Surgical History H/O cardiac catheterization History of ERCP Hx of cholecystectomy History of tonsillectomy Social History Smoking Status: Never smoker second hand exposure: No alcohol intake: never substance use type: does not use EXAM Physical Exam Const Vital Signs: 04/28/25 18:57 04/28/25 19:56 04/28/25 20:00 Temperature 97.4 F L Temperature Source Temporal Pulse Rate 73 66 66 Respiratory Rate 16 18 18 Blood Pressure 161/74 H 139/77 H 139/71 H Blood Pressure Mean 103 97 93 Pulse Ox 99 97 97 Oxygen Delivery Method Room Air Room Air Room Air 04/28/25 21:00 04/28/25 22:00 04/28/25 22:26 Temperature 98 F Temperature Source Pulse Rate 73 73 73 Respiratory Rate 15 14 14 Blood Pressure 157/81 H 160/80 H 160/80 H Blood Pressure Mean 106 106 106 Pulse Ox 98 99 99 Oxygen Delivery Method Room Air Room Air [facility] MDM MDM Narrative Medical decision making narrative: HISTORY OF PRESENT ILLNESS: Chief complaint: Allergic reaction 60-year-old male presents concern for allergic reaction after bee sting. Patient notes he initially had some throat tightness and rash that he states resolved when he was given epinephrine by squad. Currently only symptom is pain at hymenoptera sting site. Per patient also received Benadryl. REVIEW OF SYSTEMS: Pertinent positives: Bee sting pain Pertinent negatives: chest pain, rash PHYSICAL EXAM: Nursing triage notes reviewed, Vital signs reviewed Constitutional: please see mdm HENT: MMM, uvula midline, posterior oropharynx clear Eyes: Pupils equal round and reactive to light, Extraocular muscles intact Neck: No stridor, no JVD, full neck ROM Lungs: Clear to auscultation, No wheezing or rales. No increased work of breathing, no conversational dyspnea, no accessory muscle use, no nasal flaring. No respiratory distress noted Heart: Regular rate and rhythm, No murmurs, No rubs and No gallops, 2+ distal pulses (radial, femoral, posterior tibial) in all extremities Abdomen: Soft, there is no tenderness, rigidity, rebound or guarding, no obvious peritoneal signs, no palpable pulsatile abdominal masses, no auscultated abdominal bruit : No CVAT Extremities: No edema Neuro: No new focal neurological deficits, cranial nerves II through XII intact, 5/5 strength in all present extremities. Intact sensation to light touch in all present extremities, 2+ reflexes bilateral patella tendons. Skin: No rash or lesions noted, no urticaria noted MEDICAL DECISION MAKING: Chief Complaint: please see HPI History obtained from others: Family, EMS MDM Narrative: The patient was initially hemodynamically stable, afebrile and nontoxic appearing exam with stigmata of anaphylaxis or anaphylactic shock. I considered the following differential diagnosis: Allergy, anaphylaxis Observe the patient for total of 4 hours from time of initial reaction to ascertain if the patient would have any rebound symptoms. No rebound symptoms were noted in the ED. He was also treated with prednisone and Pepcid to complete histamine blockade. He is appropriate for discharge with prescription for prednisone. He is given instructions to take Benadryl/Zyrtec and Pepcid for histamine blockade at home as well as given a prescription for epinephrine pen The patient and/or family, caregivers express understanding. The patient and/or family, caregivers agrees with the plan. Shared decision making: I will have a discussion with the patient and or visitors regarding risk/benefits of further testing or admission. They will be made aware of of the risk/benefits inherent in this decision they will be given the opportunity to voice understanding. Total critical care time today provided was at least 0 minutes. This excludes separately billable procedures. Critical care time (if documented) is secondary to the patient having high probability of clinically significant/life threatening deterioration in the patient's condition which required my urgent intervention. Impression: 1. Allergic reaction 2. Hymenoptera sting Dispo: Discharge home This note was generated with [employer] dictation software. It may contain incorrect words, spelling, and punctuation that were not noted in review of the chart prior to signing. Lab Data Labs: Laboratory Results - last 24 hr 04/28/25 19:45 POC Glucose 82 Discharge Plan Triage Chief Complaint: Allergic Reaction ED Provider: Dustin Magallanes Dx/Rx/DC Orders Clinical Impression: Allergic reaction Instructions: ED BEE STING General Allergic Rxn Prescriptions: New epinephrine 0.3 mg/0.3 mL auto-injector 0.3 mg IM Q10M PRN PRN (Reason: anaphylaxis) Qty: 2 0RF Rx Instructions: for 2 doses prednisone 50 mg tablet 50 mg PO DAILY 5 Days Qty: 5 0RF No Action gabapentin 300 mg capsule 300 mg PO TID hydrochlorothiazide 25 mg tablet 25 mg PO DAILY albuterol sulfate 2.5 mg /3 mL (0.083 %) solution for nebulization 1.25 mg continuous nebulization Q4H PRN (Reason: shortness of breath or wheezing) (DME) pen needle, diabetic [BD Ultra-Fine Rachel Pen Needle] 32 gauge x 5/32 needle See Rx Instructions .ROUTE .MEDSUPPLY Qty: 180 6RF Rx Instructions: 6 times daily duloxetine 30 mg capsule,delayed release(DR/EC) 30 mg PO QDAY Humulin R U-500 (Conc) Kwikpen 500 unit/mL (3 mL) insulin pen 80 unit subcut TID Qty: 43.2 1RF (DME) Omnipod 5 Intro(G6/Fappa4Gdre) Cartridge See Rx Instructions .Route Qty: 1 0RF Rx Instructions: As directed (DME) Omnipod 5 (G6/Cyndie 2 Plus) Cartridge See Rx Instructions .Route Qty: 10 5RF Rx Instructions: 1 pod q 72 hours (DME) FreeStyle Cyndie 2 Plus Sensor Device See Rx Instructions .Route Qty: 2 5RF Rx Instructions: 1 sensor q 15 days albuterol sulfate 1 INHALER inhaler 1 puff INHALATION Q4H PRN (Reason: Shortness Of Breath) aspirin 81 MG tablet,delayed release (DR/EC) 81 mg PO DAILY clopidogrel 75 MG tablet 75 mg PO DAILY diltiazem HCl 180 MG capsule,extended release 24hr 180 mg PO DAILY atorvastatin 80 mg tablet 80 mg PO QHS cetirizine 10 MG tablet 10 mg PO DAILY losartan 100 MG tablet 100 mg PO DAILY cholecalciferol (vitamin D3) 1,000 UNIT tablet 2,000 unit PO DAILY fluoxetine 20 mg capsule 20 mg PO DAILY ropinirole 1 mg tablet 1 - 2 mg PO QPM melatonin 3 mg tablet 3 mg PO QHS (DME) FreeStyle Cyndie 2 Sensor Kit See Rx Instructions .Route Qty: 6 1RF Rx Instructions: 1 sensor q 14 days Primary Care Provider: Rod Elena Referrals: Rod Elena MD [Primary Care Provider] - Activity Restrictions/Additional Instructions: Thank you for trusting us with your care today! Please take prednisone for the next 5 days. Please take Pepcid and Zyrtec daily as well for additional antihistamine control. You have been prescribed EpiPen. Please use if you get stung by bees Please return to the emergency department if your symptoms change or worsen. Please follow with your primary care physician for further outpatient evaluation and management. Print Language: Citizen Of [place] Disposition Disposition: Home, Self Care Discharge Date/Time: 04/28/25 22:27
[2025-04-28 21:00] VITALS: BP 157/81; PULSE 73; RESP 15; O2SAT 98
[2025-04-28 22:00] VITALS: BP 160/80; PULSE 73; RESP 14; O2SAT 99
[2025-04-28 22:26] VITALS: BP 160/80; PULSE 73; RESP 14; TEMP 36.6; O2SAT 99
== END 2025-04-28 22:27 | disposition home or self-care (01) ==
PROVIDERS: Emergency Provider Emergency Medicine; PCP Family Medicine; Visit Provider Emergency Medicine
DX: T63.891A Toxic effect of contact with other venomous animals, accidental (unintentional), initial encounter (principal); E11.40 Type 2 diabetes mellitus with diabetic neuropathy, unspecified; I10 Essential (primary) hypertension; E78.2 Mixed hyperlipidemia; Z90.49 Acquired absence of other specified parts of digestive tract; Z79.82 Long term (current) use of aspirin; Z96.41 Presence of insulin pump (external) (internal); I25.2 Old myocardial infarction; Z86.73 Personal history of transient ischemic attack (TIA), and cerebral infarction without residual deficits
CPT/HCPCS: 82962; 96365; 96366; 99285; A4216